=== PATIENT | male | born 1960 | race Caucasian/White ===

== ENCOUNTER 2022-10-18 09:55 | Outpatient (CLI) | payer OTHER, SELFPAY ==
--- NOTE | ~2022-10-18 | CT_ITS ---
EXAMINATION: CT lung screening DATE: 10/18/2022 10:22 INDICATION: NICOTINE DEPENDENCE TECHNIQUE: Computed tomography (CT) of the chest was performed without intravenous contrast. Addition al 3D reconstructions utilizing coronal maximum intensity projection (MIP) were performed. Automated exposure control and iterative reconstruction technique were employed. The dose-length product was 20 5.77 mGy-cm. COMPARISON: None FINDINGS: Mild discoid atelectasis at the lingula. 1 mm subpleural nodule in the medial right middle lobe. Coup le 1-2 mm calcified nodules in the bilateral upper lobes consistent with old granulomatous disease. N o other larger cyst is pulmonary nodules, pneumonia, pulmonary edema or other pulmonary infiltrates. No pleural effusion. Heart size is normal. Borderline ascending thoracic aortic aneurysm measuring up to 4.0 cm. No pathologically enlarged thoracic lymphadenopathy. Minimal bilateral gynecomastia. Mild diffuse hepatic steatosis. Mild thoracic spondylosis with multiple endplate osteophytes. IMPRESSION: 1. Lung-RADS category 2: Benign appearance or behavior. Continue annual screening with noncontrast lo w-dose chest CT in 12 months. 2. Borderline ascending thoracic aortic aneurysm measuring up to 4.0 cm. Reviewed, dictated and finalized at location B. EXAMINER IMPRESSION: 1. Lung-RADS category 2: Benign appearance or behavior. Continue annual screeni ng with noncontrast low-dose chest CT in 12 months. 2. Borderline ascending thoracic aortic aneurysm measuring up to 4.0 cm.
== END 2022-10-18 09:56 | disposition home or self-care (01) ==
PROVIDERS: PCP Registered Nurse; Visit Provider Registered Nurse
DX: F17.211 Nicotine dependence, cigarettes, in remission (principal)
CPT/HCPCS: 71271

== ENCOUNTER 2023-08-07 14:22 | Outpatient (CLI) | payer MEDICARE, OTHER, SELFPAY ==
--- NOTE | ~2023-08-07 | US_ITS ---
EXAMINATION: US scrotum doppler DATE: 08/07/2023 15:10 INDICATION: Scrotal mass TECHNIQUE: Testicular sonogram utilizing grayscale and Doppler COMPARISON: None. FINDINGS: The right testis measures 5.0 x 3.3 x 1.9 cm. The left testis measures 5.4 x 3.3 x 2 point cm. There is tubular ectasia of the right rete testis. Otherwise symmetric normal grayscale appearance to both testes. There is normal vascular flow to both testes. The right epididymis is normal definitively vis ualized and per patient report is surgically absent. The left epididymis is normal with normal vascul ar flow. There is no varicocele or hydrocele. There is approximately 2 mm hypoechoic lesion in the sarmiento bcutaneous tissues overlying the left testis is suggestion of a tiny tract extending to the skin surf pam suggest an epidermoid cyst/sebaceous cyst. IMPRESSION: 1. 2 mm hypoechoic nodule in the superficial subcutaneous tissues suggestive of a tiny tract extendi ng to the skin surface suggesting epidermoid/sebaceous cyst. No other abnormal masses or fluid collec tions identified. 2. Nonvisualized right epididymis, surgically absent per patient report. 3. Tubular ectasia of the right-sided rete testis. Otherwise normal bilateral testis. Reviewed, dictated and finalized at location A. HOLOGICAL STRESS EVALUATOR IMPRESSION: 1. 2 mm hypoechoic nodule in the superficial subcutaneous tissues suggestive o f a tiny tract extending to the skin surface suggesting epidermoid/sebaceous cy st. No other abnormal masses or fluid collections identified. 2. Nonvisualized right epididymis, surgically absent per patient report. 3. Tubular ectasia of the right-sided rete testis. Otherwise normal bilateral t estis.
== END 2023-08-07 14:23 | disposition home or self-care (01) ==
PROVIDERS: PCP Registered Nurse; Visit Provider Registered Nurse
DX: N50.89 Other specified disorders of the male genital organs (principal)
CPT/HCPCS: 76870; 93976

== ENCOUNTER 2023-08-11 15:24 | Outpatient (CLI) | payer MEDICARE, OTHER, SELFPAY ==
--- NOTE | ~2023-08-11 | XR_ITS ---
EXAMINATION: XR ankle LT min 3V DATE: 08/11/2023 15:40 INDICATION: Left ankle pain after fall TECHNIQUE: Anteroposterior, lateral, mortise, and additional oblique view of the ankle were obtained. COMPARISON: None. FINDINGS: There is diffuse soft tissue swelling of ankle. Bone alignment is normal. There is no fract ure. A plantar calcaneal enthesophyte is noted. IMPRESSION: 1. Ankle soft tissue swelling without acute osseous abnormality. Reviewed, dictated and finalized at location F. WORKER HEAD
== END 2023-08-11 15:25 | disposition home or self-care (01) ==
PROVIDERS: PCP Registered Nurse; Visit Provider Nurse Practitioner Family
DX: M25.572 Pain in left ankle and joints of left foot (principal)
CPT/HCPCS: 73610

== ENCOUNTER 2023-11-18 15:11 | Outpatient (CLI) | payer MEDICARE, OTHER, SELFPAY ==
--- NOTE | ~2023-11-18 | CT_ITS ---
EXAMINATION: CTA chest DATE: 11/18/2023 15:36 INDICATION: Aneurysm of ascending aorta without rupture. TECHNIQUE: Computed tomographic angiography (CTA) of the chest was performed with 100 mL Omnipaque-35 0 intravenous contrast. Automated exposure control and iterative reconstruction technique were employ ed. The dose-length product was 668.67 mGy-cm. Maximum intensity projection 3D-reconstructions of the aorta and other arteries were constructed by the technologist on a separate workstation. COMPARISON: Chest CT 10/18/2022 FINDINGS: There is mild emphysema. The lungs demonstrate mild atelectasis. No pleural effusion. The h eart size is normal. No pericardial effusion. The aorta measures 4.2 cm at the sinuses of Valsalva, 3 .4 cm at the sinotubular junction, 4.1 cm at the mid ascending aorta, 2.9 cm in the aortic isthmus, a nd 2.9 cm in the mid descending aorta. There is mild aortic atherosclerosis. There are cysts in left kidney measuring up to 6 mm. There is mild bilateral gynecomastia. There is moderate cervical spondyl osis and mild thoracic spondylosis. IMPRESSION: 1. Ectasia of ascending aorta measuring up to 4.2 cm. Reviewed, dictated and finalized at location A. ERNMAKER APPRENTICE METAL
[2023-11-18 15:28] LABS: Estimated Glomerular Filt Rate 51
== END 2023-11-18 15:12 | disposition home or self-care (01) ==
PROVIDERS: PCP Registered Nurse
DX: I71.21 Aneurysm of the ascending aorta, without rupture (principal)
CPT/HCPCS: 71275; Q9967

== ENCOUNTER 2023-12-17 12:02 | Day surgery (SDC) | payer MEDICARE, OTHER, SELFPAY ==
[2023-12-17] VITALS (8 sets, daily range): BP systolic 115–137; BP diastolic 67–94; PULSE 62–85; RESP 12–20; TEMP 36.4–36.8; O2SAT 98–100
--- NOTE | ~2023-12-17 | XR_ITS ---
EXAMINATION: XR hand LT min 3V DATE: 12/17/2023 12:30 INDICATION: Left hand laceration. TECHNIQUE: 3 views of left wrist were obtained. COMPARISON: None. FINDINGS: There is a comminuted fracture of fourth distal phalanx. The main distal fracture fragment demonstrates 2 mm dorsal displacement and 3 mm distraction. There is mild osteoarthritis of first car pometacarpal joint and some of the interphalangeal joints. IMPRESSION: 1. Comminuted fracture of fourth distal phalanx. Reviewed, dictated and finalized at location A.
--- NOTE | ~2023-12-17 | XR_ITS ---
EXAMINATION: XR surgery orthopedic DATE: 12/17/2023 16:20 INDICATION: Fracture of the left fourth distal phalanx TECHNIQUE: 3 fluoroscopic images of the left fourth digit were obtained during procedure performed by Dr. Borja. Radiologist was not present for the imaging or procedure. The amount of fluoroscopy time used during this procedure was 0.3 minutes. COMPARISON: 12/17/2023 FINDINGS: Initial image redemonstrates a comminuted fracture of the mid to distal aspect of the left fourth dis marlon phalanx. The previously seen displacement has been reduced with the fracture now in near-anatomic alignment. Subsequent images demonstrate percutaneous pin fixation extending across segmental fragme nt across the main proximal segment and into the head of the middle phalanx. IMPRESSION: 1. Fluoroscopy utilized during reduction and percutaneous pin fixation of a comminuted fractures of t he left fourth distal phalanx. Reviewed, dictated and finalized at location A. IMPRESSION: 1. Fluoroscopy utilized during reduction and percutaneous pin fixation of a com minuted fractures of the left fourth distal phalanx.
--- NOTE | 2023-12-17 12:16 | ED.GENADULT ---
HPI - General Adult General Chief complaint: Wound/Laceration Stated complaint: finger lac Time Seen by Provider: 12/17/23 12:07 History of Present Illness HPI narrative: 63-year-old male present to the ED for evaluation after having an injury to his left hand. Patient was working at a table saw prior to arrival and did cut the palmar aspects of his 2nd 3rd and 4th distal fingers. Patient has almost a complete amputation of the distal aspect of the 4th finger. Patient's tetanus is up-to-date. Plastic surgery was consulted. Related Data Home Medications Medication Instructions Recorded Confirmed bupropion HCl 150 mg 24 hr tablet, 150 mg PO DAILY 12/17/23 12/17/23 extended release dexmethylphenidate 15 mg 15 mg PO DAILY 12/17/23 12/17/23 capsule,extended release [id number] fenofibrate micronized 134 mg See Rx Instructions .Route .COMPLEX 12/17/23 12/17/23 capsule quetiapine 100 mg tablet 100 mg PO DAILY 12/17/23 12/17/23 vilazodone 40 mg tablet 40 mg PO DAILY 12/17/23 12/17/23 Allergies Allergy/AdvReac Type Severity Reaction Status Date / Time No Known Allergies Allergy Verified 12/17/23 12:07 Review of Systems Review of Systems: All systems reviewed & are unremarkable except as noted in HPI and below Exam Narrative: APPEARANCE: Well appearing, no pain, no distress, well-nourished. HEAD: normocephalic, atraumatic. EYES: PERRLA/EOMI, conjunctivae clear. NOSE: Normal no drainage EARS:TMS clear with good light reflex. THROAT: Pharynx clear, no exudate. NECK: Supple. No adenopathy, no masses. RESPIRATORY: Airway patent, respirations nonlabored. Clear to auscultation bilaterally, no rales, rhonchi, wheezing. CARDIOVASCULAR: Regular rate and rhythm without murmurs rubs or gallops. ABDOMINAL: Soft, nontender, nondistended, normal bowel sounds MUSCULOSKELETAL: Lacerations to distal 2nd 3rd and 4th fingers with almost complete amputation of the distal aspect of the 4th finger NEURO: Alert. Cranial nerves II through XII intact. Grossly intact SKIN: Warm, dry. Normal Color Course Course Emergency Course: Plastic surgeon was consulted and patient went to the operating room Vital Signs Vital signs: Vital Signs Temperature 98.2 F 12/17/23 12:11 Pulse Rate 85 12/17/23 12:11 Respiratory Rate 15 12/17/23 12:11 Blood Pressure 115/74 12/17/23 12:11 Pulse Oximetry 98 12/17/23 12:11 Temperature 98.2 F 12/17/23 12:11 Pulse Rate 71 12/17/23 13:26 Respiratory Rate 16 12/17/23 13:26 Blood Pressure 118/72 12/17/23 13:26 Pulse Oximetry 99 12/17/23 13:26 Medical Decision Making MDM Narrative Medical decision making narrative: 63-year-old male presenting to the ED for evaluation injury to his left hand. Patient does have lacerations to 2nd and 3rd fingers and a partial avulsion of the fingertip on his 4th finger of his left hand. Plastic surgery was consulted. Patient will be taken to the OR for cleanout repair and pinning of the affected finger. Patient family were updated on plan for treatment. Vital Signs Vital Signs: Vital Signs Temperature 98.2 F 12/17/23 12:11 Pulse Rate 85 12/17/23 12:11 Respiratory Rate 15 12/17/23 12:11 Blood Pressure 115/74 12/17/23 12:11 Pulse Oximetry 98 12/17/23 12:11 Temperature 98.2 F 12/17/23 12:11 Pulse Rate 71 12/17/23 13:26 Respiratory Rate 16 12/17/23 13:26 Blood Pressure 118/72 12/17/23 13:26 Pulse Oximetry 99 12/17/23 13:26 Lab Data 12/17/23 12:16 12/17/23 12:16 Labs: Lab Results 12/17/23 Range/Units 12:16 WBC 7.5 (4.5-10.0) K/mm3 RBC 5.39 (4.6-6.20) M/mm3 Hgb 15.9 (14.0-18.0) g/dL Hct 47.6 (42.0-52.0) % MCV 88.3 (80-100) fl MCH 29.5 (26-34) pg MCHC 33.4 (32-36) g/dl RDW 13.1 (11.5-14.5) % Plt Count 343 (150-375) k/mm3 MPV 10.3 (7.4-10.4) fl Immature Gran % (Auto) 0.4 (0-0.5) % Neut % (Auto) 54.
[2023-12-17 12:30] LABS: Basophils Absolute Auto 0.1 K/mm3 (0.0-0.1); Basophils Percent Auto 0.7 % (0.2-1.2); Eosinophils Absolute Auto 0.1 K/mm3 (0-0.3); Eosinophils Percent Auto 1.3 % (0-4.4); Hematocrit 47.6 % (42.0-52.0); Hemoglobin 15.9 g/dL (14.0-18.0); Immature Granulocyte Absolute 0.03 K/mm3 (0.00-0.031); Immature Granulocyte Percent A 0.4 % (0-0.5); Lymphocytes Absolute Auto 2.72 K/mm3 (0.9-3.2); Lymphocytes Percent Auto 36.3 % (18.3-44.2); Mean Corpuscular HGB Conc 33.4 g/dl (32-36); Mean Corpuscular Hemoglobin 29.5 pg (26-34); Mean Corpuscular Volume 88.3 fl (80-100); Mean Platelet Volume 10.3 fl (7.4-10.4); Monocytes Absolute Auto 0.6 K/mm3 (0.1-0.6); Monocytes Percent Auto 7.3 % (2.6-8.5); Neutrophils Absolute Auto 4.1 K/mm3 (1.3-6.7); Platelet Count Result 343 k/mm3 (150-375); Red Blood Count 5.39 M/mm3 (4.6-6.20); Red Cell Distribution Width 13.1 % (11.5-14.5); White Blood Count 7.5 K/mm3 (4.5-10.0)
[2023-12-17 12:35] LABS: INR 0.9; Prothrombin Time 12.3 Seconds (11.1-14.7)
[2023-12-17 12:36] LABS: Alanine Aminotransferase 32 U/L (6-50); Alkaline Phosphatase 58 U/L (38-126); Anion Gap 9 mmol/L (4-12); Aspartate Amino Transferase 39 U/L (17-59); Bilirubin,Total 0.8 mg/dL (0.2-1.3); Blood Urea Nitrogen 21 mg/dL (9-20); Calcium 10.3 mg/dL (8.4-10.2); Carbon Dioxide 26 mmol/L (22-30); Chloride 104 mmol/L (98-107); Estimated CRCL calculation 52 ml/min; Estimated Glomerular Filt Rate 55; Glucose 115 mg/dL (65-110); Partial Thromboplastin Time 26.4 Seconds (22.3-36.8); Potassium 3.9 mmol/L (3.4-5.0); Sodium 139 mmol/L (137-145)
--- NOTE | 2023-12-17 12:59 | WPDCN ---
Assessment and Plan Assessment and plan (1) Fracture of distal phalanx of left ring finger: Qualifiers: Encounter type: initial encounter Fracture type: open Fracture alignment: displaced Qualified Code(s): S62.635B - Displaced fracture of distal phalanx of left ring finger, initial encounter for open fracture Code(s): S62.635A - Displaced fracture of distal phalanx of left ring finger, initial encounter for closed fracture Status: Acute Plan 63yo male with left index, middle and ring finger laceration with near complete amputaiton left ring finger distal phalanx. xray images revwied and agree with report discussed impression and Dx and recommendation for operative intervention. discussed surgical washoult, closure, pinning distal phalanx fracture and possible nailbed repair, post-op expectations and risks. Reviewed procedure, post-op expectations and risks including but not limited to bleeding, infection, injury to tendon/nerve/vessel, decreased hand function, stiffness, RSD, no change or worsening of symptoms. Plan: 1) will go to OR today for washout closure and pinning. HPI Data of Consult Date/Time: 12/17/23 12:59 Requesting Physician: Tamera Pickard RN Primary Care Provider: Morelia Scott, COSTING ANALYST Consult Narrative Narrative: Yassine Vee is a 63 year old male who presented to the ER with table saw injury lacerations to left index, middle and ring finger. Given extent of injury, plastics consulted for further eval and mgmt no other concerns Review of Systems Review of Systems: All systems reviewed & are unremarkable except as noted in HPI and below Meds Home Medications and Allergies Allergies Allergy/AdvReac Type Severity Reaction Status Date / Time No Known Allergies Allergy Verified 12/17/23 12:07 Vital Signs Vital Signs - 24 hr 12/17/23 12:11 Temperature 36.8 C Pulse Rate 85 Respiratory Rate 15 Blood Pressure 115/74 Pulse Oximetry 98 Exam Narrative: Gen: laceration to distal phalanx area of left index, midle, ring fingers. ROM: fds/fdp/edc appear intact though limited from pain Vascular: Warm and well perfused with >2sec cap refull to ring finger Sensation: Intact to light touch to all tips except index and ring finger. Results Labs 12/17/23 12:16 12/17/23 12:16 Labs: Short CBC 12/17/23 Range/Units 12:16 WBC 7.5 (4.5-10.0) K/mm3 Hgb 15.9 (14.0-18.0) g/dL Hct 47.6 (42.0-52.0) % Plt Count 343 (150-375) k/mm3 BMP 12/17/23 12:16 Sodium 139 Potassium 3.9 Chloride 104 Carbon Dioxide 26 BUN 21 H Creatinine 1.30 Glucose 115 H Calcium 10.3 H Liver Function 12/17/23 Range/Units 12:16 Total Bilirubin 0.8 (0.2-1.3) mg/dL AST 39 (17-59) U/L ALT 32 (6-50) U/L Alkaline Phosphatase 58 (38-126) U/L Albumin 5.0 (3.5-5.1) g/dL AMG Consult Billing Inpatient Consult Inpatient Consults: [id number] Consult Moderate
[2023-12-17] MEDS: HYDROmorphone HCL INJ (*CRX) 1 MG/ML SYR 0.5 MG IV PUSH ×2 (13:02→14:30)
[2023-12-17] MEDS: CEFEPIME 2 GM/NS 50 ML 2 GM/50 ML BAG IVPB (13:03)
--- NOTE | 2023-12-17 15:13 | WPDHPUPDATE1 ---
History and Physical Update Update Date/Time: 12/17/23 15:13 Patient seen and examined in pre-operative holding area. No interval change in medical history or symptoms. Patient recalls previous discussion of benefits and alternatives to procedure. Continues to desire to proceed with left index, middle and ring finger exploration, debridement and closure with left ring finger distal phalanx pinning and possible nailbed repair. Reviewed procedure, post-op expectations and risks including but not limited to bleeding, infection, injury to tendon/nerve/vessel, decreased hand function, stiffness, RSD, no change or worsening of symptoms, malunion, nonunion. I discussed the possible use of assistants and their participation in the case. Patient stated understanding and signed the consent form wishing to proceed.
--- NOTE | 2023-12-17 15:27 | WPDANESEPPF ---
Anes - Initial Pre Proc Eval Procedure: Operation Date: 12/17/23 15:30 Proposed Procedures p Incision and Drainage with Washout Left Index, Middle and Ring Fingers, Open Reduction Internal Fixation Left Ring Finger - Addy Borja MD Date/Time: 12/17/23 15:27 Surgeon: Tamera Pickard RN Pre Op Diagnosis: finger lac Patient Data Age: 63 Gender: M Height: 1.78 m Weight: 93.2 kg Last Vital Signs Temp 36.8 C 12/17/23 12:11 Pulse 71 12/17/23 13:26 Resp 16 12/17/23 13:26 BP 118/72 12/17/23 13:26 Pulse Ox 99 12/17/23 13:26 Allergies Allergy/AdvReac Type Severity Reaction Status Date / Time No Known Allergies Allergy Verified 12/17/23 12:07 Home Medications Medication Instructions Recorded Confirmed Type bupropion HCl 150 mg 24 hr tablet, 150 mg PO DAILY 12/17/23 12/17/23 History extended release dexmethylphenidate 15 mg 15 mg PO DAILY 12/17/23 12/17/23 History capsule,extended release [id number] fenofibrate micronized 134 mg See Rx Instructions .Route .COMPLEX 12/17/23 12/17/23 History capsule quetiapine 100 mg tablet 100 mg PO DAILY 12/17/23 12/17/23 History vilazodone 40 mg tablet 40 mg PO DAILY 12/17/23 12/17/23 History Laboratory Tests 12/17/23 12:16 WBC 7.5 K/mm3 (4.5-10.0) RBC 5.39 M/mm3 (4.6-6.20) Hgb 15.9 g/dL (14.0-18.0) Hct 47.6 % (42.0-52.0) MCV 88.3 fl (80-100) MCH 29.5 pg (26-34) MCHC 33.4 g/dl (32-36) RDW 13.1 % (11.5-14.5) Plt Count 343 k/mm3 (150-375) MPV 10.3 fl (7.4-10.4) Immature Gran % (Auto) 0.4 % (0-0.5) Neut % (Auto) 54.0 % (45.5-73.1) Lymph % (Auto) 36.3 % (18.3-44.2) [place] % (Auto) 7.3 % (2.6-8.5) Eos % (Auto) 1.3 % (0-4.4) Baso % (Auto) 0.7 % (0.2-1.2) Lymph # (Auto) 2.72 K/mm3 (0.9-3.2) [place] # (Auto) 0.6 K/mm3 (0.1-0.6) Eos # (Auto) 0.1 K/mm3 (0-0.3) Baso # (Auto) 0.1 K/mm3 (0.0-0.1) Abs Immat Gran (auto) 0.03 K/mm3 (0.00-0.031) Absolute Neuts (auto) 4.1 K/mm3 (1.3-6.7) Absolute Nucleated RBC 0.000 K/mm3 (0.0-0.012) Nucleated RBC % 0.0 % (0.0-0.2) PT 12.3 Seconds (11.1-14.7) INR 0.9 APTT 26.4 Seconds (22.3-36.8) Sodium 139 mmol/L (137-145) Potassium 3.9 mmol/L (3.4-5.0) Chloride 104 mmol/L (98-107) Carbon Dioxide 26 mmol/L (22-30) Anion Gap 9 mmol/L (4-12) BUN 21 H mg/dL (9-20) Creatinine 1.30 mg/dL (0.7-1.3) Estim Creat Clear Calc 52 ml/min Estimated GFR 55 L (59 - ) Glucose 115 H mg/dL (65-110) Calcium 10.3 H mg/dL (8.4-10.2) Total Bilirubin 0.8 mg/dL (0.2-1.3) AST 39 U/L (17-59) ALT 32 U/L (6-50) Alkaline Phosphatase 58 U/L (38-126) Total Protein 8.0 g/dL (6.3-8.2) Albumin 5.0 g/dL (3.5-5.1) Patient hx anesthesia problems: none Family hx anesthesia problems: none Results Review: All pre-operative results and documents have been reviewed as part of the pre-operative evaluation. Anes - Eval Final PreProcedure Day of Procedure 12/17/23 15:27 Patient weight: overweight Heart: regular rate and rhythm Lungs: decreased breath sounds Airway: Mallampati scale class II Neurological: alert and oriented Last oral intake: >/= 8 hours ASA classification: III Emergent: no Anesthetic plan: proceed Anesthesia type and monitoring: general LMA and standard monitoring Results Review: All pre-operative results and documents have been reviewed as part of the pre-operative evaluation. Informed Consent: The patient's anesthetic plan and its attendant risks and benefits were discussed with the patient/family/POA. Questions were solicited and answers provided to the satisfaction of the patient/family/POA.
[2023-12-17] MEDS: BUPivacaine HCL 0.5% 10 ML AMP INFILTRATE (16:07)
[2023-12-17] MEDS: LIDOCAINE 1% BUFFERED WITH 8.4% SODIUM BICARB 1 ML SYRINGE 10 ML INFILTRATE (16:08)
--- NOTE | 2023-12-17 16:15 | P.OP_ITS ---
Procedure Note - Detailed Date of Procedure 12/17/23 Pre-op Diagnosis left index, middlge, ring finger laceration and open fracture left ring fing distal phalanx with nailbed involvement Post-op Diagnosis Same Procedure Performed washout and debridement left index, middle, and ring finger laceration, open reduction and pining left ring finger distal phalanx fracture and left ring finger nailbed repair Surgeon Addy Borja MD Franchise Development Manager Pam Fraser PA-C Anesthesia General Description of Procedure INFORMED CONSENT: The patient was seen and examined and marked in the pre-op area.? The patient signed the consent form. PROCEDURE IN DETAIL:The patient taken back to OR on the stretcher in supine position. Time out performed with anesthesia, surgeon and staff agreeing on patient's name site and surgery to be performed SCDs were placed on the lower extremities and inflated. A tourniquet was placed on {left} upper extremity and antibiotics given IV After anesthesia administered sedation I injected {8}cc 1%lido with epi and 0.5% marcaine plain for digital blocks in the palm The?{left upper extremity}?was prepped and draped in sterile fashion the??{left upper extremity} was? exsanguinated with Esmarch bandage and tourniquet inflated to 250mmHg I proceeded with irrigation and initial 5 minute soak of affected fingers in a saline peroxide solution. I further irrigated with normal saline debriding the wounds of blood clot. I proceeded first with attention to the near complete amputation of the ring finger where I sharpley debrided irregular nonviable skin edges with littler scissor and proceede with closure using 4-0 and 5-0 chromic. the nailplate and nailbed had multiple lacerations and was repaired with 4-0 chromic to restore appearance and approximation of nailplate and nailbed. The nailplate was reduced under the proximal nail fold which was also repaired with 5-0 chromic suture. I proceeded with placing a 0.035 k-wire retrograde across the fracture and immobilizing DIPjoint into the middle phalanx. This was evaluated with multiple views of mini c-arm. Next I took my attention the the middle and index finger complex lacerations which I sharply debrided nonviabel irregular skin edges with littler scissors and closed with 4-0 chromic. The total length of all repairs measured 3.3cm A dressing of xeroform, 4x4, edna, and a volar splint was applied for patient safety, security, and comfort and secured with an pam bandage after the tourniq uet was let down noting the hand was warm and well perfused with slightly reduced cap refill on the left ring finger. The patient was then awaken from anesthesia and transferred to the recovery room in stable condition.? Complications - none EBL- 5cc Disposition - home in stable conditions Pam Cano was essential for positioning, closure, and dressing placement [facility] [place] - Charge Forward: Surgery Billing ([id number] and [id number] same codes for pam adding modifier )
[2023-12-17] MEDS: BACITRACIN OINTMENT 15 GM TUBE 1 APPLIC TOPICAL (16:20)
[2023-12-17] MEDS: LACTATED RINGERS 1,000 ML 30 ML IV CONT (16:36)
== END 2023-12-17 17:35 | disposition home or self-care (01) ==
LOC: ANHED 12:43 → ANHSURGERY 12:45
PROVIDERS: Emergency Provider Emergency Medicine; PCP Registered Nurse; Visit Provider Plastic Surgery
PROC: (CPT 26765; principal; 2023-12-17 15:30)
DX: S62.635B Displaced fracture of distal phalanx of left ring finger, initial encounter for open fracture (principal); S61.315A Laceration without foreign body of left ring finger with damage to nail, initial encounter; S61.213A Laceration without foreign body of left middle finger without damage to nail, initial encounter; S61.211A Laceration without foreign body of left index finger without damage to nail, initial encounter; W31.2XXA Contact with powered woodworking and forming machines, initial encounter
CPT/HCPCS: 26765; 13132; 11760; 36415; 73130; 80053; 85025; 85610; 85730; 96365; 96375; 99199; 99285; A9270; C1713; J0692; J1170; J2405; J2704; J3010; J7120

== ENCOUNTER 2023-12-31 02:13 | Day surgery (SDC) | payer MEDICARE, OTHER, SELFPAY ==
--- NOTE | 2023-12-26 15:24 | PC.NURSE ---
Report to the Outpatient Waiting Room, entrance under the green pavilion located off [facility], at time 0930 on date __12/31/23 . Planned Procedure Time: __1030 . Time changes happen often and if your time is changed the preop area will call you the afternoon before. - You and your visitor will be asked to self-screen and do not enter if you have any COVID symptoms. - A mask is optional within the hospital at this time. LIGHT BREAKFAST MORNING OF SURGERY Take the following medications with a SIP of water the morning of surgery: ROUTINE MORNING MEDICATIONS DO NOT STOP ANY OF YOUR OTHER PRESCRIPTION MEDICATIONS PRIOR TO SURGERY ?EXCEPT THE FOLLOWING Medications to discontinue per physician NONE Please no make-up, nail german, hairspray, perfume, deodorant, or body powder the day of surgery. No jewelry (including any body piercings) or valuables the day of surgery, leave them at home. Please take a shower or bath the night before, or the morning of, surgery with an antibacterial soap. Wear comfortable, loose fitting clothing. Children are encouraged to wear pajamas. - Jewelry must be removed prior to entering the operating room. Rings and piercings that are not removed may be cut off. - The hospital will not accept responsibility for valuables. - Please leave all valuables, including medications, at home the day of surgery. LOCAL ANESTHESIA-MAY DRIVE YOURSELF HOME If you are going home after surgery, a licensed after school driver must drive you home. - NO public transportation without another adult if you receive anesthesia. - We recommend that an adult stay with you for 24 hours following discharge. - We also recommend that you do not drive, make important decision, drink alcoholic beverages, or take any drugs that were not prescribed by your health care provider for at least 24 hours after your discharge time. For Pediatric surgeries, we recommend two adults accompany the child home. Follow any additional instructions given to you from your surgeon. If you or anyone in your household have experienced Covid symptoms in the past week, please notify your surgeon or the nurse liaison at the phone number below for possible testing. Telephone instructions given to ____PT and asked if any additional questions and then verbalized understanding. Patient advised to call surgeon office or pre surgery nurse liaison [phone] if any additional questions.
[2023-12-26 15:27] VITALS: BMI 29.4
[2023-12-31] MEDS: ACETAMINOPHEN 500 MG TABLET 1000 MG PO (06:29)
[2023-12-31 06:42] VITALS: BP 129/80; PULSE 70; RESP 16; TEMP 36.1; O2SAT 100
--- NOTE | 2023-12-31 07:20 | P.HP_ITS ---
H&P: HPI History of Present Illness Date/Time: 12/31/23 07:20 Chief Complaint: scrotal lesion PMFSH Past Medical History Medical History (Updated 12/31/23 @ 07:21 by Jorge Casas MD) Scrotal skin lesion Social History Social History Smoking packs per day: 1 Smoking cigarettes per day: 20.0 Years smoked: 30 Smoking pack-years: 30.00 Smoking status: Former smoker Tobacco type: cigarettes Smoking end date: 09/22/14 Substance use: current Substance use type: marijuana Last use: 12/15/23 Living arrangements: with family Spiritual care concerns: No Meds Home Medications and Allergies Home Medications Medication Instructions Recorded Confirmed Type bupropion HCl 150 mg 24 hr tablet, 150 mg PO DAILY 12/17/23 12/26/23 History extended release fenofibrate micronized 134 mg See Rx Instructions .Route .COMPLEX 12/17/23 12/26/23 History capsule oxycodone-acetaminophen 5 mg-325 1 tablet PO Q6H PRN pain #12 tabs 12/17/23 12/26/23 Rx mg tablet quetiapine 100 mg tablet 100 mg PO HS 12/17/23 12/26/23 History vilazodone 40 mg tablet 40 mg PO DAILY 12/17/23 12/26/23 History cyclobenzaprine 10 mg tablet 10 mg PO HS 12/26/23 12/26/23 History lisinopril 10 mg tablet 10 mg PO DAILY 12/26/23 12/26/23 History pravastatin 40 mg tablet 40 mg PO HS 12/26/23 12/26/23 History quetiapine 50 mg tablet 50 mg PO QAM 12/26/23 12/26/23 History rizatriptan 10 mg tablet 10 mg PO PRN PRN MIGRAINES 12/26/23 12/26/23 History Allergies Allergy/AdvReac Type Severity Reaction Status Date / Time No Known Allergies Allergy Verified 12/31/23 06:28 Vital Signs Vital Signs - 24 hr 12/31/23 06:42 Temperature 36.1 C L Pulse Rate 70 Respiratory Rate 16 Blood Pressure 129/80 Pulse Oximetry 100 Oxygen Delivery Room Air Exam Narrative: awake, alert no acute distress 1 cm left lateral scrotal subcutaneous l esion Assessment and Plan Assessment and plan (1) Scrotal skin lesion: Code(s): N50.9 - Disorder of male genital organs, unspecified Status: Acute Plan Plan excision of scrotal lesion, scrotoplasty - risks, benefits and alternatives discussed. Pt agrees to proceed
--- NOTE | 2023-12-31 07:22 | WPDHPUPDATE1 ---
History and Physical Update Update Date/Time: 12/31/23 07:22 History and Physical has been reviewed, including an updated exam of the patient. There are NO changes in the patient's condition. Risks, benefits, and alternatives have been discussed and questions answered. Patient agrees to proceed with procedure.
[2023-12-31 07:30] VITALS: BP 116/75; PULSE 64; RESP 16; O2SAT 97
[2023-12-31 07:40] VITALS: BP 119/75; PULSE 70; RESP 16; O2SAT 97
[2023-12-31 07:50] VITALS: BP 116/71; PULSE 62; RESP 16; O2SAT 97
[2023-12-31] MEDS: BUPivacaine HCL 0.5% 10 ML AMP INFILTRATE (07:57)
[2023-12-31 08:00] VITALS: BP 117/72; PULSE 64; RESP 16; O2SAT 97
--- NOTE | 2023-12-31 08:06 | W.PM.PROC2 ---
Procedure Note - Detailed Date of Procedure 12/31/23 Pre-op Diagnosis scrotal cyst Post-op Diagnosis Same Procedure Performed Excision of left scrotal cyst, scrotoplasty Surgeon Jorge Casas MD Anesthesia Local Findings 1cm left lateral subcutaneous cyst Description of Procedure Informed consents obtained. Patient taken the operating. He was prepped and draped in the normal sterile fashion. Local anesthetic with 0.5% Marcaine was injected under the cystic area. An ellipsoid incision was made in the skin surrounding the abnormality. A 2cm portion of skin including the subcutaneous cyst was then sharply excised. This was sent as specimen. We irrigated copiously. Hemostasis was achieved electrocautery. We then reconstructed the scrotum. The deeper layers were reapproximated with 3-0 Vicryl suture. Skin was reapproximated with interrupted 4-0 chromic sutures. There was a nice cosmetic result. Patient had a dressing placed . He was taken to recovery room in stable condition Pathology Yes Complications No immediate complications Condition Stable Disposition PACU
[2023-12-31 08:08] VITALS: BP 112/68; PULSE 65; RESP 16; O2SAT 100
== END 2023-12-31 08:28 | disposition home or self-care (01) ==
PROVIDERS: PCP Registered Nurse; Visit Provider Urology
PROC: (CPT 54060; principal; 2023-12-31 07:30)
DX: L90.5 Scar conditions and fibrosis of skin (principal); Z87.891 Personal history of nicotine dependence; F12.90 Cannabis use, unspecified, uncomplicated
CPT/HCPCS: 11422; 12041; 73130; 88305; A9270; J7030

== ENCOUNTER 2023-12-31 14:57 | Outpatient (CLI) | payer MEDICARE, OTHER, SELFPAY ==
--- NOTE | ~2023-12-31 | XR_ITS ---
EXAMINATION: XR hand LT min 3V DATE: 12/31/2023 15:11 INDICATION: Fracture of left hand fourth distal phalanx. TECHNIQUE: 3 views of left hand were obtained. COMPARISON: Left hand radiographs 12/17/2023 FINDINGS: There is a comminuted fracture of fourth distal phalanx. The main distal fracture fragment demonstrates 1 mm dorsal displacement. There is a percutaneous pin in fourth distal phalanx and head of fourth middle phalanx. There is mild osteoarthritis of triscaphe joint, first carpometacarpal join t, and many of the metacarpophalangeal joints and interphalangeal joints. There is moderate osteoarth ritis of fifth proximal and distal interphalangeal joints. IMPRESSION: 1. Comminuted fracture of fourth distal phalanx with improvement in alignment status post wire fixati on. Reviewed, dictated and finalized at location A. IMPRESSION: 1. Comminuted fracture of fourth distal phalanx with improvement in alignment s tatus post wire fixation.
== END 2023-12-31 14:58 | disposition home or self-care (01) ==
LOC: ANHIMG 14:58
PROVIDERS: PCP Registered Nurse; Visit Provider Physician Assistant Surgical
DX: S62.635D Displaced fracture of distal phalanx of left ring finger, subsequent encounter for fracture with routine healing (principal); X58.XXXD Exposure to other specified factors, subsequent encounter
CPT/HCPCS: 73130

== ENCOUNTER 2024-01-14 15:21 | Outpatient (CLI) | payer MEDICARE, OTHER, SELFPAY ==
--- NOTE | ~2024-01-14 | XR_ITS ---
EXAMINATION: XR hand LT min 3V DATE: 01/14/2024 15:36 INDICATION: Fracture of unspecified phalanx of left hand TECHNIQUE: 3 views of left hand were obtained. COMPARISON: Left hand radiographs/07/15, 12/17/2023 FINDINGS: There is a comminuted fracture of tuft of fourth distal phalanx. The main distal fracture f ragment demonstrates 1 mm dorsal displacement. There is mild osteoarthritis of first carpometacarpal joint and some of the interphalangeal joints. The fixation wire has been removed. Splint material obs cures fine bone detail. IMPRESSION: 1. Comminuted fracture of tuft of fourth distal phalanx. Reviewed, dictated and finalized at location E.
== END 2024-01-14 15:22 | disposition home or self-care (01) ==
LOC: ANHIMG 15:24
PROVIDERS: PCP Registered Nurse; Visit Provider Physician Assistant Surgical
DX: S62.635D Displaced fracture of distal phalanx of left ring finger, subsequent encounter for fracture with routine healing (principal); X58.XXXD Exposure to other specified factors, subsequent encounter
CPT/HCPCS: 73130

== ENCOUNTER 2024-02-11 13:27 | Outpatient (CLI) | payer MEDICARE, OTHER, SELFPAY ==
--- NOTE | ~2024-02-11 | XR_ITS ---
XR hand LT min 3V DATE: 02/11/2024 13:55 INDICATION: Fracture TECHNIQUE: 3 views of the left hand COMPARISON: January 14, 2024 left hand FINDINGS: Comminuted fracture of the distal phalanx of the fourth digit is noted with little interval change since January 14, 2024. No apparent new bone formation is noted. No other fracture or dislocation, periosteal reaction or bone destruction. 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 IMPRESSION: Comminuted fracture of distal phalanx, with little if any interval change in position or alignment since January 14, 2024 Reviewed, dictated and finalized at location B.
== END 2024-02-11 13:28 | disposition home or self-care (01) ==
LOC: ANHIMG 13:29
PROVIDERS: PCP Registered Nurse; Visit Provider Physician Assistant Surgical
DX: S62.609D Fracture of unspecified phalanx of unspecified finger, subsequent encounter for fracture with routine healing (principal); S62.635D Displaced fracture of distal phalanx of left ring finger, subsequent encounter for fracture with routine healing; X58.XXXD Exposure to other specified factors, subsequent encounter
CPT/HCPCS: 73130

== ENCOUNTER 2024-03-15 13:34 | Outpatient (CLI) | payer MEDICARE, OTHER, SELFPAY ==
--- NOTE | ~2024-03-15 | XR_ITS ---
XR hand LT min 3V Ordering provider: Niurka Fraser PA-C History: . DISPLACED FRACTURE DISTAL PHALAYNX 4TH DIGIT LT HAND . Comparison: February 11, 2024 FINDINGS: BONES: Comminuted fracture of the distal phalanx of the fourth finger with minimal posterior displace ment of the distal fragment. JOINT SPACES: Osteoarthritic changes of the distal interphalangeal joints. SOFT TISSUES: Unremarkable. IMPRESSION: Fracture in the distal phalanx of the left fourth finger with minimal posterior displacement of the d istal fragment. Reviewed, dictated and finalized at location A. IMPRESSION: Fracture in the distal phalanx of the left fourth finger with minimal posterior displacement of the distal fragment.
== END 2024-03-15 13:35 | disposition home or self-care (01) ==
LOC: ANHIMG 13:36
PROVIDERS: PCP Registered Nurse; Visit Provider Physician Assistant Surgical
DX: S62.635A Displaced fracture of distal phalanx of left ring finger, initial encounter for closed fracture (principal); X58.XXXA Exposure to other specified factors, initial encounter
CPT/HCPCS: 73130

== ENCOUNTER 2024-03-30 13:00 | Outpatient (RCR) | payer MEDICARE, OTHER, SELFPAY ==
--- NOTE | 2024-02-12 10:18 | OTOPEVAL1 ---
Assessment and note entered by James Ordonez, ROBERT/Kenia, CHT Evaluation Information Assessment Status Evaluation Diagnosis S62.601G, S62.137I Subjective Information Patient is s/p left 2nd-4th volar P3 laceration repair and 4th P3 CRPP. Injury occurred 12/17/23 from a table saw. His surgery was the same day. Pin was removed 01/29/24. Patient is right handed. He is retired. He is reporting some residual sensitivity and pain on the finger tips. He has been working on ROM and has been trying to use his hand as much as he can tolerate. Reported Pain Level Pain Score 3: Self Report Assessment OT Clinical Summary Patient referred to OT with a decline in left hand use following multiple finger laceration and ring finger fracture, requiring percutaneous pinning. He presents with weakness, residual soft tissue shortening, restricting a functional fist as well as residual sensitivity and pain. Skilled OT indicated to maximize functional ROM and strength through therapeutic exercise, modalities, manual therapy, and HEP instruction/progression. Plan of Care Interventions Therapeutic Exercise,Manual Therapy,Therapeutic Activities,Ultrasound,Paraffin OT Services Indicated Yes Treatment Frequency and 1x/week for 6 visits Duration These treatments will address the objective and functional deficits as defined above. The patient will be advanced safely and appropriately in order for the patient to progress towards his/her prior level of function. Additional exercises will be introduced and as well as a comprehensive home exercise program upon discharge, if needed, ?to ensure carryover of functional gains achieved in the clinic. This treatment plan has been reviewed and agreement upon by the patient.
--- NOTE | 2024-02-12 10:18 | OPREHPOC ---
Outpatient Therapy Plan of Care This is a Multidisciplinary Plan of Care that may contain components documented by all disciplines (PT, OT, and ST.) OT Problem 1 OT Problem #1 Knowledge Deficit OT Goal 1 Goal 1. Patient to be independent with instructed materials. Target Visit 6 OT Problem 2 OT Problem #2 Impaired Range of Motion OT Goal 1 Goal 1. Patient to be able to make a fist as measured by being able to touch his finger tips to the palm . 2. Patient to improve functional intrinsic flexibility as measured by being able to make a hook fist with <2 cm gap between the finger tips and the DPC. Target Visit 6
--- NOTE | 2024-03-30 13:46 | OTOPDC ---
Assessment and note entered by James Ordonez, OTR/Kenia, CHT OT Discharge Summary 03/30/24 Diagnosis S62.159B, S62.020L Subjective Information Patient reports excellent progress since the start of care. He reports his ROM and strength is improving. His sensitivity is improving and he is using a massager on his scar tissue with good results. Functionally he reports only being limited with being able to play the guitar again. 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 He reports he is ready to wrap up with therapy and go on his own. - Composite fist has returned to normal limits. This improved from having a 2 cm gap with all fingers. - Hook fist is improving. Today all fingers measure 2 cm gap between the finger tips and the DPC. After heat and stretching this gap reduced to 1 cm. This improved from 3-4 cm gap at the start of care. - Left expanded function dental assistant strength measuring 72 lbs. Right expanded function dental assistant strength 137 lbs. Reported Pain Level Additional Pain Score Comments Patient typically has no pain. He reports occasionally his hand gets up to 3/10 when he's over done it . Assessment OT Clinical Summary Patient referred to OT with a decline in left hand use following multiple finger laceration and ring finger fracture, requiring percutaneous pinning. Re-evaluation completed this date. Patient is making excellent progress with therapy. He is now able to make a composite fist and expanded function dental assistant items without difficulty. He presents with residual deficit with a hook fist and intrinsic tightness. Reviewed his HEP and recommending he continue to focus on passive and active hook fist as well as his putty HEP. He verbalizes and demonstrates excellent understanding of all materials. He requests to be discharged today with his HEP, which is appropriate. D/C OT with HEP. Plan of Care OT Services Indicated No
== END 2024-03-30 15:17 | disposition home or self-care (01) ==
LOC: ANHGOSHOT 13:00
PROVIDERS: PCP Registered Nurse; Visit Provider Physician Assistant Surgical
DX: S62.609D Fracture of unspecified phalanx of unspecified finger, subsequent encounter for fracture with routine healing (principal); S62.635D Displaced fracture of distal phalanx of left ring finger, subsequent encounter for fracture with routine healing
CPT/HCPCS: 97018; 97110; 97140; 97165; 97530

== ENCOUNTER 2024-09-06 07:03 | Outpatient (CLI) | payer MEDICARE, OTHER, SELFPAY ==
--- NOTE | ~2024-09-06 | US_ITS ---
Ultrasound of the Abdominal Aorta INDICATION: Smoking history TECHNIQUE: Grayscale, color Doppler, and pulsed Doppler images of the aorta and common iliac arteries were obtained. COMPARISON: None. FINDINGS: Maximum vascular dimensions are as follows: Proximal aorta: 3.1 cm Mid aorta: 2.1 cm Distal aorta: 1.6 cm Right common iliac artery: 1.0 cm Left common iliac artery: 1.0 cm There is no evidence of abdominal aortic aneurysm. IMPRESSION: No evidence of abdominal aortic aneurysm. Reviewed, dictated and finalized at location M. [employer]
--- OUTSIDE RECORDS SUMMARY | 2024-09-11 16:58 | XMS_ITS | Encounter Summary ---
Author Organization [facility] [employer] Address [address] [facility] [place] [address] Care Team Providers Care Engineered Wood Designer Name Role Phone Morelia Scott J2EE ARCHITECT-JACKSCREW WORKER Unavailable [phone] Morelia Sctot J2EE ARCHITECT-JACKSCREW WORKER Primary Care Provider Reason for Visit * Auth/Cert (Routine) Specialty Diagnoses / Procedures Referred By Marimar t Referred To Contact Diagnoses History of colon polyps Procedures NE COLOREC CANC SCRN,COLONOSCPY HI RISK COLONOSCOPY SCREEN w/ palagiri COLONOSCOPY SCREEN Referral ID Status Reason Start Date Expiration Date Visits Re quested Visits Authorized [id number] 1 1 Encounter Details Date Type Department Care Team (Late st Contact Info) Description 05/26/2024 10:30 AM CDT - 05/26/2024 11:15 AM T Surgery [facility] ENDOSCOPY [address] [place] [phone] Yumiko Lee MD [address] [facility] [address] [place] [id number] COLONOSCOPY SCREEN w/ palagiri Surgery Details Date/Time Status Location OR Service Patient Class Case Class Case Type Trauma Case? 05/26/2024 10:30 AM Posted [facility] Endoscopy ENDO 4 Gastroenterology Surgery Day Care Elective > 5 days Panel 1 Procedure LRB Anes Op Region Wound Class Comments COLONOSCOPY SCREEN w/ palagiri N/A MAC Contaminated Diverticulosis otherwise normal Surgeon Surgeon Role Service Panel Yumiko Lee MD Primary Gastroenterology 1 documented in this encounter Social History Tobacco Use Types Packs/Day Years Used Date Smoking Tobacco: Never Smokeless Tobacco: Never Tobacco Cessation:Counseling Given: Not Answered Alcohol Use Standard Drinks/Week Comments Never 0 (1 standard drink = 0.6 oz pur e alcohol) Sex and Gender Information Value Date Recorded Sex Assigned at Not on file Gender Identity Not on file Sexual Orientation Not on file documented as of this encounter Last Filed Vital Signs Vital Sign Reading Time Taken Comments Blood Pressure 120/80 05/26/2024 11:00 AM CDT Pulse 75 05/26/2024 11:00 AM CDT Temperature 36.7 ??C (98 ??F) 05/26/2024 9:23 AM CDT Respiratory Rate 17 05/26/2024 11:00 AM CDT Oxygen Saturation 98% 05/26/2024 11:00 AM CDT Inhaled Oxygen Concentration - - Weight 91.3 kg (201 lb 3.2 oz) 05/26/2024 9:14 A M CDT Height 177.8 cm (5' 10 ) 05/26/2024 9:14 AM CDT Body Mass Index 28.87 05/26/2024 9:14 AM CDT documented in this encounter Functional Status Functional Status Response Date of Assess ment Is person deaf or have serious hearing difficult y? No 05/26/2024 Is person blind or have serious difficulty seein g? No 05/26/2024 Does person have serious dif ficulty walking/climbing stairs? No 05/26/2024 Does person have difficulty dressing/bathing? No 05/26/2024 Does person have difficulty doing errands alone? No 05/26/2024 Cognitive Status Response Date of Assessm ent Does person have difficulty concentrating/remembering/making decisions? No 05/26/2024 documented as of this encounter Discharge Instructions * Discharge Instructions* Tamra Roman RN - 05/26/2024 11:52 AM CDT Colonoscopy WHAT YOU NEED TO KNOW: A colonoscopy is a procedure to examine the inside of your colon (intestine) with a scope. Polyps or tissue growths may have been removed during your colonoscopy. It is normal to feel bloated and to have some abdominal discomfort. You should be passing gas. If you have hemorrhoids or you had polypsremoved, you may have a small amount of bleeding. DISCHARGE INSTRUCTIONS: Seek care immediately if: You have a large amount of bright red blood in your bowel movements. Your abdomen is hard and firm and you have severe pain. You have sudden trouble breathing. Call your doctor if: You develop a rash or hives. You have a fever within 24 hours of your procedure. You have nausea and vomiting. You feel anesthesia effects greater than 24 hours. You have not had a bowel movement for 3 days after your procedure. You have questions or concerns about your condition or care. After your colonoscopy: Do not lift, strain, or run until your healthcare provider says it is okay. Rest as much as possible. You have been given medicine to relax you. Do not drive or make importantdecisions for at least 24 hours. Return to your normal activity as directed. Relieve gas and discomfort from bloating by lying on your left side with a heating pad on your abdomen. You may need to take short walks to help the gas move out. Eat small meals until bloating is relieved. If you had polyps removed: For 7 days after your procedure: Do not take aspirin. Do not go on long car rides. Help prevent constipation: Eat a variety of healthy foods. Healthy foods include fruit, vegetables, whole- grain breads, low-fat dairy products, beans, lean meat, and fish. Ask if you need to be on a special diet. Your healthcare provider may recommend that you eat high-fiber foods such as cooked beans. Fiber helps you have regular bowel movements. Drink liquids as directed. Adults should drink between 9 and 13 eight-ounce cups of liquid every day. Ask what amount is best for you. For most people, good liquids to drink are water, juice, and milk. Exercise as directed. Talk to your healthcare provider about the best exercise plan for you. Exercise can help prevent constipation, decrease your blood pressure and improve your health. Follow up with your doctor as directed: Write down your questions so you remember to ask them during your visits. ?? Copyright [employer] 2020 Information is for End User's use only and may not be sold, redistributed or otherwise used for commercial purposes. All illustrations and images included in CareNotes?? are the copyrighted property of [employer] or [employer] The above information is an unpaid intern only. It is not intended as medical advice for individual conditions or treatments. Talk to your doctor, nurse or pharmacist before following any medical regimen to see if it is safe and effective for you. documented in this encounter Medications at Time of Discharge Medication Sig Dispensed Refills Start Date End Date adapalene-benzoyl peroxide (Epiduo) 0.1-2.5 % gel buPROPion XL 24hr (Wellbutrin-XL) 150 MG tablet Take 1 (one) tablet by mouth every morning 01/05/2023 Coenzyme Q10 (Co Q-10) 120 MG Take by mouth once daily cyclobenzaprine (Flexeril) 10 MG tablet Take 1 (one) tablet by mouth at bedtime 08/26/2022 dexmethylphenidate ER 24hr (Focalin XR) 10 MG capsule Take 1 (one) capsule by mouth every morning 15mg 10/15/2022 Fenofibrate 134 MG CAPS TAKE 1 CAPSULE BY MOUTH 4 TIMES A WEEK IN THE MORNING 06/12/2022 fluticasone propionate (Flonase) 50 MCG/ACT nasal spray [place] 1 (one) spray into the nose once daily lisinopril (Prinivil; Zestril) 10 MG tablet Take 1 (one) tablet by mouth once daily Magnesium 100 MG Multiple Vitamins-Minerals (Multivitamin & Mineral) LIQD Take 15 mL by mouth once daily Goff-3 Fatty Acids (fish oil) 1000 MG capsule Take 1 (one) capsule by mouth 2 times daily polyethylene glycol (Golytely) 236 g solutionIndications:Col onoscopy Drink 1/2 of the bowel prep at 6 pm the night before test. Finish the prep at 4 am the morning of colonoscopy. Reasons: Colonoscopy 4000 mL 05/10/2024 pravastatin (Pravachol) 40 MG tablet Take 1 (one) tablet by mouth once daily QUEtiapine (SEROquel) 100 MG tablet 06/12/2022 QUEtiapine (SEROquel) 50 MG tablet Take 1 (one) tablet by mouth 2 times daily Taking 25 at noon 06/24/2023 rizatriptan (Maxalt) 10 MG tablet Take 1 tab by mouth once at first sign of migraine. May repeat one time after 2 hours if needed. 9 tablet 11 06/27/2023 vilazodone (Viibryd) 40 MG tablet Take 1 (one) tablet by mouth once daily documented as of this encounter H&P Notes * Yumiko Lee MD - 05/26/2024 10:10 AM CDT PRE-PROCEDURE HISTORY & PHYSICAL NOTE (Presedation assessment per Anesthesia Team) 05/26/2024 10:10 AM Patient: Yassine Vee, date of 1960 Procedure(s) planned: Colonoscopy Indication(s): colon cancer screening History: There is no problem list on file for this patient. Past Medical History: No date: Pure hypercholesterolemia No date: Sleep apnea No date: Snoring No family history on file. Social History Socioeconomic History Marital status: Spouse name: Not on file Number of children: Not on file Years of education: Not on file Highest education level: Not on file Occupational History Not on file Tobacco Use Smoking status: Never Smokeless tobacco: Never Vaping Use Vaping Use: Never used Substance and Sexual Activity Alcohol use: Never Drug use: Yes Types: Marijuana Sexual activity: Not on file Other Topics Concerns: Not on file Social History Narrative Not on file Social Determinants of Health Financial Resource Strain: Not on file Food Insecurity: Not on file Transportation Needs: Not on file Stress: Not on file Housing Stability: Not on file Past Surgical History: No date: Appendectomy No date: COLONOSCOPY No date: Hemorrhoidectomy No date: Knee Arthroscopy; Left No date: LASIK SURGERY No date: Tonsillectomy and Adenoidectomy No date: UVULOPHYRINGOPALATOPLASTY No date: Vasectomy -- Topiramate [Other] -- 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 Shortness of breath: No. Review of systems otherwise negative. Physical Exam: BP 122/90 Pulse 75 Temp 98 ??F (36.7 ??C) (Oral) Resp 18 Ht 1.778 m (5' 10 ) Wt 91.3 kg (201 lb 3.2 oz) SpO2 96% GENERAL: The patient is alert, oriented and in no apparent distress. HEENT: Neck supple, posterior pharynx is clear. LUNGS: Lungs are clear to auscultation. CVS: Heart sounds are normal, no murmurs. ABDOMEN: Soft, no tenderness, masses or organomegaly. EXTREMITIES: Normal. NEURO: Non-focal. Pain assessment: Absent Sedation Plan: Monitored Anesthesia Care (MAC) by the anesthesia team. Procedure Plan: Based on the above assessment, we will perform the procedures indicated above. I have discussed the plan, risks, benefits and alternatives with the patient or guardian. When assessment above was not obtained immediately before the procedure, I have reassessed this patient and there are no changes. Yumiko Lee MD documented in this encounter Plan of Treatment Upcoming Encounters Date Type Department Care Team (Late st Contact Info) Description 11/23/2024 10:20 AM CHANNEL LIP STIFFENER INSOLES Procedure visit [facility] [address] [facility] [place] [address] Collin Mayes MD [address] [place] [address] Scheduled Orders Name Type Priority Associated Diagnoses Orde r Schedule ENDOSCOPY, COLON, SCREENING GI Routine ONCE for 1 Occur rences starting 05/26/2024 until 05/26/2024 documented as of this encounter Procedures Procedure Name Priority Date/Time Associated Diagnosis Comments NE COLOREC CANC SCRN,COLONOSCPY HI RISK 05/26/2024 11:05 AM CDT History of colon polyps ENDOSCOPY, COLON, SCREENING Routine 05/26/2024 11:00 AM CDT documented in this encounter Results * Endoscopy, Colon, Screening (05/26/2024 11:00 AM CDT) Report Endoscopy POC Endoscopy Department Report _ Patient Name: Yassine Vee ? Procedure Date: 05/26/2024 11:00 AM ?Date of : 1960 Classification: Outpatient ?Gender: Male Ethnicity: Not or ? Race: White _ Providers: ?Yumiko Sanabria)MD Zain Raza ?(Fellow) Referring : ? Procedure: ?Colonoscopy Indications: ?High risk colon cancer surveillance: Personal ?history of colonic polyps. Last colonoscopy 2018. Medications: ?Monitored Anesthesia Care Patient Profile: ?63 yo M with prior history of diminutive polyps ?presenting for surveillance Description of Procedure: Pre-Anesthesia Assessment: ?- Prior to the procedure, a History and Physical ?was performed, and patient medications and ?allergies were reviewed. The patient's tolerance of ?previous anesthesia was also reviewed. The risks ?and benefits of the procedure and the sedation ?options and risks were discussed with the patient. ?All questions were answered, and informed consent ?was obtained. Prior Anticoagulants: The patient has ?taken no anticoagulant or antiplatelet agents. ASA ?Grade Assessment: II - A patient with mild systemic ?disease. After reviewing the risks and benefits, ?the patient was deemed in satisfactory condition to ?undergo the procedure. ?After I obtained informed consent, the scope was ?passed under direct vision. Throughout the ?procedure, the patient's blood pressure, pulse, and ?oxygen saturations were monitored continuously. The ?Colonoscope was introduced through the anus and ?advanced to the terminal ileum. The colonoscopy was ?performed without difficulty. The patient tolerated ?the procedure well. The quality of the bowel ?preparation was evaluated using the BBPS ([place] ?Bowel Preparation Scale) with scores of: Right ?Colon = 3, Transverse Colon = 3 and Left Colon = 3 ?(entire mucosa seen well with no residual staining, ?small fragments of stool or opaque liquid). The ?total BBPS score equals 9. The terminal ileum, ?ileocecal valve, appendiceal orifice, and rectum ?were photographed. Scope insertion time was 5 ?minutes. Scope withdrawal time was 12 minutes. ? Findings: ? The perianal and digital rectal examinations were normal. ? Multiple small-mouthed diverticula were found in the sigmoid colon. ? Normal-appearing terminal ileum. ? The exam was otherwise without abnormality on direct and retroflexion ? views. ? Estimated Blood Loss: ? Estimated blood loss was minimal. Complications: ?No immediate complications. Impression: ? - Diverticulosis in the sigmoid colon. ?- Normal-appearing terminal ileum. ?- The examination was otherwise normal on direct ?and retroflexion views. Recommendation: ? - Resume previous diet. ?- Continue present medications. ?- Repeat colonoscopy in 10 years for surveillance. ?- Return to GI clinic as previously scheduled. ? Attending Participation: ??I was present and participated during the entire ?procedure, including non-cortez portions. ? Procedure Code(s): ? --- Professional --- ? G0105, Colorectal cancer screening; colonoscopy on individual at high ? risk Diagnosis Code(s): ?--- Professional --- ?Z86.010, Personal history of colonic polyps ?K57.30, Diverticulosis of large intestine without ?perforation or abscess without bleeding CPT copyright 2021 [employer]. All rights reserved. The codes documented in this report are preliminary and upon computer language coder review may be revised to meet current compliance requirements. Yumiko Lee MD ([place]) 05/26/2024 11:43:06 AM Note Initiated On: 05/26/2024 11:00 AM Number of Addenda: 0 ? [facility] ? [address] [place] [address] [facility] 05/26/2024 11:0 0 AM CDT Yumiko Lee MD GI PROCEDURE ORDE PAT [facility] documented in this encounter Visit Diagnoses Diagnosis History of colon polyps Personal history of colonic polyps documented in this encounter Administered Medications Inactive Administered Medications - up to 3 most recent administrations Medication Order MAR Action Action Date Dose Rate Site 0.9% NaCl infusion at 20 mL/hr, Intravenous, CONTINUOUS, Starting on Fri05/26/24 at 0915, Until Fri05/26/24 at 1335, Pre-procedure (GI) Restarted 05/26/2024 11:10 AM CDT $ New Bag/Syringe 05/26/2024 9:29 AM CDT 20 mL/ hr 0.9% NaCl injection 3 mL 3 mL, Intracatheter, PRE-PROCEDURE MULTIPLE, Starting on Fri05/26/24 at 0914, Until Fri05/26/24 at 1335, For Saline Lock flushes if one is inserted for Bronchoscopy/Endoscopy procedure., Pre-procedure (GI) documented in this encounter Active and Recently Administered Medications Times are shown in CDT. Scheduled Medication Order 05/24/2024 05/25/2024 05/26/2024 0.9% NaCl injection 3 mL 3 mL, Intracatheter, PRE-PROCEDURE MULTIPLE, Starting on Fri05/26/24 at 0914, Until Fri05/26/24 at 1335, For Saline Lock flushes if one is inserted for Bronchoscopy/Endoscopy procedure., Pre-procedure (GI) Continuous Medication Order 05/24/2024 05/25/2024 05/26/2024 0.9% NaCl infusion at 20 mL/hr, Intravenous, CONTINUOUS, Starting on Fri05/26/24 at 0915, Until Fri05/26/24 at 1335, Pre-procedure (GI) 0929 ($ New Bag/Syri nge - Provider: Jenae Bubert, RN)1109 (Paused - Provider: GWENDOLYN Mejia - Comment: Switch to gravity)1110 (Restarted - Provider: GWENDOLYN Mejia)1137 (Anesthesia Volume Adjustment - Provider: GWENDOLYN Mejia) documented in this encounter Care Teams Engineered Wood Designer Relationship Specialty Start Date End Date Morelia Scott APRN-CNP [address] [place] [id number] PCP - General Nurse Practitioner 09/04/22 Morelia Scott APRN-CNP [address] [place] [id number] Nurse Practitioner 06/21/22 documented as of this encounter
--- OUTSIDE RECORDS SUMMARY | 2024-09-11 16:58 | XMS_ITS | Encounter Summary ---
Author Organization [facility] Address [address] 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 Procedures IA CHEMODENERV MUSC MIGRAINE Collin Mayes MD [address] [address] Referral ID Status Reason Start Date Expiration Date Visits Re quested Visits Authorized [id number] Open 02/27/2024 02/26/2025 1 1 Reason for Visit * Reason Comments Procedure Here for botox Encounter Details Date Type Department Care Team (Late st Contact Info) Description 02/27/2024 10:40 AM CDT Office Visit [facility] Neurosciences [address] [place], [place] [address] [address] [place] [address] Collin Mayes MD [address] [place] [address] [address] [place] [address] Intractable chronic migraine without aura and with status migrainosus (Primary Dx) Social History Tobacco Use Types Packs/Day Years Used Date Smoking Tobacco: Never Smokeless Tobacco: Never Alcohol Use Standard Drinks/Week Comments Never 0 (1 standard drink = 0.6 oz pur e alcohol) Sex and Gender Information Value Date Recorded Sex Assigned at Not on file Gender Identity Not on file Sexual Orientation Not on file documented as of this encounter Last Filed Vital Signs Vital Sign Reading Time Taken Comments Blood Pressure 129/95 02/27/2024 10:29 AM CDT Pulse 84 02/27/2024 10:29 AM CDT Temperature - - Respiratory Rate - - Oxygen Saturation - - Inhaled Oxygen Concentration - - Weight 91.2 kg (201 lb) 02/27/2024 10:29 AM CDT Height 177.8 cm (5' 10 ) 02/27/2024 10:29 AM CDT Body Mass Index 28.84 02/27/2024 10:29 AM CDT documented in this encounter Patient Instructions * Patient Instructions* Carmen Don - 02/27/2024 10:57 AM CDT Images from the original note were not included. documented in this encounter Progress Notes * Collin Mayes MD - 02/27/2024 10:30 AM CDT Images from the original note were not included. [facility] [address] [facility] [address] [place] [id number] BOTOX procedure note Indications: Chronic Migraine. This is a 63 year oldmale with chronic migraine unresponsive to mulitple abortive and prophylactic agents. This is FIFTH time Botox injection. Last Botox injection on 12/03/2023 # MARIE days /month prior to Botox treatment: 17 # MARIE days /month currently: 2 # Migraine days/month prior to Botox treatment: 10-15 # Migraine days /month currently: 0 Approximate length of headache (hrs) prior to Botox: 8 hrs Approximate length of headache (hrs) currently: 2 hr HIT-6 score: 42 Procedure: Timeout performed to verify name, , procedure being performed. DIAGNOSIS: Chronic migraine headaches He has failed several prophylactic medications in past including rizatriptan, Ubrelvy Current migraine Rx: Propranolol, Nurtec, rizatriptan (1) Patient was explained about the procedure and associated adverse effects (local pain, bleeding,risk of infection, diplopia, dysphagia etc.) After preparing the skin with isopropyl alcohol, multiple percutaneous injections of botulinum toxin were administered. (2) 10 units were divided at 2 sites in the screwdown operator, 5 units in Procerus, 20 units divided in 4 sites in frontalis muscle regions. (3) An additional 40 units were administered in temporalis muscles divided in 8 sites, 30 units in occipitalis muscles divided in 6 sites, 20 units in cervical paraspinal muscles divided in 4 sites, 30 units in trapezius muscles divided in 6 sites. (4) The total amount of botulinum toxin used during the entire procedure was 155 units and 45 unitswere discarded. The patient tolerated the procedure without complications. A repeat procedure to be done in 12 weeks. He would called our office regarding worsening of headache. Aimovig was prescribed. However he [id number] injection and did not tolerate the medication. Reports low energy, listlessness, fatigue for several days. He would like to try Quilipta. New prescription for 30 mg once daily ordered. I personally performed this procedure. CPT Code: 99501 DINORAH Cid MD, PhD Diplomate, [place] [employer] and Neu[employer] (ABPN) Board Certified in Neurology and Clinical Neurophysiology [address], [address] [place] [address] (office) [phone] (FAX) documented in this encounter Plan of Treatment Upcoming Encounters Date Type Department Care Team (Late st Contact Info) Description 11/23/2024 10:20 AM BANK WORKER Procedure visit [address] [place] [address] Collin Mayes MD [address] [place] [phone] documented as of this encounter Visit Diagnoses Diagnosis Intractable chronic migraine without aura and with status migrainosus- Primary Chronic migraine without aura, with intractable migraine, so stated, with status migrainosus documented in this encounter Administered Medications Inactive Administered Medications - up to 3 most recent administrations Medication Order MAR Action Action Date Dose Rate Site onabotulinumtoxin A (Botox) injection 200 Units 200 Units, Intramuscular, ONCE, 1 dose, On Fri02/27/24 at 1115 $ Given 02/27/2024 10:56 AM CDT 200 Units Head documented in this encounter Care Teams Audio Production Manager Relationship Specialty Start Date End Date Morelia Scott APRN-CNP [address] [place] [phone] PCP - General Nurse Practitioner 09/04/22 Morelia Scott APRN-CNP [address] [place] [id number] Nurse Practitioner 06/21/22 documented as of this encounter
--- OUTSIDE RECORDS SUMMARY | 2024-09-11 16:58 | XMS_ITS | Clinical Summary ---
Author Organization [facility] Address [address] [place] [address] Care Team Providers Care Cvt Tech Name Role Phone Morelia Scott APRN-TIFFANI Unavailable [phone] Morelia Scott POWER PLANT SUPERVISOR-PLANT TECH Primary Care Provider Source Comments [facility],non-owned Affiliates and Associated Physician Practices is amultiple site organization consisting of ambulatory clinics and hospital sitesin [place], [place] and [place]. This disclosure is being madepursuant to the Care Everywhere program and may not contain all information available regarding this patient. Last updated 18.[facility] Allergies Active Allergy Reactions Criticality Noted Date Comments Tamsulosin Other 07/15/2016 Topiramate Other High 07/23/2023 topiramate [Other] Drug Reaction with E osinophilia and Systemic Symptoms (DRESS) High Medications * Be aware that medications may not be up to date on this document. Alwaysverify current medications with the patient. Medication Sig Dispensed Refills Start Date End Date Status Fenofibrate 134 MG CAPS TAKE 1 CAPSULE BY MOUTH 4 TIMES A WEEK IN THE MORNING 06/12/2022 Active Coenzyme Q10 (Co Q-10) 120 MG Take by mouth once daily Active fluticasone propionate (Flonase) 50 MCG/ACT nasal spray [place] 1 (one) spray into the nose once daily Active lisinopril (Prinivil; Zestril) 10 MG tablet Take 1 (one) tablet by mouth once daily Active Magnesium 100 MG Active pravastatin (Pravachol) 40 MG tablet Take 1 (one) tablet by mouth once daily Active QUEtiapine (SEROquel) 100 MG tablet 06/12/2022 Active vilazodone (Viibryd) 40 MG tablet Take 1 (one) tablet by mouth once daily Active [place]-3 Fatty Acids (fish oil) 1000 MG capsule Take 1 (one) capsule by mouth 2 times daily Active Multiple Vitamins-Minerals (Multivitamin & Mineral) LIQD Take 15 mL by mouth once daily Active cyclobenzaprine (Flexeril) 10 MG tablet Take 1 (one) tablet by mouth at bedtime 08/26/2022 Active dexmethylphenidate ER 24hr (Focalin XR) 10 MG capsule Take 1 (one) capsule by mouth every morning 15mg 10/15/2022 Active buPROPion XL 24hr (Wellbutrin-XL) 150 MG tablet Take 1 (one) tablet by mouth every morning 01/05/2023 Active QUEtiapine (SEROquel) 50 MG tablet Take 1 (one) tablet by mouth 2 times daily Taking 25 at noon 06/24/2023 Active rizatriptan (Maxalt) 10 MG tablet Take 1 tab by mouth once at first sign of migraine. May repeat one time after 2 hours if needed. 9 tablet 11 06/27/2023 Active adapalene-benzoyl peroxide (Epiduo) 0.1-2.5 % gel Active polyethylene glycol (Golytely) 236 g solutionIndications :Colonoscopy Drink 1/2 of the bowel prep at 6 pm the night before test. Finish the prep at 4 am the morning of colonoscopy. Reasons: Colonoscopy 4000 mL 05/10/2024 Active propranolol ER 24hr (Inderal LA) 60 MG capsule Take 1 (one) capsule by mouth once daily 06/04/2024 Active Hospital, Clinic, or Other Facility Administered Medication Ordered Dose Route Frequency Start Date End Date Status onabotulinumtoxin A (Botox) injection 200 UnitsIndications:Intractabl e chronic migraine without aura and with status migrainosus 200 Units IM ONCE 08/27/2024 08/27/2024 Ended Active Problems No known active problems Encounters Date Type Department Care Team Description 08/27/2024 8:40 AM DIESEL TRACTOR OPERATOR Procedure visit [facility] [address] [address] Collin Mayes MD Intractable chronic migraine without aura and with status migrainosus from Last 3 Months Social History Tobacco Use Types Packs/Day Years Used Date Smoking Tobacco: Never Smokeless Tobacco: Never Tobacco Cessation:Counseling Given: Not Answered Alcohol Use Standard Drinks/Week Comments Never 0 (1 standard drink = 0.6 oz pur e alcohol) Sex and Gender Information Value Date Recorded Sex Assigned at Not on file Gender Identity Not on file Sexual Orientation Not on file Last Filed Vital Signs Vital Sign Reading Time Taken Comments Blood Pressure 151/92 08/27/2024 8:27 AM DIESEL TRACTOR OPERATOR Pulse 74 08/27/2024 8:27 AM DIESEL TRACTOR OPERATOR Temperature 36.4 ??C (97.6 ??F) 05/26/2024 11:45 AM C DT Respiratory Rate 17 05/26/2024 12:11 PM CDT Oxygen Saturation 99% 05/26/2024 12:11 PM CDT Inhaled Oxygen Concentration - - Weight 91.2 kg (201 lb) 08/27/2024 8:27 AM DIESEL TRACTOR OPERATOR Height 177.8 cm (5' 10 ) 08/27/2024 8:27 AM DIESEL TRACTOR OPERATOR Body Mass Index 28.84 08/27/2024 8:27 AM DIESEL TRACTOR OPERATOR Plan of Treatment Upcoming Encounters Date Type Department Care Team (Late st Contact Info) Description 11/23/2024 10:20 AM DIESEL TRACTOR OPERATOR Procedure visit [facility] Health Neurosciences [address] [facility] [address] [place] [address] Collin Mayes MD [address] [facility] [address] [place] [address] Health Maintenance Due Date Last Done Comments COLOGUARD (AGES 45-75) - COLON CA SCREENING 1960 CT COLONOGRAPHY - COLON CA SCREENING 1960 FIT - COLON CA SCREENING 1960 FLEX SIG - COLON CA SCREENING 1960 MEDICARE AWV ? 12 MONTHS 1960 HEPATITIS C SCREENING 07/24/1976 DTAP/TDAP/TD VACCINES (1 - Tdap) 1977 ZOSTER VACCINE (1 of 2) 2008 Respiratory Syncytial Virus (RSV) Vaccine Pt: or over 60 yrs (1 - Risk 60-74 years 1-dose series) 2018 SCREENING FOR DIABETES 07/09/2022 PNEUMOCOCCAL VACCINE 65+ (1 of 1 - PCV) 2023 DEPRESSION SCREENING 09/22/2023 COVID-19 VACCINE (2 - season) 2024 07/19/2022 COLON MONITORING 05/26/2034 05/26/2024, 05/26/2024 COLONOSCOPY - COLON CA SCREENING 05/26/2034 05/26/2024, 05/26/2024 Colorectal Cancer Screening 05/26/2034 INFLUENZA VACCINE Completed 07/12/2024, , 07/19/2022, Additional history exists HEPATITIS B VACCINE Aged Out No longe r eligible based on patient's age to complete this topic HIB VACCINE Aged Out No longer eligi ble based on patient's age to complete this topic HPV VACCINE Aged Out No longer eligi ble based on patient's age to complete this topic MENINGOCOCCAL VACCINE Aged Out No anthony verona eligible based on patient's age to complete this topic Procedures Procedure Name Priority Date/Time Associated Diagnosis Comments ENDOSCOPY, COLON, SCREENING Routine 05/26/2024 11:00 AM CDT from Last 3 Months or Most Recently Relevant to Health Maintenance Results * Endoscopy, Colon, Screening (05/26/2024 11:00 AM CDT) Report Endoscopy POC Endoscopy Department Report _ Patient Name: Karen Vee ? Procedure Date: 05/26/2024 11:00 AM ?Date of : 1960 Classification: Outpatient ?Gender: Male Ethnicity: Not or ? Race: White _ Providers: ?Yumiko Lee MD, Zain Raza (Labundy) ?(Fellow) Referring : ? Procedure: ?Colonoscopy Indications: [...] bowel ?preparation was evaluated using the BBPS ([place] ?Bowel Preparation Scale) with scores of: Right [...] or abscess without bleeding CPT copyright 2021 [employer]. All rights reserved. The codes documented in this report are preliminary and upon mold changer review may be revised to meet current compliance requirements. Yumiko Lee MD (Labundy) 05/26/2024 11:43:06 AM Note Initiated On: 05/26/2024 11:00 AM Number of Addenda: 0 ? [facility] ? [address] [place] [address] [facility] 05/26/2024 11:0 0 AM CDT Yumiko Lee MD GI PROCEDURE BRANDAN STEWART Performing Organization Address City/State/ZIP Co fl Phone Number [facility] from Last 3 Months or Most Recently Relevant to Health Maintenance Care Teams Cvt Tech Relationship Specialty Start Date End Date Morelia Scott APRN-TIFFANI [address] [place] [id number] PCP - General Nurse Practitioner 09/04/22 Morelia Scott, ASHLEY-PLANT TECH [address] [place] [id number] Nurse Practitioner 06/21/22
--- OUTSIDE RECORDS SUMMARY | 2024-09-11 16:58 | XMS_ITS | Encounter Summary ---
Author Organization [facility] Address [address] [place] [address] Care Team Providers Care Courtesy Bus Driver Name Role Phone Morelia Scott WATER PROOFER-TAILOR MEN'S READY TO WEAR Unavailable [phone] Morelia Scott WATER PROOFER-TAILOR MEN'S READY TO WEAR Primary Care Provider Reason for Referral * OP/Amb RFL Auth (Routine) - Open Specialty Diagnoses / Procedures Referred By Contac t Referred To Contact Diagnoses Intractable chronic migraine without aura and with status migrainosus Procedures VT CHEMODENERV MUSC MIGRAINE Collin Mayes MD [address] [place] [phone] Referral ID Status Reason Start Date Expiration Date Visits Re quested Visits Authorized [id number] Open 08/27/2024 08/27/2025 1 1 IPT AND REPORT CLERK Reason for Visit * Reason Comments Procedure Here for botox * Procedure (Routine) - Authorized Specialty Diagnoses / Procedures Referred By Contac t Referred To Contact Neurology / Neuroscience Diagnoses Chronic migraine without aura, not intractable, without status migrainosus Procedures VT CHEMODENERV MUSC MIGRAINE VT BOTULINUM TOXIN TYPE A PER UNIT Collin Mayes MD [facility] [address] [place] [address] Collin Mayes MD [address] [place] [phone] Referral ID Status Reason Start Date Expiration Date V isits Requested Visits Authorized [id number] Authorized 08/09/2024 12/06/2024 2 2 Encounter Details Date Type Department Care Team (Latest Contact Info) Description 08/27/2024 8:40 AM RECEIPT AND REPORT CLERK Procedure visit [facility] Neurosciences [address] [place] [address] Collin Mayes MD [address] [place] [address] Intractable chronic migraine without aura and with status migrainosus Social History Tobacco Use Types Packs/Day Years [...] Comments Blood Pressure 151/92 08/27/2024 8:27 AM RECEIPT AND REPORT CLERK Pulse 74 08/27/2024 8:27 AM RECEIPT AND REPORT CLERK Temperature - - Respiratory Rate - - Oxygen Saturation - - Inhaled Oxygen Concentration - - Weight 91.2 kg (201 lb) 08/27/2024 8:27 AM RECEIPT AND REPORT CLERK Height 177.8 cm (5' 10 ) 08/27/2024 8:27 AM RECEIPT AND REPORT CLERK Body Mass Index 28.84 08/27/2024 8:27 AM RECEIPT AND REPORT CLERK documented in this encounter Functional Status Functional [...] No 05/26/2024 documented as of this encounter Patient Instructions * Patient Instructions* Gerald Martel - 08/27/2024 3:52 PM RECEIPT AND REPORT CLERK Botox used 155 and 45 wasted Buy and bill IPT AND REPORT CLERK documented in this encounter Progress Notes * Collin Mayes MD - 08/27/2024 8:26 AM CST Images from the original note were not included. COUNT INCLUDES [facility] [address] [place] [address] BOTOX procedure note Indications: Chronic Migraine. This is a 64 year oldmale with chronic migraine unresponsive to mulitple abortive and prophylactic agents. This is SEVENTH time Botox injection. Last Botox injection on 05/25/2024. # MAIRE days /month prior to Botox treatment: 17 # MARIE days /month currently: 3 # Migraine days/month prior to Botox treatment: 10-15 # Migraine days /month currently: 2 Approximate length of headache (hrs) prior to Botox: 8-20 hrs Approximate length of headache (hrs) currently: 1-2 hr HIT-6 score: 52 Procedure: Timeout performed to verify name, , [...] were divided at 2 sites in the turntable engineer, 5 units in Procerus, 20 units divided [...] of headache. Aimovig was prescribed. However he eahq9ib injection and did not tolerate the medication. Reports low energy, listlessness, fatigue for several days. He would like to try Quilipta. New prescription for 30 mg once daily ordered. I personally performed this procedure. CPT Code: 78796 DINORAH Cid MD, PhD Diplomate, [place] [employer] and [employer] (ABPN) Board Certified in Neurology and Clinical Neurophysiology [facility] [address] [facility], [address] [place] [address] (office) [phone] (FAX) IPT AND REPORT CLERK documented in this encounter Miscellaneous Notes * Addendum Note - Gerald Martel - 08/27/2024 3:52 PM CSTAddended by: GERALD MARTEL on: 08/27/2024 03:52 PM Modules accepted: Orders IPT AND REPORT CLERK documented in this encounter Plan of Treatment Upcoming Encounters Date Type Department Care Team (Late st Contact Info) Description 11/23/2024 10:20 AM RECEIPT AND REPORT CLERK Procedure visit [facility] [address] [facility] [address] [place] [address] Collin Mayes MD [address] [place] [address] documented as of this encounter Visit Diagnoses [...] 200 Units, Intramuscular, ONCE, 1 dose, On Fri08/27/24 at 1615 $ Given 08/27/2024 3:51 PM RECEIPT AND REPORT CLERK 200 Units Head documented in this encounter Care Teams Courtesy Bus Driver Relationship Specialty Start Date End Date Morelia Scott, WATER PROOFER-TAILOR MEN'S READY TO WEAR [address] [place] [phone] PCP - General Nurse Practitioner 09/04/22 Morelia Scott, ASHLEY-TAILOR MEN'S READY TO WEAR [address] [place] [phone] Nurse Practitioner 06/21/22 documented as of this encounter
--- OUTSIDE RECORDS SUMMARY | 2024-09-11 16:58 | XMS_ITS | Encounter Summary ---
Author Organization [facility] Address [address] [place] [address] Care Team Providers Care Director Technical Name Role Phone Sonia Morelia Vicente LABORER SAWMILL-OUTREACH TEAM MEMBER Unavailable [phone] Morelia Scott LABORER SAWMILL-OUTREACH TEAM MEMBER Primary Care Provider Encounter Details Date Type Department Care Team (Latest Contact Info) Description 05/26/2024 Travel Social History Tobacco Use Types Packs/Day Years Used Date Smoking Tobacco: Never Smokeless Tobacco: Never Alcohol Use Standard Drinks/Week Comments Never 0 (1 standard drink = 0.6 oz pur e alcohol) Sex and Gender Information Value Date Recorded Sex Assigned at Not on file Gender Identity Not on file Sexual Orientation Not on file documented as of this encounter Functional Status Functional Status Response [...] No 05/26/2024 documented as of this encounter Plan of Treatment Upcoming Encounters Date Type Department Care Team (Late st Contact Info) Description 11/23/2024 10:20 AM TOY MAKER Procedure visit [facility] Neurosciences [address] [place] [address] [place] [address] Collin Mayes MD [address] [phone] documented as of this encounter Visit Diagnoses Not on filedocumented in this encounter Care Teams Director Technical Relationship Specialty Start Date End Date Morelia Scott APRN-TIFFANI [address] [place] [phone] PCP - General Nurse Practitioner 09/04/22 Morelia Scott APRN-OUTREACH TEAM MEMBER [address] [place] [phone] Nurse Practitioner 06/21/22 documented as of this encounter
--- OUTSIDE RECORDS SUMMARY | 2024-09-11 16:58 | XMS_ITS | Referral Summary ---
Author Organization [facility] [place] [facility] Address [address] [facility] [place] [address] Care Team Providers Care Svp Digital Ad Sales Name Role Phone Morelia Scott APRN-TIFFANI Unavailable [phone] Morelia Scott NATIONAL COVERAGE SPECIALIST-PAINT POURER Primary Care Provider Source Comments [facility] [place] [facility] Affiliates and Associated Physician Practices is amultiple site organization consisting of ambulatory clinics and hospital sitesin [place], [place], [place] and [place]. This disclosure is being madepursuant to the Care Everywhere program and may not contain all information available regarding this patient. Last updated 18.[facility] [place] [facility] Encounters Date Type Department Care Team Description 08/27/2024 8:40 AM PLATFORM CONSULTANT Procedure visit [facility] [place] [facility] Neurosciences [address] [facility] [address] [place] [address] Collin Mayes MD Intractable chronic migraine without aura and with status migrainosus from Last 3 Months Allergies Active Allergy Reactions Criticality Noted Date [...] fluticasone propionate (Flonase) 50 MCG/ACT nasal spray [place] 1 (one) spray into the nose once daily Active lisinopril (Prinivil; Zestril) 10 MG tablet Take 1 (one) tablet by mouth once daily Active Magnesium 100 MG Active pravastatin (Pravachol) 40 MG tablet Take 1 (one) tablet by mouth once daily Active QUEtiapine (SEROquel) 100 MG tablet 06/12/2022 Active vilazodone (Viibryd) 40 MG tablet Take 1 (one) tablet by mouth once daily Active [place]-3 Fatty Acids (fish oil) 1000 MG capsule [...] Ended Active Problems No known active problems Social History Tobacco Use Types Packs/Day Years [...] Comments Blood Pressure 151/92 08/27/2024 8:27 AM PLATFORM CONSULTANT Pulse 74 08/27/2024 8:27 AM PLATFORM CONSULTANT Temperature 36.4 ??C (97.6 ??F) 05/26/2024 11:45 AM C DT Respiratory Rate 17 05/26/2024 12:11 PM CDT Oxygen Saturation 99% 05/26/2024 12:11 PM CDT Inhaled Oxygen Concentration - - Weight 91.2 kg (201 lb) 08/27/2024 8:27 AM PLATFORM CONSULTANT Height 177.8 cm (5' 10 ) 08/27/2024 8:27 AM PLATFORM CONSULTANT Body Mass Index 28.84 08/27/2024 8:27 AM PLATFORM CONSULTANT Functional Status Functional Status Response Date of [...] person have difficulty concentrating/remembering/making decisions? No 05/26/2024 Plan of Treatment Upcoming Encounters Date Type Department Care Team (Late st Contact Info) Description 11/23/2024 10:20 AM PLATFORM CONSULTANT Procedure visit [facility] Health Neurosciences [address] [facility] [place] [address] Collin Mayes MD [address] [facility] [address] [place] [phone] Procedures Procedure Name Priority Date/Time Associated Diagnosis [...] Personal ?history of colonic polyps. Last colonoscopy 2019. Medications: ?Monitored Anesthesia Care Patient Profile: ?63 [...] bowel ?preparation was evaluated using the BBPS ([place] ?Bowel Preparation Scale) with scores of: Right [...] ?perforation or abscess without bleeding CPT copyright 2022 [employer]. All rights reserved. The codes documented in this report are preliminary and upon remote medical coder review may be revised to meet current compliance requirements. Yumiko Lee MD (Labundy) 05/26/2024 11:43:06 AM Note Initiated On: 05/26/2024 11:00 AM Number of Addenda: 0 ? [facility] ? [address] [place] [address] [facility] 05/26/2024 11:0 0 AM CDT Yumiko Lee MD GI PROCEDURE ORDE PAT [facility] [address] [address] [facility] from Last 3 Months or Most Recently Relevant to Health Maintenance Care Teams Svp Digital Ad Sales Relationship Specialty Start Date End Date Morelia Scott APRN-PAINT POURER [address] [place] [phone] PCP - General Nurse Practitioner 09/04/22 Morelia Scott APRN-PAINT POURER [address] [place] [address] Nurse Practitioner 06/21/22
--- OUTSIDE RECORDS SUMMARY | 2024-09-11 16:58 | XMS_ITS | Patient Health Summary ---
Author Organization [facility] Address [address] [place] [address] Care Team Providers Care Design Eng Name Role Phone Morelia Scott APRN-TIFFANI Unavailable [phone] Morelia Scott LICENSING ANALYST-PADDED PRODUCTS FINISHER Primary Care Provider Note from [facility],non-owned Affiliates and Associated Physician Practices is amultiple site organization consisting of ambulatory clinics and hospital sitesin [place], [place], [place] and [place]. This disclosure is being madepursuant to the Care Everywhere program and may not contain all information available regarding this patient. Last updated 18.[facility] Allergies * Tamsulosin(Other) * Topiramate(Other) -High Criticality * topiramate [Other](Drug Reaction with Eosinophilia and Systemic Symptoms (DRESS)) -High Criticality Medications * Be aware that medications may not be up to date on this document. Alwaysverify current medications with the patient. * Fenofibrate 134 MG CAPS(Started 06/12/2022) TAKE 1 CAPSULE BY MOUTH 4 TIMES A WEEK IN THE MORNING * Coenzyme Q10 (Co Q-10) 120 MG Take by mouth once daily * fluticasone propionate (Flonase) 50 MCG/ACT nasal spray [place] 1 (one) spray into the nose once daily * lisinopril (Prinivil; Zestril) 10 MG tablet Take 1 (one) tablet by mouth once daily * Magnesium 100 MG * pravastatin (Pravachol) 40 MG tablet Take 1 (one) tablet by mouth once daily * QUEtiapine (SEROquel) 100 MG tablet(Started 06/12/2022) * vilazodone (Viibryd) 40 MG tablet Take 1 (one) tablet by mouth once daily * Saint James-3 Fatty Acids (fish oil) 1000 MG capsule Take 1 (one) capsule by mouth 2 times daily * Multiple Vitamins-Minerals (Multivitamin & Mineral) LIQD Take 15 mL by mouth once daily * cyclobenzaprine (Flexeril) 10 MG tablet(Started 08/26/2022) Take 1 (one) tablet by mouth at bedtime * dexmethylphenidate ER 24hr (Focalin XR) 10 MG capsule(Started 10/15/2022) Take 1 (one) capsule by mouth every morning 15mg * buPROPion XL 24hr (Wellbutrin-XL) 150 MG tablet(Started 01/05/2023) Take 1 (one) tablet by mouth every morning * QUEtiapine (SEROquel) 50 MG tablet(Started 06/24/2023) Take 1 (one) tablet by mouth 2 times daily Taking 25 at noon * rizatriptan (Maxalt) 10 MG tablet(Started 06/27/2023) Take 1 tab by mouth once at first sign of migraine. May repeat one time after 2 hours if needed. 11 refills by 06/26/2024 * adapalene-benzoyl peroxide (Epiduo) 0.1-2.5 % gel * polyethylene glycol (Golytely) 236 g solution(Started 05/10/2024) Drink 1/2 of the bowel prep at 6 pm the night before test. Finish the prep at 4 am the morning of colonoscopy. Reasons: Colonoscopy * propranolol ER 24hr (Inderal LA) 60 MG capsule(Started 06/04/2024) Take 1 (one) capsule by mouth once daily Active Problems No known active problems Social [...] Comments Blood Pressure 151/92 08/27/2024 8:27 AM TEACHER MUSIC Pulse 74 08/27/2024 8:27 AM TEACHER MUSIC Temperature 36.4 ??C (97.6 ??F) 05/26/2024 11:45 AM C DT Respiratory Rate 17 05/26/2024 12:11 PM CDT Oxygen Saturation 99% 05/26/2024 12:11 PM CDT Inhaled Oxygen Concentration - - Weight 91.2 kg (201 lb) 08/27/2024 8:27 AM TEACHER MUSIC Height 177.8 cm (5' 10 ) 08/27/2024 8:27 AM TEACHER MUSIC Body Mass Index 28.84 08/27/2024 8:27 AM TEACHER MUSIC Procedures * NE COLOREC CANC SCRN,COLONOSCPY HI RISK(Performed 05/26/2024) Performed for History of colon polyps * ENDOSCOPY, COLON, SCREENING(Performed 05/26/2024) * EEG AWAKE OR DROWSY ROUTINE(Performed 09/04/2022) Performed for Daily headache, Forgetfulness * MRI BRAIN WWO CONTRAST(Performed 08/26/2022) Performed for Daily headache, Forgetfulness * CREATININE - POCT INTERFACED(Performed 08/26/2022) * AMB REFERRAL TO RHEUMATOLOGY(Performed 07/24/2022) Performed for Positive CHAR (antinuclear antibody) 1:160 speckled * CBC W AUTO DIFFERENTIAL(Performed 07/24/2022) Performed for Positive CHAR (antinuclear antibody) 1:160 speckled * CHAR PANEL COMPREHENSIVE(Performed 07/24/2022) Performed for Positive CHAR (antinuclear antibody) 1:160 speckled * LUPUS ANTICOAGULANT PANEL W RFLX(Performed 07/24/2022) Performed for Positive CHAR (antinuclear antibody) 1:160 speckled * CARDIOLIPIN ANTIBODY IGA/IGG/IGM PANEL(Performed 07/24/2022) Performed for Positive CHAR (antinuclear antibody) 1:160 speckled * COMPLEMENT C3 C4 PANEL(Performed 07/24/2022) Performed for Positive CHAR (antinuclear antibody) 1:160 speckled * JAH STAINING PATTERNS REFLEXED(Performed 07/09/2022) Performed for Daily headache, Forgetfulness * TSH/T4 THYROID SCREEN(Performed 07/09/2022) Performed for Daily headache, Forgetfulness * CHAR BLOOD SCREEN W/REFLEX TITER(Performed 07/09/2022) Performed for Daily headache, Forgetfulness * C-REACTIVE PROTEIN(Performed 07/09/2022) Performed for Daily headache, Forgetfulness * ERYTHROCYTE SEDIMENTATION RATE(Performed 07/09/2022) Performed for Daily headache, Forgetfulness * VITAMIN B12 FOLATE PANEL(Performed 07/09/2022) Performed for Daily headache, Forgetfulness Results * Endoscopy, Colon, Screening (05/26/2024 11:00 AM CDT) Report Endoscopy POC Endoscopy Department Report _ Patient Name: Yassine Vee ? Procedure Date: 05/26/2024 11:00 AM ?Date of : 1960 Classification: Outpatient ?Gender: Male Ethnicity: Not or ? Race: White _ Providers: ?Yumiko Lee ([facility])MD Zain Raza ?(Fellow) Referring : ? Procedure: [...] bowel ?preparation was evaluated using the BBPS ([place] ?Bowel Preparation Scale) with scores of: Right [...] or abscess without bleeding CPT copyright 2021 [employer]. All rights reserved. The codes documented in this report are preliminary and upon bag valver review may be revised to meet current compliance requirements. Yumiko Lee MD ([facility]) 05/26/2024 11:43:06 AM Note Initiated On: 05/26/2024 11:00 AM Number of Addenda: 0 ? [facility] ? [address] [place] [address] [facility] 05/26/2024 11:0 0 AM CDT Yumiko Lee MD GI PROCEDURE GARYE PAT [facility] [employer] * EEG AWAKE OR DROWSY ROUTINE (09/04/2022 10:04 AM TEACHER MUSIC) Narrative [facility] - 09/04/2022 10:04 AM TEACHER MUSIC Collin Mayes MD ? 09/04/2022 10:04 AM ? [facility] EMG/EEG [address] [address] Electroencephalogram Yassine Vee 09/04/2022 Indication: ?? Yassine Vee is a 62 year old male who presents with memory changes. Current Outpatient Medications Medication ? ? amphetamine-dextroamphetamine (Adderall) 20 MG tablet ? ? buPROPion XL 24hr (Wellbutrin-XL) 300 MG tablet ? ? Coenzyme Q10 (Co Q-10) 120 MG ? ? Fenofibrate 134 MG CAPS ? ? fluticasone propionate (Flonase) 50 MCG/ACT nasal spray ? ? lisinopril (Prinivil; Zestril) 10 MG tablet ? ? Magnesium 100 MG ? ? Multiple Vitamins-Minerals (Multivitamin & Mineral) LIQD ? ? Saint James-3 Fatty Acids (fish oil) 1000 MG capsule ? ? pravastatin (Pravachol) 40 MG tablet ? ? QUEtiapine (SEROquel) 100 MG tablet ? ? QUEtiapine (SEROquel) 25 MG tablet ? ? Riboflavin (Vitamin B-2) 100 MG ? ? rimegepant (Nurtec) 75 MG tablet ? ? rizatriptan (Maxalt) 10 MG tablet ? ? vilazodone (Viibryd) 40 MG tablet No current facility-administered medications for this encounter. Procedure: Pt is awake and drowsy during the recording. A 16 channel EEG was performed in the International 10-20 system. One lead of EKG records a regular rate of 70 bpm. The technical quality is good.The background rhythm is alpha in the range of 8-9 hertz, with faster beta activity present anteriorly. Voltages range from 20-75 microvolts. Hyperventilation was not performed and photic stimulation produced no abnormal responses. There are no epileptiform discharges identified. Sleep was attempted. Impression: This is a normal electroencephalogram. Please note that a normal EEG cannot exclude a seizure disorder. If strongly suspected, further study may be performed with a sleep-deprived EEG. DINORAH Cid MD, PhD Diplomate, [place] Board of [employer] and Neurology (ABPN) Board Certified in Neurology and Clinical Neurophysiology [address], [address] [place] [address] (office) [phone] (FAX) Collin Mayes MD NEUROLOGY ORDERABLES [facility] * MRI BRAIN WWO CONTRAST (08/26/2022 12:30 PM TEACHER MUSIC) Anatomical Region Laterality Modality Head Magnetic Resonan ce 08/26/2022 12:3 2 PM TEACHER MUSIC Impressions 08/26/2022 12:34 PM TEACHER MUSIC IMPRESSION: No evidence for acute infarct, mass or hemorrhage. > Interpreting Provider: Gerald An MD on 08/26/2022 12:34 PM Narrative 08/26/2022 12:34 PM TEACHER MUSIC PROCEDURE: ??MRI BRAIN WWO CONTRAST, DATE/TIME OF EXAM: ??08/26/2022 12:30 PM, LOCATION ??[facility] MRI brain with and without IV contrast INDICATION: R51.9: Headache, unspecified R68.89: Other general symptoms and signs TECHNIQUE: MRI examination of the brain was performed utilizing multiple pulse sequences in multiple planes both before and after the administration of gadolinium. Contrast: 20 cc of Dotarem was utilized. FINDINGS: No old studies are available for comparison purposes. Diffusion-weighted images show no evidence for acute infarct. Susceptibility weighted images show no evidence for hemorrhage. T1, T2 and FLAIR images demonstrate ??the ventricles, sulci and basilar cisterns are normal for the patient's stated age. There are a few scattered foci of increased T2 signal within the supratentorial white matter which is nonspecific but likely relates to small vessel ischemic change. ?? There is no evidence for mass. There are no extra-axial fluid collections. ?? There is no midline shift. ?? Normal flow voids are seen within the internal carotid and vertebrobasilar arteries and the dural venous sinuses. No abnormal contrast enhancement is identified. The paranasal sinuses and mastoid air cells are well aerated. Procedure Note Gerald An MD - 08/26/2022 PROCEDURE: MRI BRAIN WWO CONTRAST, DATE/TIME OF EXAM: 08/26/2022 12:30PM, LOCATION [facility] MRI brain with and without IV contrast INDICATION: R51.9: Headache, unspecified R68.89: Other general symptoms and signs TECHNIQUE: MRI examination of the brain was performed utilizing multiple pulse sequences in multiple planes both before and after theadministration of gadolinium. Contrast: 20 cc of Dotarem was utilized. FINDINGS: No old studies are available for comparison purposes. Diffusion-weighted images show no evidence for acute infarct. Susceptibility weighted images show no evidence for hemorrhage. T1, T2 and FLAIR images demonstrate the ventricles, sulci and basilar cisterns are normal for the patient's stated age. There are a fewscattered foci of increased T2 signal within the supratentorial white matter whichis nonspecific but likely relates to small vessel ischemic change. Thereis no evidence for mass. There are no extra-axial fluid collections.There is no midline shift. Normal flow voids are seen within the internal carotid and vertebrobasilar arteries and the dural venous sinuses. No abnormal contrast enhancement is identified. The paranasal sinuses and mastoid air cells are well aerated. IMPRESSION: No evidence for acute infarct, mass or hemorrhage. > Interpreting Provider: Gerald An MD on 08/26/2022 12:34 PM Collin Mayes MD MR ORDERABLES * (ABNORMAL) CREATININE - POCT INTERFACED (08/26/2022 11:45 AM TEACHER MUSIC) Creatinine POCT 1.51(H) 0.70 - 1.20 mg/dL 08/26/2022 11:59 AM TEACHER MUSIC [facility] Blood BLOOD SPECIMEN / Unknown 08/26/2022 11:45 AM TEACHER MUSIC 08/26/2022 11:59 AM TEACHER MUSIC Collin Mayes MD LAB - POINT OF CARE ORDERABLES Performing Organization Address City/State/[facility] Co de Phone Number [facility] [address] [place] [id number] * AMB REFERRAL TO RHEUMATOLOGY (07/24/2022 4:37 PM CDT) Collin Mayes MD OUTPATIENT REFERRALS * CARDIOLIPIN ANTIBODY IGA/IGG/IGM PANEL (07/24/2022 3:24 PM CDT) Cardiolipin Antibody IgG <9 0 - 14 GPL U/mL [facility] INSURANCE BILL Comment: ? Negative: ?<15 ? Indeterminate: ? 15 - 20 ? Low-Med Positive: >20 - 80 ? High Positive: ? >80 Cardiolipin Antibody IgM <9 0 - 12 MPL U/mL [facility] INSURANCE BILL Comment: ? Negative: ?<13 ? Indeterminate: ? 13 - 20 ? Low-Med Positive: >20 - 80 ? High Positive: ? >80 Cardiolipin Antibody IgA <9 0 - 11 APL U/mL [facility] INSURANCE BILL Comment: ? Negative: ?<12 ? Indeterminate: ? 12 - 20 ? Low-Med Positive: >20 - 80 ? High Positive: ? >80 Blood BLOOD SPECIMEN / Unknown 07/24/2022 3:24 PM CDT 07/24/2022 Narrative Resulting Agency Comment Lab [facility] performed at: [facility] [address] ??[place] [id number] Darrion Gill DO LAB - SEROLOGY ORDER MAURI [facility] INSURANCE BILL [address] [place] [address] * CHAR PANEL COMPREHENSIVE (07/24/2022 3:24 PM CDT) Anti-dsDNA Quantitative <1 0 - 9 IU/mL [facility] INSURANCE BILL Comment: ?Negative ?<5 ?Equivocal ??5 - 9 ?Positive ?>9 PERFORMANCE TEST ENGINEER Antibody <0.2 0.0 - 0.9 AI [facility] INSURANCE BILL Bustillos (JANIE) Antibody <0.2 0.0 - 0.9 AI [facility] INSURANCE BILL Antiscleroderma-70 Antibody <0.2 0.0 - 0.9 AI [facility] INSURANCE BILL Sjogren's Antibodies (SSA) <0.2 0.0 - 0.9 AI [facility] INSURANCE BILL Sjogren's Antibodies (SSB) <0.2 0.0 - 0.9 AI [facility] INSURANCE BILL Antichromatin Antibodies <0.2 0.0 - 0.9 AI [facility] INSURANCE BILL Arabella-1 Antibody <0.2 0.0 - 0.9 AI [facility] INSURANCE BILL Centromere B Antibody <0.2 0.0 - 0.9 AI [facility] INSURANCE BILL See Below [facility] INSURANCE BILL Comment: Autoantibody ? Disease Association ?Condition ?Frequency ? --------- Antinuclear Antibody, ?SLE, mixed connective Direct (CHAR-D) ? tissue diseases ? --------- dsDNA ?SLE ?40 - 60% ? --------- Chromatin ?Drug induced SLE ?90% ? SLE ?48 - 97% ? --------- SSA (Ro) ? SLE ?25 - 35% ? Sjogren's Syndrome ? 40 - 70% ? Lupus ? 100% ? --------- SSB (La) ? SLE ? 10% ? Sjogren's Syndrome ?30% ?--------- Sm (anti-Bustillos) ?SLE ?15 - 30% ?--------- PERFORMANCE TEST ENGINEER ?Mixed Connective Tissue ? Disease ? 95% (U1 nRNP, ?SLE ?30 - 50% anti-ribonucleoprotein) ??Polymyositis and/or ? Dermatomyositis ? 20% ? --------- Scl-70 (antiDNA ?Scleroderma (diffuse) ?20 - 35% topoisomerase) ? Crest ? 13% ? --------- Arabella-1 ? Polymyositis and/or ? Dermatomyositis ?20 - 40% ? --------- Centromere B ? Scleroderma - Crest ? variant ? 80% Blood BLOOD SPECIMEN / Unknown 07/24/2022 3:24 PM CDT 07/24/2022 Narrative Resulting Agency Comment Lab Testing performed at: [facility] ??[facility] [phone] Darrion Gill DO LAB - SEROLOGY ORDER MAURI Performing Organization Address City/[facility] Co de Phone Number [facility] INSURANCE BILL [address] [place] [address] * LUPUS ANTICOAGULANT PANEL W RFLX (07/24/2022 3:24 PM CDT) Pathologist [facility] PTT-LA 33.2 0.0 - 51.9 sec [facility] INSURANCE BILL dRVVT 36.6 0.0 - 47.0 sec [facility] INSURANCE BILL Interpretation Comment: [facility] INSURANCE BILL Comment:No lupus anticoagula nt was detected. Blood BLOOD SPECIMEN / Unknown 07/24/2022 3:24 PM CDT 07/24/2022 Narrative Resulting Agency Comment Lab Testing performed at: [facility] [address] ??[facility] [phone] Darrion Gill DO LAB - HEMATOLOGY ORD ERABLES Performing Organization Address City/[facility]/ZIP Co de Phone Number [facility] INSURANCE BILL [address] [place] [address] * CBC WITH DIFFERENTIAL (07/24/2022 3:24 PM CDT) WBC 6.9 3.4 - 10.8 x10E3/uL [facility] INSURANCE BILL RBC 5.01 4.14 - 5.80 x10E6/uL [facility] INSURANCE BILL Hemoglobin 15.0 13.0 - 17.7 g/dL [facility] INSURANCE BILL Hematocrit 44.7 37.5 - 51.0 % [facility] INSURANCE BILL MCV 89 79 - 97 fL [facility] INSURANCE BILL MCH 29.9 26.6 - 33.0 pg [facility] INSURANCE BILL MCHC 33.6 31.5 - 35.7 g/dL [facility] INSURANCE BILL RDW 13.0 11.6 - 15.4 % [facility] INSURANCE BILL Platelet Count 307 150 - 450 x10E3/uL [facility] INSURANCE BILL Granulocytes % 53 Not Estab. % [facility] INSURANCE BILL Lymphocytes % 36 Not Estab. % [facility] INSURANCE BILL Monocytes % 7 Not Estab. % [facility] INSURANCE BILL Eosinophils % 2 Not Estab. % [facility] INSURANCE BILL Basophils % 1 Not Estab. % [facility] INSURANCE BILL Immature Cells NOT AVAILABLE [facility] INSURANCE BILL Comment:Result cannot be obt ained for this observation. Granulocytes Absolute 3.7 1.4 - 7.0 x10E3/uL [facility] INSURANCE BILL Lymphocytes Absolute 2.5 0.7 - 3.1 x10E3/uL [facility] INSURANCE BILL Monocytes Absolute 0.5 0.1 - 0.9 x10E3/uL [facility] INSURANCE BILL Eosinophils Absolute 0.1 0.0 - 0.4 x10E3/uL [facility] INSURANCE BILL Basophils Absolute 0.1 0.0 - 0.2 x10E3/uL [facility] INSURANCE BILL Immature Granulocytes 1 Not Estab. % [facility] INSURANCE BILL Immature Granulocytes Absolute 0.0 0.0 - 0.1 x10E3/uL [facility] INSURANCE BILL nRBC NOT AVAILABLE [facility] INSURANCE BILL Comment:Result cannot be obt ained for this observation. Comment Hematology NOT AVAILABLE [facility] INSURANCE BILL Comment:Result cannot be obt ained for this observation. Blood BLOOD SPECIMEN / Unknown 07/24/2022 3:24 PM CDT 07/24/2022 Narrative Resulting Agency Comment Lab [facility] performed at: [facility] [address] ??[facility] [phone] Darrion Gill DO LAB - HEMATOLOGY ORD ERABLES [facility] INSURANCE BILL [address] [place] [address] * COMPLEMENT C3 C4 PANEL (07/24/2022 3:24 PM CDT) Complement C3 150 82 - 167 mg/dL [facility] INSURANCE BILL Complement C4 37 12 - 38 mg/dL [facility] INSURANCE BILL Blood BLOOD SPECIMEN / Unknown 07/24/2022 3:24 PM CDT 07/24/2022 Narrative Resulting Agency Comment Lab Testing performed at: [facility] [place] [address] ??[facility] [id number] Darrion Gill DO LAB - CHEMISTRY BRANDAN STEWART [facility] INSURANCE BILL [address] [place] [address] * (ABNORMAL) JAH STAINING PATTERNS REFLEXED (07/09/2022 3:26 PM CDT) Homogeneous Pattern NOT AVAILABLE [facility] INSURANCE BILL Comment:Result cannot be obt ained for this observation. Nucleolar Pattern NOT AVAILABLE [facility] INSURANCE BILL Comment:Result cannot be obt ained for this observation. Speckled Pattern 1:160(H) [facility] INSURANCE BILL Comment:ICAP nomenclature: A C-2,4,5,29 Centromere Pattern NOT AVAILABLE [facility] INSURANCE BILL Comment:Result cannot be obt ained for this observation. Spindle Apparatus Pattern NOT AVAILABLE [facility] INSURANCE BILL Comment:Result cannot be obt ained for this observation. Nuclear Membrane Pattern NOT AVAILABLE [facility] INSURANCE BILL Comment:Result cannot be obt ained for this observation. Midbody Pattern NOT AVAILABLE [facility] INSURANCE BILL Comment:Result cannot be obt ained for this observation. Nuclear Dot Pattern NOT AVAILABLE [facility] INSURANCE BILL Comment:Result cannot be obt ained for this observation. PCNA Pattern NOT AVAILABLE [facility] INSURANCE BILL Comment:Result cannot be obt ained for this observation. Centriole Pattern NOT AVAILABLE [facility] INSURANCE BILL Comment:Result cannot be obt ained for this observation. Note [facility] INSURANCE BILL Comment: For more information about Hep-2 cell patterns use ANApatterns.org, the official website for the International Consensus on Antinuclear Antibody (CHAR) Patterns (ICAP). A positive CHAR result may occur in healthy individuals (low titer) or be associated with a variety of diseases. ??See interpretation chart which is not all inclusive: ? . Pattern ?Antigen Detected ??Suggested Disease Association ? Homogeneous ??DNA(ds,ss), ? SLE - High titers ? Nucleosomes, ? Histones ?Drug-induced SLE ? Speckled ? Sm, PERFORMANCE TEST ENGINEER, SCL-70, ??SLE,MCTD,PSS (diffuse form), ? SS-A/SS-B ? Sjogrens ? Nucleolar ?SCL-70, PM-1/SCL ??High titers Scleroderma, ? PM/DM ? Centromere ?? Centromere ?PSS (limited form) w/Crest ? syndrome variable ? Nuclear Dot ??[id number] ??Primary Biliary Cirrhosis ? Nuclear ?GP210, ?Primary Biliary Cirrhosis Membrane ? breann A,B,C ? 07/09/2022 3:26 PM CDT 07/09/2022 Narrative Resulting Agency Comment Lab Testing performed at: [facility] ??[facility] [phone] Collin Mayes MD LAB - PATHOLOGY/CYTO LOGY ORDERABLES [facility] INSURANCE BILL [address] [place] [address] * TSH/T4 THYROID SCREEN (07/09/2022 3:26 PM CDT) TSH 1.760 0.450 - 4.500 uIU/mL [facility] INSURANCE BILL T4 Total 7.2 4.5 - 12.0 ug/dL [facility] INSURANCE BILL Blood BLOOD SPECIMEN / Unknown 07/09/2022 3:26 PM CDT 07/09/2022 Narrative Resulting Agency Comment Lab Testing performed at: [facility] [address] ??[facility] [phone] Collin Mayes MD LAB - CHEMISTRY BRANDAN STEWART Performing Organization Address [facility] Co de Phone Number [facility] INSURANCE BILL [address] [place] [address] * C-REACTIVE PROTEIN (CRP) (07/09/2022 3:26 PM CDT) C-Reactive Protein 3 0 - 10 mg/L [facility] Blood BLOOD SPECIMEN / Unknown 07/09/2022 3:26 PM CDT 07/09/2022 Narrative Resulting Agency Comment Lab Testing performed at: [facility] [address] ??[facility] [phone] Collin Mayes MD LAB - CHEMISTRY BRANDAN STEWART Performing Organization Address [facility] de Phone Number [facility] INSURANCE BILL [address] [place] [address] * (ABNORMAL) CHAR BLOOD SCREEN W/REFLEX TITER (07/09/2022 3:26 PM CDT) CHAR Positive(A ) [facility] Comment: ?Negative ?? <1:80 ?Borderline ??1:80 ?Positive ?? >1:80 Blood BLOOD SPECIMEN / Unknown 07/09/2022 3:26 PM CDT 07/09/2022 Narrative Resulting Agency Comment Lab Testing performed at: [facility] [place] [address] ??[facility] [phone] Collin Mayes MD LAB - CHEMISTRY BRANDAN STEWART Performing Organization Address [facility] Co de Phone Number [facility] INSURANCE BILL [address] [place] [address] * ERYTHROCYTE SEDIMENTATION RATE (07/09/2022 3:26 PM CDT) Erythrocyte Sedimentation Rate Westergren 3 0 - 30 mm/hr [facility] INSURANCE BILL Blood BLOOD SPECIMEN / Unknown 07/09/2022 3:26 PM CDT 07/09/2022 Narrative Resulting Agency Comment Lab Testing performed at: [facility] [place] [address] ??[facility] [phone] Collin Mayes MD LAB - HEMATOLOGY ORD ERAMILAGRO Performing Organization Address [facility] Co de Phone Number [facility] INSURANCE BILL [address] [place] [address] * VITAMIN B12 FOLATE PANEL (07/09/2022 3:26 PM CDT) Vitamin B12 774 232 - 1,245 pg/mL [facility] INSURANCE BILL Folate 18.8 >3.0 ng/mL [facility] INSURANCE BILL Comment: A serum folate concentration of less than 3.1 ng/mL is considered to represent clinical deficiency. Blood BLOOD SPECIMEN / Unknown 07/09/2022 3:26 PM CDT 07/09/2022 Narrative Resulting Agency Comment Lab Testing performed at: [facility] [place] [address] ??[facility] [phone] Collin Mayes MD LAB - CHEMISTRY BRANDAN STEWART Performing Organization Address City/[facility]/ZIP Co de Phone Number [facility] INSURANCE BILL [address] [place] [address] Care Teams Design Eng Relationship Specialty Start Date End Date Morelia Scott, LICENSING ANALYST-PADDED PRODUCTS FINISHER [address] [place] [phone] PCP - General Nurse Practitioner 09/04/22 Morelia Scott, LICENSING ANALYST-PADDED PRODUCTS FINISHER [address] [place] [phone] Nurse Practitioner 06/21/22
--- OUTSIDE RECORDS SUMMARY | 2024-09-11 16:58 | XMS_ITS | Encounter Summary ---
Author Organization [facility] Address [address] [facility] [place] [address] Care Team Providers Care Health Editor Name Role Phone Morelia Scott BOLOGNA LACER-TRIMMER SORTER Unavailable [phone] Morelia Scott BOLOGNA LACER-TRIMMER SORTER Primary Care Provider Encounter Details Date Type Department Care Team (Late Contact Info) Description 11/06/2023 Orders Only [facility] [address] [place] [address] Cecilia Gutierrez Social History Tobacco Use Types Packs/Day Years Used Date Smoking Tobacco: Never Smokeless Tobacco: Never Alcohol Use Standard Drinks/Week Comments Never 0 (1 standard drink = 0.6 oz pur e alcohol) Sex and Gender Information Value Date Recorded Sex Assigned at Not on file Gender Identity Not on file Sexual Orientation Not on file documented as of this encounter Plan of Treatment Upcoming Encounters Date Type Department Care Team (Late Contact Info) Description 11/23/2024 10:20 AM 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 Procedure visit [facility] [address] [place] [address] Collin Mayes MD [address] [place] [phone] documented as of this encounter Visit Diagnoses Not on filedocumented in this encounter Care Teams Health Editor Relationship Specialty Start Date End Date Morelia Scott BOLOGNA LACER-TRIMMER SORTER [address] [place] [address] PCP - General Nurse Practitioner 09/04/22 Morelia Scott APRN-TRIMMER SORTER [address] [place] [address] Nurse Practitioner 06/21/22 documented as of this encounter
--- OUTSIDE RECORDS SUMMARY | 2024-09-11 16:58 | XMS_ITS | Encounter Summary ---
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 Procedures [place] CHEMODENERV MUSC MIGRAINE Collin Mayes MD [address] [facility] [address] [place] [address] Referral ID Status Reason Start Date Expiration Date V isits Requested Visits Authorized [id number] Pending Review 12/03/2023 12/02/2024 1 1 Reason for Visit * Reason Comments Procedure Patient present for botox Encounter Details Date Type Department Care Team (Latest Contact Info) Description 12/03/2023 3:40 PM CDT Procedure visit [facility]sc[facility] [address] [place] [address] Collin Mayes MD [address] [facility] [address] [place] [address] Intractable chronic migraine without aura [...] Sign Reading Time Taken Comments Blood Pressure 113/87 12/03/2023 3:03 PM CDT Pulse 92 12/03/2023 3:03 PM CDT Temperature - - Respiratory Rate - - Oxygen Saturation - - Inhaled Oxygen Concentration - - Weight 93.4 kg (206 lb) 12/03/2023 3:03 PM CDT Height 177.8 cm (5' 10 ) 12/03/2023 3:03 PM CDT Body Mass Index 29.56 12/03/2023 3:03 PM CDT documented in this encounter Patient Instructions * Patient Instructions* Carmen Don - 12/03/2023 3:41 PM CDT Images from the original note were not included. documented in this encounter Progress Notes * Collin Mayes MD - 12/03/2023 3:06 PM CDT [facility] [address] [facility] [address] [place] [address] BOTOX procedure note Indications: Chronic Migraine. This is a 63 year oldmale with chronic migraine unresponsive to mulitple abortive and prophylactic agents. This is FOURTH time Botox injection for him. Last Botox injection on 09/05/2023 # MARIE days /month prior to Botox treatment: 17 # MARIE days /month currently: 8 # Migraine days/month prior to Botox treatment: 10-15 # Migraine days /month currently: 3 Approximate length of headache (hrs) prior to Botox: 8 hrs Approximate length of headache (hrs) currently: 3 hr Procedure: Timeout performed to verify name, , [...] were divided at 2 sites in the horticulture superintendent, 5 units in Procerus, 20 units divided [...] of headache. Aimovig was prescribed. However he enim1ap injection and did not tolerate the medication. Reports low energy, listlessness, fatigue for several days. He would like to try Quilipta. New prescription for 30 mg once daily ordered. I personally performed this procedure. CPT Code: 39766 DINORAH Cid MD, PhD Diplomate, [place] Board of Psychiatry and Neurology (ABPN) Board Certified in Neurology and Clinical Neurophysiology [address], [address] [place] [address] (office) [phone] (FAX) documented in this encounter Plan of Treatment Upcoming Encounters Date Type Department Care Team (Late st Contact Info) Description 11/23/2024 10:20 AM PROJECTION ENGINEER Procedure visit [facility] [address] [place] [address] [address] [place] [address] Collin Mayes MD [address] [place] [address] [address] [place] [address] documented as of this encounter Visit Diagnoses [...] 200 Units, Intramuscular, ONCE, 1 dose, On Fri12/03/23 at 1600 $ Given 12/03/2023 3:40 PM CDT 200 Units Head documented in this encounter Care Teams Overhead Crane Inspector Relationship Specialty Start Date End Date Morelia Scott APRN-CNP [address] [place] [address] PCP - General Nurse Practitioner 09/04/22 Morelia Scott APRN-CNP [address] [place] [address] Nurse Practitioner 06/21/22 documented as of this encounter
--- OUTSIDE RECORDS SUMMARY | 2024-09-11 16:58 | XMS_ITS | Encounter Summary ---
Author Organization [facility] Address [address] [facility] [place] [address] Care Team Providers Care Slubber Tender Name Role Phone SoniaMorelia isabel MINES INSPECTOR-MIX HOUSE TENDER Unavailable [phone] Morelia Scott MINES INSPECTOR-MIX HOUSE TENDER Primary Care Provider Encounter Details Date Type Department Care Team (Late st Contact Info) Description 05/10/2024 Orders Only [facility] [address] [place] [phone] Yumiko Lee MD [address] [facility] 3[facility] [place] [phone] Social History Tobacco Use Types Packs/Day Years [...] st Contact Info) Description 11/23/2024 10:20 AM 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
--- OUTSIDE RECORDS SUMMARY | 2024-09-11 16:58 | XMS_ITS | Encounter Summary ---
Author Organization [facility] Address [address] [facility] [place] [address] Care Team Providers Care Green Meat Packer Name Role Phone Morelia Scott GLOBAL PROFESSIONAL-CYBER ENGINEER Unavailable [phone] Morelia Scott GLOBAL PROFESSIONAL-CYBER ENGINEER Primary Care Provider Reason for Referral * OP/Amb RFL Auth (Routine) - Open Specialty Diagnoses / Procedures Referred By Contac t Referred To Contact Diagnoses Intractable chronic migraine without aura and with status migrainosus Procedures [place] CHEMODENERV MUSC MIGRAINE Collin Mayes MD [address] [address] Referral ID Status Reason Start Date Expiration Date Visits Re quested Visits Authorized [id number] Open 05/25/2024 05/25/2025 1 1 Reason for Visit * Reason Comments Procedure Patient presents for 12 week Botox injections. * Procedure (Routine) - Closed Specialty Diagnoses / Procedures Referred By Contac t Referred To Contact Neurology / Neuroscience Diagnoses Chronic migraine without aura, not intractable, without status migrainosus Procedures [place] CHEMODENERV MUSC MIGRAINE [place] BOTULINUM TOXIN TYPE A PER UNIT Collin Mayes MD [address] [place] [address] Collin Mayes MD [address] [facility] [address] [place] [address] Referral ID Status Reason Start Date Expiration Date Visits Re quested Visits Authorized [id number] Closed 05/07/2024 09/03/2024 2 2 Encounter Details Date Type Department Care Team (Latest Contact Info) Description 05/25/2024 8:40 AM CDT Procedure visit [facility] [address] [place] [address] Collin Mayes MD [address] [place] [address] Intractable chronic migraine without aura [...] Sign Reading Time Taken Comments Blood Pressure 127/81 05/25/2024 8:25 AM CDT Pulse 77 05/25/2024 8:25 AM CDT Temperature - - Respiratory Rate - - Oxygen Saturation - - Inhaled Oxygen Concentration - - Weight 93 kg (205 lb) 05/25/2024 8:25 AM CDT Height 180.3 cm (5' 11 ) 05/25/2024 8:25 AM CDT Body Mass Index 28.59 05/25/2024 8:25 AM CDT documented in this encounter Patient Instructions * Patient Instructions* Dorina White - 05/25/2024 8:38 AM CDT BOTOX 200 UNIT VIAL Buy and bill [facility]: [id number] LOT: [id number] EXP: 08/2026 documented in this encounter Progress Notes * Collin Mayes MD - 05/25/2024 8:14 AM CDT Images from the original note were not included. [facility] [address] [facility] [address] [facility] [address] BOTOX procedure note Indications: Chronic Migraine. This is a 63 year oldmale with chronic migraine unresponsive to mulitple abortive and prophylactic agents. This is SIXTH time Botox injection. Last Botox injection on 02/27/2024. # MARIE days /month prior to Botox treatment: 17 # MARIE days /month currently: 1-2 # Migraine days/month prior to Botox treatment: 10-15 # Migraine days /month currently: 1-2 Approximate length of headache (hrs) prior to [...] were divided at 2 sites in the horseshoer, 5 units in Procerus, 20 units divided [...] of headache. Aimovig was prescribed. However he wwex1xn injection and did not tolerate the medication. Reports low energy, listlessness, fatigue for several days. He would like to try Quilipta. New prescription for 30 mg once daily ordered. I personally performed this procedure. CPT Code: 36939 DINORAH Cid MD, PhD Diplomate, [place] Board of Psychiatry and Neurology (ABPN) Board Certified in Neurology and Clinical Neurophysiology [facility] [address] [facility], [address] [place] [address] (office) [phone] (FAX) documented in this encounter Plan of Treatment Upcoming Encounters Date Type Department Care Team (Late st Contact Info) Description 11/23/2024 10:20 AM THEATRE PROGRAM DIRECTOR Procedure visit [facility] Health Neurosciences [address] [place] [address] Collin Mayes MD [address] [place] [address] documented as of this encounter Visit Diagnoses [...] 200 Units, Intramuscular, ONCE, 1 dose, On Fri05/25/24 at 0900 $ Given 05/25/2024 8:35 AM CDT 200 Units Other see comments documented in this encounter Care Teams Green Meat Packer Relationship Specialty Start Date End Date Morelia Scott APRN-CNP [address] [place] [address] PCP - General Nurse Practitioner 09/04/22 Morelia Scott APRN-CNP [address] [place] [address] Nurse Practitioner 06/21/22 documented as of this encounter
--- OUTSIDE RECORDS SUMMARY | 2024-09-11 16:58 | XMS_ITS | Encounter Summary ---
Author Organization [facility] Address [address] [place] [address] Care Team Providers Care Business English Instructor Name Role Phone Morelia Scott LINE DRIVER-LICENSED CLINICAL SOCIAL WORKER Unavailable [phone] Morelia Scott LINE DRIVER-LICENSED CLINICAL SOCIAL WORKER Primary Care Provider Encounter Details Date Type Department Care Team (Late st Contact Info) Description 05/20/2024 Patient Outreach [facility] [address] [place] [phone] Majo Rutledge, RN Social History Tobacco Use Types Packs/Day Years Used Date Smoking Tobacco: Never Smokeless Tobacco: Never Alcohol Use Standard Drinks/Week Comments Never 0 (1 standard drink = 0.6 oz pur e alcohol) Sex and Gender Information Value Date Recorded Sex Assigned at Not on file Gender Identity Not on file Sexual Orientation Not on file documented as of this encounter Miscellaneous Notes * Telephone Encounter - Majo Rutledge RN - 05/21/2024 10:21 AM CDT Pt confirmed procedure appointment for [facility] on 05/26/2024 at 1030am. Verbalized understanding ofprep instructions including NPO after midnight. Will arrive 1 hour prior to procedure time. 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 This pt is not taking blood thinning medications. Reminded to take all regular medications as scheduled leading up to procedure and to take all heart and any BP meds he/she might be on in the morning of test with a sip of water. Has prep * Telephone Encounter - Majo Rutledge RN - 05/20/2024 3:34 PM CDT Colonoscopy at [facility] on 05/26/2024 at 1030am---left message documented in this encounter Plan of Treatment Upcoming Encounters Date Type Department Care Team (Late st Contact Info) Description 11/23/2024 10:20 AM WILDLIFE BIOLOGY TECHNICIAN Procedure visit [facility] [address] [place] [address] Collin Mayes MD [address] [place] [address] documented as of this encounter Visit Diagnoses Not on filedocumented in this encounter Care Teams Business English Instructor Relationship Specialty Start Date End Date Morelia Scott APRN-CNP [address] [place] [address] PCP - General Nurse Practitioner 09/04/22 Morelia Scott APRN-CNP [address] [place] [address] Nurse Practitioner 06/21/22 documented as of this encounter
--- OUTSIDE RECORDS SUMMARY | 2024-09-11 16:58 | XMS_ITS | Encounter Summary ---
Author Organization [facility] Address [address] [place] [address] Care Team Providers Care Orthodontic Band Maker Name Role Phone Sonia Morelia Vicente PROFESSOR OF PHYSICAL EDUCATION-DIESEL ENGINE INSPECTOR Unavailable [phone] Morelia Scott PROFESSOR OF PHYSICAL EDUCATION-DIESEL ENGINE INSPECTOR Primary Care Provider Reason for Visit * Auth/Cert (Routine) Specialty Diagnoses / Procedures Referred By Contshakira t Referred To Contact Diagnoses History of colon polyps Procedures [place] COLOREC CANC SCRN,COLONOSCPY HI RISK COLONOSCOPY SCREEN w/ [place] COLONOSCOPY SCREEN Referral ID Status Reason Start Date Expiration Date Visits Re quested Visits Authorized [id number] 1 1 Encounter Details Date Type Department Care Team (Latest Contact Info) Description 05/26/2024 8:20 AM CDT - 05/26/2024 12:20 PM CDT Hospital Encounter [facility] [address] [place] [phone] Yumiko Lee MD [address] [facility] 3[facility] [place] [address] Surgery General Discharge Disposition: Home or Self Care Social History Tobacco Use Types Packs/Day Years [...] Sign Reading Time Taken Comments Blood Pressure 145/85 05/26/2024 12:11 PM CDT Pulse 63 05/26/2024 12:11 PM CDT Temperature 36.4 ??C (97.6 ??F) 05/26/2024 11:45 [...] relax you. Do not drive or make important decisions for at least 24 hours. Return to [...] ask them during your visits. ?? Copyright [employer] 2020 Information is for End User's use only and may not be sold, redistributed or otherwise used for commercial purposes. All illustrations and images included in CareNotes?? are the copyrighted property of [employer]. or [employer] The above information is an educational assistant only. 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 Race: White _ Providers: ?[facility]MD, Bassam Ceballos ?(Fellow) Referring : ? Procedure: ?Colonoscopy Indications: [...] bowel ?preparation was evaluated using the BBPS ([place] ?Bowel Preparation Scale) with scores of: Right [...] ?perforation or abscess without bleeding CPT copyright 202 [employer]. All rights reserved. The codes documented in this report are preliminary and upon quality assistant review may be revised to meet current compliance requirements. Yumiko Lee MD ([place]) 05/26/2024 11:43:06 AM Note Initiated On: 05/26/2024 11:00 AM Number of Addenda: 0 ? [facility] ? [address] [place] [address] [facility] 05/26/2024 11:0 0 AM CDT Yumiko Lee MD GI PROCEDURE ORDE ALDOLES [facility] documented in this encounter Visit Diagnoses Not on filedocumented in this encounter Administered Medications Inactive Administered [...] ($ New Bag/Syri nge - Provider: Jenae Boyce RN)1109 (Paused - Provider: GWENDOLYN Mejia - Comment: Switch to gravity)1110 (Restarted - Provider: GWENDOLYN Mejia)1137 (Anesthesia Volume Adjustment - Provider: GWENDOLYN Mejia) documented in this encounter Care Teams Orthodontic Band Maker Relationship Specialty Start Date End Date Morelia Scott APRN-CNP [address] [place], [place] [phone] PCP - General Nurse Practitioner 09/04/22 Morelia Scott APRN-DIESEL ENGINE INSPECTOR [address] [place] [address] Nurse Practitioner 06/21/22 documented as of this encounter
--- OUTSIDE RECORDS SUMMARY | 2024-09-11 16:58 | XMS_ITS | Encounter Summary ---
Author Organization [facility] Address [address] [facility] [place] [address] Care Team Providers Care Payroll Examiner Name Role Phone Morelia Scott FAMILY MEDICINE PHYSICIAN ASSISTANT-RN INVASIVE Unavailable [phone] Morelia Scott FAMILY MEDICINE PHYSICIAN ASSISTANT-RN INVASIVE Primary Care Provider Reason for Visit * Reason Onset Date Comments Refill Request 11/05/2023 Encounter Details Date Type Department Care Team (Late st Contact Info) Description 11/05/2023 Refill [facility]sciences [address] [facility] [address] [place] [address] Collin Mayes MD [address] [facility] [address] [place] [address] Refill Request Social History Tobacco Use Types Packs/Day Years [...] encounter Miscellaneous Notes * Telephone Encounter - Gogo Reese MA - 11/05/2023 9:36 AM CST Patient called stating that the Emgality was denied by insurance. They suggest he try Amovig or Qulipta. He would like to try Amovig. ER TRUCK DRIVER documented in this encounter Plan of Treatment Upcoming Encounters Date Type Department Care Team (Late st Contact Info) Description 11/23/2024 10:20 AM REEFER TRUCK DRIVER Procedure visit [facility] Neurosciences [address] [place] [address] Collin Mayes MD [address] [place] [address] documented as of this encounter Visit Diagnoses Not on filedocumented in this encounter Care Teams Payroll Examiner Relationship Specialty Start Date End Date Morelia Scott APRN-RN INVASIVE [address] [place] [address] PCP - General Nurse Practitioner 09/04/22 Morelia Scott APRN-RN INVASIVE [address] [place] [address] Nurse Practitioner 06/21/22 documented as of this encounter
--- OUTSIDE RECORDS SUMMARY | 2024-09-11 16:58 | XMS_ITS | Encounter Summary ---
Author Organization [facility] Address [address] [facility] [place] [address] Care Team Providers Care Community Education Specialist Name Role Phone SoniaRobbinbetsey Vicente PAPERHANGER PIPE-PMO LEAD Unavailable [phone] Morelia Scott Cinthia PAPERHANGER PIPE-PMO LEAD Primary Care Provider Reason for Visit * Auth/Cert (Routine) Specialty Diagnoses / Procedures Referred By Marimar t Referred To Contact Diagnoses History of colon polyps Procedures [facility] CANC SCRN,COLONOSCPY HI RISK COLONOSCOPY SCREEN w/ vladislav COLONOSCOPY SCREEN Referral ID Status Reason Start Date Expiration Date Visits Re quested Visits Authorized [id number] 1 1 Encounter Details Date Type Department Care Team (Late st Contact Info) Description 05/26/2024 11:10 AM CDT Anesthesia Event [facility] [address] [place] [id number] Shira Juarez MD [facility] [facility] DEPT [place] [phone] Lea Martinez, PAPERHANGER PIPE-AIR POLLUTION ENGINEER [address] [place] [address] Anesthesia Record Procedure Summary Procedure Name Responsible Anesthesiologist Anesthesia Start Time Anesthesia Stop Time COLONOSCOPY SCREEN w/ Shira Norwood MD 05/26/24 1110 05/26/24 1143 Events Date Time Event Comment 05/26/2024 0958 1110 An Start 1110 Pt In Room 1110 An Start Data 1111 PT Reassessment 1112 Timeout Anesthesia part icipated in timeout at the time documented in the record by nursing. 1114 Induction 1114 Anes Ready 1115 Proc Start 1135 Proc Stop 1135 An Emergence 1139 an stop data 1139 Pt out of Room 1143 An Stop Meds Name Total lidocaine PF 2% 50 mg propofol 200mg/20mL injection 120 mg propofol 500 mg/50 mL injection 232.82 m g 0.9% NaCl infusion 300 mL * Agents Name Insp. N2O Exp. N2O O2 Flow - Auxiliary O2 * Blood No blood administrations on file. Lines, Drains, and Airways Type Details Placement Removal Peripheral IV Date: 05/26/24; Time : 927; Orientation: Right; Location: Antecubital; Gauge: 20 G 05/26/24 0928 by Yumiko Naidu RN 05/26/24 1211 by Tamra Roman RN documented in this encounter Social History Tobacco [...] No 05/26/2024 documented as of this encounter Progress Notes * Shira Juarez MD - 05/26/2024 4:51 PM CDT ANESTHESIA POSTOP EVALUATION NOTE Procedure: COLONOSCOPY SCREEN w/ vladislav Yassine Vee is a 63 year old male Patient Vitals for the past 6 hrs: BP Temp Pulse Resp SpO2 Pain Rating Score #1 Pain Scale/Observation Pulse - (SPO2/Cuff) 05/26/24 1100 120/80 -- 75 17 98 % -- -- 75 bpm 05/26/24 1143 105/72 -- 70 10 98 % -- -- 71 bpm 05/26/24 1145 125/75 97.6 ??F (36.4 ??C) 83 20 98 % 0 N 81 bpm 05/26/24 1200 145/80 -- 64 14 98 % -- -- 65 bpm 05/26/24 1211 145/85 -- 63 17 99 % 0 N 66 bpm Anesthesia Type: general Pre-op Diagnosis Codes: * History of colon polyps [Z86.010] Mental Status: awake, alert, neurologic status has returned to preoperative level and sufficiently recovered from acute administration of anesthesia to participate in the evaluation Respiratory Function: natural Cardiac Function: stable Postop Pain: acceptable to the patient Postop Hydration: adequate Postop Nausea: none Assessment: no apparent anesthetic complications, patient tolerated procedure well and no evidence of recall Patient Disposition: Release from Anesthesia Care NOTABLE EVENTS: No notable events documented. * Shira Juarez MD - 05/26/2024 9:47 AM CDT ANESTHESIA PREOPERATIVE EVALUATION NOTE Procedure: COLONOSCOPY SCREEN w/ palagiri NPO status: *Except Oral meds with H2O (05/26/2024 9:27 AM) Last Clear Liquids: 0500 (05/26/2024 9:27 AM) Vitals: Patient Vitals for the past 6 hrs: BP Temp Pulse Resp SpO2 Pain Rating Score #1 05/26/24 0926 -- -- -- -- -- 0 05/26/24 0923 126/83 98 ??F (36.7 ??C) 64 19 98 % -- LMP: No LMP for male patient. OB Status: unknown ANESTHESIA PRE-EVALUATION NOTE History of Present Illness: 63 yo for colonoscopy H/o HTN,HLD,migraine ,MAYELIN S/P UPP still snoring The patient is a current smoker (marijuana). Physical Exam: Orientation X3 Airway/Mallampati Score: II Mouth Opening Distance: 2.5 fingerwidths Neck ROM: full TM Distance: < 3 FB Teeth: normal and Other - comments (u/l braces for TMJ) Heart: normal - S1 S2 Lungs: clear to ausculation bilaterally Abdomen Exam: obese Review of Systems: History of anesthetic complications: No Sleep Apnea Risk: Yes, Loud snoring GERD: No Poor Exercise Tolerance: No Recent Chest Pain: No Shortness of Breath: No AICD/Pacemaker: No Renal Disease: No Diagnostic Tests: Lab(s) reviewed: Yes. ANESTHESIA PLAN ASA Score: 2 NPO Status: No liquids within 2 hours and Patient instructed to be NPO after midnight Anesthesia Plan: general, TIVA and MAC Planned Induction: intravenous Planned Postop Destination: endo Anesthetic plan was discussed with: patient, spouse Anesthetic Plan discussion was: Consented The patient's procedural Anesthetic Plan was discussed with the AIR POLLUTION ENGINEER. BMI, Height, Weight Tobacco History Estimated body mass index is 28.87 kg/m?? as calculated from the following: Height as of this encounter: 1.778 m (5' 10 ). Weight as of this encounter: 91.3 kg (201 lb 3.2 oz). Social History Tobacco Use Smoking Status Never Smokeless Tobacco Never Alcohol History Drug History Social History Substance and Sexual Activity Alcohol Use Never Social History Substance and Sexual Activity Drug Use Yes Types: Marijuana Outpatient Medications: Inpatient Medications: Outpatient Medications Marked as Taking for the 05/26/24 encounter (Hospital Encounter) Medication Sig Last Dose adapalene-benzoyl peroxide Past Month buPROPion XL 24hr Take 1 (one) tablet by mouth every morning 05/26/2024 at 0500 Co Q-10 Take by mouth once daily 05/26/2024 at 0500 cyclobenzaprine Take 1 (one) tablet by mouth at bedtime 05/25/2024 dexmethylphenidate ER 24hr Take 1 (one) capsule by mouth every morning 15mg 05/26/2024 at 0500 Fenofibrate TAKE 1 CAPSULE BY MOUTH 4 TIMES A WEEK IN THE MORNING 05/25/2024 fluticasone propionate [place] 1 (one) spray into the nose once daily 05/25/2024 lisinopril Take 1 (one) tablet by mouth once daily 05/26/2024 at 0500 Magnesium 05/26/2024 at 0500 Multivitamin & Mineral Take 15 mL by mouth once daily 05/26/2024 at 0500 fish oil Take 1 (one) capsule by mouth 2 times daily Past Week polyethylene glycol Drink 1/2 of the bowel prep at 6 pm the night before test. Finish the prep at 4am the morning of colonoscopy. Reasons: Colonoscopy 05/26/2024 at 0500 pravastatin Take 1 (one) tablet by mouth once daily 05/25/2024 QUEtiapine 05/26/2024 at 0500 QUEtiapine Take 1 (one) tablet by mouth 2 times daily 05/26/2024 at 0500 vilazodone Take 1 (one) tablet by mouth once daily 05/26/2024 at 0500 Current Facility-Administered Medications Medication Dose Last Admin 0.9% NaCl IV New Bag at 05/26/24 0929 0.9% NaCl 3 mL Allergies: Allergies Allergen Reactions Topiramate [Other] Drug Reaction with Eosinophilia and Systemic Symptoms (DRESS) Relevant Problems Problem List: There are no problems to display for this patient. Medical History: Past Medical History: Diagnosis Date Pure hypercholesterolemia Sleep apnea Snoring Surgical History: Past Surgical History: Procedure Laterality Date Appendectomy COLONOSCOPY Hemorrhoidectomy Knee Arthroscopy Left LASIK SURGERY Tonsillectomy and Adenoidectomy UVULOPHYRINGOPALATOPLASTY Vasectomy SAMPLE BOX MAKER Status: No LMP for male patient. unknown OB History No obstetric history on file. Covid Vaccine: Lab Results: No results found for requested labs within last 120 days. No results found for requested labs within last 120 days. documented in this encounter Miscellaneous Notes * Anesthesia Transfer of Care - Lea Martinez APRN-AIR POLLUTION ENGINEER - 05/26/2024 11:45 AM CDT ANESTHESIA TRANSFER OF CARE NOTE Today's Date: 05/26/2024 Date of : 1960 Patient: Yassine Mathur Daríoludy Procedure(s) with comments: COLONOSCOPY SCREEN w/ viniciusagikrunal - Diverticulosis otherwise normal Surgeon(s): Primary: Yumiko Lee MD Preop Diagnosis: Pre-op Diagnois: * History of colon polyps [Z86.010] Pre-op Meds (From admission, onward) Start Stop Status Route Frequency Ordered 05/26/24 0915 0.9% NaCl infusion -- Dispensed IV CONTINUOUS 05/26/24 0914 05/26/24 0914 0.9% NaCl injection 3 mL -- Dispensed IK PRE-PROCEDURE MULTIPLE 05/26/24 09 Post-op Diagnosis: * History of colon polyps [Z86.010] . Allergies Allergen Reactions Topiramate [Other] Drug Reaction with Eosinophilia and Systemic Symptoms (DRESS) Vitals: Patient Vitals for the past 3 hrs: BP Temp Pulse Resp SpO2 Pain Rating Score #1 05/26/24 1100 120/80 -- 75 17 98 % -- 05/26/24 1045 126/83 -- 71 12 96 % -- 05/26/24 1030 132/91 -- 75 20 96 % -- 05/26/24 1015 131/81 -- 66 17 96 % -- 05/26/24 1000 122/90 -- 75 18 96 % -- 05/26/24 0945 117/86 -- 68 14 97 % -- 05/26/24 0930 125/84 -- 64 17 97 % -- 05/26/24 0926 -- -- -- -- -- 0 05/26/24 0923 126/83 98 ??F (36.7 ??C) 64 19 98 % -- Lines, Drains, and Airways Type Details Placement Removal Peripheral IV Date: 05/26/24; Time: 927; Orientation: Right; Location: Antecubital; Gauge: 20 G 05/26/24927 by Yumiko Naidu RN Intraprocedure I/O Totals Intake 0.9% NaCl infusion 300.00 mL Total Intake 300 mL Patient Transfer Location: Endo Recovery Transport Airway: spontaneous respirations Complications: None Comments: STIVEN by Ward Trammell Handoff Given? Yes Checklist or Protocol - The cortez handoff elements that must be included in the transfer of care checklist include: 1. Identification of patient. 2. Identification of responsible practitioner (PACU nurse or advanced practitioner). 3. Discussion of pertinent medical history. 4. Discussion of the surgical/procedure course (procedure, reason for surgery, procedure performed). 5. Intraoperative anesthetic management and issue/concerns. 6. Expectations/Plans for the early post-procedure period. 7. Opportunity for questions and acknowledgement of understanding of report from the receiving PACUteam. Lea Martinez APRN-AIR POLLUTION ENGINEER documented in this encounter Plan of Treatment Upcoming Encounters Date Type Department Care Team (Late st Contact Info) Description 11/23/2024 10:20 AM ASSEMBLY DEPARTMENT SUPERVISOR Procedure visit [facility] [address] [place] [address] Collin Mayes MD [address] [place] [address] documented as of this encounter Visit Diagnoses [...] 05/26/2024 9:29 AM CDT 20 mL/ hr lidocaine HCl (PF) (Xylocaine MPF) 2 % injection Intravenous, PRN, Starting on Fri05/26/24 at 1114, Until Fri05/26/24 at 1145, Anesthesia Intra-op $ Given 05/26/2024 11:14 AM CDT 50 mg propofol (Diprivan) infusion Intravenous, CONTINUOUS PRN, Starting on Fri05/26/24 at 1114, Until Fri05/26/24 at 1145, Anesthesia Intra-op Rate Change 05/26/2024 11:31 AM CDT 50 mcg/kg/min 27.39 mL/hr Rate Change 05/26/2024 11:27 AM CDT 100 mcg/kg/min 54.78 m L/hr $ New Bag/Syringe 05/26/2024 11:14 AM CDT 150 mcg/kg/min 8 2.17 mL/hr propofol (Diprivan) injection Intravenous, PRN, Starting on Fri05/26/24 at 1114, Until Fri05/26/24 at 1145, Anesthesia Intra-op $ Given 05/26/2024 11:15 AM CDT 20 mg $ Given 05/26/2024 11:14 AM CDT 100 mg documented in this encounter Care Teams Community Education Specialist Relationship Specialty Start Date End Date Morelia Scott APRN-CNP [address] [place] [address] PCP - General Nurse Practitioner 09/04/22 Morelia Scott APRN-CNP [address] [place] [address] Nurse Practitioner 06/21/22 documented as of this encounter
--- OUTSIDE RECORDS SUMMARY | 2024-09-11 16:59 | XMS_ITS | Encounter Summary ---
Author Organization [facility] Address [address] [place] [address] Care Team Providers Care Farm Crew Member Name Role Phone SoniaRobbinbetsey Vicente RECRUITMENT MANAGER-HARD TILE SETTER Unavailable [phone] Morelia Scott RECRUITMENT MANAGER-HARD TILE SETTER Primary Care Provider Reason for Visit * Reason Onset Date Comments Follow-up 10/03/2023 Encounter Details Date Type Department Care Team (Late st Contact Info) Description 10/03/2023 Telephone [facility] Neurosciences [address] [place] [address] Collin Mayes MD [address] [facility] [address] [place] [address] Follow-up Social History Tobacco Use Types Packs/Day Years [...] encounter Miscellaneous Notes * Telephone Encounter - Anay Damon - 10/03/2023 1:37 PM CST Images from the original note were not included. Collin Mayes MD Sinovich, Angela M; Carlos Bunch Caller: Unspecified (Today, ??1:22 PM) We can try once a month injection such as Emgality, Ajovy or Aimovig. I would prefer Emgality 120 mg/ml injection. ?? Yassine and his decided they want to wait and see if his headaches come back again TY MANAGER * Telephone Encounter - Anay Damon - 10/03/2023 1:22 PM CST Pt called and since he is now on Medicare a and b his Nurtec will cost $1,500 a month. He wants to know if there is something else he can take. TY MANAGER documented in this encounter Plan of Treatment Upcoming Encounters Date Type Department Care Team (Late st Contact Info) Description 11/23/2024 10:20 AM DEPUTY MANAGER Procedure visit [facility] [address] [place] [address] Collin Mayes MD [address] [place] [address] documented as of this encounter Visit Diagnoses Not on filedocumented in this encounter Care Teams Farm Crew Member Relationship Specialty Start Date End Date Morelia Scott APRN-CNP [address] [place] [id number] PCP - General Nurse Practitioner 09/04/22 Morelia Scott APRN-CNP [address] [place] [address] Nurse Practitioner 06/21/22 documented as of this encounter
--- OUTSIDE RECORDS SUMMARY | 2024-09-11 16:59 | XMS_ITS | Encounter Summary ---
Author Organization [facility] Address [address] [facility] [place] [address] Care Team Providers Care Interpretative Dancer Name Role Phone Sonia Morelia Vicente AIR AND WATER FILLER-RECRUITMENT OFFICER Unavailable [phone] Morelia Scott AIR AND WATER FILLER-RECRUITMENT OFFICER Primary Care Provider Reason for Visit * Reason Onset Date Comments Follow-up 10/27/2023 Encounter Details Date Type Department Care Team (Late st Contact Info) Description 10/27/2023 Telephone [facility] Neurosciences [address] [facility] [address] [place] [address] Collin Mayes MD [address] [facility] [address] [place] [address] Follow-up Social History Tobacco Use [...] * Telephone Encounter - Anay Damon - 10/27/2023 12:33 PM CST Images from the original note were not included. Collin Mayes MD Sinovich, Angela M; Carmen Don Caller: Unspecified (Today, 10:51 AM) Please prescribe Emgality 120 mg/ml sc qmonthly injections. Discontinue Nurtec. ?? Prescription added Nurtec discontinued ITURE RENTAL CONSULTANT * Telephone Encounter - Anay Damon - 10/27/2023 10:51 AM CST Yassine called back and would like to try Emgality ITURE RENTAL CONSULTANT documented in this encounter Plan of Treatment Upcoming Encounters Date Type Department Care Team (Late st Contact Info) Description 11/23/2024 10:20 AM FURNITURE RENTAL CONSULTANT Procedure visit [facility] [address] [facility] [address] [address] [place] [address] Collin Mayes MD [address] [place] [phone] documented as of this encounter Visit Diagnoses Not on filedocumented in this encounter Care Teams Interpretative Dancer Relationship Specialty Start Date End Date Morelia Scott APRN-CNP [address] [place] [address] PCP - General Nurse Practitioner 09/04/22 Morelia Scott APRN-CNP [address] [place] [address] Nurse Practitioner 06/21/22 documented as of this encounter
--- OUTSIDE RECORDS SUMMARY | 2024-09-11 17:00 | XMS_ITS | Encounter Summary ---
Author Organization [facility] Address [address] [facility] [place] [address] Care Team Providers Care Buggy Loader Name Role Phone Morelia Scott PRIVATE BRANCH EXCHANGE OPERATOR-CLOUD DEVELOPER Unavailable [phone] Morelia Scott PRIVATE BRANCH EXCHANGE OPERATOR-CLOUD DEVELOPER Primary Care Provider Morelia Scott PRIVATE BRANCH EXCHANGE OPERATOR-CLOUD DEVELOPER Unavailable [phone] Reason for Visit * Reason Onset Date Comments Med Question 03/14/2023 Encounter Details Date Type Department Care Team (Late st Contact Info) Description 03/14/2023 Telephone [facility] Neurosciences [address] [place], [place] [id number] Collin Mayes MD [address] [facility] [address] [place] [address] Med Question Social History Tobacco Use Types Packs/Day Years Used Date Smoking Tobacco: Never Assessed Sex and Gender Information Value Date Recorded Sex Assigned at Not on file Gender Identity Not on file Sexual Orientation Not on file documented as of this encounter Miscellaneous Notes * Telephone Encounter - Anay Damon - 03/14/2023 10:20 AM CDT I spoke to Dr. Malloy and he said that these were not something from the Botox and that he should follow up with his PCP. I spoke to Yassine and Dayanara and they think that it has something to do with his braces. She was no longer concerned. * Telephone Encounter - Anay Damon - 03/14/2023 9:56 AM CDT Yassine and his call and said that he woke up on 03/13/23 feeling fine the day after Botox. He said that he sprayed two different chemicals in his yard yesterday and he had his braces tightened. Hesaid he thinks that is why he has a strange headache after his braces where tightened. He said he feels drunk like his head is fuzzy. They were wondering if that maybe from the Botox? He said he willnot drive until that feeling goes away. Please advise documented in this encounter Plan of Treatment Upcoming Encounters Date Type Department Care Team (Late st Contact Info) Description 11/23/2024 10:20 AM DESIGN COORDINATOR Procedure visit [facility] [address] [place] [address] Collin Mayes MD [address] [facility] [address] [place] [phone] documented as of this encounter Visit Diagnoses Not on filedocumented in this encounter Care Teams Buggy Loader Relationship Specialty Start Date End Date Morelia Scott APRN-CNP [address] [place] [address] PCP - General Nurse Practitioner 09/04/22 Morelia Scott APRN-CNP [address] [place] [address] PCP - Attributed-[employer] [place] 09/22/22 08/09/23 Morelia Scott APRN-CNP [address] [place] [address] Nurse Practitioner 06/21/22 documented as of this encounter
--- OUTSIDE RECORDS SUMMARY | 2024-09-11 17:00 | XMS_ITS | Encounter Summary ---
Author Organization [facility] Address [address] [facility] [address] Care Team Providers Care Machine Engraver Name Role Phone Morelia Scott APRN-PLASTICS FABRICATOR Unavailable [phone] Morelia Scott USED CAR RENOVATOR-PLASTICS FABRICATOR Primary Care Provider Encounter Details Date Type Department Care Team (Latest Contact Info) Description 08/26/2022 Travel Social History Tobacco Use Types Packs/Day Years Used Date Smoking Tobacco: Never Assessed Sex and Gender Information Value Date Recorded Sex Assigned at Not on file Gender Identity Not on file Sexual Orientation Not on file COVID-19 Exposure Response Date Recorded In the last 10 days, have yo u been in contact with someone who was confirmed or suspected to have Coronavirus/COVID-19? No / Unsure 08/26/2022 11:06 AM CREATIVE ARTS MUSIC THERAPIST documented as of this encounter Plan of Treatment Upcoming Encounters Date Type Department Care Team (Late st Contact Info) Description 11/23/2024 10:20 AM CREATIVE ARTS MUSIC THERAPIST Procedure visit [facility] Neurosciences [address] [place] [address] Collin Mayes MD [address] [place] [address] documented as of this encounter Visit Diagnoses Not on filedocumented in this encounter Care Teams Machine Engraver Relationship Specialty Start Date End Date Morelia Scott USED CAR RENOVATOR-PLASTICS FABRICATOR [address] [place] [address] PCP - General Nurse Practitioner 08/26/22 09/03/22 Morelia Scott APRN-PLASTICS FABRICATOR [address] [place] [address] Nurse Practitioner 06/21/22 documented as of this encounter
--- OUTSIDE RECORDS SUMMARY | 2024-09-11 17:00 | XMS_ITS | Encounter Summary ---
Author Organization [facility] Address [address] [facility] [place] [address] Care Team Providers Care Beater Worker Helper Name Role Phone Morelia Scott TAX SENIOR ASSOCIATE-FUR CLIPPER Unavailable [phone] Morelia Scott TAX SENIOR ASSOCIATE-FUR CLIPPER Primary Care Provider Morelia Scott TAX SENIOR ASSOCIATE-FUR CLIPPER Unavailable [phone] Encounter Details Date Type Department Care Team (Late st Contact Info) Description 02/10/2023 Orders Only [facility] Turbocoating [address] [place] [address] [place] [address] [place] [address] [address] [place] [address] Social History Tobacco Use Types Packs/Day Years Used Date Smoking Tobacco: Never Assessed Sex and Gender Information Value Date Recorded Sex Assigned at Not on file Gender Identity Not on file Sexual Orientation Not on file documented as of this encounter Plan of Treatment Upcoming Encounters Date Type Department Care Team (Late st Contact Info) Description 11/23/2024 10:20 AM FARO DEALER Procedure visit [facility] [employer] [address] [place], [place] [id number] Collin Mayes MD [address] [facility] [address] [place] [address] documented as of this encounter Visit Diagnoses Not on filedocumented in this encounter Care Teams Beater Worker Helper Relationship Specialty Start Date End Date Morelia Scott APRN-CNP [address] [place] [address] PCP - General Nurse Practitioner 09/04/22 Morelia Scott APRN-CNP [address] [place] [address] PCP - Attributed-[employer] [place] 09/22/22 08/09/23 Morelia Scott APRN-CNP [address] [place] [address] Nurse Practitioner 06/21/22 documented as of this encounter
--- OUTSIDE RECORDS SUMMARY | 2024-09-11 17:00 | XMS_ITS | Encounter Summary ---
Author Organization [facility] Address [address] [facility] [address] Care Team Providers Care Pressure Sealer And Tester Name Role Phone Morelia Scott MANAGER IN TRAINING-GUN FITTER Unavailable [phone] Morelia Scott MANAGER IN TRAINING-GUN FITTER Primary Care Provider Reason for Referral * OP/Amb RFL Auth (Routine) - Closed Specialty Diagnoses / Procedures Referred By Contac t Referred To Contact Diagnoses Intractable chronic migraine without aura and with status migrainosus Procedures [facility] MIGRAINE Collin Mayes MD [address] [address] Referral ID Status Reason Start Date Expiration Date Visits Re quested Visits Authorized [id number] Closed 09/05/2023 09/04/2024 1 1 AL SURGEON Reason for Visit * Reason Comments Procedure Patient is present f or botox, patient has no other concerns. Encounter Details Date Type Department Care Team (Latest Contact Info) Description 09/05/2023 11:40 AM DENTAL SURGEON Procedure visit [facility] Neurosciences [address] [place], [place] [address] [address] [place] [address] Collin Mayes MD [address] [facility] [address] [place] [address] Intractable chronic migraine without aura [...] Sign Reading Time Taken Comments Blood Pressure - - Pulse - - Temperature - - Respiratory Rate - - Oxygen Saturation - - Inhaled Oxygen Concentration - - Weight 93.4 kg (206 lb) 09/05/2023 11:38 AM DENTAL SURGEON Height 177.8 cm (5' 10 ) 09/05/2023 11:38 AM DENTAL SURGEON Body Mass Index 29.56 09/05/2023 11:38 AM DENTAL SURGEON documented in this encounter Patient Instructions * Patient Instructions* Gerald Martel - 09/05/2023 1:37 PM DENTAL SURGEON 155 units and 45 units were discarded [id number] Lot#:[id number] Exp:01/2026 Buy and bill AL SURGEON documented in this encounter Progress Notes * Collin Mayes MD - 09/05/2023 11:51 AM CST [facility] [address] [facility] [address] [place] [address] BOTOX procedure note Indications: Chronic Migraine. This is a 63 year oldmale with chronic migraine unresponsive to mulitple abortive and prophylactic agents. This is THIRD time Botox injection for him. Last Botox injection on 06/06/2023 # MARIE days /month prior to Botox treatment: 17 # MARIE days /month currently: 8 # Migraine days/month prior to Botox treatment: 10 # Migraine days /month currently: 3 Approximate length of headache (hrs) prior to Botox: 8 hrs Approximate length of headache (hrs) currently: 2 hr Procedure: Timeout performed to verify name, [...] were divided at 2 sites in the cover cutter, 5 units in Procerus, 20 units divided [...] procedure to be done in 12 weeks. I personally performed this procedure. CPT Code: 97464 DINORAH Cid MD, PhD Diplomate, [place] Board of Psychiatry and Neurology (ABPN) Board Certified in Neurology and Clinical Neurophysiology [facility] [address] [place] [address], [address] [place] [address] (office) [phone] (FAX) AL SURGEON documented in this encounter Miscellaneous Notes * Addendum Note - Gerald Martel - 09/05/2023 1:37 PM CSTAddended by: GERALD MARTEL on: 09/05/2023 01:37 PM Modules accepted: Orders AL SURGEON documented in this encounter Plan of Treatment Upcoming Encounters Date Type Department Care Team (Late st Contact Info) Description 11/23/2024 10:20 AM DENTAL SURGEON Procedure visit [facility] [address] [place] [address] [address] [place] [address] Collin Mayes MD [address] [place] [address] [address] [place] [id number] documented as of this encounter Visit Diagnoses [...] 200 Units, Intramuscular, ONCE, 1 dose, On Fri09/05/23 at 1400 $ Given 09/05/2023 1:36 PM DENTAL SURGEON 200 Units Head documented in this encounter Care Teams Pressure Sealer And Tester Relationship Specialty Start Date End Date Morelia Scott APRN-CNP [address] [place] [address] PCP - General Nurse Practitioner 09/04/22 Morelia Scott APRN-CNP [address] [place] [address] Nurse Practitioner 06/21/22 documented as of this encounter
--- OUTSIDE RECORDS SUMMARY | 2024-09-11 17:00 | XMS_ITS | Encounter Summary ---
Author Organization [facility] Address [address] [facility] [place] [address] Care Team Providers Care Mink Rancher Name Role Phone Morelia Scott INJECTION MOLD TOOLING TECHNICIAN-TANK CAR RECONDITIONER Unavailable Morelia Scott INJECTION MOLD TOOLING TECHNICIAN-TANK CAR RECONDITIONER Primary Care Provider Morelia Scott INJECTION MOLD TOOLING TECHNICIAN-TANK CAR RECONDITIONER Unavailable [phone] Encounter Details Date Type Department Care Team (Late st Contact Info) Description 02/04/2023 Orders Only [facility] [employer] [address] [place], [place] [id number] [place] [address] [place] [address] [address] [place] [address] Intractable chronic migraine without aura [...] (Late Contact Info) Description 11/23/2024 10:20 AM COOKER CHIP Procedure visit [facility] [address] [place] [address] [place] [address] [place] [address] [address] [place] [address] documented as of this encounter Visit Diagnoses Diagnosis Intractable chronic migraine without aura and with status migrainosus- Primary Chronic migraine without aura, with intractable migraine, so stated, with status migrainosus documented in this encounter Care Teams Mink Rancher Relationship Specialty Start Date End Date Morelia Scott APRN-CNP [address] [place] [address] PCP - General Nurse Practitioner 09/04/22 Morelia Scott APRN-CNP [address] [place] [address] PCP - Attributed-[employer] [place] 09/22/22 08/09/23 Morelia Scott APRN-CNP [address] [place] [address] Nurse Practitioner 06/21/22 documented as of this encounter
--- OUTSIDE RECORDS SUMMARY | 2024-09-11 17:00 | XMS_ITS | Encounter Summary ---
Author Organization [facility] Address [address] [facility] [place] [address] Care Team Providers Care Forklift Supervisor Name Role Phone Sonia Morelia Vicente SECURITY SYSTEM TECHNICIAN-MACHINIST BRAKE Unavailable [phone] Morelia Scott SECURITY SYSTEM TECHNICIAN-MACHINIST BRAKE Primary Care Provider Reason for Visit * Reason Onset Date Comments Update 09/04/2022 Encounter Details Date Type Department Care Team (Late st Contact Info) Description 09/04/2022 Telephone [facility]sciences [address] [facility] [address] [place] [address] Collin Mayes MD [address] [facility] [address] [place] [address] Update (/) Social History Tobacco Use Types Packs/Day Years [...] suspected to have Coronavirus/COVID-19? No / Unsure 09/04/2022 8:29 AM CONSTITUTIONAL LAW PROFESSOR documented as of this encounter Miscellaneous Notes * Telephone Encounter - Rosario Alfaro - 09/04/2022 12:44 PM CST Left detailed message about below note inform pt that if he have any question he can call the office Cw ----- Message from Collin Mayes MD sent at 09/04/2022 10:09 AM CONSTITUTIONAL LAW PROFESSOR ----- Normal EEG TITUTIONAL LAW PROFESSOR documented in this encounter Plan of Treatment Upcoming Encounters Date Type Department Care Team (Late st Contact Info) Description 11/23/2024 10:20 AM CONSTITUTIONAL LAW PROFESSOR Procedure visit [facility] Neurosciences [address] [place] [address] Collin Mayes MD [address] [place] [address] documented as of this encounter Visit Diagnoses Not on filedocumented in this encounter Care Teams Forklift Supervisor Relationship Specialty Start Date End Date Morelia Scott APRN-CNP [address] [place] [address] PCP - General Nurse Practitioner 09/04/22 Morelia Scott APRN-CNP [address] [place] [address] Nurse Practitioner 06/21/22 documented as of this encounter
--- OUTSIDE RECORDS SUMMARY | 2024-09-11 17:00 | XMS_ITS | Encounter Summary ---
Author Organization [facility] Address [address] [place] [address] Care Team Providers Care Line Dancer Name Role Phone Morelia Scott TEACHING MUSIC LESSONS-CRIMP SETTER Unavailable [phone] Morelia Scott TEACHING MUSIC LESSONS-CRIMP SETTER Primary Care Provider Morelia Scott TEACHING MUSIC LESSONS-CRIMP SETTER Unavailable [phone] Reason for Referral * OP/Amb RFL Auth (Routine) - Closed Specialty Diagnoses / Procedures Referred By Contac t Referred To Contact Diagnoses Intractable chronic migraine without aura and with status migrainosus Procedures [place] CHEMODENERV MUSC MIGRAINE Collin Mayes MD [address] [facility] [address] [place] [address] Referral ID Status Reason Start Date Expiration Date Visits Re quested Visits Authorized [id number] Closed 03/12/2023 03/11/2024 1 1 Reason for Visit * Reason Comments Procedure Patient here for bot ox procedure Encounter Details Date Type Department Care Team (Latest Contact Info) Description 03/12/2023 11:00 AM CDT Procedure visit [facility]sciences [address] [facility] [address] [place] [address] Collin Mayes MD [address] [facility] [address] [place] [address] Intractable chronic migraine without aura [...] Sign Reading Time Taken Comments Blood Pressure 128/79 03/12/2023 10:39 AM CDT Pulse 87 03/12/2023 10:39 AM CDT Temperature - - Respiratory Rate - - Oxygen Saturation 97% 03/12/2023 10:39 AM CDT Inhaled Oxygen Concentration - - Weight 93.4 kg (206 lb) 03/12/2023 10:39 AM CDT Height 177.8 cm (5' 10 ) 03/12/2023 10:39 AM CDT Body Mass Index 29.56 03/12/2023 10:39 AM CDT documented in this encounter Patient Instructions * Patient Instructions* Carmen Don - 03/12/2023 10:59 AM CDT Botox used 155 units and botox wasted 45 units [id number] Lot#:[id number] Exp:10/2025 Buy and bill documented in this encounter Progress Notes * Collin Mayes MD - 03/12/2023 10:41 AM CDT [address] [place] [id number] BOTOX procedure note Indications: Chronic Migraine. This is a 62 year oldmale with chronic migraine unresponsive to mulitple abortive and prophylactic agents. This is FIRST time Botox injection for him. # MARIE days /month prior to Botox treatment: 15-20 # MARIE days /month currently: NA # Migraine days/month prior to Botox treatment: 10 # Migraine days /month currently: NA Approximate length of headache (hrs) prior to Botox: 8 hrs Approximate length of headache (hrs) currently: NA HIT-6 score: 62 Procedure: Timeout performed to verify name, , [...] were divided at 2 sites in the studio associate, 5 units in Procerus, 20 units divided [...] I personally performed this procedure. CPT Code: 25723 DINORAH Cid MD, PhD Diplomate, [place] Board of Psychiatry and Neurology (ABPN) Board Certified in Neurology and Clinical Neurophysiology [facility] [employer] [address] [facility], [address] [place] [address] (office) [phone] (FAX) documented in this encounter Plan of Treatment Upcoming Encounters Date Type Department Care Team (Late st Contact Info) Description 11/23/2024 10:20 AM PARIMUTUEL TICKET CHECKER [facility] [address] [place] [address] Collin Mayes MD [address] [place] [address] documented as of this encounter Visit Diagnoses [...] 200 Units, Intramuscular, ONCE, 1 dose, On Fri03/12/23 at 1115 $ Given 03/12/2023 10:57 AM CDT 200 Units Head documented in this encounter Care Teams Line Dancer Relationship Specialty Start Date End Date Morelia Scott APRN-CNP [address] [place] [address] PCP - General Nurse Practitioner 09/04/22 Morelia Scott APRN-CNP [address] [place] [address] PCP - Attributed-[employer] [place] 09/22/22 08/09/23 Morelia Scott APRN-CNP [address] [place] [address] Nurse Practitioner 06/21/22 documented as of this encounter
--- OUTSIDE RECORDS SUMMARY | 2024-09-11 17:00 | XMS_ITS | Encounter Summary ---
Author Organization [facility] Address [address] [facility] [place] [address] Care Team Providers Care Audio Visual Manager Name Role Phone Morelia Scott ENGINEERING GROUP LEADER-BENZENE STILL UTILITY OPERATOR Unavailable [phone] Morelia Scott ENGINEERING GROUP LEADER-BENZENE STILL UTILITY OPERATOR Primary Care Provider Morelia Scott ENGINEERING GROUP LEADER-BENZENE STILL UTILITY OPERATOR Unavailable [phone] Reason for Visit * Reason Onset Date Comments MEDICATION REFILL 09/24/2022 Encounter Details Date Type Department Care Team (Late st Contact Info) Description 09/24/2022 Refill [facility] [employer] [address] [place] [address] Collin Mayes MD [address] [facility] [address] [place] [address] MEDICATION REFILL Social History Tobacco Use Types Packs/Day Years [...] Coronavirus/COVID-19? No / Unsure 09/04/2022 8:29 AM FABRICATOR FOAM RUBBER documented as of this encounter Plan of Treatment Upcoming Encounters Date Type Department Care Team (Late Contact Info) Description 11/23/2024 10:20 AM FABRICATOR FOAM RUBBER Procedure visit [facility] [employer] [address] [place] [address] Collin Mayes MD [address] [place] [address] documented as of this encounter Visit Diagnoses Not on filedocumented in this encounter Care Teams Audio Visual Manager Relationship Specialty Start Date End Date Morelia Scott APRN-CNP [address] [place] [address] PCP - General Nurse Practitioner 09/04/22 Morelia Scott APRN-BENZENE STILL UTILITY OPERATOR [address] [place] [address] PCP - Attributed-[employer] [place] 09/22/22 08/09/23 Morelia Scott APRN-BENZENE STILL UTILITY OPERATOR [address] [place] [address] Nurse Practitioner 06/21/22 documented as of this encounter
--- OUTSIDE RECORDS SUMMARY | 2024-09-11 17:00 | XMS_ITS | Encounter Summary ---
Author Organization [facility] Address [address] [place] [address] Care Team Providers Care Construction Specialist Name Role Phone Morelia Scott SAWMILL MANAGER-LABORER AIRPORT MAINTENANCE Unavailable [phone] Morelia Scott SAWMILL MANAGER-LABORER AIRPORT MAINTENANCE Primary Care Provider Morelia Scott SAWMILL MANAGER-LABORER AIRPORT MAINTENANCE Unavailable [phone] Reason for Visit * Reason Onset Date Comments Med Question 02/04/2023 Encounter Details Date Type Department Care Team (Late st Contact Info) Description 02/04/2023 Telephone [facility] Neurosciences [address] [facility] [address] [place], [place] [id number] Collin Mayes MD [address] [facility] [address] [place] [address] Med Question Social History Tobacco Use Types Packs/Day Years Used Date Smoking Tobacco: Never Assessed Sex and Gender Information Value Date Recorded Sex Assigned at Not on file Gender Identity Not on file Sexual Orientation Not on file documented as of this encounter Miscellaneous Notes * Telephone Encounter - Anay Damon - 02/04/2023 11:12 AM CDT Images from the original note were not included. Collin Mayes MD Sinovich, Angela M Caller: Unspecified (Today, 10:27 AM) In the last visit he had reported improvement of his headache with use of Nurtec. ??Has this flaredup? If yes then Botox authorization can be pursued. Emgality is of the same class medication as Nurtec so I would rather recommend trial of Botox and not Emgality. Spoke to [facility] and placed the order for Botox * Telephone Encounter - Octavia Crocker MA - 02/04/2023 10:59 AM CDT I spoke to pt's [facility], they would like to start the trial of BTX treatments. * Telephone Encounter - Anay Damon - 02/04/2023 10:27 AM CDT [facility] called and wants to know if Yassine can start on Emgality and start Botox for his migraines. Please advise documented in this encounter Plan of Treatment Upcoming Encounters Date Type Department Care Team (Late st Contact Info) Description 11/23/2024 10:20 AM GLASS MOLD REPAIRER Procedure visit [facility] Neurosciences [address] [place] [address] Collin Mayes MD [address] [place] [phone] documented as of this encounter Visit Diagnoses Not on filedocumented in this encounter Care Teams Construction Specialist Relationship Specialty Start Date End Date Morelia Scott APRN-CNP [address] [place] [address] PCP - General Nurse Practitioner 09/04/22 Morelia Scott APRN-CNP [address] [place] [address] PCP - Attributed-[employer] [place] 09/22/22 08/09/23 Morelia Scott, SAWMILL MANAGER-LABORER AIRPORT MAINTENANCE [address] [place] [address] Nurse Practitioner 06/21/22 documented as of this encounter
--- OUTSIDE RECORDS SUMMARY | 2024-09-11 17:00 | XMS_ITS | Encounter Summary ---
Author Organization [facility] Address [address] [facility] [place] [address] Care Team Providers Care Staff Certified Nurse Midwife Name Role Phone Morelia Scott APRN-RECEIVER STOCKER Unavailable [phone] Morelia Scott CAGE MAKER MACHINE-RECEIVER STOCKER Primary Care Provider Encounter Details Date Type Department Care Team (Latest Contact Info) Description 09/04/2022 Travel Social History Tobacco Use Types Packs/Day [...] Coronavirus/COVID-19? No / Unsure 09/04/2022 8:29 AM CHIEF LOAD DISPATCHER documented as of this encounter Plan of Treatment Upcoming Encounters Date Type Department Care Team (Late st Contact Info) Description 11/23/2024 10:20 AM CHIEF LOAD DISPATCHER Procedure visit [facility] Neurosciences [address] [place] [address] Collin Mayes MD [address] [place] [address] documented as of this encounter Visit Diagnoses Not on filedocumented in this encounter Care Teams Staff Certified Nurse Midwife Relationship Specialty Start Date End Date Morelia Scott CAGE MAKER MACHINE-RECEIVER STOCKER [address] [place] [address] PCP - General Nurse Practitioner 09/04/22 Morelia Scott APRN-RECEIVER STOCKER [address] [place] [address] Nurse Practitioner 06/21/22 documented as of this encounter
--- OUTSIDE RECORDS SUMMARY | 2024-09-11 17:00 | XMS_ITS | Encounter Summary ---
Author Organization [facility] Address [address] [facility] [place] [address] Care Team Providers Care Gore Stitcher Name Role Phone Morelia Scott PRESIDENT OF [place]-COMPUTATIONAL BIOLOGIST Unavailable [phone] Morelia Scott PRESIDENT OF THE [place]-COMPUTATIONAL BIOLOGIST Primary Care Provider Morelia Scott PRESIDENT OF THE [place]-COMPUTATIONAL BIOLOGIST Unavailable [phone] Encounter Details Date Type Department Care Team (Late st Contact Info) Description 02/13/2023 Orders Only [facility] [address] [place] [address] Octavia Crocker MA Social History Tobacco Use Types Packs/Day Years Used Date Smoking Tobacco: Never Assessed Sex and Gender Information Value Date Recorded Sex Assigned at Not on file Gender Identity Not on file Sexual Orientation Not on file documented as of this encounter Plan of Treatment Upcoming Encounters Date Type Department Care Team (Late st Contact Info) Description 11/23/2024 10:20 AM NURSE CASE MANAGEMENT Procedure visit [facility] [address] [place] [address] Collin Mayes MD [address] [place] [address] documented as of this encounter Visit Diagnoses Not on filedocumented in this encounter Care Teams Gore Stitcher Relationship Specialty Start Date End Date Morelia Scott PRESIDENT OF [place]-COMPUTATIONAL BIOLOGIST [address] [place] [address] PCP - General Nurse Practitioner 09/04/22 Morelia Scott APRN-CNP [address] [place] [address] PCP - Attributed-[employer] [place] 09/22/22 08/09/23 Morelia Scott APRN-CNP [facility] [place] [address] Nurse Practitioner 06/21/22 documented as of this encounter
--- OUTSIDE RECORDS SUMMARY | 2024-09-11 17:00 | XMS_ITS | Encounter Summary ---
Author Organization [facility] Address [address] [place] [address] Care Team Providers Care Waste Salvager Name Role Phone Morelia Scott TAPE MACHINE TAILER-STONE CLEANER Unavailable [phone] Morelia Scott TAPE MACHINE TAILER-STONE CLEANER Primary Care Provider Morelia Scott TAPE MACHINE TAILER-STONE CLEANER Unavailable [phone] Reason for Referral * OP/Amb RFL Auth (Routine) - Closed Specialty Diagnoses / Procedures Referred By Contac t Referred To Contact Diagnoses Intractable chronic migraine without aura and with status migrainosus Procedures DE CHEMODENERV MUSC MIGRAINE Collin Mayes MD [address] [facility] [address] [place] [address] Referral ID Status Reason Start Date Expiration Date Visits Re quested Visits Authorized [id number] Closed 06/06/2023 06/05/2024 1 1 Reason for Visit * Reason Comments Procedure Patient here regardi ng botox procedure Encounter Details Date Type Department Care Team (Latest Contact Info) Description 06/06/2023 9:40 AM CDT Procedure visit [facility] Neurosciences [address] [place] [address] Collin Mayes MD [address] [facility] [address] [place] [address] Intractable chronic migraine without aura [...] Sign Reading Time Taken Comments Blood Pressure 123/76 06/06/2023 9:23 AM CDT Pulse 92 06/06/2023 9:23 AM CDT Temperature - - Respiratory Rate - - Oxygen Saturation 98% 06/06/2023 9:23 AM CDT Inhaled Oxygen Concentration - - Weight 93 kg (205 lb) 06/06/2023 9:23 AM CDT Height 177.8 cm (5' 10 ) 06/06/2023 9:23 AM CDT Body Mass Index 29.41 06/06/2023 9:23 AM CDT documented in this encounter Patient Instructions * Patient Instructions* Gerald Martel - 06/06/2023 10:24 AM CDT Botox used 155 units and botox wasted 45 units [facility]:[id number] LOT#:[id number] EXP:10/2025 BUY AND BILL documented in this encounter Progress Notes * Collin Mayes MD - 06/06/2023 9:26 AM CDT Images from the original note were not included. [facility] [address] [address] BOTOX procedure note Indications: Chronic Migraine. This is a 62 year oldmale with chronic migraine unresponsive to mulitple abortive and prophylactic agents. This is SECOND time Botox injection for him. Last Botox injection on 03/12/2023 # MARIE days /month prior to Botox treatment: 27 # MARIE days /month currently: 19 # Migraine days/month prior to Botox treatment: 10 # Migraine days /month currently: 4 Approximate length of headache (hrs) prior to [...] were divided at 2 sites in the steam plant control room operator, 5 units in Procerus, 20 units [...] I personally performed this procedure. CPT Code: 01909 DINORAH Cid MD, PhD Diplomate, [place] Board of Psychiatry and Neurology (ABPN) Board Certified in Neurology and Clinical Neurophysiology [facility] [address] [facility], [address] [place] [address] (office) [phone] (FAX) documented in this encounter Miscellaneous Notes * Addendum Note - Gerald Martel - 06/06/2023 10:24 AM CDTAddended by: GERALD MARTEL on: 06/06/2023 10:24 AM Modules accepted: Orders documented in this encounter Plan of Treatment Upcoming Encounters Date Type Department Care Team (Late st Contact Info) Description 11/23/2024 10:20 AM HEAD HOLDER [facility] visit [facility] [address] [place] [address] [place] [address] [place] [address] [address] [place] [address] documented as of this encounter Visit Diagnoses [...] 200 Units, Intramuscular, ONCE, 1 dose, On Fri06/06/23 at 1045 $ Given 06/06/2023 10:18 AM CDT 200 Units Head documented in this encounter Care Teams Waste Salvager Relationship Specialty Start Date End Date Morelia Scott APRN-CNP [address] [place] [address] PCP - General Nurse Practitioner 09/04/22 Morelia Scott APRN-CNP [facility] [place] [address] PCP - Attributed-[employer] [place] 09/22/22 08/09/23 Morelia Scott APRN-CNP [address] [place] [address] Nurse Practitioner 06/21/22 documented as of this encounter
--- OUTSIDE RECORDS SUMMARY | 2024-09-11 17:00 | XMS_ITS | Encounter Summary ---
Author Organization [facility] Address [address] [facility] [place] [address] Care Team Providers Care Masking Machine Operator Name Role Phone Morelia Scott R D INTERNSHIP-MATERIAL REQUIREMENTS PLANNING MANAGER Unavailable [phone] Morelia Scott R D INTERNSHIP-MATERIAL REQUIREMENTS PLANNING MANAGER Primary Care Provider Morelia Scott R D INTERNSHIP-MATERIAL REQUIREMENTS PLANNING MANAGER Unavailable [phone] Reason for Visit * Reason Onset Date Comments Results 03/12/2023 Encounter Details Date Type Department Care Team (Late st Contact Info) Description 03/12/2023 Telephone [facility] Neurosciences [address] [facility] [address] [place] [address] Collin Mayes MD [address] [facility] [address] [place] [address] Results Social History Tobacco Use Types Packs/Day Years Used Date Smoking Tobacco: Never Assessed Sex and Gender Information Value Date Recorded Sex Assigned at Not on file Gender Identity Not on file Sexual Orientation Not on file documented as of this encounter Miscellaneous Notes * Telephone Encounter - Carmen Don - 04/17/2023 1:49 PM CDT Called Yassine he stated that botox is working just fine and that he is very happy with the results. * Telephone Encounter - Anay Damon - 03/12/2023 11:08 AM CDT Please call Yassine 04/23/23 to see how he is after 6 weeks of first botox documented in this encounter Plan of Treatment Upcoming Encounters Date Type Department Care Team (Late st Contact Info) Description 11/23/2024 10:20 AM REPAIRER KILN CAR Procedure visit [facility] Neurosciences [address] [place] [address] Collin Mayes MD [address] [place] [address] documented as of this encounter Visit Diagnoses Not on filedocumented in this encounter Care Teams Masking Machine Operator Relationship Specialty Start Date End Date Morelia Scott APRN-MATERIAL REQUIREMENTS PLANNING MANAGER [facility] [place] [address] PCP - General Nurse Practitioner 09/04/22 Morelia Scott APRN-MATERIAL REQUIREMENTS PLANNING MANAGER [address] [place] [address] PCP - Attributed-[employer] [place] 09/22/22 08/09/23 Morelia Scott APRN-MATERIAL REQUIREMENTS PLANNING MANAGER [address] [place] [address] Nurse Practitioner 06/21/22 documented as of this encounter
--- OUTSIDE RECORDS SUMMARY | 2024-09-11 17:00 | XMS_ITS | Encounter Summary ---
Author Organization [facility] Address [address] [facility] [place] [address] Care Team Providers Care Superintendent House Name Role Phone Morelia Scott CATH LAB MANAGER-SPICE MILLER Unavailable [phone] Morelia Scott CATH LAB MANAGER-SPICE MILLER Primary Care Provider Morelia Scott CATH LAB MANAGER-SPICE MILLER Unavailable [phone] Reason for Visit * Reason Onset Date Comments MEDICATION REFILL 10/08/2022 Encounter Details Date Type Department Care Team (Late st Contact Info) Description 10/08/2022 Refill [facility] Neurosciences [address] [facility] [address] [place], [place] [id number] Collin Mayes MD [address] [facility] [address] [place] [address] MEDICATION REFILL Social History Tobacco Use Types Packs/Day Years Used Date Smoking Tobacco: Never Assessed Sex and Gender Information Value Date Recorded Sex Assigned at Not on file Gender Identity Not on file Sexual Orientation Not on file documented as of this encounter Miscellaneous Notes * Telephone Encounter - Carlos Bunch - 10/09/2022 7:[address] Lubin to check to see if patient has been contacted to schedule for neuropsych evaluation. R TAILER * Telephone Encounter - Carlos Bunch - 10/08/2022 7:09 AM CST Received refill request via fax from [facility] requesting refill on rimegepant (Nurtec) 75 MG tablet Last OV 07/10/22 Next OV nothing scheduled Last refill 07/10/22 R TAILER documented in this encounter Plan of Treatment Upcoming Encounters Date Type Department Care Team (Late st Contact Info) Description 11/23/2024 10:20 AM EDGER TAILER Procedure visit [facility] Neurosciences [address] [place] [address] Collin Mayes MD [address] [place] [address] documented as of this encounter Visit Diagnoses Not on filedocumented in this encounter Care Teams Superintendent House Relationship Specialty Start Date End Date Morelia Scott APRN-CNP [address] [place] [address] PCP - General Nurse Practitioner 09/04/22 Morelia Scott APRN-CNP [address] [place] [address] PCP - Attributed-[employer] [place] 09/22/22 08/09/23 Morelia Scott APRN-CNP [address] [place] [address] Nurse Practitioner 06/21/22 documented as of this encounter
--- OUTSIDE RECORDS SUMMARY | 2024-09-11 17:00 | XMS_ITS | Encounter Summary ---
Author Organization [facility] Address [address] [facility] [place] [address] Care Team Providers Care Senior Application Programmer Name Role Phone Morelia Scott SUSTAINABILITY COORDINATOR-CHINCHILLA FARMER Unavailable [phone] Morelia Scott SUSTAINABILITY COORDINATOR-CHINCHILLA FARMER Primary Care Provider Reason for Referral * OP/Amb RFL Auth (Routine) - Closed Specialty Diagnoses / Procedures Referred By Contac t Referred To Contact Rheumatology Diagnoses Positive CHAR (antinuclear antibody) Collin Mayes MD [address] [employer] [facility] [address] [place] [address] Darrion Gill DO [address] [place] [address] Referral ID Status Reason Start Date Expiration Date V isits Requested Visits Authorized [id number] Closed Specialty Services Required 07/11/2022 07/11/2023 1 1 Scheduling Instructions If you have not been contacted by an [facility] Hardwood Finisher within 1 business day, please contact the office directly to schedule your appointment. Please note this is not an insurance referral. If your insurance requires a referral please obtain one prior to your visit. Encounter Details Date Type Department Care Team (Late st Contact Info) Description 07/11/2022 Orders Only [facility] Neurosciences [address] [place] [address] Rosario Alfaro Positive CHAR (antinuclear antibody) Social History Tobacco Use Types Packs/Day Years Used Date Smoking Tobacco: Never Assessed Sex and Gender Information Value Date Recorded Sex Assigned at Not on file Gender Identity Not on file Sexual Orientation Not on file documented as of this encounter Plan of Treatment Upcoming Encounters Date Type Department Care Team (Late st Contact Info) Description 11/23/2024 10:20 AM BALL SORTER Procedure visit [facility] Neurosciences [address] [place] [address] Collin Mayes MD [address] [place] [address] documented as of this encounter Results * AMB REFERRAL TO RHEUMATOLOGY (07/24/2022 4:37 PM CDT) Collin Mayes MD OUTPATIENT REFERRALS documented in this encounter Visit Diagnoses Diagnosis Positive CHAR (antinuclear antibody)- Primary Other and unspecified nonspecific immunological findings documented in this encounter Care Teams Senior Application Programmer Relationship Specialty Start Date End Date Morelia Scott APRN-CNP [address] [place] [address] PCP - General Nurse Practitioner 07/09/22 08/25/22 Morelia Scott APRN-CNP [address] [place] [address] Nurse Practitioner 06/21/22 documented as of this encounter
--- OUTSIDE RECORDS SUMMARY | 2024-09-11 17:00 | XMS_ITS | Encounter Summary ---
Author Organization [facility] Address [address] [facility] [place] [address] Care Team Providers Care Machine Engraver Name Role Phone Morelia Scott VP PUBLISHER DEVELOPMENT-SUPPORT STAFF Unavailable [phone] Morelia Scott VP PUBLISHER DEVELOPMENT-SUPPORT STAFF Primary Care Provider Morelia Scott VP PUBLISHER DEVELOPMENT-SUPPORT STAFF Unavailable [phone] Encounter Details Date Type Department Care Team (Late st Contact Info) Description 02/14/2023 Orders Only [facility] [address] [place] [address] [place] [address] [place] [address] [address] [place] [address] Social History Tobacco Use Types Packs/Day Years Used Date Smoking Tobacco: Never Assessed Sex and Gender Information Value Date Recorded Sex Assigned at Not on file Gender Identity Not on file Sexual Orientation Not on file documented as of this encounter Plan of Treatment Upcoming Encounters Date Type Department Care Team (Late st Contact Info) Description 11/23/2024 10:20 AM SAND TECHNICIAN Procedure visit [facility] [address] [place], [place] [id number] Collin Mayes MD [address] [facility] [address] [place] [address] documented as of this encounter Visit Diagnoses Not on filedocumented in this encounter Care Teams Machine Engraver Relationship Specialty Start Date End Date Morelia Scott APRN-CNP [address] [place] [address] PCP - General Nurse Practitioner 09/04/22 Morelia Scott APRN-CNP [address] [place] [address] PCP - Attributed-[employer] [place] 09/22/22 08/09/23 Morelia Scott APRN-CNP [address] [place] [address] Nurse Practitioner 06/21/22 documented as of this encounter
--- OUTSIDE RECORDS SUMMARY | 2024-09-11 17:00 | XMS_ITS | Encounter Summary ---
Author Organization [facility] Address [address] [facility] [place] [address] Care Team Providers Care Genetic Counselor Name Role Phone Morelia Scott WIRE PRODUCTS INSPECTOR-SSIS SSRS DEVELOPER Unavailable [phone] Morelia Scott WIRE PRODUCTS INSPECTOR-SSIS SSRS DEVELOPER Primary Care Provider Morelia Scott WIRE PRODUCTS INSPECTOR-SSIS SSRS DEVELOPER Unavailable [phone] Reason for Visit * Reason Onset Date Comments Update 02/13/2023 Encounter Details Date Type Department Care Team (Late st Contact Info) Description 02/13/2023 Telephone [facility] Neurosciences [address] [facility] [address] [place] [address] Collin Mayes MD [address] [facility] [address] [place] [address] Update Social History Tobacco Use Types Packs/Day Years Used Date Smoking Tobacco: Never Assessed Sex and Gender Information Value Date Recorded Sex Assigned at Not on file Gender Identity Not on file Sexual Orientation Not on file documented as of this encounter Miscellaneous Notes * Telephone Encounter - Carlos Bunch - 02/14/2023 10:12 AM CDT Daughter called back and explained information and to call us back if there any issues. She understood everything. * Telephone Encounter - Dorina White - 02/14/2023 10:05 AM CDT Called patient to give the following message from Dr. Mayes I have placed order of propranolol CR 60 mg once daily Patient is not able to have botox yet. This should be the last trial medication that he will need to get approved with [facility] insurance * Telephone Encounter - Dorina White - 02/14/2023 7:55 AM CDT Patient has now tried depakote and topamax but those 2 medications fall in the same drug classification. Patient needs to try something from another drug class Beta ron Anti depressant Anti epileptic Calcium channel ron Please advise * Telephone Encounter - Octavia Crocker MA - 02/13/2023 3:16 PM CDT Dayanara has called in to advise that Yassine has been experiencing some agitation, aggression, depressive moods, and she feels his personality is changing altogether and feels this may be due to the latest medication added to his regimen, Topiramate 25 mg- Please advise if it is ok to stop TPM. documented in this encounter Plan of Treatment Upcoming Encounters Date Type Department Care Team (Late st Contact Info) Description 11/23/2024 10:20 AM CARBON PAPER INTERLEAFER Procedure visit [facility] Neurosciences [address] [facility] [address] [place] [address] Collin Mayes MD [address] [facility] [address] [place] [address] documented as of this encounter Visit Diagnoses Not on filedocumented in this encounter Care Teams Genetic Counselor Relationship Specialty Start Date End Date Morelia Scott, WIRE PRODUCTS INSPECTOR-SSIS SSRS DEVELOPER [address] [place] [address] PCP - General Nurse Practitioner 09/04/22 Morelia Scott APRN-TIFFANI [address] [place] [address] PCP - Attributed-[employer] [place] 09/22/22 08/09/23 Morelia Scott APRN-SSIS SSRS DEVELOPER [facility] [place] [address] Nurse Practitioner 06/21/22 documented as of this encounter
--- OUTSIDE RECORDS SUMMARY | 2024-09-11 17:00 | XMS_ITS | Encounter Summary ---
Author Organization [facility] Address [address] [facility] [place] [address] Care Team Providers Care Cook Manager Name Role Phone Morelia Scott UPPER EXTREMITY SURGEON-MACHINE PRINTER Unavailable [phone] Morelia Scott UPPER EXTREMITY SURGEON-MACHINE PRINTER Primary Care Provider Reason for Visit * Reason Onset Date Comments Update 08/27/2022 Encounter Details Date Type Department Care Team (Late st Contact Info) Description 08/27/2022 Telephone [facility] Neurosciences [address] [facility] [address] [place] [address] Collin Mayes MD [address] [facility] [address] [place] [address] Update (/) Social History Tobacco [...] Coronavirus/COVID-19? No / Unsure 08/26/2022 11:06 AM PROCESS DESIGN ENGINEER documented as of this encounter Miscellaneous Notes * Telephone Encounter - Dominic Rosario - 08/27/2022 8:50 AM CST Spoke with pt about below note he express his understanding verbally pt fu is 09/11/at 4 pm CW ----- Message from Collin Mayes MD sent at 08/26/2022 4:43 PM PROCESS DESIGN ENGINEER ----- No acute findings in the MRI brain. Will review the images and follow-up visit ESS DESIGN ENGINEER documented in this encounter Plan of Treatment Upcoming Encounters Date Type Department Care Team (Late st Contact Info) Description 11/23/2024 10:20 AM PROCESS DESIGN ENGINEER Procedure visit [facility] Neurosciences [address] [place] [address] Collin Mayes MD [address] [place] [address] documented as of this encounter Visit Diagnoses Not on filedocumented in this encounter Care Teams Cook Manager Relationship Specialty Start Date End Date Morelia Scott APRN-CNP [address] [place] [address] PCP - General Nurse Practitioner 08/26/22 09/03/22 Morelia Scott APRN-CNP [address] [place] [address] Nurse Practitioner 06/21/22 documented as of this encounter
--- OUTSIDE RECORDS SUMMARY | 2024-09-11 17:00 | XMS_ITS | Encounter Summary ---
Author Organization [facility] Address [address] [place] [address] Care Team Providers Care Outdoor Pursuits Instructor Name Role Phone Morelia Scott SAMPLE CHECKER-HAND LOOM WEAVER Unavailable [phone] Morelia Scott SAMPLE CHECKER-HAND LOOM WEAVER Primary Care Provider Reason for Visit * Reason Onset Date Comments MEDICATION REFILL 07/10/2022 Encounter Details Date Type Department Care Team (Late st Contact Info) Description 07/10/2022 Refill [facility] Neurosciences [address] [facility] [address] [place] [address] Collin Mayes MD [address] [facility] [address] [place] [address] MEDICATION REFILL Social History Tobacco Use Types Packs/Day Years Used Date Smoking Tobacco: Never Assessed Sex and Gender Information Value Date Recorded Sex Assigned at Not on file Gender Identity Not on file Sexual Orientation Not on file documented as of this encounter Miscellaneous Notes * Telephone Encounter - Carlos Bunch - 07/10/2022 3:01 PM CDT Received notification from [facility] pharmacy regarding instructions regarding dosing for patient's Nurtec. Correct instructions and sent back electronically. documented in this encounter Plan of Treatment Upcoming Encounters Date Type Department Care Team (Late st Contact Info) Description 11/23/2024 10:20 AM OPERATOR VACUUM Procedure visit [facility] Neurosciences [address] [place] [address] Collin Mayes MD [address] [place] [address] documented as of this encounter Visit Diagnoses Not on filedocumented in this encounter Care Teams Outdoor Pursuits Instructor Relationship Specialty Start Date End Date Morelia Scott APRN-CNP [address] [place] [address] PCP - General Nurse Practitioner 07/09/22 08/25/22 Morelia Scott APRN-CNP [address] [place] [address] Nurse Practitioner 06/21/22 documented as of this encounter
--- OUTSIDE RECORDS SUMMARY | 2024-09-11 17:00 | XMS_ITS | Encounter Summary ---
Author Organization [facility] Address [address] [facility] [place] [address] Care Team Providers Care Silo Painter Name Role Phone Morelia Scott TRAINING COORDINATOR-ENGINEERING AND SCIENTIFIC PROGRAMMER Unavailable [phone] Morelia Scott TRAINING COORDINATOR-ENGINEERING AND SCIENTIFIC PROGRAMMER Primary Care Provider Reason for Referral * Radiology Services (Routine) - Denied Specialty Diagnoses / Procedures Referred By Contac t Referred To Contact MRI Diagnoses Daily headache Forgetfulness Procedures MRI BRAIN WWO CONTRAST Collin Mayes MD [facility] [phone] Referral ID Status Reason Start Date Expiration Date Visits Re quested Visits Authorized [id number] Denied 07/09/2022 07/09/2023 1 0 YARD WORKER Reason for Visit * Radiology Services (Routine) - Denied Specialty Diagnoses / Procedures Referred By Marimar t Referred To Contact MRI Diagnoses Daily headache Forgetfulness Procedures MRI BRAIN WWO CONTRAST Collin Mayes MD [address] [place] [phone] Referral ID Status Reason Start Date Expiration Date Visits Re quested Visits Authorized [id number] Denied 07/09/2022 07/09/2023 1 0 Encounter Details Date Type Department Care Team (Latest Contact Info) Description 08/26/2022 11:15 AM VINEYARD WORKER - 08/26/2022 11:59 PM VINEYARD WORKER Hospital Encounter [facility] Health Imaging Services - MRI [address] [place] [address] Collin Mayes MD [address] [place] [phone] Neurology Discharge Disposition: Home or Self Care Social [...] Coronavirus/COVID-19? No / Unsure 08/26/2022 11:06 AM VINEYARD WORKER documented as of this encounter Medications at Time of Discharge Medication Sig Dispensed Refills Start Date End Date Coenzyme Q10 (Co Q-10) 120 MG Take by mouth once daily cyclobenzaprine (Flexeril) 10 MG tablet Take 1 (one) tablet by mouth at bedtime 08/26/2022 Fenofibrate 134 MG CAPS TAKE 1 CAPSULE BY MOUTH 4 TIMES A WEEK IN THE MORNING 06/12/2022 fluticasone propionate (Flonase) 50 MCG/ACT nasal spray [place] 1 (one) spray into the nose once daily lisinopril (Prinivil; Zestril) 10 MG tablet Take 1 (one) tablet by mouth once daily Magnesium 100 MG Multiple Vitamins-Minerals (Multivitamin & Mineral) LIQD Take 15 mL by mouth once daily [place]-3 Fatty Acids (fish oil) 1000 MG capsule Take 1 (one) capsule by mouth 2 times daily pravastatin (Pravachol) 40 MG tablet Take 1 (one) tablet by mouth once daily QUEtiapine (SEROquel) 100 MG tablet 06/12/2022 vilazodone (Viibryd) 40 MG tablet Take 1 (one) tablet by mouth once daily amphetamine-dextroamphet amine (Adderall) 20 MG tablet Take 20 mg by mouth once daily 11/20/2022 buPROPion XL 24hr (Wellbutrin-XL) 300 MG tablet Take 150 mg by mouth once daily 06/27/2023 QUEtiapine (SEROquel) 25 MG tablet Take 1 (one) tablet by mouth 2 times daily 06/27/2023 Riboflavin (Vitamin B-2) 100 MG 1 (one) tablet once daily 05/25/2024 rimegepant (Nurtec) 75 MG tablet Take 75 mg by mouth every 2 days 8 tablet 5 07/10/2022 10/08/2022 rizatriptan (Maxalt) 10 MG tablet Take 1 tab by mouth once at first sign of migraine. May repeat one time after 2 hours if needed. 9 tablet 5 07/09/2022 09/24/2022 documented as of this encounter Plan of Treatment Upcoming Encounters Date Type Department Care Team (Late st Contact Info) Description 11/23/2024 10:20 AM VINEYARD WORKER Procedure visit [facility] [address] [facility] [address] [place] [address] Collin Mayes MD [address] [place] [phone] documented as of this encounter Procedures Procedure Name Priority Date/Time Associated Diagnosis Comments MRI BRAIN WWO CONTRAST Routine 08/26/2022 12:30 PM VINEYARD WORKER Daily headache Forgetfulness CREATININE - POCT INTERFACED Routine 08/26/2022 11:45 AM VINEYARD WORKER documented in this encounter Results * MRI BRAIN WWO CONTRAST (08/26/2022 12:30 PM VINEYARD WORKER) Anatomical Region Laterality Modality Head Magnetic Resonan ce 08/26/2022 12:3 2 PM VINEYARD WORKER Impressions 08/26/2022 12:34 PM VINEYARD WORKER IMPRESSION: No evidence for acute infarct, mass or hemorrhage. > Interpreting Provider: Gerald An MD on 08/26/2022 12:34 PM Narrative 08/26/2022 12:34 PM VINEYARD WORKER PROCEDURE: ??MRI BRAIN WWO CONTRAST, DATE/TIME OF EXAM: ??08/26/2022 12:30 PM, LOCATION ??[facility] MRI brain with and without IV contrast [...] CONTRAST, DATE/TIME OF EXAM: 08/26/2022 12:30PM, LOCATION [facility] MRI brain with and without IV contrast [...] CREATININE - POCT INTERFACED (08/26/2022 11:45 AM VINEYARD WORKER) Creatinine POCT 1.51(H) 0.70 - 1.20 mg/dL 08/26/2022 11:59 AM VINEYARD WORKER [facility] Blood BLOOD SPECIMEN / Unknown 08/26/2022 11:45 AM VINEYARD WORKER 08/26/2022 11:59 AM VINEYARD WORKER Collin Mayes MD LAB - POINT OF CARE ORDERABLES Performing Organization Address City/State/[facility] Co de Phone Number [facility] [address] [place] [address] documented in this encounter Visit Diagnoses Diagnosis Daily headache Headache Forgetfulness Other general symptoms documented in this encounter Administered Medications Inactive Administered Medications - up to 3 most recent administrations Medication Order MAR Action Action Date Dose Rate Site gadoterate meglumine (Dotarem/Clariscan) injection Intravenous, CONTRAST ONCE, Starting on Fri08/26/22 at 1129, Until Fri08/27/22 at 0156 $ Given - Contrast 08/26/2022 12:28 PM VINEYARD WORKER 20 mL documented in this encounter Care Teams Silo Painter Relationship Specialty Start Date End Date Morelia Scott APRN-CNP [address] [place] [phone] PCP - General Nurse Practitioner 08/26/22 09/03/22 Morelia Scott APRN-CNP [address] [place] [phone] Nurse Practitioner 06/21/22 documented as of this encounter
--- OUTSIDE RECORDS SUMMARY | 2024-09-11 17:00 | XMS_ITS | Encounter Summary ---
Author Organization [facility] Address [address] [place] [address] Care Team Providers Care Sonography Technologist Name Role Phone Morelia Scott DATA KEYER-BACK TENDER FOURDRINIER Unavailable [phone] Morelia Scott DATA KEYER-BACK TENDER FOURDRINIER Primary Care Provider Reason for Visit * Reason Comments Establish Care +CHAR * OP/Amb RFL Auth (Routine) - Closed Specialty Diagnoses / Procedures Referred By Contshakira t Referred To Contact Rheumatology Diagnoses Positive CHAR (antinuclear antibody) Collin Mayes MD [address] [address] [place] [address] [place] [address] [address] [place] [address] Referral ID Status Reason Start Date Expiration Date V isits Requested Visits Authorized [id number] Closed Specialty Services Required 07/11/2022 07/11/2023 1 1 Encounter Details Date Type Department Care Team (Late st Contact Info) Description 07/24/2022 2:40 PM CDT Office Visit [facility] LMN-1 [facility] - Rheumatology [address] [place] [address], [address] [place] [address] Darrion Gill DO [address] [facility] [address] [place] [address] Positive CHAR (antinuclear antibody) 1:160 speckled (Primary Dx) Social History Tobacco Use Types [...] suspected to have Coronavirus/COVID-19? No / Unsure 07/12/2022 10:29 AM CDT documented as of this encounter Last Filed Vital Signs Vital Sign Reading Time Taken Comments Blood Pressure 118/80 07/24/2022 2:31 PM CDT Pulse 70 07/24/2022 2:31 PM CDT Temperature 36.7 ??C (98 ??F) 07/24/2022 2:31 PM CDT Respiratory Rate 16 07/24/2022 2:31 PM CDT Oxygen Saturation 97% 07/24/2022 2:31 PM CDT Inhaled Oxygen Concentration - - Weight 93 kg (205 lb) 07/24/2022 2:31 PM CDT Height 177.8 cm (5' 10 ) 07/24/2022 2:31 PM CDT Body Mass Index 29.41 07/24/2022 2:31 PM CDT documented in this encounter Patient Instructions * Patient Instructions* Darrion Gill DO - 07/24/2022 3:05 PM CDT ICD-10-CM 1. Positive CHAR (antinuclear antibody) 1:160 speckled R76.8 Positive CHAR (antinuclear antibody) 1:160 speckled (Primary) Comments: Doubt CHAR associated with any systemic autoimmune rheumatological connective tissue disease to explain either chronic headaches or forgetfulness. Orders: - AMB REFERRAL TO RHEUMATOLOGY - COMPLEMENT C3 C4 PANEL - CARDIOLIPIN ANTIBODY IGA/IGG/IGM PANEL - LUPUS ANTICOAGULANT PANEL W RFLX - CHAR PANEL COMPREHENSIVE - CBC WITH DIFFERENTIAL By itself, a positive CHAR test does not indicate the presence of an autoimmune disease or the need for therapy. Approximately 15% of the normal population will have a positive CHAR test;and can also be seen in other conditions, such as thyroid diseases, viral infections or caused by some medications. The finding of a positive antinuclear antibody space (CHAR), especially with a low pretest probability for an associated connective tissue disease, is currently considered to be of undetermined clinical significance (often referred to as a false positive result) with her historical elements/symptoms reviewed, current clinical examination findings, and additional available laboratory results reviewed, regarding this result not consistent with a specific diagnosis of a defined systemic connective tissue disease including systemic lupus erythematosus or systemic inflammatory rheumatic disorder by [place] [employer] (ACR) diagnostic classification criteria at this time. Yassine Vee lacks features of any systemic autoimmune CHAR-related connective tissue disease. CHAR positivity is present in up to 30% of the normal population . Since the prevalence of SLE is only ~0.1%, most positive CHAR results can be attributed to other etiologies or considered represent ???false- positive?? results. CHAR positivity increases in prevalence with female gender, older age, andnumerous other conditions. Antinuclear antibody overview: A test for antinuclear antibodies (CHAR) is common in people who are suspected of having an autoimmune or systemic connective tissue disease disorder. Antibodies are proteins that are made as part of the immune response. The result of an CHAR test may be used in 1 or more ways: To aid in diagnosis ofan autoimmune or connective tissue disease disorder, to rule out autoimmune or connective tissue disease disorders in people presenting only with a few symptoms, to measure disease activity, and order to determine the specific type of disease that affects the patient. Of people with the following disorders or characteristics may have positive CHAR test results including systemic lupus erythematosus, scleroderma, mixed connective tissue disease, polymyositis/dermatomyositis, rheumatoid arthritis,rheumatoid vasculitis, Sjogren syndrome, drug-induced lupus, discoid lupus, possibly articular juvenile chronic idiopathic arthritis or ANCA related vasculitic syndromes. The in addition, some peoplewith autoimmune diseases that affect the thyroid gland, liver, or lung (including Walter's thyroiditis, Graves disease, autoimmune hepatitis, primary biliary cirrhosis, primary autoimmune cholangitis, and idiopathic pulmonary arterial hypertension) can have a positive CHAR test. Additionally, certain chronic infectious diseases, such as mononucleosis/EBV, hepatitis C virus infection, subacute bacterial endocarditis, tuberculosis, lymphoproliferative diseases, and human immunodeficiency virus (HIV) may also produce a positive CHAR test. As such, a positive CHAR does not necessarily mean that the person has lupus or another systemic connective tissue disease disorder. As noted earlier, many he althy people may have a positive CHAR test. The CHAR test is said to be a ???false positive?? test result when a person test positive but does not have any other features of autoimmune disease. This situation occurs more often in women an elderly people especially when tested in individuals with a low pretest probability for systemic lupus erythematosus or other systemic rheumatic connective tissue disease. Certain medications also may increase the chance of having a positive CHAR test which may or may not represent a drug-induced lupus type syndrome. Depending on the symptoms that led to the initial CAHR screening testing may be necessary in ordered for further evaluation may or may not be rec ommended for 1 or more of the disorders that can be associated with a positive CHAR. documented in this encounter Progress Notes * Darrion Gill DO - 07/26/2022 8:33 AM CDT All additional follow-up testing performed as part of further workup due to prior detection of a nonspecific positive antinuclear antibody returned unremarkable without any changes that would indicate a diagnosis systemic lupus erythematosus or an antiphospholipid antibody syndrome. No indication for further rheumatology follow-up or testing recommended at this time. Previous antinuclear antibodyis considered to represent a false-positive result without any clinical correlation identified. * Darrion Gill DO - 07/24/2022 2:40 PM CDT RHEUMATOLOGY INITIAL OFFICE ENCOUNTER NOTE 07/24/2022 REFERRING PHYSICIAN/PROVIDER: Collin Mayes MD [address] [address] REASON FOR CONSULT: Chief Complaint Patient presents with ??? 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 Mayes, (neurology notes reviewed) for evaluationof a detected positive antinuclear antibody at a titer 1-160 with a speckled pattern, with laboratory testing prompted based upon his presenting symptoms of chronic headaches since childhood, but more recently reporting symptoms of forgetfulness and short-term memory problems developing over the past several months. He does not seem to describe any particular symptoms that would be strongly suggestive of a systemic rheumatologic connective tissue disease including systemic lupus erythematosus and specifically denies any problems with chronic fever, fatigue, Raynaud's phenomena painful joint swelling and or stiffness, ocular dryness, oral dryness, pleuritic quality chest pain, or history of pleurisy, pericarditis, glomerulonephritis or seizure. He is scheduled for an upcoming brain MRI an EEG as ordered by Dr. Mayes. Outside records review: None available. REVIEW OF SYSTEMS: ROS See pertinent positive and/or negative in HPI PAST MEDICAL HISTORY: No past medical history on file. PAST SURGICAL HISTORY: No past surgical history on file. FAMILY HISTORY: No family history on file. No Known Allergies Social History Socioeconomic History ??? Marital status: Spouse name: Not on file ??? Number of children: Not on file ??? Years of education: Not on file ??? Highest education level: Not on file Occupational History ??? Not on file Tobacco Use ??? Smoking status: Not on file ??? Smokeless tobacco: Not on file Substance and Sexual Activity ??? Alcohol use: Not on file ??? Drug use: Not on file ??? Sexual activity: Not on file Other Topics Concern ??? Not on file Social History Narrative ??? Not on file Social Determinants of Health Financial Resource Strain: Not on file Food Insecurity: Not on file Transportation Needs: Not on file Physical Activity: Not on file Stress: Not on file Social Connections: Not on file Intimate Partner Violence: Not on file Housing Stability: Not on file There is no immunization history on file for this patient. Current Outpatient Medications Medication Sig Dispense Refill ??? amphetamine-dextroamphetamine (Adderall) 20 MG tablet Take 20 mg by mouth once daily ??? buPROPion XL 24hr (Wellbutrin-XL) 300 MG tablet Take 300 mg by mouth once daily ??? Coenzyme Q10 (Co Q-10) 120 MG ??? Fenofibrate 134 MG CAPS TAKE 1 CAPSULE BY MOUTH 4 TIMES A WEEK IN THE MORNING ??? fluticasone propionate (Flonase) 50 MCG/ACT nasal spray Emerson 1 spray into the nose once daily ??? lisinopril (Prinivil; Zestril) 10 MG tablet Take 10 mg by mouth once daily ??? Magnesium 100 MG ? ? Multiple Vitamins-Minerals (Multivitamin & Mineral) LIQD Take 15 mL by mouth once daily ??? Aurora-3 Fatty Acids (fish oil) 1000 MG capsule Take 1 (one) capsule by mouth 2 times daily ??? pravastatin (Pravachol) 40 MG tablet Take 40 mg by mouth once daily ??? QUEtiapine (SEROquel) 100 MG tablet ??? QUEtiapine (SEROquel) 25 MG tablet Take 25 mg by mouth 2 times daily ??? Riboflavin (Vitamin B-2) 100 MG 100 mg once daily ??? rimegepant (Nurtec) 75 MG tablet Take 75 mg by mouth every 2 days 8 tablet 5 ??? rizatriptan (Maxalt) 10 MG tablet Take 1 tab by mouth once at first sign of migraine. May repeat one time after 2 hours if needed. 9 tablet 5 ??? vilazodone (Viibryd) 40 MG tablet Take 40 mg by mouth once daily No current facility-administered medications for this visit. VITALS: Wt Readings from Last 3 Encounters: 07/24/22 93 kg (205 lb) 07/09/22 92.5 kg (204 lb) Temp Readings from Last 3 Encounters: 07/24/22 98 ??F (36.7 ??C) BP Readings from Last 3 Encounters: 07/24/22 118/80 07/09/22 158/79 Pulse Readings from Last 3 Encounters: 07/24/22 70 07/09/22 77 Physical Exam GEN: Pleasant male accompanied by his spouse. HEENT: No appearance of malar rash, hard palate oral mucosal erosions/ulcers or palpable parotid and or submandibular gland enlargement. CV: Regular rhythm. PULM: CTA bilaterally. MSK: No synovitis. Physical Exam [facility] Go to the Rheumatology activity andcomplete the [facility] joint exam. SKIN: No rash appearance of rash including acute, subacute or discoid lupus lesions, or palpable purpura identified. EXT: No distal lower extremity pretibial pitting edema. PSYCH: Alert. Appropriate. LABS: No results for input(s): WBC, RBC, HGB, HCT, MCV, MCHC, PLTCOUNT, NEUTPCT, LYMPHPCT, MONOCYTPCT, EOSINPCT, BASOPHILPCT, GRANSIMMPCT, NEUTABS, LYMPHABS, MONOCYTABS, EOSINABS, BASOABS, IMMGRANSABS in the last 90630 hours. No results for input(s): SODIUM, POTASSIUM, CHLORIDE, CO2, BUN, CREATININE, GLUCOSE, CALCIUM, ALBUMIN, ALKPHOS, ALT, AST, TBIL, TPROT, EGFR in the last 61232 hours. Recent Labs Component Name 07/09/22 1526 CRP 3 Recent Labs Component Name 07/09/22 1526 SEDRATE 3 No results for input(s): RAQNT in the last 97531 hours. No results for input(s): CCPIGG in the last 96607 hours. Recent Labs Component Name 07/09/22 1526 CHAR Positive* Component Latest Ref Rng & Units 07/09/2022 Speckled Pattern 1:160 (H) No results for input(s): DNAABDS in the last 01667 hours. No results for input(s): C3 in the last 71534 hours., No results for input(s): C4 in the last 36999oticb. No results for input(s): SMAB, SMRNPAB, SSAAB, SSBAB, EEJ85IE in the last 98838 hours. No results for input(s): CK in the last 13181 hours. No results for input(s): COLORUA, CLARITYUA, SPECGRAVUA, PHUA, PROTEINUA, BLOODUA, LEUKOCYTEUA, NITRITEUA, GLUCOSEUA, KETONEUA, BILIRUBINUA, UROBILINUA, REDSUBUA, WBCUAAUTO, RBCUAAUTO, EPITHUAAUTO, BACTUAAUTO, YEASTUAAUTO, SPERMUAAUTO, CASTUAAUTO, CRYSUAAUTO, MUCUSUAAUTO in the last 60307 hours. No results for input(s): [id number] in the last 36808 hours. IMAGING: No image results found. ASSESSMENT/PLAN: Orders Placed This Encounter ??? COMPLEMENT C3 C4 PANEL ??? CARDIOLIPIN ANTIBODY IGA/IGG/IGM PANEL ??? LUPUS ANTICOAGULANT PANEL W RFLX ??? CHAR PANEL COMPREHENSIVE ??? CBC WITH DIFFERENTIAL ICD-10-CM 1. Positive CHAR (antinuclear antibody) 1:160 speckled R76.8 Positive CHAR (antinuclear antibody) 1:160 speckled (Primary) Comments: Doubt CHAR associated with any systemic autoimmune rheumatological connective tissue disease to explain either chronic headaches or forgetfulness. Yassine Stollsteimer lacks features of any systemic autoimmune CHAR-related connective tissue disease. CHAR positivity is present in up to 30% of the normal population . The finding of a positive antinuclear antibody space (CHAR), especially with a low pretest probability for an associated connective tissue disease, is currently considered to be of undetermined clinical significance (often referred to as a false positive result) with her historical elements/symptoms reviewed, current clinical examination findings, and additional available laboratory re sults reviewed, regarding this result not consistent with a specific diagnosis of a defined systemic connective tissue disease including systemic lupus erythematosus or systemic inflammatory rheumatic disorder by [place] [employer] (ACR) diagnostic classification criteria at this timehowever will proceed with some additional laboratory screening to follow-up on his CHAR result especially in the context of his neurologic presenting symptoms. Since the prevalence of SLE is only ~0.1%, most positive CHAR results can be attributed to other etiologies or considered represent ???false-positive?? results. CHAR positivity increases in prevalencewith female gender, older age, and numerous other conditions. Orders: - AMB REFERRAL TO RHEUMATOLOGY - COMPLEMENT C3 C4 PANEL - CARDIOLIPIN ANTIBODY IGA/IGG/IGM PANEL - LUPUS ANTICOAGULANT PANEL W RFLX - CHAR PANEL COMPREHENSIVE - CBC WITH DIFFERENTIAL No follow-ups on file. Thank you for allowing me to participate in the rheumatologic care of your pleasant patient. Pleasedo not hesitate to contact me if I can provide any additional follow-up information that you may require. Darrion Gill D.O., FACR [facility] Medical group Division of Rheumatology at [facility] The total time spent today in the visit with the patient for this initial encounter, including performing chart preparation, review of available data, and documentation, patient education, not related to any procedure or preventative visit services was 45 minutes. Portions of the record was created with voice recognition software.Variances in door closer mechanic may occur Darrion Gill DO 07/24/2022 4:34 PM documented in this encounter Plan of Treatment Upcoming Encounters Date Type Department Care Team (Late st Contact Info) Description 11/23/2024 10:20 AM CAREER AND TECHNOLOGY EDUCATION TEACHER Procedure visit [facility] [address] [place] [address] Collin Mayes MD [address] [facility] [address] [place] [id number] documented as of this encounter Procedures Procedure Name Priority Date/Time Associated Diagnosis Comments AMB REFERRAL TO RHEUMATOLOGY Routine 07/24/2022 4:37 PM CDT Positive CHAR (antinuclear antibody) 1:160 speckled CARDIOLIPIN ANTIBODY IGA/IGG/IGM PANEL Routine 07/24/2022 3:24 PM CDT Positive CHAR (antinuclear antibody) 1:160 speckled CHAR PANEL COMPREHENSIVE Routine 07/24/2022 3:24 PM CDT Positive CHAR (antinuclear antibody) 1:160 speckled LUPUS ANTICOAGULANT PANEL W RFLX Routine 07/24/2022 3:24 PM CDT Positive CHAR (antinuclear antibody) 1:160 speckled CBC W AUTO DIFFERENTIAL Routine 07/24/2022 3:24 PM CDT Positive CHAR (antinuclear antibody) 1:160 speckled COMPLEMENT C3 C4 PANEL Routine 3:24 PM CDT Positive CHAR (antinuclear antibody) 1:160 speckled documented in this encounter Results * AMB REFERRAL TO RHEUMATOLOGY (07/24/2022 4:37 PM CDT) Collin Mayes MD OUTPATIENT REFERRALS * CBC WITH DIFFERENTIAL (07/24/2022 3:24 PM [...] Resulting Agency Comment Lab Testing performed at: [facility] [address] ??[facility] [id number] Darrion Gill DO LAB - HEMATOLOGY ORD ERABLES [facility] INSURANCE BILL [address] [place] [address] * CHAR PANEL COMPREHENSIVE (07/24/2022 3:24 PM CDT) Anti-dsDNA Quantitative <1 0 - 9 IU/mL [facility] INSURANCE BILL Comment: ?Negative ?<5 ?Equivocal ??5 - 9 ?Positive ?>9 SHELL PRESS OPERATOR Antibody <0.2 0.0 - 0.9 AI [facility] [...] Sm (anti-Bustillos) ?SLE ?15 - 30% ?--------- SHELL PRESS OPERATOR ?Mixed Connective Tissue ? Disease ? 95% [...] Resulting Agency Comment [facility] [address] ??[facility] [id number] Darrion Gill DO LAB - SEROLOGY ORDER [facility] INSURANCE BILL [address] [place] [address] * LUPUS ANTICOAGULANT PANEL W RFLX (07/24/2022 3:24 PM CDT) Pathologist [facility] PTT-LA 33.2 0.0 - 51.9 sec [facility] INSURANCE BILL dRVVT 36.6 0.0 - 47.0 sec [facility] INSURANCE BILL Interpretation Comment: [facility] INSURANCE BILL Comment:No lupus anticoagula nt was detected. Blood BLOOD SPECIMEN / Unknown 07/24/2022 3:24 PM CDT 07/24/2022 Narrative Resulting Agency Comment Lab Testing performed at: [address] ??[facility] [id number] Darrion Gill DO LAB - [facility]ATOLOGY ORD ERABLES [facility] INS[facility] BILL [address] [place] [address] * CARDIOLIPIN ANTIBODY IGA/IGG/IGM PANEL (07/24/2022 3:24 PM CDT) [facility] Cardiolipin Antibody IgG <9 0 - 14 [...] Resulting Agency Comment Lab Testing performed at: [facility] [address] ??[facility] [id number] Darrion Gill DO LAB - SEROLOGY ORDER MAURI [facility] INSURANCE BILL [address] [place] [address] * COMPLEMENT C3 C4 PANEL (07/24/2022 3:24 PM CDT) Complement C3 150 82 - 167 mg/dL [facility] INSURANCE BILL Complement C4 37 12 - 38 mg/dL [facility] INSURANCE BILL Blood BLOOD SPECIMEN / Unknown 07/24/2022 3:24 PM CDT 07/24/2022 Narrative Resulting Agency Comment Lab Testing performed at: [facility] [address] ??[facility] [id number] Darrion Gill DO LAB - CHEMISTRY BRANDAN STEWART [facility] INSURANCE BILL [address] [place] [address] documented in this encounter Visit Diagnoses Diagnosis Positive CHAR (antinuclear antibody) 1:160 speckled- Primary Other and unspecified nonspecific immunological findings documented in this encounter Care Teams Sonography Technologist Relationship Specialty Start Date End Date Morelia Scott APRN-CNP [address] [place] [address] PCP - General Nurse Practitioner 07/09/22 08/25/22 Morelia Scott APRN-CNP [address] [place] [address] Nurse Practitioner 06/21/22 documented as of this encounter
--- OUTSIDE RECORDS SUMMARY | 2024-09-11 17:00 | XMS_ITS | Encounter Summary ---
Author Organization [facility] Address [address] [facility] [place] [address] Care Team Providers Care Content Creation Manager Name Role Phone Morelia Scott CHIEF DESIGN DRAFTER-CALTRANS EQUIPMENT OPERATOR Unavailable [phone] Morelia Scott CHIEF DESIGN DRAFTER-CALTRANS EQUIPMENT OPERATOR Primary Care Provider Reason for Visit * Reason Onset Date Comments Update 07/11/2022 Encounter Details Date Type Department Care Team (Late st Contact Info) Description 07/11/2022 Telephone [facility] Neurosciences [address] [facility] [address] [place] [address] Collin Mayes MD [address] [facility] [address] [place] [address] Update Social History Tobacco Use Types Packs/Day Years Used Date Smoking Tobacco: Never Assessed Sex and Gender Information Value Date Recorded Sex Assigned at Not on file Gender Identity Not on file Sexual Orientation Not on file documented as of this encounter Miscellaneous Notes * Telephone Encounter - Rosario Alfaro - 07/11/2022 10:54 AM CDT SPOKE WITH PT ABOUT BELOW NOTE HE EXPRESS HIS UNDERSTANDING VERBALLY CW ----- Message from Collin Mayes MD sent at 07/11/2022 8:33 AM CDT ----- Please make a referral to Rheumatology for Positive AA documented in this encounter Plan of Treatment Upcoming Encounters Date Type Department Care Team (Late st Contact Info) Description 11/23/2024 10:20 AM TOMATO PULPER OPERATOR Procedure visit [facility] Neurosciences [address] [place] [address] Collin Mayes MD [address] [place] [address] documented as of this encounter Visit Diagnoses Not on filedocumented in this encounter Care Teams Content Creation Manager Relationship Specialty Start Date End Date Morelia Scott APRN-CNP [address] [place] [address] PCP - General Nurse Practitioner 07/09/22 08/25/22 Morelia Scott APRN-CNP [address] [place] [address] Nurse Practitioner 06/21/22 documented as of this encounter
--- OUTSIDE RECORDS SUMMARY | 2024-09-11 17:00 | XMS_ITS | Encounter Summary ---
Author Organization [facility] Address [address] [facility] [place] [address] Care Team Providers Care Compounding Scaler Name Role Phone Morelia Scott CERAMIC ARTIST-TRAINING AND DEVELOPMENT OFFICER Unavailable [phone] Morelia Scott CERAMIC ARTIST-TRAINING AND DEVELOPMENT OFFICER Primary Care Provider Reason for Visit * Reason Onset Date Comments Update 08/26/2022 Encounter Details Date Type Department Care Team (Late st Contact Info) Description 08/26/2022 Telephone [facility] Neurosciences [address] [place] [address] Heber Grant MD [address] [facility] [address] [place] [address] Update Social History Tobacco Use [...] Coronavirus/COVID-19? No / Unsure 08/26/2022 11:06 AM FINANCIAL SALES ADVISOR documented as of this encounter Miscellaneous Notes * Telephone Encounter - Carlos Bunch - 08/26/2022 2:14 PM CST Patient completed MRI on 08/26/22. NCIAL SALES ADVISOR * Telephone Encounter - Carlos Bunch - 08/26/2022 10:01 AM CST Left voicemail to let him know MRI still has not been approved and to call us back. Have not removed him from MRI schedule as of yet in case he still wants to complete. NCIAL SALES ADVISOR * Telephone Encounter - Carlos Bunch - 08/26/2022 10:00 AM CST ----- Message from Da Rouse sent at 08/23/2022 1:23 PM FINANCIAL SALES ADVISOR ----- Regarding: AUTH PENDING Authorization is Pending Patient Name: Yassine Vee : 1960 Exam ordered: MRI BRAIN WWO CONTRAST Ordering Physician: HEBER GRANT Phone number for Insurance: [phone] Case, Tracking number to use: [id number] Appt date: 08/26/2022 Patient Contacted (Y/N): N This message is to notify you that the test listed above is currently pending with the insurance payer. The Outpatient Integration team will continue to follow-up with insurance on a daily basis until a decision has been made. If the payor denies the authorization, even after the date of service, we will contact you to request a [id number] review be completed to appeal the denial. NCIAL SALES ADVISOR documented in this encounter Plan of Treatment Upcoming Encounters Date Type Department Care Team (Late st Contact Info) Description 11/23/2024 10:20 AM FINANCIAL SALES ADVISOR Procedure visit [facility] Neurosciences [address] [place] [address] Heber Grant MD [address] [place] [address] documented as of this encounter Visit Diagnoses Not on filedocumented in this encounter Care Teams Compounding Scaler Relationship Specialty Start Date End Date Morelia Scott APRN-CNP [facility] [place] [address] PCP - General Nurse Practitioner 08/26/22 09/03/22 Morelia Scott APRN-CNP [facility] [place] [address] Nurse Practitioner 06/21/22 documented as of this encounter
--- OUTSIDE RECORDS SUMMARY | 2024-09-11 17:00 | XMS_ITS | Encounter Summary ---
Author Organization [facility] Address [address] [facility] [place] [address] Care Team Providers Care Portable Feed Mill Operator Name Role Phone SoniaRobbin isabelbetsey Vicente SDE-RETAIL INTERIOR DESIGNER Unavailable [phone] Morelia Scott SDE-RETAIL INTERIOR DESIGNER Primary Care Provider Morelia Scott SDE-RETAIL INTERIOR DESIGNER Unavailable [phone] Reason for Visit * Reason Comments Follow-up Patient here regardi ng EEG and MRI results . Patients states his headache are good and bad. patient states that memory is pretty normal. Encounter Details Date Type Department Care Team (Late st Contact Info) Description 11/20/2022 11:20 AM SUPERINTENDENT CUSTODIAN JANITOR Office Visit [facility] Neurosciences [address] [place] [address] Collin Mayes MD [address] [facility] [address] [place] [address] Intractable chronic migraine without aura [...] Sign Reading Time Taken Comments Blood Pressure 116/78 11/20/2022 11:30 AM SUPERINTENDENT CUSTODIAN JANITOR Pulse 75 11/20/2022 11:30 AM SUPERINTENDENT CUSTODIAN JANITOR Temperature - - Respiratory Rate - - Oxygen Saturation 98% 11/20/2022 11:30 AM SUPERINTENDENT CUSTODIAN JANITOR Inhaled Oxygen Concentration - - Weight 93.4 kg (206 lb) 11/20/2022 11:30 AM SUPERINTENDENT CUSTODIAN JANITOR Height 177.8 cm (5' 10 ) 11/20/2022 11:30 AM SUPERINTENDENT CUSTODIAN JANITOR Body Mass Index 29.56 11/20/2022 11:30 AM SUPERINTENDENT CUSTODIAN JANITOR documented in this encounter Patient Instructions * Patient Instructions* Collin Mayes MD - 11/20/2022 11:51 AM SUPERINTENDENT CUSTODIAN JANITOR Migraine and tension headache Plan: Continue on Nurtec 75 mg ODT 1 tab every other day under the tongue Can take as needed Rizatriptan for acute headache Headache diary RINTENDENT CUSTODIAN JANITOR documented in this encounter Progress Notes * Collin Mayes MD - 11/20/2022 11:28 AM CST RE: Yassine Vee Primary condition addressed: headache Co-morbidities or complications addressed: memory changes HPI: 62-year-old male being seen for follow-up for symptoms of forgetfulness, memory issues, headache. He is accompanied with his . He says he is doing significantly well. Brought his headache diary with last couple of months. He has not had any severe headache. Mild to moderate headaches are present for which she takes as needed rizatriptan. Uses 6-7 times in a month. Taking Nurtec every other day. Following up with psychiatric through [facility] and recent changes of medication are being done. Off Adderall and Focalin. On Pristiq. Has complete MRI of the brain. Images reviewed with patient. Has no cerebral atrophy or small-vessel disease findings present. This is normal MRI brain. No contrast abnormality present. He had a positive CHAR for which she saw mass spec Dr. Gill. Further testing did not show any findings of lupus or antiphospholipid syndrome. Completed neuropsychological evaluation and he had normal neuro cognitive domains testing which were above average for his age. High level of anxiety and depression were thought to be causing mental in efficiency. Data Review: SUMMARY AND IMPRESSIONS: ?? The patient is a 62-year-old man with a history of memory decline for the past two years. He has been evaluated to establish his current level of neurocognitive functioning. He showed high average toexceptionally high abilities in mental processing speed, memory for new information, language skills, visual spatial skills, abstract reasoning, problem solving, and executive skills. In contrast, heshowed average abilities in attention and concentration. The patient???s memory can be characterized by good encoding and retrieval, with a good learning curve. Prompts and cues were helpful. He showed a low rate of forgetting after 20 minutes. The test scores did not consistently suggest any specific focal or lateralized signs. Psychological factors (depression, anxiety, fatigue, pain) did not appear to have an effect on his performance. ?? The patient???s profile suggests high normal neurocognitive functioning. All of his neurocognitive domains were within normal limits, most of them considerably above average for his age. The pattern of performance was consistent with the patient???s diagnosis of attention deficit disorder; his attention and concentration were below his other very high scores. This finding is discordant with his experience of cognitive decline. It seems likely that the patient???s high level of anxiety, and depression are causing mental efficiency in everyday life. This coupled with the normal effects of agingare experienced as an abnormal decline in functioning. The results are not typical for a progressive cortically based neurodegenerative condition such as Alzheimer's disease. The current assessment can be used as a baseline should he experience a decline in the future. ?? EEG Impression: This is a normal electroencephalogram. Component Latest Ref Rng & Units 07/09/2022 Homogeneous Pattern NOT AVAILABLE Nucleolar Pattern NOT AVAILABLE Speckled Pattern 1:160 (H) Centromere Pattern NOT AVAILABLE Spindle Apparatus Pattern NOT AVAILABLE Nuclear Membrane Pattern NOT AVAILABLE Midbody Pattern NOT AVAILABLE Nuclear Dot Pattern NOT AVAILABLE PCNA Pattern NOT AVAILABLE Centriole Pattern NOT AVAILABLE Note Vitamin B12 232 - 1,245 pg/mL 774 Folate >3.0 ng/mL 18.8 TSH 0.450 - 4.500 uIU/mL 1.760 T4 Total 4.5 - 12.0 ug/dL 7.2 Erythrocyte Sedimentation Rate Westergren 0 - 30 mm/hr 3 C-Reactive Protein 0 - 10 mg/L 3 CHAR Positive (A) ?? Please note that a normal EEG cannot exclude a seizure disorder. If strongly suspected, further study may be performed with a sleep-deprived EEG. ?? Past medical history, social history, and family history are otherwise unchanged. A ten system Review of systems was obtained, and is unchanged from the last visit Medicines include: Current Outpatient Medications Medication ??? buPROPion XL 24hr (Wellbutrin-XL) 300 MG tablet ??? Coenzyme Q10 (Co Q-10) 120 MG ??? cyclobenzaprine (Flexeril) 10 MG tablet ??? desvenlafaxine succinate ER 24hr (Pristiq) 25 MG tablet ??? dexmethylphenidate ER 24hr (Focalin XR) 10 MG capsule ??? Fenofibrate 134 MG CAPS ??? fluticasone propionate (Flonase) 50 MCG/ACT nasal spray ??? lisinopril (Prinivil; Zestril) 10 MG tablet ??? Magnesium 100 MG ? ? Multiple Vitamins-Minerals (Multivitamin & Mineral) LIQD ??? Charmco-3 Fatty Acids (fish oil) 1000 MG capsule ??? pravastatin (Pravachol) 40 MG tablet ??? QUEtiapine (SEROquel) 100 MG tablet ??? QUEtiapine (SEROquel) 25 MG tablet ??? Riboflavin (Vitamin B-2) 100 MG ??? rimegepant (Nurtec) 75 MG tablet ??? rizatriptan (Maxalt) 10 MG tablet ??? vilazodone (Viibryd) 40 MG tablet No current facility-administered medications for this visit. On examination, vital signs are as follows: BP 116/78 Pulse 75 Ht 1.778 m (5' 10 ) Wt 93.4 kg (206 lb) SpO2 98% General: Well-developed, well-nourished Cardiac: symmetric dorsalis pedis pulses Neurological Exam: Mental status: Alert and oriented x 3. Affect is anxious. Can provide meaningful history Remembers all his medications Normal speech CN II: Visual acuity is full without visual field cut. Pupils equal and reactive to light. CN III, IV, : Extraocular movements are full. CN V: Facial sensation is intact. CN VII: Normal facial strength and tone. CN VIII: Hearing is intact to conversation. CN XI, X: Palate elevates symmetrically, uvula midline CN XI: Normal SCM and trapezius strength CN XII: Tongue midline without atrophy Motor: Strength is grade 5/5 throughout. Bulk and tone are normal. No tremor or abnormal movement seen. Sensory: Intact to light touch, pin prick and proprioception throughout. Reflexes: Biceps 2+, triceps 2+, brachioradialis 2+, knees 2+, and ankles 2+. Babinski responses are flexor bilaterally. Coordination: Normal. Gait and Station: Normal for age. I reviewed the following studies: No results for input(s): SODIUM, POTASSIUM, CHLORIDE, CO2, BUN, CREATININE, GLUCOSE, CALCIUM in thelast 11214 hours. Recent Labs Component Name 07/24/22 1524 WBC 6.9 HGB 15.0 HCT 44.7 [facility]OUNT 307 [facility] IMPRESSION: ICD-10-CM 1. Intractable chronic migraine without aura and with status migrainosus G43.711 Comment: 61-year-old male with history of anxiety, depression, ADHD who has relocated from [place] being seen to establish care for his chronic headache. Has seen neurologist at [place] and was diagnosed with migraine and has tried p.r.n. rizatriptan, Ubrelvy with limited benefit. Reports daily headache which are frontal and temporal localized, relieved with rest, worsened with loud sounds, brightlights. Does not have any aura symptoms. Also reports history of allergies. Having features of chronic daily headache which may be secondary to migraine, sinus headache, tension headache. Discussed about trial of CGRP inhibitor class of medications such as Nurtec, p.r.n. use of rizatriptan. Also has reports of forgetfulness, short-term memory problem. Scored 27/30 in the Arik cognitive assessment test. Since last visit there is improvement in his symptoms. Use of Nurtec as well as as neededMaxalt is providing significant relief for his headache. His neurocognitive profile exam is normal.Has normal neuroimaging study of MRI brain with and without contrast studies as well as EEG. I recommend the followin. Continue on Nurtec 75 mg ODT 1 tab every other day under the tongue 2. Can take as needed Rizatriptan for acute headache 3. Headache diary No orders of the defined types were placed in this encounter. Return in about 6 months (around 05/23/2023). DINORAH Cid MD, PhD Punch Hand, Neurology at [facility] Diplomate, [place] Board of Psychiatry and Neurology (ABPN) Board Certified in Neurology and Clinical Neurophysiology [address] [place] [address] (office) [phone] (FAX) RINTENDENT CUSTODIAN JANITOR documented in this encounter Plan of Treatment Upcoming Encounters Date Type Department Care Team (Late st Contact Info) Description 11/23/2024 10:20 AM SUPERINTENDENT CUSTODIAN JANITOR Procedure visit [facility] Health Neurosciences [address] [place] [address] Collin Mayes MD [address] [place] [address] documented as of this encounter Visit Diagnoses Diagnosis Intractable chronic migraine without aura and with status migrainosus- Primary Chronic migraine without aura, with intractable migraine, so stated, with status migrainosus documented in this encounter Care Teams Portable Feed Mill Operator Relationship Specialty Start Date End Date Morelia Scott APRN-CNP [address] [place] [address] PCP - General Nurse Practitioner 09/04/22 Morelia Scott APRN-CNP [address] [place] [address] PCP - Attributed-[employer] [place] 09/22/22 08/09/23 Morelia Scott APRN-CNP [facility] [place] [address] Nurse Practitioner 06/21/22 documented as of this encounter
--- OUTSIDE RECORDS SUMMARY | 2024-09-11 17:00 | XMS_ITS | Encounter Summary ---
Author Organization [facility] Address [address] [facility] [place] [address] Care Team Providers Care Rn Building Name Role Phone Morelia Scott UPPER STITCHER-HOSPITAL MONITOR Unavailable [phone] Morelia Scott UPPER STITCHER-HOSPITAL MONITOR Primary Care Provider Reason for Referral * Neurology (Routine) - Closed Specialty Diagnoses / Procedures Referred By Marimar t Referred To Contact Diagnoses Daily headache Forgetfulness Procedures EEG AWAKE OR DROWSY ROUTINE Collin Mayes MD [facility] [address] [address] Referral ID Status Reason Start Date Expiration Date Visits Re quested Visits Authorized [id number] Closed 07/09/2022 07/09/2023 1 1 TH CONCIERGE Reason for Visit * Neurology (Routine) - Closed Specialty Diagnoses / Procedures Referred By Marimar cerna Referred To Contact Diagnoses Daily headache Forgetfulness Procedures EEG AWAKE OR DROWSY ROUTINE Collin Mayes MD [address] [place] [phone] [address] Referral ID Status Reason Start Date Expiration Date Visits Re quested Visits Authorized [id number] Closed 07/09/2022 07/09/2023 1 1 Encounter Details Date Type Department Care Team (Latest Contact Info) Description 09/04/2022 8:37 AM HEALTH CONCIERGE - 09/04/2022 11:59 PM HEALTH CONCIERGE Hospital Encounter [facility] EMG/EEG [address] [place] [address] Collin Mayes MD [address] [facility] [address] [place] [id number] Discharge Disposition: Home or Self Care Social [...] Coronavirus/COVID-19? No / Unsure 09/04/2022 8:29 AM HEALTH CONCIERGE documented as of this encounter Medications at [...] fluticasone propionate (Flonase) 50 MCG/ACT nasal spray Ryan 1 (one) spray into the nose once daily lisinopril (Prinivil; Zestril) 10 MG tablet Take 1 (one) tablet by mouth once daily Magnesium 100 MG Multiple Vitamins-Minerals (Multivitamin & Mineral) LIQD Take 15 mL by mouth once daily Tomahawk-3 Fatty Acids (fish oil) 1000 MG capsule [...] 07/09/2022 09/24/2022 documented as of this encounter Progress Notes * Mariposa Girard - 09/04/2022 10:06 AM CST Routine EEG completed OP. TH CONCIERGE documented in this encounter Procedure Notes * Collin Mayes MD - 09/04/2022 10:04 AM CSTAssociated Order(s): EEG AWAKE OR DROWSY ROUTINE Images from the original note were not included. [facility] EMG/EEG [address] [facility] [address] Electroencephalogram Yassine Vee 09/04/2022 Indication: Yassine Vee is a 62 year old male who presents with memory changes. Current Outpatient Medications Medication ??? amphetamine-dextroamphetamine (Adderall) 20 MG tablet ??? buPROPion XL 24hr (Wellbutrin-XL) 300 MG tablet ??? Coenzyme Q10 (Co Q-10) 120 MG ??? Fenofibrate 134 MG CAPS ??? fluticasone propionate (Flonase) 50 MCG/ACT nasal spray ??? lisinopril (Prinivil; Zestril) 10 MG tablet ??? Magnesium 100 MG ? ? Multiple Vitamins-Minerals (Multivitamin & Mineral) LIQD ??? Tomahawk-3 Fatty Acids (fish oil) 1000 MG capsule [...] in the range of 8-9 hertz, with fasterbeta activity present anteriorly. Voltages range from 20-75 microvolts. Hyperventilation was not performed and photic stimulation produced no abnormal responses. There are no epileptiform discharges identified. Sleep was attempted. Impression: This is a normal electroencephalogram. Please note that a normal EEG cannot exclude a seizure disorder. If strongly suspected, further study may be performed with a sleep-deprived EEG. DINORAH Cid MD, PhD Diplomate, [place] Board of Psychiatry and Neurology (ABPN) Board Certified in Neurology and Clinical Neurophysiology [address], [address] [place] [address] (office) [phone] (FAX) TH CONCIERGE documented in this encounter Plan of Treatment Upcoming Encounters Date Type Department Care Team (Late st Contact Info) Description 11/23/2024 10:20 AM HEALTH CONCIERGE Procedure visit [address] [place] [address] Collin Mayes MD [address] [place] [phone] documented as of this encounter Procedures Procedure Name Priority Date/Time Associated Diagnosis Comments EEG AWAKE OR DROWSY ROUTINE Routine 09/04/2022 10:04 AM HEALTH CONCIERGE Daily headache Forgetfulness documented in this encounter Results * EEG AWAKE OR DROWSY ROUTINE (09/04/2022 10:04 AM [facility]) Narrative [facility] MEDQUIST - 09/04/2022 10:04 AM HEALTH CONCIERGE Collin Mayes MD ? 09/04/2022 10:04 AM ? [facility] EMG/EEG [address] [facility] [address] Electroencephalogram Yassine Vee 09/04/2022 Indication: ?? Yassine [...] Vitamins-Minerals (Multivitamin & Mineral) LIQD ? ? Tomahawk-3 Fatty Acids (fish oil) 1000 MG capsule [...] be performed with a sleep-deprived EEG. DINORAH Cid, , PhD Diplomate, [place] Board of Psychiatry and Neurology (ABPN) Board Certified in Neurology and Clinical Neurophysiology [address], [address] [place] [address] (office) [phone] (FAX) Collin Mayes MD NEUROLOGY ORDERABLES Performing Organization Address City/State/[facility] Co de Phone Number [facility] documented in this encounter Visit Diagnoses Diagnosis Daily headache Headache Forgetfulness Other general symptoms documented in this encounter Care Teams Rn Building Relationship Specialty Start Date End Date Morelia Scott APRN-CNP [address] [place] [address] PCP - General Nurse Practitioner 09/04/22 Morelia Scott APRN-CNP [address] [place] [address] Nurse Practitioner 06/21/22 documented as of this encounter
--- OUTSIDE RECORDS SUMMARY | 2024-09-11 17:00 | XMS_ITS | Encounter Summary ---
Author Organization [facility] Address [address] [facility] [place] [address] Care Team Providers Care Academic Specialist Name Role Phone Morelia Scott CORN SHELLER OPERATOR-MARKETING ROTATION ASSOCIATE Unavailable [phone] Morelia Scott CORN SHELLER OPERATOR-MARKETING ROTATION ASSOCIATE Primary Care Provider Morelia Scott CORN SHELLER OPERATOR-MARKETING ROTATION ASSOCIATE Unavailable [phone] Reason for Visit * Reason Comments MIGRAINE Encounter Details Date Type Department Care Team (Late st Contact Info) Description 06/27/2023 11:40 AM CDT Office Visit [facility] Neurosciences [address] [facility] [address] [place], [place] [id number] Collin Mayes MD [address] [facility] [address] [place] [address] Intractable chronic migraine without aura [...] Sign Reading Time Taken Comments Blood Pressure 110/74 06/27/2023 11:45 AM CDT Pulse 87 06/27/2023 11:45 AM CDT Temperature 36.8 ??C (98.2 ??F) 06/27/2023 11:45 AM C DT Respiratory Rate 14 06/27/2023 11:45 AM CDT Oxygen Saturation 96% 06/27/2023 11:45 AM CDT Inhaled Oxygen Concentration - - Weight 92.1 kg (203 lb) 06/27/2023 11:45 AM CDT Height 177.8 cm (5' 10 ) 06/27/2023 11:45 AM CDT Body Mass Index 29.13 06/27/2023 11:45 AM CDT documented in this encounter Patient Instructions * Patient Instructions* Collin Mayes MD - 06/27/2023 11:56 AM CDT Migraine and tension headache Plan: Continue on Nurtec 75 mg ODT 1 tab every other day under the tongue Can take as needed Rizatriptan (Maxalt) for acute headache Botox treatment as scheduled If the medications are not covered by your insurance, we will discuss after July. documented in this encounter Progress Notes * Collin Mayes MD - 06/27/2023 11:41 AM CDT RE: Yassine Vee Primary condition addressed: headache [...] other day. Following up with psychiatric through [facility] and recent changes of medication are being done. Off Adderall and Focalin. On Pristiq. Has complete MRI of the brain. Images reviewed with patient. Has no cerebral atrophy or small-vessel disease findings present. This is normal MRI brain. No contrast abnormality present. He had a positive CHAR for which she saw jewel bearing grinder Dr. Gill. Further testing did not show any findings of lupus or antiphospholipid syndrome. Completed neuropsychological evaluation and he had normal neuro cognitive domains testing which were above average for his age. High level of anxiety and depression were thought to be causing mental in efficiency. 06/27/2023: completed two Botox injection (03/12 and 06/06/2023). His insurance is being changed from July 23. He wanted to come and discuss any potential changes in medication with his change of insurance. He brought his MARIE diary for April and May and has used Rizatriptan only once. Data Review: SUMMARY AND IMPRESSIONS: ?? The [...] Medications Medication ??? buPROPion XL 24hr (Wellbutrin-XL) 150 MG tablet ??? Coenzyme Q10 (Co Q-10) 120 MG ??? cyclobenzaprine (Flexeril) 10 MG tablet ??? dexmethylphenidate ER 24hr (Focalin XR) 10 MG capsule ??? Fenofibrate 134 MG CAPS ??? fluticasone propionate (Flonase) 50 MCG/ACT nasal spray ??? lisinopril (Prinivil; Zestril) 10 MG tablet ??? Magnesium 100 MG ? ? Multiple Vitamins-Minerals (Multivitamin & Mineral) LIQD ??? Chataignier-3 Fatty Acids (fish oil) 1000 MG capsule ??? pravastatin (Pravachol) 40 MG tablet ??? QUEtiapine (SEROquel) 100 MG tablet ??? QUEtiapine (SEROquel) 50 MG tablet ??? Riboflavin (Vitamin B-2) 100 MG ??? rimegepant (Nurtec) 75 MG tablet ??? rizatriptan (Maxalt) 10 MG tablet ??? vilazodone (Viibryd) 40 MG tablet No current facility-administered medications for this visit. On examination, vital signs are as follows: BP 110/74 Pulse 87 Temp 98.2 ??F (36.8 ??C) Resp 14 Ht 1.778 m (5' 10 ) Wt 92.1 kg (203 lb) SpO2 96% General: Well-developed, well-nourished Cardiac: symmetric dorsalis pedis [...] CO2, BUN, CREATININE, GLUCOSE, CALCIUM in thelast 79594 hours. Recent Labs Component Name 07/24/22 1524 WBC 6.9 HGB 15.0 HCT 44.7 PLTCOUNT 307 @RISRCNT@ IMPRESSION: ICD-10-CM 1. Intractable chronic migraine without aura and with status migrainosus G43.711 Comment: 61-year-old male with history of anxiety, depression, ADHD who has relocated from [place] being seen to establish care for his chronic headache. Has seen neurologist at [place] and was diagnosed with migraine and has [...] short-term memory problem. Scored 27/30 in the Miles cognitive assessment test. Since last visit there is improvement in his symptoms. Use of Nurtec as well as as neededMaxalt is providing significant relief for his headache. His neurocognitive profile exam is normal.Has normal neuroimaging study of MRI brain with and without contrast studies as well as EEG. Doing very well on Botox, Nurtec and has needed triptan rarely I recommend the followin. Continue on Nurtec 75 mg ODT 1 tab every other day under the tongue 2. Can take as needed Rizatriptan (Maxalt) for acute headache 3. Botox treatment as scheduled 4. If the medications are not covered by your insurance, we will discuss after July of other options. Orders Placed This Encounter ??? rizatriptan (Maxalt) 10 MG tablet Return in about 3 months (around 09/27/2023). DINORAH Cid MD, PhD Podiatric Medicine Doctor, Neurology at [facility] Diplomate, [place] Board of Psychiatry and Neurology (ABPN) Board Certified in Neurology and Clinical Neurophysiology [facility] [address] [place] [address], [address] [place] [address] (office) [phone] (FAX) documented in this encounter Plan of Treatment Upcoming Encounters Date Type Department Care Team (Late st Contact Info) Description 11/23/2024 10:20 AM SENIOR SOFTWARE ENGINEER ANALYTICS Procedure visit [facility] [address] [place] [address] [address] [place] [address] Collin Mayes MD [address] [place] [address] documented as of this encounter Visit Diagnoses Diagnosis Intractable chronic migraine without aura and with status migrainosus- Primary Chronic migraine without aura, with intractable migraine, so stated, with status migrainosus documented in this encounter Care Teams Academic Specialist Relationship Specialty Start Date End Date Morelia Scott APRN-CNP [address] [place] [address] PCP - General Nurse Practitioner 09/04/22 Morelia Scott APRN-CNP [address] [place] [address] PCP - Attributed-[employer] [place] 09/22/22 08/09/23 Morelia Scott APRN-MARKETING ROTATION ASSOCIATE [address] [place] [address] Nurse Practitioner 06/21/22 documented as of this encounter
--- OUTSIDE RECORDS SUMMARY | 2024-09-11 17:00 | XMS_ITS | Encounter Summary ---
Author Organization [facility] Address [address] [facility] [place] [address] Care Team Providers Care Comic Book Writer Name Role Phone Morelia Scott APRN-TIFFANI Unavailable Morelia Scott MINE CAR DISPATCHER-MANAGER CLEANING Primary Care Provider Encounter Details Date Type Department Care Team (Latest Contact Info) Description 07/12/2022 Travel Social History Tobacco Use Types Packs/Day [...] AM CDT documented as of this encounter Plan of Treatment Upcoming Encounters Date Type Department Care Team (Late st Contact Info) Description 11/23/2024 10:20 AM MEDICAL DOCTOR MD Procedure visit [facility] Health Neurosciences [address] [place] [address] Collin Mayes MD [address] [place] [address] documented as of this encounter Visit Diagnoses Not on filedocumented in this encounter Care Teams Comic Book Writer Relationship Specialty Start Date End Date Morelia Scott MINE CAR DISPATCHERTAVARES [address] [place] [address] PCP - General Nurse Practitioner 07/09/22 08/25/22 Morelia Scott APRN-MANAGER CLEANING [address] [place] [address] Nurse Practitioner 06/21/22 documented as of this encounter
--- OUTSIDE RECORDS SUMMARY | 2024-09-11 17:00 | XMS_ITS | Encounter Summary ---
Author Organization [facility] Address [address] [facility] [place] [address] Care Team Providers Care Coding File Clerk Name Role Phone Morelia Scott BAIT DIGGER-SEWING 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 PLASTIC ZIPPER Unavailable [phone] Morelia Scott BAIT DIGGER-SEWING 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 PLASTIC ZIPPER Primary Care Provider Morelia Scott BAIT DIGGER-SEWING 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 PLASTIC ZIPPER Unavailable [phone] Reason for Visit * Reason Onset Date Comments MEDICATION REFILL 03/26/2023 Encounter Details Date Type Department Care Team (Late st Contact Info) Description 03/26/2023 Refill [facility] Neurosciences [address] [facility] [address] [place], [place] [id number] Collin Mayes MD [address] [facility] [address] [place] [address] MEDICATION REFILL Social History Tobacco Use Types Packs/Day Years Used Date Smoking Tobacco: Never Assessed Sex and Gender Information Value Date Recorded Sex Assigned at Not on file Gender Identity Not on file Sexual Orientation Not on file documented as of this encounter Miscellaneous Notes * Telephone Encounter - Anay Damon - 03/26/2023 11:35 AM CDT JACY 03/12/23 FOV 06/06/23 documented in this encounter Plan of Treatment Upcoming Encounters Date Type Department Care Team (Late st Contact Info) Description 11/23/2024 10:20 AM TAKE OUT WAITRESS Procedure visit [facility] Neurosciences [address] [place] [address] Collin Mayes MD [address] [place] [address] documented as of this encounter Visit Diagnoses Not on filedocumented in this encounter Care Teams Coding File Clerk Relationship Specialty Start Date End Date Morelia Scott APRN-CNP [address] [place] [address] PCP - General Nurse Practitioner 09/04/22 Morelia Scott APRN-CNP [address] [place] [address] PCP - Attributed-[employer] [place] 09/22/22 08/09/23 Morelia Scott APRN-CNP [address] [place] [address] Nurse Practitioner 06/21/22 documented as of this encounter
--- OUTSIDE RECORDS SUMMARY | 2024-09-11 17:00 | XMS_ITS | Encounter Summary ---
Author Organization [facility] Address [address] [facility] [place] [address] Care Team Providers Care Pressure Sealer And Tester Name Role Phone Morelia Scott .NET ARCHITECT-RESPIRATORY SERVICES MANAGER Unavailable [phone] Morelia Scott .NET ARCHITECT-RESPIRATORY SERVICES MANAGER Primary Care Provider Morelia Scott .NET ARCHITECT-RESPIRATORY SERVICES MANAGER Unavailable [phone] Encounter Details Date Type Department Care Team (Late st Contact Info) Description 10/09/2022 Orders Only [facility] Neurosciences [address] [facility] [place], [place] [id number] Collin Mayes MD [address] [facility] [address] [place] [address] Social History Tobacco Use Types Packs/Day Years Used Date Smoking Tobacco: Never Assessed Sex and Gender Information Value Date Recorded Sex Assigned at Not on file Gender Identity Not on file Sexual Orientation Not on file documented as of this encounter Progress Notes * Carlos Bunch - 10/09/2022 8:27 AM CST Patient is scheduled to complete neuropsych evaluation with Dr. Ashutosh Lubin on 11/09/22. ONNEL SPECIALIST documented in this encounter Plan of Treatment Upcoming Encounters Date Type Department Care Team (Late st Contact Info) Description 11/23/2024 10:20 AM PERSONNEL SPECIALIST Procedure visit [facility] Neurosciences [address] [place] [address] Collin Mayes MD [address] [place] [address] documented as of this encounter Visit Diagnoses Not on filedocumented in this encounter Care Teams Pressure Sealer And Tester Relationship Specialty Start Date End Date Moreila Scott APRN-CNP [address] [place] [address] PCP - General Nurse Practitioner 09/04/22 Morelia Scott APRN-CNP [address] [place] [address] PCP - Attributed-[employer] [place] 09/22/22 08/09/23 Morelia Scott APRN-CNP [address] [place] [address] Nurse Practitioner 06/21/22 documented as of this encounter
--- OUTSIDE RECORDS SUMMARY | 2024-09-11 17:01 | XMS_ITS | Encounter Summary ---
Author Organization [facility] Address [address] [place] [address]. [place], [place] [address] [place] [address] Care Team Providers Care Animal Daycare Provider Name Role Phone Morelia Scott SHANNAN Primary Care Provider [phone] Reason for Visit * Reason Onset Date Comments Schedule Test 12/09/2022 ECHOCARDIOGRAM Encounter Details Date Type Department Care Team (Late st Contact Info) Description 12/09/2022 Telephone [facility] [address] Melody Brush RMA Schedule Test (ECHOCARDIOGRAM) Social History Tobacco Use Types Packs/Day Years Used Date Smoking Tobacco: Former Cigarettes 1 30 Smokeless Tobacco: Never Alcohol Use Standard Drinks/Week Comments Never 0 (1 standard drink = 0.6 oz pur e alcohol) PHQ-2 Answer Date Recorded Patient Health Questionnaire-2 Score 2 10/01/2022 Sex and Gender Information Value Date Recorded Sex Assigned at Not on file Legal Sex Male 2:14 PM CDT Gender Identity Not on file Sexual Orientation Not on file COVID-19 Exposure Response Date Recorded In the last 10 days, have yo u been in contact with someone who was confirmed or suspected to have Coronavirus/COVID-19? No / Unsure 11/28/2022 9:29 AM RIBBON HANKING 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 documented as of this encounter Progress Notes * JUAN DIEGO Garcia - 12/09/2022 2:06 PM CDT Left message to schedule echo per Dr Tapia documented in this encounter Plan of Treatment Upcoming Encounters Date Type Department Care Team (Late st Contact Info) Description 10/05/2024 9:20 AM RIBBON HANKING 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 Office Visit [facility] Medical Group Family & Internal Medicine - [place] [address] [place] [address] Morelia Scott APNP [address] [place] [address] 12/02/2024 11:00 AM CDT Office Visit [facility], [address] [place], [place] [id number] Rob Tapia MD [address] [facility] [address] [facility][note 3] [place] [address] documented as of this encounter Visit Diagnoses Not on filedocumented in this encounter Additional Health Concerns Assessment Noted Time PHQ-9 Depression Total Score: 10 023 8:58 AM RIBBON HANKING 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 documented as of this encounter Care Teams Animal Daycare Provider Relationship Specialty Start Date End Date Morelia Scott APNP [address] [place] [address] PCP - General NURSE PRACTITIONER 06/12/22 documented as of this encounter
--- OUTSIDE RECORDS SUMMARY | 2024-09-11 17:01 | XMS_ITS | Encounter Summary ---
Author Organization [facility] Address [address] [place] [address]. [place], [place] [address] [place] [address] Care Team Providers Care Hvac R Tech Name Role Phone Morelia Scott Primary Care Provider [phone] Reason for Visit * Reason Comments Image (SCAN) Encounter Details Date Type Department Care Team (Latest Contact Info) Description 02/11/2024 Scan HEALTH INFO SRVCS Scanned, Doc Med Group Image (SCAN) Social History Tobacco Use Types Packs/Day Years Used Date Smoking Tobacco: Former Cigarettes 2016 Smokeless Tobacco: Never Alcohol Use Standard Drinks/Week Comments Never 0 (1 standard drink = 0.6 oz pur e alcohol) PHQ-2 Answer Date Recorded Patient Health Questionnaire-2 Score 0 10/03/2023 Sex and Gender Information Value Date Recorded Sex Assigned at Not on file Legal Sex Male 2:14 PM CDT Gender Identity Not on file Sexual Orientation Not on file documented as of this encounter Plan of Treatment Upcoming Encounters Date Type Department Care Team (Late st Contact Info) Description 10/05/2024 9:20 AM FOOD SERVICE STEWARD Office Visit [facility] Medical Group Family & Internal Medicine - [place] [address] [place] [address] Morelia Scott APNP [address] [place] [address] 12/02/2024 11:00 AM CDT Office Visit [facility] [address] [facility], [address] [address] Rob Tapia MD [address] [facility] [address] [place] [address] documented as of this encounter Procedures Procedure Name Priority Date/Time Associated Diagnosis Comments IMAGE GENERIC 02/11/2024 documented in this encounter Results * IMAGE GENERIC (02/11/2024) Anatomical Region Laterality Modality Other 02/11/2024 us Doc Med Group Scanned SCANNING Final Resu lt documented in this encounter Visit Diagnoses Not on filedocumented in this encounter Additional Health Concerns Assessment Noted Time PHQ-9 Depression Total Score: 10 023 8:58 AM FOOD SERVICE STEWARD documented as of this encounter Care Teams Hvac R Tech Relationship Specialty Start Date End Date Morelia Scott APNP [address] [place] [address] PCP - General NURSE PRACTITIONER 06/12/22 documented as of this encounter
--- OUTSIDE RECORDS SUMMARY | 2024-09-11 17:01 | XMS_ITS | Encounter Summary ---
Author Organization [facility] Address [address] [place] [address]. [place], [place] [address] [place] [address] Care Team Providers Care Community Cultural Development Officer Name Role Phone Morelia Scott Primary Care Provider [phone] Reason for Visit * Reason Comments Ultrasound (SCAN) Encounter Details Date Type Department Care Team (Late Contact Info) Description 08/07/2023 Scan HEALTH INFO SRVCS Scanned, Doc Med Group Ultrasound (SCAN) Social History Tobacco Use Types Packs/Day [...] Department Care Team (Late Contact Info) Description 10/05/2024 9:20 AM COMMERCIAL INTERIOR DESIGNER Office Visit [facility] Medical Group Family & Internal Medicine [facility] [address] [place] [address] Morelia Scott APNP [address] [place] [address] 12/02/2024 11:00 AM CDT Office Visit [facility] [address] [facility], [place] [address] [place] [address] Rob Tapia MD 3 [facility] [address] [place] [address] documented as of this encounter Procedures Procedure Name Priority Date/Time Associated Diagnosis Comments ULTRASOUND GENERIC (SCAN ORDER) 08/07/2023 ULTRASOUND GENERIC (SCAN ORDER) 08/07/2023 documented in this encounter Results * ULTRASOUND GENERIC (08/07/2023) Anatomical Region Laterality Modality Other 08/07/2023 us Doc Med Group Scanned SCANNING Final Resu lt * ULTRASOUND GENERIC (08/07/2023) Anatomical Region Laterality Modality Other 08/07/2023 us Doc Med Group Scanned SCANNING Final Resu lt documented in this encounter Visit Diagnoses Not on filedocumented in this encounter Additional Health Concerns Assessment Noted Time PHQ-9 Depression Total Score: 10 023 8:58 AM COMMERCIAL INTERIOR DESIGNER documented as of this encounter Care Teams Community Cultural Development Officer Relationship Specialty Start Date End Date Morelia Scott APNP [address] [place] [address] PCP - General NURSE PRACTITIONER 06/12/22 documented as of this encounter
--- OUTSIDE RECORDS SUMMARY | 2024-09-11 17:01 | XMS_ITS | Encounter Summary ---
Author Organization [facility] Address [address] [place] [address]. [place], [place] [address] [place] [address] Care Team Providers Care Gun Number Name Role Phone Morelia Scott Primary Care Provider [phone] Reason for Visit * Reason Onset Date Comments Radiology Results 11/25/2023 Encounter Details Date Type Department Care Team (Late st Contact Info) Description 11/25/2023 Telephone [facility] Medical Group Family & Internal Medicine [facility] [address] [place] [address] Morelia Scott APNP [address] [place] [address] Radiology Results Social History Tobacco Use Types Packs/Day [...] as of this encounter Progress Notes * Yumiko Ashley MA - 11/27/2023 4:55 PM CST Pt said when he had his CT lung screening, the radiologist saw something of concern and they ordered the additional CTA. Pt states he is aware of the result (Dr. Tapia-cardio surgeon at [facility]-says it is unchanged from 6 months ago) and is set to repeat in one year. ION BUYER * SHANNAN Rodriguez - 11/26/2023 1:00 PM CST This was a chest CTA---call pt to see who ordered ION BUYER * Yumiko Ashley MA - 11/26/2023 12:49 PM CST You ordered a CT Lung Screening for [facility] at last OV 10/03/23. ION BUYER * SHANNAN Rodriguez - 11/25/2023 7:43 PM CST I received a chest CTA that was done on November 18 that indicated patient had some enlargement of his aorta. It does not necessarily appear that I ordered this but I just want to make sure that he has the results or that he is at least following up with the provider that did order. ION BUYER documented in this encounter Plan of Treatment Upcoming Encounters Date Type Department Care Team (Late st Contact Info) Description 10/05/2024 9:20 AM FASHION BUYER Office Visit [facility] Medical Group Family & Internal Medicine - [place] [address] [place] [address] Morelia Scott APNP [address] [place] [address] 12/02/2024 11:00 AM CDT Office Visit [facility] [place] [address] Rob Tapia MD [address] [facility] [address] [place] [address] documented as of this encounter Visit Diagnoses Not on filedocumented in this encounter Additional Health Concerns Assessment Noted Time PHQ-9 Depression Total Score: 10 023 8:58 AM FASHION BUYER documented as of this encounter Care Teams Gun Number Relationship Specialty Start Date End Date Morelia Scott APNP [address] [place] [address] PCP - General NURSE PRACTITIONER 06/12/22 documented as of this encounter
--- OUTSIDE RECORDS SUMMARY | 2024-09-11 17:01 | XMS_ITS | Encounter Summary ---
Author Organization [facility] Address [address] [place] [address]. [place] [address] [place] [address] Care Team Providers Care Editor Newspaper Name Role Phone Morelia Scott Primary Care Provider [phone] Reason for Visit * Reason Comments Image (SCAN) Lab (SCAN) Procedure (SCAN) Encounter Details Date Type Department Care Team (Late Contact Info) Description 12/17/2023 Scan HEALTH INFO [facility] Scanned, [facility] Image (SCAN); Lab (SCAN); Procedure (SCAN) Social History Tobacco Use Types Packs/Day Years Used Date Smoking Tobacco: Former Cigarettes 7 2016 Smokeless Tobacco: Never Alcohol Use Standard [...] Upcoming Encounters Date Type Department Care Team ([facility] Contact Info) Description 10/05/2024 9:20 AM RESEARCH NURSE PRACTITIONER Office Visit [facility] Family [facility] Internal Medicine - [place] [address] [place] [address] Morelia Scott APNP [address] [place] [address] 12/02/2024 11:00 AM CDT Office Visit [facility] [place] [address] [place] [address] Rob Tapia MD 3 [facility] [address] [place] [address] documented as of this encounter Procedures Procedure Name Priority Date/Time Associated Diagnosis Comments OUTSIDE PT/INR (SCAN ORDER) 12/17/2023 IMAGE GENERIC 12/17/2023 IMAGE GENERIC 12/17/2023 PROCEDURE GENERIC (SCAN ORDER) 12/17/2023 documented in this encounter Results * PROCEDURE GENERIC (SCAN ORDER) (12/17/2023) 12/17/2023 [facility] Scanned SCANNING Final Resu lt * OUTSIDE PT/INR (SCAN ORDER) (12/17/2023) 12/17/2023 [facility] Scanned SCANNING Final Resu lt * IMAGE GENERIC (12/17/2023) Anatomical Region Laterality Modality Other 12/17/2023 [facility] Scanned SCANNING Final Resu lt * IMAGE GENERIC (12/17/2023) Anatomical Region Laterality Modality Other 12/17/2023 [facility] Scanned SCANNING Final Resu lt documented in this encounter Visit Diagnoses Not on filedocumented in this encounter Additional Health Concerns Assessment Noted Time PHQ-9 Depression Total Score: 10 023 8:58 AM RESEARCH NURSE PRACTITIONER documented as of this encounter Care Teams Editor Newspaper Relationship Specialty Start Date End Date Morelia Scott APNP [address] [place] [address] PCP - General NURSE PRACTITIONER 06/12/22 documented as of this encounter
--- OUTSIDE RECORDS SUMMARY | 2024-09-11 17:01 | XMS_ITS | Encounter Summary ---
Author Organization [facility] Address [address] [place] [address]. [place], [place] [address] [place] [address] Care Team Providers Care Health Education Director Name Role Phone Morelia Scott Primary Care Provider [phone] Reason for Visit * Reason Onset Date Comments Advice 08/27/2024 Encounter Details Date Type Department Care Team (Late st Contact Info) Description 08/27/2024 Telephone [facility] Family & Internal Medicine [facility] [address] [place] [address] Morelia Scott APNP [address] [place] [address] Advice Social History Tobacco Use Types Packs/Day Years [...] as of this encounter Progress Notes * Meka Vallejo MA - 08/30/2024 3:57 PM CSTAddended by: MEKA VALLEJO on: 08/30/2024 03:57 PM Modules accepted: Orders ICAL AIDE * Meka Vallejo MA - 08/30/2024 3:50 PM CST Pt's is aware. She spoke with pt, who said this bug has almost run its course, so he does not wish to get this rx at this time. He agrees to call office if situation changes, or sx return/worsen. ICAL AIDE * Elsi Ulrich MA - 08/30/2024 1:57 PM CST PA request received for: Ondansetron (Zofran) 4mg Quantity amount #. 20 NO PA REQUIRED. Can get at: [facility] Good rx for around: $33.35 Can get through [facility] cheaper for $18.27 Patient notified via valdemar Mandel rma ICAL AIDE * Meka Vallejo MA - 08/27/2024 4:17 PM CSTAddended by: MEKA VALLEJO on: 08/27/2024 04:17 PM Modules accepted: Orders ICAL AIDE * SHANNAN Rodriguez - 08/27/2024 1:02 PM CST Can send over some odansetron 4 mg, one PO TID PRN, #20, no refills ICAL AIDE * Lakesha Mcintosh - 08/27/2024 11:20 AM CST Pts called in stating pt has been having stomach issues with nausea, pt had visit with dr for Migraines and was informed he had high BP at the visit. Pts asking what can be used for antinausea that will not raise blood pressure. Please advise. ICAL AIDE documented in this encounter Plan of Treatment Upcoming Encounters Date Type Department Care Team (Late st Contact Info) Description 10/05/2024 9:20 AM SURGICAL AIDE Office Visit [facility] Family & Internal Medicine - [place] [address] [place] [address] Morelia Scott APNP [address] [place] [address] 12/02/2024 11:00 AM CDT Office Visit [facility] [place] [address] [place] [address] Rob Tapia MD 3 [facility] [address] [place] [address] documented as of this encounter Visit Diagnoses Diagnosis Nausea- Primary Nausea alone documented in this encounter Additional Health Concerns Assessment Noted Time PHQ-9 Depression Total Score: 10 023 8:58 AM SURGICAL AIDE documented as of this encounter Care Teams Health Education Director Relationship Specialty Start Date End Date Morelia Scott APNP [address] [place] [address] PCP - General NURSE PRACTITIONER 06/12/22 documented as of this encounter
--- OUTSIDE RECORDS SUMMARY | 2024-09-11 17:01 | XMS_ITS | Encounter Summary ---
Author Organization [facility] Address [address] [place] [address]. [place], [place] [address] [place] [address] Care Team Providers Care Audit Senior Associate Name Role Phone Morelia Scott Primary Care Provider [phone] Encounter Details Date Type Department Care Team (Latest Contact Info) Description 03/04/2023 Travel Social History Tobacco Use Types Packs/Day [...] was confirmed or suspected to have Coronavirus/COVID-19? Yes 03/04/2023 10:31 AM CDT documented as of this encounter Plan of Treatment Upcoming Encounters Date Type Department Care Team (Late st Contact Info) Description 10/05/2024 9:20 AM JOURNEYMAN MECHANIC Office Visit [facility] Family & Internal Medicine - [place] [address] [place] [address] Morelia Scott APNP [address] [place] [address] 12/02/2024 11:00 AM CDT Office Visit [facility] [place] [address] [place] [address] Rob Tapia MD 3 [facility] [address] [place] [address] documented as of this encounter Visit Diagnoses Not on filedocumented in this encounter Additional Health Concerns Assessment Noted Time PHQ-9 Depression Total Score: 10 023 8:58 AM JOURNEYMAN MECHANIC documented as of this encounter Care Teams Audit Senior Associate Relationship Specialty Start Date End Date Morelia Scott APNP [facility] [place] [address] PCP - General NURSE PRACTITIONER 06/12/22 documented as of this encounter
--- OUTSIDE RECORDS SUMMARY | 2024-09-11 17:01 | XMS_ITS | Encounter Summary ---
Author Organization [facility] Address [address] [place] [address]. [place] [address] [place] [address] Care Team Providers Care Security System Sales Consultant Name Role Phone Morelia Scott Primary Care Provider [phone] Encounter Details Date Type Department Care Team (Latest Contact Info) Description 08/03/2024 Travel Social History Tobacco Use Types Packs/Day [...] st Contact Info) Description 10/05/2024 9:20 AM BLANCHARD GRINDER OPERATOR Office Visit [facility] Family & Internal Medicine - [place] [address] [place] [address] Morelia Scott APNP [address] [place] [address] 12/02/2024 11:00 AM CDT Office Visit [facility] [address] [place] [address] Rob Tapia MD 3 [facility] [address] [place], [place] [address] documented as of this encounter Visit Diagnoses Not on filedocumented in this encounter Additional Health Concerns Assessment Noted Time PHQ-9 Depression Total Score: 10 023 8:58 AM BLANCHARD GRINDER OPERATOR documented as of this encounter Care Teams Security System Sales Consultant Relationship Specialty Start Date End Date Morelia Scott APNP [address] [place] [place] [address] PCP - General NURSE PRACTITIONER 06/12/22 documented as of this encounter
--- OUTSIDE RECORDS SUMMARY | 2024-09-11 17:01 | XMS_ITS | Encounter Summary ---
Author Organization [facility] Address [address] [place] [address] Care Team Providers Care Director Of Community Services Name Role Phone Morelia Scott LICENSE AND PERMIT SPECIALIST-INFRASTRUCTURE ENGINEER Unavailable [phone] Morelia Scott LICENSE AND PERMIT SPECIALIST-INFRASTRUCTURE ENGINEER Primary Care Provider Reason for Referral * Neurology (Routine) - Closed Specialty Diagnoses / Procedures Referred By Contac t Referred To Contact Diagnoses Daily headache Forgetfulness Procedures EEG AWAKE OR DROWSY ROUTINE Collin Mayes MD [address] [address] [facility] [address] [place] [phone] Referral ID Status Reason Start Date Expiration Date Visits Re quested Visits Authorized [id number] Closed 07/09/2022 07/09/2023 1 1 * Radiology Services (Routine) - Denied Specialty Diagnoses / Procedures Referred By Contac t Referred To Contact MRI Diagnoses Daily headache Forgetfulness Procedures MRI BRAIN WWO CONTRAST Collin Mayes MD [facility] [address] Referral ID Status Reason Start Date Expiration Date Visits Re quested Visits Authorized [id number] Denied 07/09/2022 07/09/2023 1 0 Reason for Visit * Reason Comments Establish Care In office 61 yo male Yassine Vee present for Migraines. PT state he had migraines since a child growing up ,Pt state he had a migraine everyday and still have one now , no blurred vision , having some memory issue , neck pain , tightness in the front of the head , younger years heads injury , balance stable Encounter Details Date Type Department Care Team (Latest Contact Info) Description 07/09/2022 2:00 PM CDT Office Visit [facility] [address] [facility] [address] [place] [address] Collin Mayes MD [address] [place] [phone] Forgetfulness (Primary Dx); Daily headache; Intractable chronic migraine without aura and with status migrainosus Social History Tobacco Use Types Packs/Day Years Used Date Smoking Tobacco: Never Assessed Sex and Gender Information Value Date Recorded Sex Assigned at Not on file Gender Identity Not on file Sexual Orientation Not on file documented as of this encounter Last Filed Vital Signs Vital Sign Reading Time Taken Comments Blood Pressure 158/79 07/09/2022 1:49 PM CDT Pulse 77 07/09/2022 1:49 PM CDT Temperature - - Respiratory Rate - - Oxygen Saturation 98% 07/09/2022 1:49 PM CDT Inhaled Oxygen Concentration - - Weight 92.5 kg (204 lb) 07/09/2022 1:49 PM CDT Height 177.8 cm (5' 10 ) 07/09/2022 1:49 PM CDT Body Mass Index 29.27 07/09/2022 1:49 PM CDT documented in this encounter Patient Instructions * Patient Instructions* Collin Mayes MD - 07/09/2022 2:44 PM CDT Daily headache Forgetfulness Plan: MRI brain w/w/o contrast EEG Labs: b12, folate, TSH, ESR, CRP, CHAR Neuropsychological evaluation NEW medication: Nurtec 75 mg ODT 1 tab every other day under the tongue Stop Ubrelvy Can take as needed Rizatriptan for acute headache Headache diary documented in this encounter Progress Notes * Collin Mayes MD - 07/09/2022 2:00 PM CDT 07/09/2022 Yassine Vee 61 year old Chief Complaint: Chief Complaint Patient presents with ??? Establish Care In office 61 yo male Yassine Vee present for Migraines. PT state he had migraines since a child growing up ,Pt state he had a migraine everyday and still have one now , no blurred vision , having some memory issue , neck pain , tightness in the front of the head , younger years heads injury ,balance stable Primary condition addressed: headache Co-morbidities or complications addressed: memory changes HPI: Morelia Scott APRN has requested a neurologic consultation on Yassine Vee, 61-year-old male for evaluation of headache. He has moved from [place] and wants to establish neurological care. Has seen neurologist there also. Unfortunately no records available to review for this visit. He reports h istory of headaches since his childhood years and daily headache at present. He and his also have concerns of memory issues. MARIE history all his life. Even in school days he had headaches. Has several kinds headache. Most common is frontal headache which is dull and pressure like, other headaches are along the anglican, on both sides. No radiation to shoulder but to neck sometimes. No nausea, or emesis. Lights and sounds worsens the headache. No known triggers. No changes in vision. No visual or sensory or motor auras. No ptosis , rhinorrhea, lacrimation. Mood becomes irritable when he has severe headache. Laying down helps. He does not paces around with his severe headache. In the past 30 days. He reports at least 22days of headache with 6 migraine days, total of 25 migraine hours, 1 disabled days. Has been using pen Urelvy or Rizatriptan. Sometimes he cuts the Ubrelvy in half. In past 30 days hehas tried 4x as needed medication for his most severe headache. Sleep is okay. Hx of uvelectomy for sleep apnea (2002). While in [place] he had significant allergies to pollen, mold, cats. Has seen one neurologist in [place]. Has tried fever few, butterbur, Coenzyme q10, Riboflavin. His also has very concerned about his short-term memory problem. Recently she had a conversation with him and he did not had any recollection of it after a few hours. He also trouble recollecting some conversation with his son. No SOPHIA, LOC. He thinks his anxiety and depression are under control. Medications Not tried: TPM, Propranolol, Venlafaxine, Nortriptyline Tried: Depakote Current headache medications: Ubrelvy 100 mg p.r.n., riboflavin 100 mg daily, Rizatriptan Past medical history includes ADHD, anxiety, depression, hypertension, mixed dyslipidemia, chronic headache SH: Lives with . Retired from [employer] in 2014. Former smoker, quit 7 years ago. History of 1 pack per day for 20 years. No alcohol. No substance abuse. Headache Impact Test 1. When you have headaches, how often is the pain severe? Never Rarely Sometimes Very Often Always 2. How often do headaches limit your ability to do usual daily activities including household work,work, school, or social activities? Never Rarely Sometimes Very Often Always 3. When you have a headache, how often do you wish you could lie down? Never Rarely Sometimes Very Often Always 4. In the past 4 weeks, how often have you felt too tired to do work or daily activities because ofyour headaches? Never Rarely Sometimes Very Often Always 5. In the past 4 weeks, how often have you felt fed up or irritated because of your headaches? Never Rarely Sometimes Very Often Always 6. In the past 4 weeks, how often did headaches limit your ability to concentrate on work or daily activities? Never Rarely Sometimes Very Often Always When grading your test score, assign the following point system to your answers: ??? Never - 6 points each ??? Rarely - 8 points each ??? Sometimes - 10 points each ??? Very Often - 11 points each ??? Always - 13 points each TOTAL SCORE: 60 49 or less: little or no impact on life 50-55: Mild impact 56-59: Substantial impact 60 or higher: Severe impact Data Review: PCP notes reviewed. Current Outpatient Medications Medication ??? amphetamine-dextroamphetamine (Adderall) 20 MG tablet ??? buPROPion XL 24hr (Wellbutrin-XL) 300 MG tablet ??? Coenzyme Q10 (Co Q-10) 120 MG ??? Fenofibrate 134 MG CAPS ??? fluticasone propionate (Flonase) 50 MCG/ACT nasal spray ??? lisinopril (Prinivil; Zestril) 10 MG tablet ??? Magnesium 100 MG ??? pravastatin (Pravachol) 40 MG tablet ??? QUEtiapine (SEROquel) 100 MG tablet ??? QUEtiapine (SEROquel) 25 MG tablet ??? Riboflavin (Vitamin B-2) 100 MG ??? rimegepant (Nurtec) 75 MG tablet ??? rizatriptan (Maxalt) 10 MG tablet ??? vilazodone (Viibryd) 40 MG tablet No current facility-administered medications for this visit. Not on File Social History Socioeconomic History ??? Marital status: [...] on file Housing Stability: Not on file No family status information on file. REVIEW OF SYSTEMS: A ten system review of constitutional, cardiovascular, respiratory, musculoskeletal, endocrine, skin, SHEENT, genitourinary, psychiatric and neurologic systems was obtained (positves marked in bold): Constitutional: Cardiovascular: Musculoskeletal: Weight loss Chest pain joint pain fever irregular heartbeat muscle pain excessive sweating Fainting back pain Neck pain Eyes: Gastrointestinal: Limb pain Double vision abdominal pain Blurred vision Nausea Neurological: Cataracts Vomiting tremor Weakness Ears: Genitourinary: Numbness Hearing loss Pain with urination unsteady gait Ringing in ears difficulty urinating memory loss Vertigo incontinence Respiratory: Endocrine: Psychiatric: Cough Heat/cold intolerance anxiety Shortness of breath increased urination mood swings Asthma skin changes depression Detailed Neuro/Psych Review: (negative unless bold type) _ change in thinking, mood or memory _ anxiety, depression, difficulty sleeping _ involuntary movements, cramps or tremors _ head trauma, seizures or strokes _ headache, stiff neck, LBP or LOC _ double/blurred vision, slurred speech, trouble swallowing _ dizziness, lightheadedness, vertigo or fainting _ numbess, tingling or weakness of any body part. _ bowel or bladder incontinence EXAMINATION: BP 158/79 Pulse 77 Ht 1.778 m (5' 10 ) Wt 92.5 kg (204 lb) SpO2 98% General appearance: well developed, in no distress Neck: Normal carotid pulses, no bruits Cardiac: RRR Lungs: Clear Extremities: No edema, pulses intact. Neurological Examination: Mental Status: Awake, Alert. Oriented x3. Follows commands, has normal fund of knowledge, attention, short term recall, fluency, comprehension and insight. Completed MoCA version 7.1. Patient???s score on individual subtests were as follows: Visuospatial/Executive: 5/5 Namin/3 Attention: 1/2 + 1/1 + 3/3 Language 2/2 + 1/1 Abstraction: 2/2 Delayed recall: 4/5 Orientation: 66 Total score: 27/30 (Education level: Masters) Cranial Nerves: Visual rodriguez are full without hemineglect. Pupils react equally to light. Extraocular movements are full. Facial sensation intact V1-V3. Facial movement intact, symmetric. Hearing intact to conversation. Nystagmus is not present. Palate elevates symmetrically and uvula is midline. Shoulder shrug symmetric with normal SCM and trapezius strength. Tongue midline without atrophy or fasciculations. Motor: No orbiting or pronator drift. Good rapid alternating and fine finger movements. No asterixis, tremor or myoclonus. Normal tone. No atrophy. No myotonia of thenar eminence or tongue noted. MRC Power grade of 5/5 for all extremities Sensation: Reduced to vibration. Reflexes: DTRs 2+ Br, Bi, Tr, knee, ankle. Plantar responses are flexor bilaterally. Coordination/Cerebellar: Intact to [id number]-[id number]-upqfcl, qknz-bv-qzfr exam. Gait: walks heel and toe without difficulty, impaired tandem gait and negative Romberg test. Imaging/Laboratory review: No results for input(s): SODIUM, POTASSIUM, CHLORIDE, CO2, BUN, CREATININE, GLUCOSE, CALCIUM in thelast 42566 hours. No results for input(s): WBC, HGB, HCT, PLTCOUNT in the last 24666 hours. No results found. Impression: ICD-10-CM 1. Daily headache R51.9 2. Forgetfulness R68.89 3. Intractable chronic migraine without aura and with status migrainosus G43.711 Discussion: 61-year-old male with history of anxiety, depression, ADHD who has relocated from [place] being seen to establish care for his chronic headache. Has seen neurologist at [place] and was diagnosed with migraine and has [...] short-term memory problem. Scored 27/30 in the [place] cognitive assessment test. Will get neuroimaging studies as he reports no previous neuroimaging study that he remembers of. There also willing to see a neuropsychological for further evaluation. Discussed about sleephygiene maintenance, control of anxiety, depression, lifestyle changes I made the following recommendations: 1. MRI brain w/w/o contrast 2. EEG 3. Labs: b12, folate, TSH, ESR, CRP, CHAR 4. Neuropsychological evaluation 5. NEW medication: Nurtec 75 mg ODT 1 tab every other day under the tongue 6. Stop Ubrelvy 7. Can take as needed Rizatriptan for acute headache 8. Headache diary Orders Placed This Encounter ??? MRI BRAIN WWO CONTRAST ??? VITAMIN B12 FOLATE PANEL ??? ERYTHROCYTE SEDIMENTATION RATE ??? C-REACTIVE PROTEIN (CRP) ??? CHAR BLOOD SCREEN W/REFLEX TITER ??? TSH/T4 THYROID SCREEN ??? EEG AWAKE OR DROWSY ROUTINE ??? rimegepant (Nurtec) 75 MG tablet ??? rizatriptan (Maxalt) 10 MG tablet Return in about 4 weeks (around 08/06/2022). Thanks for the referral. I will keep you updated about the progress. DINORAH Cid MD, PhD [place], Neurology at [facility] Diplomate, [place] Board of Psychiatry and Neurology (ABPN) Board Certified in Neurology and Clinical Neurophysiology [facility] [address] [place] [address] (Office) [phone] (FAX) documented in this encounter Miscellaneous Notes * Addendum Note - Carlos Bunch - 07/11/2022 8:44 AM CDTAddended by: CARLOS BUNCH on: 07/11/2022 08:44 AM Modules accepted: Orders * Addendum Note - Yvonne Perdue - 07/10/2022 9:07 AM CDTAddended by: YVONNE PERDUE on: 07/10/2022 09:07 AM Modules accepted: Orders documented in this encounter Plan of Treatment Upcoming Encounters Date Type Department Care Team (Late st Contact Info) Description 11/23/2024 10:20 AM STRUCTURAL METAL FABRICATOR APPRENTICE Procedure visit [facility] [address] [facility] [address] [place] [address] Collin Mayes MD [address] [facility] [address] [place] [phone] documented as of this encounter Procedures Procedure Name Priority Date/Time Associated Diagnosis Comments JAH STAINING PATTERNS REFLEXED Routine 07/09/2022 3:26 PM CDT Daily headache Forgetfulness TSH/T4 THYROID SCREEN Routine 07/09/2022 3:26 PM CDT Daily headache Forgetfulness C-REACTIVE PROTEIN Routine 07/09/2022 3: 26 PM CDT Daily headache Forgetfulness CHAR BLOOD SCREEN W/REFLEX TITER Routine 07/09/2022 3:26 PM CDT Daily headache Forgetfulness ERYTHROCYTE SEDIMENTATION RATE Routine 07/09/2022 3:26 PM CDT Daily headache Forgetfulness VITAMIN B12 FOLATE PANEL Routine 07/09/2022 3:26 PM CDT Daily headache Forgetfulness documented in this encounter Results * EEG AWAKE OR DROWSY ROUTINE (09/04/2022 10:04 AM STRUCTURAL METAL FABRICATOR APPRENTICE) Narrative [facility] MEDQUIST - 09/04/2022 10:04 AM STRUCTURAL METAL FABRICATOR APPRENTICE Collin Mayes MD ? 09/04/2022 10:04 AM ? [facility] EMG/EEG [address] [facility] [address] Electroencephalogram Yassine Vee 09/04/2022 Indication: ?? Yassine [...] Vitamins-Minerals (Multivitamin & Mineral) LIQD ? ? [place]-3 Fatty Acids (fish oil) 1000 MG capsule [...] sleep-deprived EEG. DINORAH Cid MD, PhD Diplomate, [place] Board of Psychiatry and Neurology (ABPN) Board Certified in Neurology and Clinical Neurophysiology [address], [address] [place] [address] (office) [phone] (FAX) Collin Mayes MD NEUROLOGY ORDERABLES [facility] * MRI BRAIN WWO CONTRAST (08/26/2022 12:30 PM STRUCTURAL METAL FABRICATOR APPRENTICE) Anatomical Region Laterality Modality Head Magnetic Resonan ce 08/26/2022 12:3 2 PM STRUCTURAL METAL FABRICATOR APPRENTICE Impressions 08/26/2022 12:34 PM STRUCTURAL METAL FABRICATOR APPRENTICE IMPRESSION: No evidence for acute infarct, mass or hemorrhage. > Interpreting Provider: Gerald An MD on 08/26/2022 12:34 PM Narrative 08/26/2022 12:34 PM STRUCTURAL METAL FABRICATOR APPRENTICE PROCEDURE: ??MRI BRAIN WWO CONTRAST, DATE/TIME OF EXAM: ??08/26/2022 12:30 PM, LOCATION ??[facility] MRI brain with and without IV [...] CONTRAST, DATE/TIME OF EXAM: 08/26/2022 12:30PM, LOCATION [facility] MRI brain with and without IV [...] Collin Mayes MD MR ORDERABLES * (ABNORMAL) JAH STAINING PATTERNS REFLEXED (07/09/2022 3:26 PM CDT) Homogeneous Pattern NOT AVAILABLE [facility] INSURANCE BILL Comment:Result cannot be obt ained for this observation. Nucleolar Pattern NOT AVAILABLE [facility] INSURANCE BILL Comment:Result cannot be obt ained for this observation. Speckled Pattern 1:160(H) [facility] INSURANCE BILL Comment:ICAP nomenclature: A C-2,4,5,29 Centromere Pattern NOT AVAILABLE [facility] INSURANCE BILL Comment:Result cannot be obt ained for this observation. Spindle Apparatus Pattern NOT AVAILABLE [facility] INSURANCE BILL Comment:Result cannot be obt ained for this observation. Nuclear Membrane Pattern NOT AVAILABLE [facility] INSURANCE BILL Comment:Result cannot be obt ained for this observation. Midbody Pattern NOT AVAILABLE [facility] INSURANCE BILL Comment:Result cannot be obt ained for this observation. Nuclear Dot Pattern NOT AVAILABLE [facility] INSURANCE BILL Comment:Result cannot be obt ained for this observation. PCNA Pattern NOT AVAILABLE [facility] INSURANCE BILL Comment:Result cannot be obt ained for this observation. Centriole Pattern NOT AVAILABLE [facility] INSURANCE BILL Comment:Result cannot [...] Histones ?Drug-induced SLE ? Speckled ? Sm, LIAISON PLANNER, SCL-70, ??SLE,MCTD,PSS (diffuse form), ? SS-A/SS-B ? Sjogrens ? Nucleolar ?SCL-70, PM-1/SCL ??High titers Scleroderma, ? PM/DM ? Centromere ?? Centromere ?PSS (limited form) w/Crest ? syndrome variable ? Nuclear Dot ??[id number],[id number] ??Primary Biliary Cirrhosis ? Nuclear ?GP210, ?Primary Biliary Cirrhosis Membrane ? breann A,B,C ? 07/09/2022 3:26 PM CDT 07/09/2022 Narrative Resulting Agency Comment Lab Testing performed at: [facility] ??[facility] [id number] Collin Mayes MD LAB - PATHOLOGY/CYTO LOGY ORDERABLES Performing Organization Address [facility] Co de Phone Number [facility] INSURANCE BILL [address] [place] [address] * TSH/T4 THYROID SCREEN (07/09/2022 3:26 PM CDT) Pathologist [facility] TSH 1.760 0.450 - 4.500 uIU/mL [facility] T4 Total 7.2 4.5 - 12.0 ug/dL [facility] INSUR[facility] B[facility] Blood BLOOD SPECIMEN / Unknown 07/09/2022 3:26 PM CDT 07/09/2022 Narrative Resulting Agency Comment Lab Testing performed at: [employer] [address] ??[facility] [id number] Collin Mayes MD LAB - CHEMISTRY BRANDAN STEWART Performing Organization Address [facility] Co de Phone Number [facility] INSURANCE BILL [address] [place] [address] * (ABNORMAL) CHAR BLOOD SCREEN W/REFLEX TITER (07/09/2022 3:26 PM CDT) Pathologist [facility] CHAR Positive(A ) [facility] INSURANCE BILL Comment: ?Negative ?? <1:80 ?Borderline ??1:80 ?Positive ?? >1:80 Blood BLOOD SPECIMEN / Unknown 07/09/2022 3:26 PM CDT 07/09/2022 Narrative Resulting Agency Comment Lab Testing performed at: [employer] [facility] [address] ??[facility] [id number] Collin Mayes MD LAB - CHEMISTRY BRANDAN STEWART Performing Organization Address [facility] de Phone Number [employer] INSURANCE BILL [address] [place] [address] * C-REACTIVE PROTEIN (CRP) (07/09/2022 3:26 PM CDT) C-Reactive Protein 3 0 - 10 mg/L [facility] INSURANCE BILL Blood BLOOD SPECIMEN / Unknown 07/09/2022 3:26 PM CDT 07/09/2022 Narrative Resulting Agency Comment Lab Testing performed at: [employer] [address] ??[facility] [id number] Collin Mayes MD LAB - CHEMISTRY BRANDAN STEWART Performing Organization Address City/[facility] Co de Phone Number [employer] INSURANCE BILL [address] [place] [address] * ERYTHROCYTE SEDIMENTATION RATE (07/09/2022 3:26 PM CDT) Erythrocyte Sedimentation Rate Westergren 3 0 - 30 mm/hr [facility] INSUR[facility] B[facility] Blood BLOOD SPECIMEN / Unknown 07/09/2022 3:26 PM CDT 07/09/2022 Narrative Resulting Agency Comment Lab Testing performed at: [facility] [place] [address] [facility] ??[facility] [id number] Collin Mayes MD LAB - HEMATOLOGY ORD ERABLES [facility] INSURANCE BILL [address] [place] [address] * VITAMIN B12 FOLATE PANEL (07/09/2022 3:26 PM CDT) Vitamin B12 774 232 - 1,245 pg/mL [facility] INSURANCE BILL Folate 18.8 >3.0 ng/mL [facility] INSURANCE BILL Comment: A serum folate concentration of less than 3.1 ng/mL is considered to represent clinical deficiency. Blood BLOOD SPECIMEN / Unknown 07/09/2022 3:26 PM CDT 07/09/2022 Narrative Resulting Agency Comment Lab Testing performed at: [facility] [place] [address] [facility] ??[facility] [id number] Collin Mayes MD LAB - CHEMISTRY ORDE RABKEN Performing Organization Address City/[facility]/ZIP Co de Phone Number [facility] INSURANCE BILL [address] [place] [address] documented in this encounter Visit Diagnoses Diagnosis Forgetfulness- Primary Other general symptoms Daily headache Headache Intractable chronic migraine without aura and with status migrainosus Chronic migraine without aura, with intractable migraine, so stated, with status migrainosus Daily headache Headache Forgetfulness Other general symptoms Daily headache Headache Forgetfulness Other general symptoms documented in this encounter Care Teams Director Of Community Services Relationship Specialty Start Date End Date Morelia Scott APRN-CNP [address] [place] [id number] PCP - General Nurse Practitioner 07/09/22 08/25/22 Morelia Scott APRN-INFRASTRUCTURE ENGINEER [address] [place] [id number] Nurse Practitioner 06/21/22 documented as of this encounter
--- OUTSIDE RECORDS SUMMARY | 2024-09-11 17:01 | XMS_ITS | Encounter Summary ---
Author Organization [facility] Address [address] [place] [address]. [place], [place] [address] [place] [address] Care Team Providers Care Clicking Machine Operator Name Role Phone Lakeisha Scott Primary Care Provider [phone] Reason for Visit * Reason Onset Date Comments Referral 05/03/2024 Encounter Details Date Type Department Care Team (Late st Contact Info) Description 05/03/2024 Telephone [facility] Medical Group Family & Internal Medicine [facility] [address] [place] [address] Lakeisha Scott APNP [address] [place] [address] Referral Social History Tobacco Use Types Packs/Day Years [...] Progress Notes * Yumiko Ashley MA - 05/03/2024 3:47 PM CDT Images from the original note were not included. I have notified pt's . She will call [facility] and, if they require proof of no referral required, she will reach out to referrals team. Ailyn Gipson; Mg Prior Authorization Sid57 minutes ago (2:49 PM) JH Referral is showing processed and no new referral is needed. Patient can call to self schedule. Thank you, Ailyn Gipson Prior Authorization Sid3 hours ago (12:25 PM) Referral from 09/16/23 shows pending review. Can we update this referral, or does it need reordered? * Melody [place] - 05/03/2024 9:17 AM CDT The patient called for a referral to the following physician: Is this a new consult:Yes. Dr's name: [facility] Specialty: Psych Reason for referral (diagnosis): Medication Management Appointment: none Last office visit at this office: Last visit with LAKEISHA SCOTT in FAMILY PRACTICE was on: 10/03/2023 in [facility] Future appointment scheduled: Future Appointments Date Time Provider Department Center 12/02/2024 11:00 AM Rob Tapia MD [facility] O Medicare Insurance documented in this encounter Plan of Treatment Upcoming Encounters Date Type Department Care Team (Late st Contact Info) Description 10/05/2024 9:20 AM CAREER PLACEMENT SERVICES COUNSELOR Office Visit [facility] Medical Group Family & Internal Medicine - [place] [address] [place] [address] Lakeisha Scott [facility] [place] [address] 12/02/2024 11:00 AM CDT Office Visit [facility], [address] [id number] Rob Tapia MD 3 [facility] [address] [place] [address] documented as of this encounter Visit Diagnoses Not on filedocumented in this encounter Additional Health Concerns Assessment Noted Time PHQ-9 Depression Total Score: 10 023 8:58 AM CAREER PLACEMENT SERVICES COUNSELOR documented as of this encounter Care Teams Clicking Machine Operator Relationship Specialty Start Date End Date Lakeisha Scott APNP [address] [place] [address] PCP - General NURSE PRACTITIONER 06/12/22 documented as of this encounter
--- OUTSIDE RECORDS SUMMARY | 2024-09-11 17:01 | XMS_ITS | Encounter Summary ---
Author Organization [facility] Address [address] [place] [address]. [place] [address] [place] [address] Care Team Providers Care Variety Lathe Operator Name Role Phone Lakeisha Scott Primary Care Provider [phone] Reason for Referral * Consultation (Routine) - Authorized Specialty Diagnoses / Procedures Referred By Marimar t Referred To Contact GASTROENTEROLOGY Diagnoses History of colon polyps Lakeisha Scott APNP [address] [place] [address] Phone: tel: fax: [facility] [address] [place] [address] Phone: tel: fax: Referral ID Status Reason Start Date Expiration Date V isits Requested Visits Authorized [id number] Authorized 03/16/2024 03/16/2025 99 99 Scheduling Instructions Patient provided name of Dr. Meka Lee and fax of [phone] that this referral needs to be sent to. Do not know hospital/med group affiliation, or location or this provider's office. Patient emphasizes that this referral MUST be faxed to the number he provided or he will not be scheduled with that exact provider. Reason for Visit * Reason Onset Date Comments Referral 03/16/2024 Encounter Details Date Type Department Care Team (Late st Contact Info) Description 03/16/2024 Telephone [facility] Medical Group Family & Internal Medicine [address] [address] Lakeisha Scott, APNP [address] [place] [address] Referral Social History Tobacco Use Types Packs/Day [...] Progress Notes * Meka Vallejo MA - 03/16/2024 4:29 PM CDTAddended by: MEKA VALLEJO on: 03/16/2024 04:29 PM Modules accepted: Orders * Meka Vallejo MA - 03/16/2024 4:23 PM CDT Pt's wants pt to go to same place she is going for her colonoscopy. She was only able to provide the doctor's name and a fax number, she does not know location or [facility] group affiliation. She is aware that, if pt gets scheduled elsewhere, they will need to call and cancel the existing appt with [facility] GI in April. * Lakesha Mcintosh - 03/16/2024 3:28 PM CDT The patient called for a referral to the following physician: Is this a new consult:Yes. 's name: Dr. Lee Specialty: Gastroenterology Reason for referral (diagnosis): Z86.010 Appointment: n/a Last office visit at this office: Last visit with LAKEISHA SCOTT in FAMILY PRACTICE was on: 10/03/2023 in [facility] Future appointment scheduled: Future Appointments Date Time Provider Department Center 05/07/2024 1:40 PM Meka Carbajal NP [facility] 12/02/2024 11:00 AM Rob Tapia MD [facility] O documented in this encounter Plan of Treatment Upcoming Encounters Date Type Department Care Team (Late st Contact Info) Description 10/05/2024 9:20 AM PARTY HOST Office Visit [facility] Medical Group Family & Internal Medicine - [place] [address] [place] [address] Lakeisha Scott APNP [facility] [place] [address] 12/02/2024 11:00 AM CDT Office Visit [facility], [address] [address] Rob Tapia MD 3 [facility] [address] [place] [address] Scheduled Referrals Name Type Priority Associated Diagnoses Orde r Schedule Ambulatory referral to Gastroenterology (OTHER) Referral Routine History of colon polyps Ordered: 03/16/2024 documented as of this encounter Visit Diagnoses Diagnosis History of colon polyps- Primary Personal history of colonic polyps documented in this encounter Additional Health Concerns Assessment Noted Time PHQ-9 Depression Total Score: 10 023 8:58 AM PARTY HOST documented as of this encounter Care Teams Variety Lathe Operator Relationship Specialty Start Date End Date Lakeisha Scott APNP [address] [place] [address] PCP - General NURSE PRACTITIONER 06/12/22 documented as of this encounter
--- OUTSIDE RECORDS SUMMARY | 2024-09-11 17:01 | XMS_ITS | Encounter Summary ---
Author Organization [facility] Address [address] [place] [address]. [place] [address] [place] [address] Care Team Providers Care Brazing Furnace Operator Name Role Phone Morelia Scott Primary Care Provider [phone] Encounter Details Date Type Department Care Team (Latest Contact Info) Description 08/11/2023 Travel Social History Tobacco Use Types Packs/Day [...] st Contact Info) Description 10/05/2024 9:20 AM RETAIL BEAUTY SPECIALIST Office Visit [facility] Medical Group Family & Internal Medicine - [place] [address] [place] [address] Morelia Scott APNP [address] [place] [address] 12/02/2024 11:00 AM CDT Office Visit [facility], [facility] [address] [place] [address] Rob Tapia MD 3 [facility] [address] [place], [place] [address] documented as of this encounter Visit Diagnoses Not on filedocumented in this encounter Additional Health Concerns Assessment Noted Time PHQ-9 Depression Total Score: 10 023 8:58 AM RETAIL BEAUTY SPECIALIST documented as of this encounter Care Teams Brazing Furnace Operator Relationship Specialty Start Date End Date Morelia Scott APNP [address] [place] [address] PCP - General NURSE PRACTITIONER 06/12/22 documented as of this encounter
--- OUTSIDE RECORDS SUMMARY | 2024-09-11 17:01 | XMS_ITS | Encounter Summary ---
Author Organization [facility] Address [address] [place] [address]. [place], [place] [address] [place] [address] Care Team Providers Care Bench Loom Weaver Name Role Phone Morelia Scott Primary Care Provider [phone] Reason for Visit * Reason Onset Date Comments Question 08/12/2024 Encounter Details Date Type Department Care Team (Late st Contact Info) Description 08/12/2024 Telephone [facility] Medical Group Family & Internal Medicine [facility] [address] [place] [address] Morelia Scott APNP [address] [place] [address] Question Social History Tobacco Use Types Packs/Day [...] Progress Notes * Yumiko Ashley MA - 08/13/2024 3:38 PM CST Pt's is aware, advised pt be fasting when he has these drawn for most accurate results. NG SETTER * SHANNAN Rodriguez - 08/13/2024 12:40 PM CST Can order CBC, CMP, TSH, lipid panel for now DX: HLD, HTN, fatigue NG SETTER * Melody [place] - 08/12/2024 1:05 PM CST Patients is asking that we put in lab orders for Yassine as he is very fatigued lately (last couple of months) and he was to have labs done in September but she would like them to be ordered to be done as soon as possible so that we can get the results back and find out what is going on. Please call patient at [phone] once these have been placed so that they can go to [facility]. NG SETTER documented in this encounter Plan of Treatment Upcoming Encounters Date Type Department Care Team (Late st Contact Info) Description 10/05/2024 9:20 AM LINING SETTER Office Visit [facility] Medical Group Family & Internal Medicine [address] [address] Morelia Scott APNP [address] [place] [address] 12/02/2024 11:00 AM CDT Office Visit [facility], [address] [address] Rob Tapia MD 3 [facility] [address] [place] [address] documented as of this encounter Results * LIPID PANEL (08/16/2024 9:15 AM LINING SETTER) [facility] CHOLESTEROL 171 <200 MG/DL 08/16/2024 10:19 AM LINING SETTER [facility] TRIGLYCERIDES 146 <150 MG/DL 08/16/2024 10:19 AM [facility] HDL 49 >40.0 MG/DL 08/16/2024 10:19 AM [facility] LDL (CALCULATED) 93 <100 MG/DL 08/16/20 10:19 AM [facility] NON HDL CHOLESTEROL 122 <130 MG/DL 08/16 10:19 AM [facility] CHOL/HDL RATIO 3.5 0.0 - 4.5 08/16/2024 10:19 AM [facility] VLDL CALCULATION 29 5 - 55 MG/DL 08/16/2024 10:19 AM [facility] LIPID INTERPRETATION 08/16/2024 10:19 AM [facility] Comment: NIH CONCENSUS REPORT RECOMMENDATIONS: ?ADULT ?CHILD ??LOW RISK: ?CHOLESTEROL ? <200 ? <170 ?TRIGLYCERIDE ?<150 ?--- ?HDL ? >=60 ?--- ?LDL ? <100 ? <110 ??BORDERLINE: ?CHOLESTEROL ? 200-239 ?? 170-199 ?TRIGLYCERIDE ?150-199 ? --- ?HDL ?40-59 ?--- ?LDL ? 100-159 ?? 110-129 ??HIGH RISK: ?CHOLESTEROL ? >=240 ?>=200 ?TRIGLYCERIDE ?>=200 ? --- ?HDL ?<40 ?--- ?LDL ? >=160 ?>=130 08/16/2024 9:15 AM LINING SETTER [facility] Final Resul t Performing Organization Address [facility] de Phone Number [facility] [address] [place] [address], * TSH W/REFLEX (08/16/2024 9:15 AM LINING SETTER) TSH 2.810 0.358 - 3.74 uIU/ML 08/16/2024 10:19 AM LINING SETTER [facility] Comment: HIGH DOSES OF BIOTIN MAY INTERFERE WITH THIS TEST RESULT. CORRELATION TO CLINICAL HISTORY AND PRESENTATION RECOMMENDED. FREE T4 NOT INDICATED 08/16/2024 9:15 AM LINING SETTER Morelia [facility] Final Resul t Performing Organization Address [facility] de Phone Number [facility] [address] [place] [address], [place] [phone] * (ABNORMAL) COMPREHENSIVE METABOLIC PANEL (08/16/2024 9:15 AM LINING SETTER) GLUCOSE 97 70 - 99 MG/DL 08/16/2024 10:19 AM LINING SETTER [facility] BUN 19(H) 7 - 18 MG/DL 08/16/2024 10:19 AM [facility] CREATININE S/P/B 1.23 0.7 - 1.3 MG/DL 08/16/2024 10:19 AM [facility] SODIUM S/P/B 137 136 - 145 MMOL/L 08/16/2024 10:19 AM [facility] POTASSIUM S/P/B 3.8 3.5 - 5.1 MMOL/L 08/16/2024 10:19 AM [facility] CHLORIDE S/P/B 107 97 - 115 MMOL/L 08/16/2024 10:19 AM [facility] CO2 26.4 21 - 32 MMOL/L 08/16/2024 10:19 AM [facility] CALCIUM S/P/B 9.2 8.5 - 10.1 MG/DL 08/16/2024 10:19 AM [facility] BILIRUBIN TOTAL S/P/B 0.6 0.2 - 1.2 MG/DL 08/16/2024 10:19 AM [facility] Comment: THIS ASSAY IS NOT RECOMMENDED FOR PATIENTS UNDERGOING TREATMENT WITH ELTROMBOPAG DUE TO THE POTENTIAL FOR FALSELY ELEVATED RESULTS. TOTAL PROTEIN S/P/B 7.3 6.4 - 8.2 G/DL 08/16/2024 10:19 AM [facility] ALBUMIN S/P/B 4.0 3.4 - 5.0 G/DL 08/16/2024 10:19 AM [facility] AST 24 15 - 37 U/L 08/16/2024 10:19 AM [facility] ALT 35 16 - 60 U/L 08/16/2024 10:19 AM [facility] ALKALINE PHOSPHATASE S/P/B 52 50 - 136 U/L 08/16/2024 10:19 AM [facility] ANION GAP 3.6 2 - 10 MMOL/L 08/16/2024 10:19 AM [facility] BUN CREATININE RATIO 15.4 6 - 26 08/16/2024 10:19 AM [facility] A/G RATIO 1.2 1.0 - 2.0 RATIO 08/16/2024 10:19 AM [facility] GFR ESTIMATE 65(L) >90 ML/MIN/1.7 3 M2 08/16/2024 10:19 AM [facility] Comment: NOTE: eGFR is not calculated for patients <18 years of age or gender unknown. This is an estimated GFR calculation using the new CKD EPI creatinine equation without race and so does not require a correction factor for race. This estimated GFR should not be used for calculating drug doses. 08/16/2024 9:15 AM LINING SETTER Morelia [facility] Final Resul t [facility] [address] [place] [address], * CBC W/DIFF AUTOMATED (08/16/2024 9:15 AM LINING SETTER) WBC 6.59 4.5 - 11.0 x10'3/uL 08/16/2024 9:37 AM [facility] RBC 5.35 4.70 - 6.10 x10'6/uL 08/16/2024 9:37 AM [facility] HGB 15.7 14.0 - 18.0 G/DL 08/16/2024 9:37 AM [facility] HCT 47.2 43.0 - 54.0 % 08/16/2024 9:37 AM [facility] MCV 88.2 80.0 - 94.0 FL 08/16/2024 9:37 AM [facility] MCH 29.3 27.0 - 31.0 PG 08/16/2024 9:37 AM [facility] MCHC 33.3 32.0 - 36.0 G/DL 08/16/2024 9:37 AM [facility] RDW 12.8 11.5 - 14.5 % 08/16/2024 9:37 AM [facility] PLT 265 130 - 400 x10'3/uL 08/16/2024 9:37 AM [facility] MPV 10.0 9.3 - 12.2 FL 08/16/2024 9:37 AM [facility] DIFFERENTIAL TYPE AUTOMATED DIFFERENTIAL 08/16/2024 9:37 AM [facility] NEUTROPHILS % 52.3 % 08/16/2024 9:37 AM [facility] LYMPHOCYTES % 36.4 % 08/16/2024 9:37 AM [facility] MONOCYTES % 7.0 % 08/16/2024 9:37 AM [facility] EOSINOPHILS 3.2 % 08/16/2024 9:37 AM [facility] BASOPHILS 0.8 % 08/16/2024 9:37 AM [facility] IMMATURE GRANS % 0.3 % 08/16/20 9:37 AM [facility] ABS. NEUTROPHILS 3.45 1.80 - 7.70 x10'3/uL 08/16/2024 9:37 AM [facility] ABS. LYMPHOCYTES 2.40 1.00 - 4.80 x10'3/uL 08/16/2024 9:37 AM [facility] ABS. MONOCYTES 0.46 0.30 - 0.82 x10'3/uL 08/16/2024 9:37 AM LINING SETTER [facility] ABS. EOSINOPHILS 0.21 0.04 - 0.54 x10'3/uL 08/16/2024 9:37 AM LINING SETTER [facility] ABS. BASOPHILS 0.05 0.01 - 0.08 x10'3/uL 08/16/2024 9:37 AM LINING SETTER [facility] ABS. IMMATURE GRANULOCYTES 0.02 0.00 - 0.49 x10'3/uL 08/16/2024 9:37 AM LINING SETTER [facility] 08/16/2024 9:15 AM LINING SETTER Morelia [facility] Final Resul t [facility] [address] [place] [address], documented in this encounter Visit Diagnoses Diagnosis Primary hypertension- Primary Unspecified essential hypertension Mixed hyperlipidemia Fatigue Other malaise and fatigue documented in this encounter Additional Health Concerns Assessment Noted Time PHQ-9 Depression Total Score: 10 023 8:58 AM LINING SETTER documented as of this encounter Care Teams Bench Loom Weaver Relationship Specialty Start Date End Date Morelia Scott APNP [address] [place] [address] PCP - General NURSE PRACTITIONER 06/12/22 documented as of this encounter
--- OUTSIDE RECORDS SUMMARY | 2024-09-11 17:01 | XMS_ITS | Encounter Summary ---
Author Organization [facility] Address [address] [place] [address]. [place], [place] [address] [place] [address] Care Team Providers Care Stump Blower Name Role Phone Morelia Scott Primary Care Provider [phone] Reason for Visit * Reason Onset Date Comments Results 08/20/2024 Encounter Details Date Type Department Care Team (Late st Contact Info) Description 08/20/2024 Telephone [facility] Medical Group Family & Internal Medicine [facility] [address] [place] [address] Morelia Scott APNP [address] [place] [address] Results Social History Tobacco Use Types Packs/Day [...] as of this encounter Progress Notes * Zeina Ma RN - 08/20/2024 11:43 AM CST Patient notified and verbalized understanding. Opportunity given for all questions to be answered, no further needs voiced at this time. LL-08/20/24 MATION CONTROL TECHNICIAN * Zeina Ma RN - 08/20/2024 11:41 AM CST ----- Message from Morelia Scott sent at 08/18/2024 12:50 PM AUTOMATION CONTROL TECHNICIAN ----- Other than some mildly decreased renal function, his labs are stable. I want him to increase his water intake and decrease NSAID use MATION CONTROL TECHNICIAN documented in this encounter Plan of Treatment Upcoming Encounters Date Type Department Care Team (Late st Contact Info) Description 10/05/2024 9:20 AM AUTOMATION CONTROL TECHNICIAN Office Visit [facility] Medical Group Family & Internal Medicine - [address] [address] Morelia Scott APNP [address] [place] [address] 12/02/2024 11:00 AM CDT Office Visit [facility] [place] [address] [place] [address] Rob Tpaia MD 3 [facility] [address] [place] [address] documented as of this encounter Visit Diagnoses Not on filedocumented in this encounter Additional Health Concerns Assessment Noted Time PHQ-9 Depression Total Score: 10 023 8:58 AM AUTOMATION CONTROL TECHNICIAN documented as of this encounter Care Teams Stump Blower Relationship Specialty Start Date End Date Morelia Scott APNP [address] [place] [address] PCP - General NURSE PRACTITIONER 06/12/22 documented as of this encounter
--- OUTSIDE RECORDS SUMMARY | 2024-09-11 17:01 | XMS_ITS | Encounter Summary ---
Author Organization [facility] Address [address] [place] [address]. [place], [place] [address] [place] [address] Care Team Providers Care Manufacturing Supervisor 2Nd Shift Name Role Phone Morelia Scott Primary Care Provider [phone] Encounter Details Date Type Department Care Team (Latest Contact Info) Description 07/23/2023 Scan HEALTH INFO SRVCS Scanned, Doc Med Group Social History Tobacco Use Types Packs/Day Years [...] st Contact Info) Description 10/05/2024 9:20 AM CONSUMER LOAN PROCESSOR Office Visit [facility] Medical Group Family & Internal Medicine - [place] [address] [place] [address] Morelia Scott APNP [address] [place] [address] 12/02/2024 11:00 AM CDT Office Visit [facility] [place] [address] [place], [place] [address] Rob Tapia MD 3 [facility] [address] [place] [address] documented as of this encounter Visit Diagnoses Not on filedocumented in this encounter Additional Health Concerns Assessment Noted Time PHQ-9 Depression Total Score: 10 023 8:58 AM CONSUMER LOAN PROCESSOR documented as of this encounter Care Teams Manufacturing Supervisor 2Nd Shift Relationship Specialty Start Date End Date Morelia Scott APNP [address] [place] [address] PCP - General NURSE PRACTITIONER 06/12/22 documented as of this encounter
--- OUTSIDE RECORDS SUMMARY | 2024-09-11 17:01 | XMS_ITS | Encounter Summary ---
Author Organization [facility] Address [address] [place] [address]. [place], [place] [address] [place] [id number] Care Team Providers Care Junior Project Coordinator Name Role Phone Morelia Scott Primary Care Provider [phone] Reason for Referral * Imaging (Routine) - Pending Review Specialty Diagnoses / Procedures Referred By Marimar t Referred To Contact RADIOLOGY Diagnoses Cigarette nicotine dependence in remission Procedures CT LUNG SCREENING Morelia Scott APNP [facility] [place] [address] Phone: tel: fax: Referral ID Status Reason Start Date Expiration Date V isits Requested Visits Authorized [id number] Pending Review 10/03/2023 10/03/2024 1 1 MBLY LINE UPHOLSTERER Reason for Visit * Reason Comments Hypertension Hyperlipidemia Encounter Details Date Type Department Care Team (Latest Contact Info) Description 10/03/2023 10:20 AM ASSEMBLY LINE UPHOLSTERER Office Visit [facility] Family & Internal Medicine [address] [place] [address] Morelia Scott APNP [address] [place], [place] [id number] Hypertension; Hyperlipidemia Social History Tobacco Use Types Packs/Day Years Used Date Smoking Tobacco: Former Cigarettes 987 - 2016 Smokeless Tobacco: Never Tobacco Cessation:Counseling Given: Not [...] Sign Reading Time Taken Comments Blood Pressure 124/68 10/03/2023 10:38 AM ASSEMBLY LINE UPHOLSTERER Pulse 77 10/03/2023 10:38 AM ASSEMBLY LINE UPHOLSTERER Temperature 36.8 ??C (98.2 ??F) 10/03/2023 1 0:38 AM ASSEMBLY LINE UPHOLSTERER Respiratory Rate 16 10/03/2023 10:3 8 AM ASSEMBLY LINE UPHOLSTERER Oxygen Saturation 96% 10/03/2023 10: 38 AM ASSEMBLY LINE UPHOLSTERER Inhaled Oxygen Concentration - - Weight 93.4 kg (205 lb 12.8 oz) 024 10:38 AM ASSEMBLY LINE UPHOLSTERER Height 177.8 cm (5' 10 ) 10/03/2023 10: 38 AM ASSEMBLY LINE UPHOLSTERER Body Mass Index 29.53 10/03/2023 10:38 AM ASSEMBLY LINE UPHOLSTERER documented in this encounter Progress Notes * SHANNAN Rodriguez - 10/03/2023 10:20 AM CST Images from the original note were not included. [facility] FAMILY AND INTERNAL MEDICINE OFFICE VISIT Reason for Visit: Hypertension and Hyperlipidemia History of Present Illness: 63 yo male here today to follow up on his chronic health conditions. Chronic health conditions - Depression/Anxiety -currently followed by psychiatry on a regular basis with an appointment scheduled for next month. Feels for the most part symptoms are controlled. Denies any HI/SI. Tolerates medswell ADHD -patient is currently followed by psychiatry for this. According to patient, he is in the process of weaning off of his Adderall and is down to 10 mg once daily. HTN -tolerates lisinopril well. Blood pressure controlled. Denies any chest pain, shortness of breath, headache, dizziness, heart palpitations or lower extremity edema. HLD -patient currently takes pravastatin 40 mg once daily. Tolerates meds well, no bothersome side effects. Due to have labs checked and these can be ordered today. In regards to preventative medicine: Colon cancer screening - pt thinks is due next year--last scope was 5 years ago, according to pt Eye exam -UTD Dental visits - sees dentist regularly Due for CT lung cancer screening and after discussion--he wishes to have this done ROS: Review of Systems Constitutional: Negative for chills and fever. Eyes: Negative for blurred vision and double vision. Respiratory: Negative for cough and shortness of breath. Cardiovascular: Negative for chest pain and palpitations. Gastrointestinal: Negative for abdominal pain, diarrhea, nausea and vomiting. Genitourinary: Negative for dysuria and urgency. Neurological: Negative for dizziness and headaches. Psychiatric/Behavioral: Negative for depression. The patient is not nervous/anxious. Medications: Current Outpatient Medications: buPROPion XL (WELLBUTRIN XL) 150 MG 24 hr tablet, Take 1 tablet (150 mg total) by mouth., Disp: , Rfl: Coenzyme Q10 (CO Q-10) 120 MG Cap, Take by mouth daily., Disp: , Rfl: cyclobenzaprine (FLEXERIL) 10 MG tablet, TAKE 1 TABLET BY MOUTH EVERY NIGHT AT BEDTIME. MAY TAKE 1 TABLET DAILY NEEDED FOR HEADACHE OR MUSCLE SPASMS, Disp: 135 tablet, Rfl: 0 dexmethylphenidate XR (FOCALIN XR) 15 MG 24 hr capsule, Take 1 capsule (15 mg total) by mouth daily., Disp: , Rfl: [START ON 10/04/2023] Fenofibrate 134 MG Cap, Take 134 mg by mouth 4 (four) times a week. 4 x a weekAM, Disp: 108 capsule, Rfl: 3 fish oil (OMEGA-3 FATTY ACID) 1000 MG Cap capsule, Take 1 capsule (1,000 mg total) by mouth 2 (two)times daily., Disp: , Rfl: fluticasone propionate (FLONASE) 50 MCG/ACT nasal spray, 1 spray by Nasal route daily., Disp: , Rfl: lisinopril (PRINIVIL) 10 MG tablet, Take 1 tablet (10 mg total) by mouth daily., Disp: 90 tablet, Rfl: 3 MAGNESIUM CITRATE OR, Take 350 mg by mouth daily., Disp: , Rfl: multivitamin with minerals liquid, Take 15 mLs by mouth daily., Disp: , Rfl: pravastatin (PRAVACHOL) 40 MG tablet, Take 1 tablet (40 mg total) by mouth daily., Disp: 90 tablet,Rfl: 3 propranolol LA (INDERAL LA) 60 MG 24 hr capsule, , Disp: , Rfl: QUEtiapine (SEROQUEL) 100 MG tablet, TAKE 1 TABLET(100 MG) BY MOUTH EVERY NIGHT AT BEDTIME, Disp: 90 tablet, Rfl: 0 QUEtiapine (SEROQUEL) 50 MG tablet, Take 1 tablet (50 mg total) by mouth every morning. Pt takes 50mg in the morning., Disp: , Rfl: RIZATRIPTAN BENZOATE OR, Take 20 mg by mouth. 1 every 4 hours. (Max 2 in 24 hours), Disp: , Rfl: vilazodone (VIIBRYD) 40 MG tablet, Take 1 tablet (40 mg total) by mouth daily. Take with food, Disp: , Rfl: vitamin B-2 (RIBOFLAVIN) 100 MG tablet, 1 tablet (100 mg total) daily., Disp: , Rfl: NURTEC 75 MG disintegrating tablet, TAKE 1 TABLET ON OR UNDER THE TONGUE EVERY OTHER DAY TO PREVENTMIGRAINE HEADACHES. (Patient not taking: Reported on 10/03/2023), Disp: , Rfl: Allergies: Review of patient's allergies indicates: Allergen Reactions Topiramate Other (see comment) Medical History: Past Medical History: Diagnosis Date ADHD (attention deficit hyperactivity disorder) Anxiety Depression Headache Hypertension Mixed hyperlipidemia Seasonal allergies Surgical History: Past Surgical History: Procedure Laterality Date EXCISION OF UVULA HEMORRHOIDECTOMY LASIK REMOVAL OF SPERM DUCT(S) REMOVAL OF TONSILS,<12 Y/O REPAIR OF NASAL SEPTUM Social History: Social History Socioeconomic History Marital status: Tobacco Use Smoking status: Former Packs/day: 1.00 Years: 30.00 Additional pack years: 0.00 Total pack years: 30.00 Types: Cigarettes Quit date: 2016 Years since quittin.0 Smokeless tobacco: Never Vaping Use Vaping Use: Never used Substance and Sexual Activity Alcohol use: Never Drug use: Never Family History: Family History Problem Relation Name Age of Onset Lipids Mother Heart Mother Diabetes Mother Hypertension Mother Cancer Father Diabetes Father PE: Physical Exam Vitals and nursing note reviewed. HENT: Head: Normocephalic and atraumatic. Right Ear: Tympanic membrane normal. Left Ear: Tympanic membrane normal. Mouth/Throat: Mouth: Mucous membranes are moist. Pharynx: No posterior oropharyngeal erythema. Eyes: General: No scleral icterus. Conjunctiva/sclera: Conjunctivae normal. Neck: Trachea: No tracheal deviation. Cardiovascular: Rate and Rhythm: Normal rate and regular rhythm. Heart sounds: Normal heart sounds. No murmur heard. Pulmonary: Effort: Pulmonary effort is normal. No respiratory distress. Breath sounds: Normal breath sounds. No stridor. No wheezing. Abdominal: General: Bowel sounds are normal. There is no distension. Palpations: Abdomen is soft. There is no mass. Tenderness: There is no abdominal tenderness. There is no guarding or rebound. Musculoskeletal: General: No deformity. Normal range of motion. Cervical back: Normal range of motion and neck supple. Skin: General: Skin is warm and dry. Findings: No erythema. Neurological: Mental Status: He is alert and oriented to person, place, and time. Gait: Gait is intact. Psychiatric: Mood and Affect: Mood and affect normal. Filed Vitals: 10/03/23 1038 BP: 124/68 Pulse: 77 Resp: 16 Temp: 98.2 ??F (36.8 ??C) TempSrc: Skin SpO2: 96% Weight: 93.4 kg (205 lb 12.8 oz) Height: 1.778 m (5' 10 ) Labs: Labs Reviewed Diagnoses/Impression: 1. Primary hypertension Chronic lisinopril (PRINIVIL) 10 MG tablet URINALYSIS WI REFLEX TO CULTURE COMPREHENSIVE METABOLIC PANEL VENIPUNC ARM DRAW 2. Mixed hyperlipidemia Chronic pravastatin (PRAVACHOL) 40 MG tablet Fenofibrate 134 MG Cap LIPID PANEL TSH W/REFLEX VENIPUNC ARM DRAW 3. Attention deficit hyperactivity disorder (ADHD), predominantly inattentive type Chronic 4. Moderate episode of recurrent major depressive disorder (CMS/HCC) Chronic 5. Anxiety Chronic 6. BMI 29.0-29.9,adult CBC W/DIFF AUTOMATED VENIPUNC ARM DRAW 7. Prostate cancer screening PROSTATE SPECIFIC ANTIGEN,SCREENING 8. Cigarette nicotine dependence in remission CT LUNG SCREENING 9. Need for prophylactic vaccination against Streptococcus pneumoniae (pneumococcus) [07265] Prevnar 20 (Pneumococcal) Recommendations and Plan: 1. Primary hypertension - lisinopril (PRINIVIL) 10 MG tablet; Take 1 tablet (10 mg total) by mouth daily. Dispense: 90 tablet; Refill: 3 - URINALYSIS WI REFLEX TO CULTURE; Future - COMPREHENSIVE METABOLIC PANEL; Future - VENIPUNC ARM DRAW - COMPREHENSIVE METABOLIC PANEL - URINALYSIS WI REFLEX TO CULTURE Stable. Continue medications 2. Mixed hyperlipidemia - pravastatin (PRAVACHOL) 40 MG tablet; Take 1 tablet (40 mg total) by mouth daily. Dispense: 90 tablet; Refill: 3 - Fenofibrate 134 MG Cap; Take 134 mg by mouth 4 (four) times a week. 4 x a week AM Dispense: 108 capsule; Refill: 3 - LIPID PANEL; Future - TSH W/REFLEX; Future - VENIPUNC ARM DRAW - TSH W/REFLEX - LIPID PANEL Stable. He will continue medications as ordered for now. We can make medication adjustments after labs if needed 3. Attention deficit hyperactivity disorder (ADHD), predominantly inattentive type Stable. Continue medications. Continue psychiatry follow-up 4. Moderate episode of recurrent major depressive disorder (CMS/HCC) Stable. Continue meds. Continue psychiatry follow-up 5. Anxiety Stable. Continue meds. Continue psychiatry follow-up 6. BMI 29.0-29.9,adult - CBC W/DIFF AUTOMATED; Future - VENIPUNC ARM DRAW - CBC W/DIFF AUTOMATED 7. Prostate cancer screening - PROSTATE SPECIFIC ANTIGEN,SCREENING; Future - PROSTATE SPECIFIC ANTIGEN,SCREENING Shared decision making 8. Cigarette nicotine dependence in remission - CT LUNG SCREENING; Future Shared decision making. Patient agreeable to updated CT lung cancer screening 9. Need for prophylactic vaccination against Streptococcus pneumoniae (pneumococcus) - [54375] Prevnar 20 (Pneumococcal) I personally spent a total of 48 minutes on the day of the encounter. This includes [id number] and mdo-niuw-su-face time I provided on the day of the encounter & excludes time spent performing separately reportable services. Orders Placed This Encounter VENIPUNC ARM DRAW CBC W/DIFF AUTOMATED LIPID PANEL TSH W/REFLEX PROSTATE SPECIFIC ANTIGEN,SCREENING URINALYSIS WI REFLEX TO CULTURE COMPREHENSIVE METABOLIC PANEL CT LUNG SCREENING [71795] Prevnar 20 (Pneumococcal) propranolol LA (INDERAL LA) 60 MG 24 hr capsule MAGNESIUM CITRATE OR pravastatin (PRAVACHOL) 40 MG tablet lisinopril (PRINIVIL) 10 MG tablet Fenofibrate 134 MG Cap Cannot display discharge medications since this is not an admission. PCP: SHANNAN Rodriguez 10/03/2023 MBLY LINE UPHOLSTERER documented in this encounter Plan of Treatment Upcoming Encounters Date Type Department Care Team (Late st Contact Info) Description 10/05/2024 9:20 AM ASSEMBLY LINE UPHOLSTERER Office Visit [facility] Family & Internal Medicine - [place] [address] [place] [phone] Morelia Scott APNP [address] [place] [address] 12/02/2024 11:00 AM CDT Office Visit [facility], [address] [place], [place] [phone] Rob Tapia MD [address] [facility] [address] [place], [place] [phone] Scheduled Orders Name Type Priority Associated Diagnoses Orde r Schedule CT LUNG SCREENING CT Routine Cigarette nicotine dependence in remission Expected: 10/03/2023, Expires: 10/03/2024 documented as of this encounter Procedures Procedure Name Priority Date/Time Associated Diagnosis Comments URINALYSIS WI REFLEX TO CULTURE Routine 10/03/2023 11:24 AM ASSEMBLY LINE UPHOLSTERER Primary hypertension TSH W/REFLEX Routine 10/03/2023 11:24 AM ASSEMBLY LINE UPHOLSTERER Mixed hyperlipidemia PROSTATE SPECIFIC ANTIGEN,SCREENING Routine 10/03/2023 11:24 AM ASSEMBLY LINE UPHOLSTERER Prostate cancer screening COMPREHENSIVE METABOLIC PANEL Routine 10/03/2023 11:24 AM ASSEMBLY LINE UPHOLSTERER Primary hypertension LIPID PANEL Routine 10/03/2023 11:24 AM ASSEMBLY LINE UPHOLSTERER Mixed hyperlipidemia CBC W/DIFF AUTOMATED Routine 10/03/2023 11:24 AM ASSEMBLY LINE UPHOLSTERER BMI 29.0-29.9,adult VENIPUNC ARM DRAW Routine 10/03/2023 10: 52 AM ASSEMBLY LINE UPHOLSTERER Primary hypertension Mixed hyperlipidemia BMI 29.0-29.9,adult documented in this encounter Results * (ABNORMAL) COMPREHENSIVE METABOLIC PANEL (10/03/2023 11:24 AM ASSEMBLY LINE UPHOLSTERER) SODIUM S/P/B 141 136 - 145 MMOL/L 10/03/2023 8:03 PM [facility] POTASSIUM S/P/B 4.1 3.5 - 5.1 MMOL/L 10/03/2023 8:03 PM [facility] CHLORIDE S/P/B 105 98 - 107 MMOL/L 10/03/2023 8:03 PM [facility] CO2 27.1 21 - 32 MMOL/L 10/03/2023 8:03 PM [facility] GLUCOSE 93 70 - 99 MG/DL 10/03/2023 8:03 PM [facility] BUN 16 7 - 18 MG/DL 10/03/2023 8:03 PM [facility] CREATININE S/P/B 1.17 0.70 - 1.30 MG/DL 10/03/2023 8:03 PM [facility] CALCIUM S/P/B 9.7 8.4 - 10.5 MG/DL 10/03/2023 8:03 PM [facility] BILIRUBIN TOTAL S/P/B 0.6 0.2 - 1.0 MG/DL 10/03/2023 8:03 PM [facility] ALKALINE PHOSPHATASE S/P/B 60 45 - 115 U/L 10/03/2023 8:03 PM [facility] AST 27 15 - 37 U/L 10/03/2023 8:03 PM [facility] ALT 45 16 - 63 U/L 10/03/2023 8:03 PM [facility] TOTAL PROTEIN S/P/B 7.4 6.4 - 8.2 G/DL 10/03/2023 8:03 PM [facility] ALBUMIN S/P/B 4.6 3.4 - 5.0 G/DL 10/03/2023 8:03 PM [facility] ANION GAP 8.9 5 - 15 MMOL/L 10/03/2023 8:03 PM [facility] Comment:REFERENCE RANGE NOT ESTABLISHED OSMOLALITY (CALC) 293 MOSM/KG 024 8:03 PM ASSEMBLY LINE UPHOLSTERER [facility] Comment:REFERENCE RANGE NOT ESTABLISHED GFR ESTIMATE 69(L) >90 ML/MIN/1. 73 M2 10/03/2023 8:03 PM [facility] GFR NOTES GFR REFERENCE S: 10/03/2023 8:03 PM [facility] Comment: THE ESTIMATED GFR IS CALCULATED USING THE 2020 CKD-EPI EQUATION. THE FOLLOWING CATEGORIES FOR GRADING RENAL FUNCTION ARE RECOMMENDED BY THE INTERNATIONAL SOCIETY OF NEPHROLOGY (KDIGO 2012 CLINICAL PRACTICE GUIDELINE). G1,NORMAL OR HIGH: >89 ml/min/1.73 m2 G2,MILDLY DECREASED: 60-89 ml/min/1.73 m2 G3A,MILDLY TO MODERATELY DECREASED: 45-59 ml/min/1.73 m2 G3B,MODERATELY TO SEVERELY DECREASED: 30-44 ml/min/1.73 m2 G4,SEVERELY DECREASED: 15-29 ml/min/1.73 m2 G5,KIDNEY FAILURE: <15 ml/min/1.73 m2 10/03/2023 11:2 4 AM ASSEMBLY LINE UPHOLSTERER [facility] Final Resul t [facility] [address] [place] [address], * URINALYSIS WI REFLEX TO CULTURE (10/03/2023 11:24 AM ASSEMBLY LINE UPHOLSTERER) COLOR (U) YELLOW 10/03/2023 8:03 PM [facility] TRANSPARENCY CLEAR CLEAR 10/03/2023 8:03 PM [facility] SPECIFIC GRAVITY (U) 1.020 1.003 - 1.040 10/03/2023 8:03 PM [facility] U PH 6.0 5.0 - 9.0 10/03/2023 8:03 PM ASSEMBLY LINE UPHOLSTERER [facility] PROTEIN RANDOM (U) NEGATIVE NEGATIVE 10/03/2023 8:03 PM ASSEMBLY LINE UPHOLSTERER [facility] GLUCOSE (U) NEGATIVE NEGATIVE 10/03/2023 8:03 PM ASSEMBLY LINE UPHOLSTERER [facility] KETONES MG/DL (U) NEGATIVE NEGATIVE 10/03/2023 8:03 PM ASSEMBLY LINE UPHOLSTERER [facility] BILIRUBIN (U) NEGATIVE NEGATIVE 10/03/2023 8:03 PM ASSEMBLY LINE UPHOLSTERER [facility] BLOOD (U) NEGATIVE NEGATIVE 10/03/2023 8:03 PM ASSEMBLY LINE UPHOLSTERER [facility] UROBILINOGEN 0.2 0.0 - 2.0 EU/DL 10/03/2023 8:03 PM ASSEMBLY LINE UPHOLSTERER [facility] NITRITES NEGATIVE NEGATIVE 10/03/2023 8:03 PM ASSEMBLY LINE UPHOLSTERER [facility] LEUKOCYTES (U) NEGATIVE NEGATIVE 10/03/2023 8:03 PM ASSEMBLY LINE UPHOLSTERER [facility] REFLEX URINE CULTURE: CULTURE IS NOT INDICATED 10/03/2023 8:03 PM ASSEMBLY LINE UPHOLSTERER [facility] RBC/HPF 0-3 0 - 3 /HPF 10/03/2023 8:03 PM ASSEMBLY LINE UPHOLSTERER [facility] WBC/HPF 0-3 0 - 3 /HPF 10/03/2023 8:03 PM ASSEMBLY LINE UPHOLSTERER [facility] EPI/HPF 0-3 /HPF 10/03/2023 8:03 PM ASSEMBLY LINE UPHOLSTERER [facility] BACTERIA (U) NONE SEEN NONE SEEN 10/03/2023 8:03 PM ASSEMBLY LINE UPHOLSTERER [facility] URINE SPECIMEN OBTAINED BY CLEAN CATCH PROCEDURE / Unknown 10/03/2023 11:24 AM ASSEMBLY LINE UPHOLSTERER us [facility] Final Resu lt [facility] [address] [place] [address], * PROSTATE SPECIFIC ANTIGEN,SCREENING (10/03/2023 11:24 AM ASSEMBLY LINE UPHOLSTERER) PSA 1.20 <4.00 NG/ML 10/03/2023 8:13 PM ASSEMBLY LINE UPHOLSTERER [facility] Comment: ASSAY PERFORMED BY [employer] IMMUNOASSAY METHODOLOGY USING SIEMENS DIMENSION REAGENT. PATIENT RESULTS DETERMINED BY ASSAYS FROM DIFFERENT MANUFACTURERS AND/OR BY DIFFERENT METHODS MAY NOT BE COMPARABLE. 10/03/2023 11:2 4 AM ASSEMBLY LINE UPHOLSTERER [facility] Final Resul t Performing Organization Address City/[facility]/ZIP Co de Phone Number [facility] [address] [place] [address], [place] [phone] * TSH W/REFLEX (10/03/2023 11:24 AM ASSEMBLY LINE UPHOLSTERER) TSH 1.924 0.358 - 3.740 uIU/ML 10/03/2023 8:03 PM ASSEMBLY LINE UPHOLSTERER [facility] 10/03/2023 11:2 4 AM ASSEMBLY LINE UPHOLSTERER [facility] Final Resul t Performing Organization Address City/[facility]/ZIP Co de Phone Number [facility] [address] [place] [address], [place] [phone] * (ABNORMAL) LIPID PANEL (10/03/2023 11:24 AM ASSEMBLY LINE UPHOLSTERER) CHOLESTEROL 175 <200 MG/DL 10/03/2023 8:03 PM ASSEMBLY LINE UPHOLSTERER [facility] TRIGLYCERIDES 178(H) <150 MG/DL 10/03/2023 8:03 PM [facility] HDL 52 >40 MG/DL 10/03/2023 8:03 PM [facility] LDL-C 87 <100 MG/DL 10/03/2023 8:03 PM ASSEMBLY LINE UPHOLSTERER [facility] VLDL CALCULATION 36(H) 5 - 28 MG/DL 10/03/2023 8:03 PM ASSEMBLY LINE UPHOLSTERER [facility] CHOL/HDL RATIO 3.4 0.0 - 4.0 10/03/2023 8:03 PM [facility] LDL/HDL 1.7 0.41 - 2.13 10/03/2023 8:03 PM ASSEMBLY LINE UPHOLSTERER [facility] NON HDL CHOLESTEROL 123 <140 MG/DL 10/03/2023 8:03 PM ASSEMBLY LINE UPHOLSTERER [facility] 10/03/2023 11:2 4 AM ASSEMBLY LINE UPHOLSTERER Morleia [facility] Final Resul t [facility] [address] [place] [address], * (ABNORMAL) CBC W/DIFF AUTOMATED (10/03/2023 11:24 AM ASSEMBLY LINE UPHOLSTERER) WBC 6.58 4.00 - 10.80 x10'3/uL 10/03/2023 7:33 PM [facility] RBC 5.47 4.50 - 6.10 x10'6/uL 10/03/2023 7:33 PM [facility] HGB 15.9 13.0 - 18.0 G/DL 10/03/2023 7:33 PM ASSEMBLY LINE UPHOLSTERER [facility] HCT 48.3 37.0 - 52.0 % 10/03/2023 7:33 PM ASSEMBLY LINE UPHOLSTERER [facility] MCV 88.3 78.0 - 100.0 FL 10/03/2023 7:33 PM [facility] MCH 29.1 27.0 - 31.0 PG 10/03/2023 7:33 PM [facility] MCHC 32.9(L) 33.0 - 36.0 G/DL 10/03/2023 7:33 PM [facility] RDW 12.9 11.5 - 14.5 % 10/03/2023 7:33 PM [facility] PLT 303 150 - 350 x10'3/uL 10/03/2023 7:33 PM [facility] MPV 10.3 7.4 - 10.4 FL 10/03/2023 7:33 PM [facility] DIFFERENTIAL TYPE AUTOMATED DIFFERENTIAL 10/03/2023 7:33 PM [facility] NEUTROPHILS % 59.9 % 10/03/2023 7:33 PM [facility] LYMPHOCYTES % 31.9 % 10/03/2023 7:33 PM [facility] MONOCYTES % 5.9 % 10/03/2023 7:33 PM [facility] EOSINOPHILS % 1.5 % 10/03/2023 7:33 PM [facility] BASOPHILS % 0.5 % 10/03/2023 7:33 PM [facility] IMMATURE GRANS % 0.3 % 10/03/2023 7:33 PM [facility] ABS. NEUTROPHILS 3.94 1.60 - 8.30 x10'3/uL 10/03/2023 7:33 PM [facility] ABS. LYMPHOCYTES 2.10 0.80 - 4.70 x10'3/uL 10/03/2023 7:33 PM [facility] ABS. MONOCYTES 0.39 0.00 - 1.50 x10'3/uL 10/03/2023 7:33 PM [facility] ABS. EOSINOPHILS 0.10 0.00 - 0.40 x10'3/uL 10/03/2023 7:33 PM [facility] ABS. BASOPHILS 0.03 0.00 - 0.20 x10'3/uL 10/03/2023 7:33 PM [facility] ABS. IMMATURE GRANULOCYTES 0.02 0.00 - 0.03 x10'3/uL 10/03/2023 7:33 PM ASSEMBLY LINE UPHOLSTERER [facility] [place] 10/03/2023 11:2 4 AM ASSEMBLY LINE UPHOLSTERER [facility] Final Resul t [facility] [place] [address] [facility] [place] [address], [place] [phone] documented in this encounter Visit Diagnoses Diagnosis Primary hypertension- Primary Unspecified essential hypertension Mixed hyperlipidemia Attention deficit hyperactivity disorder (ADHD), 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 (CMS/HCC HHS/HCC) Anxiety Anxiety state, unspecified BMI 29.0-29.9,adult Body Mass Index 29.0-29.9, adult Prostate cancer screening Special screening for malignant neoplasm of prostate Cigarette nicotine dependence in remission Tobacco use disorder Need for prophylactic vaccination against Streptococcus pneumoniae (pneumococcus) Need for prophylactic vaccination against streptococcus pneumoniae (pneumococcus) documented in this encounter Additional Health Concerns Assessment Noted Time PHQ-9 Depression Total Score: 10 023 8:58 AM ASSEMBLY LINE [facility]PHOLSTERER documented as of this encounter Care Teams Junior Project Coordinator Relationship Specialty Start Date End Date Morelia Scott APNP [address] [place] [address] PCP - General NURSE PRACTITIONER 06/12/22 documented as of this encounter
--- OUTSIDE RECORDS SUMMARY | 2024-09-11 17:01 | XMS_ITS | Encounter Summary ---
Author Organization [facility] Address [address] [place] [address]. [place] [address] [place] [address] Care Team Providers Care Processing Assistant Name Role Phone Morelia Scott Primary Care Provider [phone] Reason for Referral * Imaging (Routine) - Closed Specialty Diagnoses / Procedures Referred By Contac t Referred To Contact RADIOLOGY Diagnoses Aneurysm of ascending aorta without rupture (CMS/HCC) Procedures USE ECHOCARDIOGRAM Rob Tapia MD Phone: tel: fax: Referral ID Status Reason Start Date Expiration Date Visits Re quested Visits Authorized [id number] Closed 12/09/2022 01/09/2024 1 1 Reason for Visit * Imaging (Routine) - Closed Specialty Diagnoses / Procedures Referred By Contac t Referred To Contact RADIOLOGY Diagnoses Aneurysm of ascending aorta without rupture (CMS/HCC) Procedures USE ECHOCARDIOGRAM Rob Tapia MD Phone: tel: fax: Referral ID Status Reason Start Date Expiration Date Visits Re quested Visits Authorized [id number] Closed 12/09/2022 01/09/2024 1 1 Encounter Details Date Type Department Care Team (Late st Contact Info) Description 03/04/2023 10:41 AM CDT - 03/04/2023 11:59 PM CDT Hospital Encounter [facility] [place] [address] Rob Tapia MD 3 [facility] [address] [place] [address] Discharge Disposition: Home or Self Care (Routine Discharge) Social History Tobacco Use Types Packs/Day Years [...] AM CDT documented as of this encounter Medications at Time of Discharge buPROPion XL (WELLBUTRIN XL) 150 MG 24 hr tablet Take 1 tablet (150 mg total) by mouth. 01/05/2023 Coenzyme Q10 (CO Q-10) 120 MG Cap Take by mouth daily. fish oil (OMEGA-3 FATTY ACID) 1000 MG Cap capsule Take 1 capsule (1,000 mg total) by mouth 2 (two) times daily. fluticasone propionate (FLONASE) 50 MCG/ACT nasal spray 1 spray by Nasal route daily. multivitamin with minerals liquid Take 15 mLs by mouth daily. QUEtiapine (SEROQUEL) 100 MG tabletIndications:An xiety,Moderate episode of recurrent major depressive disorder (CMS/HCC HHS/HCC) TAKE 1 TABLET(100 MG) BY MOUTH EVERY NIGHT AT BEDTIME 90 tablet 07/24/2022 QUEtiapine (SEROQUEL) 50 MG tablet Take 1 tablet (50 mg total) by mouth 2 (two) times daily. Pt takes 50mg in the morning and 50 mg at noon. 08/14/2022 RIZATRIPTAN BENZOATE OR Take 20 mg by mouth. 1 every 4 hours. (Max 2 in 24 hours) vilazodone (VIIBRYD) 40 MG tablet Take 1 tablet (40 mg total) by mouth daily. Take with food vitamin B-2 (RIBOFLAVIN) 100 MG tablet 1 tablet (100 mg total) daily. amphetamine-dextroam phetamine (ADDERALL) 20 MG tablet Take 20 mg by mouth daily. Pt is now down to 10mg daily. BB 10/01/2022 3 amphetamine-dextroam phetamine XR (ADDERALL XR) 10 MG 24 hr capsule Take 10 mg by mouth daily. 08/14/2022 3 buPROPion XL (WELLBUTRIN XL) 300 MG 24 hr tablet Take 300 mg by mouth daily. 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 4 x a week AM 108 capsule 3 10/01/2022 4 lisinopril (PRINIVIL) 10 MG tabletIndications:Pr imary hypertension Take 1 tablet (10 mg total) by mouth daily. 90 tablet 3 10/01/2022 4 Magnesium 100 MG Cap Take by mouth daily. 3 NURTEC 75 MG disintegrating tablet TAKE 1 TABLET ON OR UNDER THE TONGUE EVERY OTHER DAY TO PREVENT MIGRAINE HEADACHES. 08/22/2022 4 pravastatin (PRAVACHOL) 40 MG tabletIndications:Mi xed hyperlipidemia TAKE 1 TABLET BY MOUTH EVERY DAY 90 tablet 02/24/2023 4 QUEtiapine (SEROQUEL) 25 MG tablet Take 1 tablet (25 mg total) by mouth 2 (two) times daily. 3 ubrogepant (UBRELVY) 100 MG tablet Take 1 tablet (100 mg total) by mouth 2 (two) times daily as needed for Migraine. Max of 2 tablets (200 mg) in 24 hours Pt takes less than 1 month. 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 [facility] Internal Medicine - [place] [address] [place] [address] Morelia Scott APNP [address] [place] [address] 12/02/2024 11:00 AM CDT Office Visit [facility] [place] [address] [place], [place] [id number] Rob Tapia MD 3 [facility] [address] [place], [place] [id number] documented as of this encounter Procedures Procedure Name Priority Date/Time Associated Diagnosis Comments USE ECHOCARDIOGRAM Routine 03/04/2023 11 :24 AM CDT Aneurysm of ascending aorta without rupture documented in this encounter Results * USE ECHOCARDIOGRAM (03/04/2023 11:24 AM CDT) Anatomical Region Laterality Modality Cardiac Echocardiogram 03/04/2023 10:5 1 AM CDT Narrative 03/04/2023 11:47 AM CDT ?Echocardiography Report Pat.Name: ??KAREN VEE Pat.ID: ?[id number] ? St.Date: ?? 03/04/2023 ? Refer.MD: ??[id number] CARROL DUKE ?EWDPROV ?EWDPROV Exam Time: 10:51:00 AM ? Study Type:ECHO WITH CARDIAC DOPPLER COMP Height: ?70 in ? Weight: ?203 lb ? BSA: ? 2.1 m2 ?Age: ??1960,62Y ? Sex: ? M ? BP: ?137/82 ? HR: ?69 bpm ?Sonogrphr: Majo Colon RDCS ? Pat. Stat.:Outpatient ? Reason for Study:Aortic aneurysm, Ascending Aortic aneurysm Procedures: 2D, M-mode, Doppler, Color Flow, The study quality is technically good. Race: ?W ? ++++++++++++++++++++++++++++++++++++ SUMMARY: ++++++++++++++++++++++++++++++++++++ The left ventricular size is normal. Estimated left ventricular ejection fraction is 50-55%. No concentric left ventricular hypertrophy. Left ventricular diastolic function is normal. The right ventricular size is normal. Right ventricular systolic function is normal. The left atrial size is normal. Right atrial size is normal. Trace mitral regurgitation. A trace of tricuspid regurgitation. Pulmonary artery systolic pressure is not reliably assessed. Normal aortic root (3.9 cm). Proximal ascending aorta 4.3 cm. ++++++++++++++++++++++++++++++++++++ FINDINGS: ++++++++++++++++++++++++++++++++++++ LV: ? The left ventricular size is normal. Estimated left ?ventricular ejection fraction is 50-55%. No concentric left ?ventricular hypertrophy. Left ventricular diastolic function ?is normal. WM: ? Wall motion appears normal in all segments. RV: ? The right ventricular size is normal. Right ventricular ?systolic function is normal. IVS: ?No evidence of ventricular septal defect. LA: ? The left atrial size is normal. RA: ? Right atrial size is normal. IAS: ?Atrial septum appears intact. ELVIA: ? No evidence of pericardial effusion. AO: ? Normal aortic root (3.9 cm). Proximal ascending aorta 4.3 ?cm. PA: ? Estimated right atrial pressure of 3 mmHg. SVn: ?Inferior vena cava shows >50% collapse with respiration ?consistent with normal right atrial pressure. AV: ? The aortic valve is trileaflet. No evidence of aortic valve ?stenosis. No significant aortic regurgitation. MV: ? Trace mitral regurgitation. No evidence of mitral valve ?stenosis. PV: ? No evidence of pulmonic valve stenosis. No evidence of ?pulmonic regurgitation. TV: ? A trace of tricuspid regurgitation. Pulmonary artery ?systolic pressure is not reliably assessed. No evidence of ?tricuspid valve stenosis. ++++++++++++++++++++++++++++++++++++ MEASUREMENTS: ++++++++++++++++++++++++++++++++++++ ?DOPPLER LVOT ?? LVOTpkPG ? 3 mmHg ?LVOTmnPG ? 2 mmHg LVOTpkVel ? 91.7 cm/s (70-110)+ LVOT SV ? 71 ml ?? LVOT TVI ?14.4 cm ? Right Atrium ?? RA Press ? 3 mmHg ?Murillo's Disk ? 20 ? Pulmonary Veins ?? PVnpkVeld ? 34.1 cm/s ?PVnVs/Vd ? 1.5 ? PVnpkVels ? 51.1 cm/s ?PVn A Dur ?116 msec AV Forward Flow AV TVI ?20 cm ?AV pkPG ?6 mmHg AV pkVel ? 120 cm/s (100-170)+ Area (TVI) ?3.54 cm2 ??(3-5) AV mnPG ?3 mmHg ?Area (Ace) ?3.75 cm2 ??(3- 5) MV Forward Flow MV DeTm ?194 msec ? MV pkE ?50.1 cm/s (60-130)* MV E/A ? 0.8 ? MV pkA ?60.3 cm/s PV Forward Flow PV pkVel ?97.1 cm/s (60-90)+* PV AC ?101 msec PV pkPG ?4 mmHg ? TV Regurg Flow TV pkPG ? 13 mmHg ?TV pkVel ? 177 cm/s (30- 70)* Right Ventricle ?? RVsys P ? 16 mmHg ?Right Ventricle ??16.5 cm/s Lat E' ?? Lat e ? 12.9 cm/s ? Lat E/E' ?? Lat E/e ?3.9 ? Med E' ?? Med e ? 7.58 cm/s ? Med E/E' ?? Med E/e ?6.6 ? Aortic Valve ?? Aortic Valve Ar ??1.69 ?Aortic Valve Ve ??0.76 ? PV Antegrade Flow Acceleration Sl ?? 713 cm/s2 ?2D Left Ventricle ?? LVIDd ? 5.09 cm ?? (3.6-5.2) LV ESV ?26.8 ml ?? LVIDs ? 3.45 cm ?? (2.3-3.9) LV ESV ?46 ml ?? LngAxd ?8.15 cm ?LVESV BP ?37.2 ml ?? LngAxd ?8.27 cm ?LV EF ? 55.6 % ?? LV EDV ?60.4 ml ?LV EF ? 52.6 % ?? LV EDV ?96.9 ml ?LV EF BP ?51.6 % ?? LVEDV BP ?76.8 ml ?LV SV ? 33.5 ml ?? LngAxs ?7.55 cm ?LV SV ? 50.9 ml ?? LngAxs ?6.64 cm ?LV SV BP ?39.6 ml ?? LVPW ?? LVPWd ?0.967 cm ? Right Ventricle ?? RVIDd ? 3.36 cm ?? (2.6-4.3) Right Ventricle ??32.3 mm ?? Right Ventricle ??35.3 mm ? Right and Left ?? 0.66 ? Major [place] ?78.8 mm ? Ventricular Septum ?? IVSd ?1.09 cm ? Left Atrium ?? LA VOLBP ?25.8 ml ? Aorta ?? Ao Rtd ? 3.9 cm ? LVOT ?? LVOT ? 2.5 cm ?LVOTArea ?4.91 cm2 Ratios ?? IVS Inferior vena cava ?? IVC Diam ?14 mm ? LA Biplane LAVol I BP ?12.3 ml/m2 ? RA Single Plane Right Atrium MO ??7.81 mm ? Right Atrium Sy ??31.4 ml ?? Right Atrium Sy ??49.6 mm ? Right Atrium Sy ?15 ml/m2 Right Atrium Sy ?14 cm2 ?MMODE TA ?? Tricuspid Annul ??23.5 mm ? <Electronic Signature> 03/04/2023 11:47 AM Jeanie David M.D. Procedure Note Jeanie David MD - 03/04/2023 Echocardiography Report Pat.Name: KAREN VEE Pat.ID: [id number] St.Date: 03/04/2023 Refer.: [id number] CARROL DUKE EWDPROV EWDPRO Exam Time: 10:51:00 AM Study Type:ECHO WITH CARDIAC DOPPLER COMP Height: 70 in Weight: 203 lb BSA: 2.1 m2 Age: 11 1960,62Y Sex: M BP: 137/82 HR: 69 bpm Sonogrphr: Majo Colon [facility] Pat. Stat.:Outpatient Reason for Study:Aortic aneurysm, Ascending Aortic aneurysm Procedures: 2D, M-mode, Doppler, Color Flow, The study quality is technically good. Race: W ++++++++++++++++++++++++++++++++++++ SUMMARY: ++++++++++++++++++++++++++++++++++++ The left ventricular size is normal. Estimated left ventricular ejection fraction is 50-55%. No concentric left ventricular hypertrophy. Left ventricular diastolic function is normal. The right ventricular size is normal. Right ventricular systolic function is normal. The left atrial size is normal. Right atrial size is normal. Trace mitral regurgitation. A trace of tricuspid regurgitation. Pulmonary artery systolic pressure is not reliably assessed. Normal aortic root (3.9 cm). Proximal ascending aorta 4.3 cm. ++++++++++++++++++++++++++++++++++++ FINDINGS: ++++++++++++++++++++++++++++++++++++ LV: The left ventricular size is normal. Estimated left ventricular ejection fraction is 50-55%. No concentric left ventricular hypertrophy. Left ventricular diastolic function is normal. WM: Wall motion appears normal in all segments. RV: The right ventricular size is normal. Right ventricular systolic function is normal. IVS: No evidence of ventricular septal defect. LA: The left atrial size is normal. RA: Right atrial size is normal. IAS: Atrial septum appears intact. ELVIA: No evidence of pericardial effusion. AO: Normal aortic root (3.9 cm). Proximal ascending aorta 4.3 cm. PA: Estimated right atrial pressure of 3 mmHg. SVn: Inferior vena cava shows >50% collapse with respiration consistent with normal right atrial pressure. AV: The aortic valve is trileaflet. No evidence of aortic valve stenosis. No significant aortic regurgitation. MV: Trace mitral regurgitation. No evidence of mitral valve stenosis. PV: No evidence of pulmonic valve stenosis. No evidence of pulmonic regurgitation. TV: A trace of tricuspid regurgitation. Pulmonary artery systolic pressure is not reliably assessed. No evidence of tricuspid valve stenosis. ++++++++++++++++++++++++++++++++++++ MEASUREMENTS: ++++++++++++++++++++++++++++++++++++ DOPPLER LVOT LVOTpkPG 3 mmHg LVOTmnPG 2 mmHg LVOTpkVel 91.7 cm/s (70-110)+ LVOT SV 71 ml LVOT TVI 14.4 cm Right Atrium RA Press 3 mmHg Murillo's Disk 20 Pulmonary Veins PVnpkVeld 34.1 cm/s PVnVs/Vd 1.5 PVnpkVels 51.1 cm/s PVn A Dur 116 msec AV Forward Flow AV TVI 20 cm AV pkPG 6 mmHg AV pkVel 120 cm/s (100-170)+ Area (TVI) 3.54 cm2 (3-5) AV mnPG 3 mmHg Area (Ace) 3.75 cm2 (3-5) MV Forward Flow MV DeTm 194 msec MV pkE 50.1 cm/s (60-130)* MV E/A 0.8 MV pkA 60.3 cm/s PV Forward Flow PV pkVel 97.1 cm/s (60-90)+* PV AC 101 msec PV pkPG 4 mmHg TV Regurg Flow TV pkPG 13 mmHg TV pkVel 177 cm/s (30-70)* Right Ventricle RVsys P 16 mmHg Right Ventricle 16.5 cm/s Lat E' Lat e 12.9 cm/s Lat E/E' Lat E/e 3.9 Med E' Med e 7.58 cm/s Med E/E' Med E/e 6.6 Aortic Valve Aortic Valve Ar 1.69 Aortic Valve Ve 0.76 PV Antegrade Flow Acceleration Sl 713 cm/s2 2D Left Ventricle LVIDd 5.09 cm (3.6-5.2) LV ESV 26.8 ml LVIDs 3.45 cm (2.3-3.9) LV ESV 46 ml LngAxd 8.15 cm LVESV BP 37.2 ml LngAxd 8.27 cm LV EF 55.6 % LV EDV 60.4 ml LV EF 52.6 % LV EDV 96.9 ml LV EF BP 51.6 % LVEDV BP 76.8 ml LV SV 33.5 ml LngAxs 7.55 cm LV SV 50.9 ml LngAxs 6.64 cm LV SV BP 39.6 ml LVPW LVPWd 0.967 cm Right Ventricle RVIDd 3.36 cm (2.6-4.3) Right Ventricle 32.3 mm Right Ventricle 35.3 mm Right and Left 0.66 Major [place] 78.8 mm Ventricular Septum IVSd 1.09 cm Left Atrium LA VOLBP 25.8 ml Aorta Ao Rtd 3.9 cm LVOT LVOT 2.5 cm LVOTArea 4.91 cm2 Ratios IVS Inferior vena cava IVC Diam 14 mm LA Biplane LAVol I BP 12.3 ml/m2 RA Single Plane Right Atrium MO 7.81 mm Right Atrium Sy 31.4 ml Right Atrium Sy 49.6 mm Right Atrium Sy 15 ml/m2 Right Atrium Sy 14 cm2 MMODE TA Tricuspid Annul 23.5 mm <Electronic Signature> 03/04/2023 11:47 AM Jeanie David M.D. 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
--- OUTSIDE RECORDS SUMMARY | 2024-09-11 17:01 | XMS_ITS | Encounter Summary ---
Author Organization [facility] Address [address] [place] [address]. [place], [place] [id number] [place] [address] Care Team Providers Care Manager Completions Name Role Phone Morelia Scott Primary Care Provider [phone] Reason for Visit * Reason Comments Lab (SCAN) CT (SCAN) Encounter Details Date Type Department Care Team (Late st Contact Info) Description 11/18/2023 Scan HEALTH INFO [facility] Scanned, [facility] Lab (SCAN); CT (SCAN) Social History Tobacco Use Types Packs/Day Years Used Date Smoking Tobacco: Former Cigarettes 987 - 2016 Smokeless Tobacco: Never Alcohol Use Standard [...] (Late Contact Info) Description 10/05/2024 9:20 AM 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 Office Visit [facility] Family & Internal Medicine [place] [address] [place] [address] Morelia Scott APNP [address] [place] [address] 12/02/2024 11:00 AM CDT Office Visit [facility], [address] [address] Rob Tapia MD 3 [facility] [address] [place] [address] documented as of this encounter Procedures Procedure Name Priority Date/Time Associated Diagnosis Comments CT GENERIC 11/18/2023 CT GENERIC 11/18/2023 OUTSIDE LAB (SCAN ORDER) 11/18/2023 documented in this encounter Results * OUTSIDE LAB (SCAN ORDER) (11/18/2023) 11/18/2023 [facility] Scanned SCANNING Final Resu lt * CT GENERIC (11/18/2023) Anatomical Region Laterality Modality Other 11/18/2023 [facility] Scanned SCANNING Final Resu lt * CT GENERIC (11/18/2023) Anatomical Region Laterality Modality Other 11/18/2023 [facility] Scanned SCANNING Final Resu lt documented in this encounter Visit Diagnoses Not on filedocumented in this encounter Additional Health Concerns Assessment Noted Time PHQ-9 Depression Total Score: 10 023 8:58 AM 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 documented as of this encounter Care Teams Manager Completions Relationship Specialty Start Date End Date Morelia Scott APNP [address] [place] [address] PCP - General NURSE PRACTITIONER 06/12/22 documented as of this encounter
--- OUTSIDE RECORDS SUMMARY | 2024-09-11 17:01 | XMS_ITS | Encounter Summary ---
Author Organization [facility] Address [address] [place] [address]. [place] [address] [place] [address] Care Team Providers Care Ballet Professor Name Role Phone Sonia Morelia Cinthia CAMPBELL Primary Care Provider [phone] Reason for Referral * Imaging (Routine) - Pending Review Specialty Diagnoses / Procedures Referred By Contac t Referred To Contact RADIOLOGY Diagnoses Aneurysm of ascending aorta without rupture (CMS/HCC) Procedures CTA CHEST CTA CHEST Rob Tapia MD 3 [facility] [address] [place] [address] Phone: tel: fax: Referral ID Status Reason Start Date Expiration Date V isits Requested Visits Authorized [id number] Pending Review 11/28/2023 11/27/2024 1 1 SCREW WORKER Reason for Visit * Reason Comments Thoracic Aortic Aneurysm Encounter Details Date Type Department Care Team (Late st Contact Info) Description 11/27/2023 11:00 AM JACKSCREW WORKER [facility] [place] [address] [place] [address] [phone] Rob Tapia MD 3 [facility] [address] [place] [address] [phone] Thoracic Aortic Aneurysm Social History Tobacco Use Types Packs/Day Years [...] Sign Reading Time Taken Comments Blood Pressure 138/82 11/27/2023 11:26 AM JACKSCREW WORKER Pulse 82 11/27/2023 11:26 AM JACKSCREW WORKER Temperature 36.8 ??C (98.2 ??F) 11/27/2023 1 1:26 AM JACKSCREW WORKER Respiratory Rate 18 11/27/2023 11:2 6 AM JACKSCREW WORKER Oxygen Saturation 96% 11/27/2023 11: 26 AM JACKSCREW WORKER Inhaled Oxygen Concentration - - Weight 95.1 kg (209 lb 10.5 oz) 024 11:26 AM JACKSCREW WORKER Height 177.8 cm (5' 10 ) 11/27/2023 11: 26 AM JACKSCREW WORKER Body Mass Index 30.08 11/27/2023 11:26 AM JACKSCREW WORKER documented in this encounter Progress Notes * Rob Tapia MD - 11/27/2023 11:00 AM CSTSummary: Cardiothoracic surgery office visit Images from the original note were not included. [facility] [address] [place] [address], [address] [place] [address] Reason for Visit: Thoracic Aortic Aneurysm History of Present Illness: 63-year-old white male with a past medical history of hypertension, hyperlipidemia, anxiety/depression, ADHD and a past social history of former tobacco abuse (approximately 30 pack years) who initially underwent CT lung screening study which demonstrated an incidental 4cm ascending aortic aneurysm. The patient was subsequently referred to the cardiothoracic surgery clinic for further work-up and recommendations. Recent CTA chest performed on November 18, 2023 at [facility] in [place] demonstrated no significant change in size of ascending aortic aneurysm. I do not have the official report from [facility] but did review the CTA images during the patient's clinic visit. I advised the patientto bring the report to our office as soon as possible. In the office today, the patient denies any chest pain or shortness of breath. He reports good compliance with his antihypertensive medications including lisinopril. He denies any active tobacco abuse. Of note, the patient completed a 2D echocardiogram in February 2023 which demonstrated: The left ventricular size is normal. Estimated [...] (3.9 cm). Proximal ascending aorta 4.3 cm. Medications: Current Outpatient Medications: buPROPion XL (WELLBUTRIN XL) 150 MG 24 hr tablet, Take 1 tablet (150 mg total) by mouth., Disp: , Rfl: Coenzyme Q10 (CO Q-10) 120 MG Cap, Take by mouth daily., Disp: , Rfl: cyclobenzaprine (FLEXERIL) 10 MG tablet, TAKE 1 TABLET BY MOUTH EVERY NIGHT AT BEDTIME, MAY TAKE 1 TABLET DAILY NEEDED FOR HEADACHE OR MUSCLE SPASMS, Disp: 135 tablet, Rfl: 0 dexmethylphenidate XR (FOCALIN XR) 15 MG 24 hr capsule, Take 1 capsule (15 mg total) by mouth daily., Disp: , Rfl: Fenofibrate 134 MG Cap, Take 134 mg by mouth 4 (four) times a week. 4 x a week AM, Disp: 108 capsule, Rfl: 3 fish oil [...] mLs by mouth daily., Disp: , Rfl: NURTEC 75 MG disintegrating tablet, TAKE 1 TABLET ON OR UNDER THE TONGUE EVERY OTHER DAY TO PREVENTMIGRAINE HEADACHES. (Patient not taking: Reported on 10/03/2023), Disp: , Rfl: pravastatin (PRAVACHOL) 40 MG [...] (100 mg total) daily., Disp: , Rfl: Lab Results Component Value Date NA 141 10/03/2023 K 4.1 10/03/2023 CL 105 10/03/2023 CO2 27.1 10/03/2023 BUN 16 10/03/2023 CR 1.17 10/03/2023 GFREST 69 (L) 10/03/2023 Lab Results Component Value Date WBC 6.58 10/03/2023 HGB 15.9 10/03/2023 HCT 48.3 10/03/2023 PLT 303 10/03/2023 10/03/2023 11:24 AM LIPID PANEL FLOWSHEET CHOLESTEROL 175 TRIGLYCERIDES 178 HDL 52 NON HDL CHOLESTEROL 123 Lab Results Component Value Date HGBA1C 5.4 10/11/2022 Allergies Allergen Reactions Topiramate Other (see comment) Past Medical History: Diagnosis Date ADHD (attention deficit hyperactivity disorder) Anxiety Depression Headache Hypertension Mixed hyperlipidemia Seasonal allergies Past Surgical History: Procedure Laterality Date EXCISION OF UVULA HEMORRHOIDECTOMY LASIK REMOVAL OF SPERM DUCT(S) REMOVAL OF TONSILS,<12 Y/O REPAIR OF NASAL SEPTUM Social History Tobacco Use Smoking status: Former Packs/day: 1.00 Years: 30.00 Additional pack years: 0.00 Total pack years: 30.00 Types: Cigarettes Quit date: 2016 Years since quittin.1 Smokeless tobacco: Never Vaping Use Vaping Use: Never used Substance Use Topics Alcohol use: Never Drug use: Never Family History Problem Relation Name Age of Onset Lipids Mother Heart Mother Diabetes Mother Hypertension Mother Cancer Father Diabetes Father Family Status Relation Name Status Mother Father Sister Alive Sister Alive Sister Alive Brother Alive MGM MGF PGM PGF Review of Systems Constitutional: Positive for fatigue. HENT: Positive for headaches. Migraines Respiratory: Negative. Cardiovascular: Negative. Gastrointestinal: Negative. Genitourinary: Negative. Musculoskeletal: Negative. Endo/Heme/Allergies: Negative. Psychiatric/Behavioral: Positive for depression and nervous/anxious. Physical Exam Constitutional: Healthy appearance. No distress. HENT: Eyes: Pupils equal, round, and reactive to light. Conjunctivae normal. Neck: Normal range of motion. Neck supple. Pulmonary: Effort normal. Breath sounds normal. Abdomen: Abdomen soft. Bowel sounds normal. Neurological: Alert. Oriented x 3. Appropriate mood and affect. cranial nerves II through XII intact. Normal motor skills. Normal gait. Skin: Dry. Warm. Musculoskeletal: Normal ROM. Cardiovascular: Rate: Regular rhythm and Normal rate. PMI: Pulses: Right Carotid pulses 2+, Left Carotid pulses 2+, Right Radial pulses 2+, Left Radial pulses2+, Right Femoral pulses 2+, Left Femoral pulses 2+, Right DP pulses 2+, Left DP pulses 2+, Right PT pulses 2+, Left PT Pulses 2+, Edema left: 0. , Edema Right: 0. , Negative for edema. Normal pulsesand Intact distal pulses. Heart Sounds: Normal heart sounds. Normal S1 and Normal S2. Cardiovascular Comments: Diagnoses/Impression: 4 cm ascending aortic aneurysm identified incidentally on a CT lung screeningstudy in the setting of hypertension and former tobacco abuse Recent CTA chest films reviewed and results discussed with patient and family Recommendations and Plan: No indication for cardiac surgical intervention at this time as the aneurysm is less than 5 cm Await CTA chest report from [facility] I recommend the patient undergo a repeat CTA chest in 1 year, interval follow-up study, to reassesssize of the ascending aortic aneurysm. Return to cardiothoracic surgery clinic after completing the CTA chest study PCP: SHANNAN Rodriguez SCREW WORKER documented in this encounter Plan of Treatment Upcoming Encounters Date Type Department Care Team (Albert Contact Info) Description 10/05/2024 9:20 AM JACKSCREW WORKER Office Visit [facility] Family & Internal Medicine - [place] [address] [place] [address] Morelia Scott APNP [address] [place] [address] 12/02/2024 11:00 AM CDT Office Visit [facility] [place] [address] [place] [address] Rob Tapia MD 3 [facility] [address] [place] [address] Scheduled Orders Name Type Priority Associated Diagnoses Orde r Schedule CTA CHEST CT Routine Aneurysm of ascending aorta without rupture Expected: 11/24/2024 (Approximate), Expires: 05/30/2025 documented as of this encounter Visit Diagnoses Diagnosis Aneurysm of ascending aorta without rupture (CMS/HCC)- Primary documented in this encounter Additional Health Concerns Assessment Noted Time PHQ-9 Depression Total Score: 10 023 8:58 AM JACKSCREW WORKER documented as of this encounter Care Teams Ballet Professor Relationship Specialty Start Date End Date Morelia Scott APNP [address] [place] [address] PCP - General NURSE PRACTITIONER 06/12/22 documented as of this encounter
--- OUTSIDE RECORDS SUMMARY | 2024-09-11 17:01 | XMS_ITS | Encounter Summary ---
Author Organization [facility] Address [address] [place] [address]. [place] [address] [place] [address] Care Team Providers Care Network Systems Analyst Name Role Phone Morelia Scott Primary Care Provider [phone] Reason for Visit * Reason Comments Procedure (SCAN) Image (SCAN) Pathology (SCAN) Encounter Details Date Type Department Care Team ([facility] Contact Info) Description 12/31/2023 Scan HEALTH INFO [facility] Scanned, [facility] Procedure (SCAN); Image (SCAN); Pathology (SCAN) Social History Tobacco Use Types Packs/Day [...] Upcoming Encounters Date Type Department Care Team ([facility] Contact Info) Description 10/05/2024 9:20 AM KAITARA TARAKA Office Visit [facility] Family & Internal Medicine - [place] [address] [place] [address] Morelia Scott APNP [address] [place] [address] 12/02/2024 11:00 AM CDT Office Visit [facility] [place] [address] [place] [address] Rob Tapia MD 3 [facility] [address] [place] [address] documented as of this encounter Procedures Procedure Name Priority Date/Time Associated Diagnosis Comments PATHOLOGY GENERIC (SCAN ORDER) 12/31/2023 IMAGE GENERIC 12/31/2023 PROCEDURE GENERIC (SCAN ORDER) 12/31/2023 documented in this encounter Results * PATHOLOGY GENERIC (SCAN ORDER) (12/31/2023) 12/31/2023 [facility] Scanned SCANNING Final Resu lt * PROCEDURE GENERIC (SCAN ORDER) (12/31/2023) 12/31/2023 [facility] Scanned SCANNING Final Resu lt * IMAGE GENERIC (12/31/2023) Anatomical Region Laterality Modality Other 12/31/2023 [facility] Scanned SCANNING Final Resu lt documented in this encounter Visit Diagnoses Not on filedocumented in this encounter Additional Health Concerns Assessment Noted Time PHQ-9 Depression Total Score: 10 023 8:58 AM KAITARA TARAKA documented as of this encounter Care Teams Network Systems Analyst Relationship Specialty Start Date End Date Morelia Scott APNP [address] [place] [address] PCP - General NURSE PRACTITIONER 06/12/22 documented as of this encounter
--- OUTSIDE RECORDS SUMMARY | 2024-09-11 17:01 | XMS_ITS | Encounter Summary ---
Author Organization [facility] Address [address] [place] [address]. [place], [place] [address] [place] [address] Care Team Providers Care Basketballs And Footballs Reverser Name Role Phone Morelia Scott Primary Care Provider [phone] Reason for Visit * Reason Onset Date Comments Lab Results 10/08/2023 Encounter Details Date Type Department Care Team (Late st Contact Info) Description 10/08/2023 Telephone [facility] Family & Internal Medicine [facility] [address] [place] [address] Morelia Scott APNP [address] [place] [address] Lab Results Social History Tobacco Use Types Packs/Day [...] Progress Notes * Yumiko Ashley MA - 10/08/2023 12:40 PM CST NaphCaret message sent to pt. ----- Message from SHANNAN Rodriguez sent at 10/08/2023 12:13 PM LOG TUMBLER ----- Triglycerides a little elevated. Decrease sweets, processed foods, fried foods in diet Other labs stable TUMBLER TUMBLER documented in this encounter Plan of Treatment Upcoming Encounters Date Type Department Care Team (Late st Contact Info) Description 10/05/2024 9:20 AM LOG TUMBLER Office Visit [facility] Family & Internal Medicine - [place] [address] [place] [address] Morelia Scott APNP [address] [place] [address] 12/02/2024 11:00 AM CDT Office Visit [facility], [address] [phone] Rob Tapia MD 3 [facility] [address] [place] [address] documented as of this encounter Visit Diagnoses Not on filedocumented in this encounter Additional Health Concerns Assessment Noted Time PHQ-9 Depression Total Score: 10 023 8:58 AM LOG TUMBLER documented as of this encounter Care Teams Basketballs And Footballs Reverser Relationship Specialty Start Date End Date Morelia Scott APNP [address] [place] [address] PCP - General NURSE PRACTITIONER 06/12/22 documented as of this encounter
--- OUTSIDE RECORDS SUMMARY | 2024-09-11 17:01 | XMS_ITS | Encounter Summary ---
Author Organization [facility] Address [address] [place] [address]. [place], [place] [address] [place] [address] Care Team Providers Care Lead Man Over All Dies In Pattern Shop Name Role Phone Morelia Scott Primary Care Provider [phone] Reason for Visit * Reason Onset Date Comments Information 08/03/2024 Encounter Details Date Type Department Care Team (Late st Contact Info) Description 08/03/2024 Telephone [facility] Family & Internal Medicine [facility] [address] [place] [address] Morelia Scott APNP [address] [place] [address] Information Social History Tobacco Use Types Packs/Day Years [...] as of this encounter Progress Notes * SHANNAN Rodriguez - 08/10/2024 2:16 PM CST Yes, have done Looks at whole aorta OMIC SPECIALIST * Zeina Ma RN - 08/09/2024 9:52 AM CST Patient and his called in asking if PCP still wants him to have a [place] AAA screening done? The patient already has an appointment with cardiology for an angiogram related to his AAA on November 24. They were not sure if PCP would like his to do both or just continue to follow up with the board finisher? Opportunity given for all questions to be answered, no further needs voiced at this time. LL-08/09/24 OMIC SPECIALIST * Lakesha Mcintosh - 08/04/2024 9:17 AM CST Pts returned call stated okay to call her back. OMIC SPECIALIST * Yumiko Ashley MA - 08/03/2024 4:31 PM CST LMOM to please call office back. OMIC SPECIALIST * Lakesha Mcintosh - 08/03/2024 11:29 AM CST Pts called in stating she might have answers to questions asked in apt. States at his physicallast year or the year before, PCP recommended xray and was needing to be sent to specialist. StatesHolly had ordered xray. Believes 2x years ago. Asking you call the back. Please OMIC SPECIALIST documented in this encounter Plan of Treatment Upcoming Encounters Date Type Department Care Team (Late st Contact Info) Description 10/05/2024 9:20 AM ECONOMIC SPECIALIST Office Visit [facility] Family & Internal Medicine - [place] [address] [place] [address] Morelia Scott APNP [address] [place] [address] 12/02/2024 11:00 AM CDT Office Visit [facility] [place] [address] [place] [address] Rob Tapia MD 3 [facility] [address] [place] [address] documented as of this encounter Visit Diagnoses Not on filedocumented in this encounter Additional Health Concerns Assessment Noted Time PHQ-9 Depression Total Score: 10 023 8:58 AM ECONOMIC SPECIALIST documented as of this encounter Care Teams Lead Man Over All Dies In Pattern Shop Relationship Specialty Start Date End Date Morelia Scott APNP [address] [place] [address] PCP - General NURSE PRACTITIONER 06/12/22 documented as of this encounter
--- OUTSIDE RECORDS SUMMARY | 2024-09-11 17:01 | XMS_ITS | Encounter Summary ---
Author Organization [facility] Address [address] [place] [address]. [place] [address] [place] [address] Care Team Providers Care Can Stacker Name Role Phone Morelia Scott Primary Care Provider [phone] Reason for Referral * Consultation (Routine) - Authorized Specialty Diagnoses / Procedures Referred By Marimar cerna Referred To Contact GASTROENTEROLOGY Diagnoses History of colon polyps Morelia Scott APNP [address] [place] [address] Phone: tel: fax: [facility] - [address], [address] [place] [address] Phone: tel: fax: Referral ID Status Reason Start Date Expiration Date V isits Requested Visits Authorized [id number] Authorized 10/14/2023 11/14/2024 99 99 RMATION MANAGEMENT SPECIALIST Reason for Visit * Reason Onset Date Comments Orders 10/14/2023 Encounter Details Date Type Department Care Team (Late st Contact Info) Description 10/14/2023 Telephone [facility] Family & Internal Medicine - [place] [address] [place] [address] Morelia Scott APNP [address] [place] [address] Orders Social History Tobacco Use Types Packs/Day Years Used Date Smoking Tobacco: Former Cigarettes 30 1 987 2016 Smokeless Tobacco: Never Alcohol Use Standard [...] as of this encounter Progress Notes * Sofya Sam MA - 10/14/2023 1:06 PM CST Referral placed. He has history of colon polyps. RMATION MANAGEMENT SPECIALIST * Melody Parker - 10/14/2023 12:55 PM CST Would like a routine order for a colonoscopy. RMATION MANAGEMENT SPECIALIST documented in this encounter Plan of Treatment Upcoming Encounters Date Type Department Care Team (Late st Contact Info) Description 10/05/2024 9:20 AM INFORMATION MANAGEMENT SPECIALIST Office Visit [facility] Family & Internal Medicine - [place] [address] [place] [address] Morelia Scott APNP [address] [place] [address] 12/02/2024 11:00 AM CDT Office Visit [facility] [place] [facility] [place] [address] Rob Tapia MD [address] [facility] Suite [facility] [place] [address] Scheduled Referrals Name Type Priority Associated Diagnoses Orde r Schedule Ambulatory referral to Gastroenterology ([facility] [place]) Referral Routine History of colon polyps Ordered: 10/14/2023 documented as of this encounter Visit Diagnoses Diagnosis History of colon polyps- Primary Personal history of colonic polyps documented in this encounter Additional Health Concerns Assessment Noted Time PHQ-9 Depression Total Score: 10 023 8:58 AM INFORMATION MANAGEMENT SPECIALIST documented as of this encounter Care Teams Can Stacker Relationship Specialty Start Date End Date Morelia Scott APNP [address] [place] [address] PCP - General NURSE PRACTITIONER 06/12/22 documented as of this encounter
--- OUTSIDE RECORDS SUMMARY | 2024-09-11 17:01 | XMS_ITS | Encounter Summary ---
Author Organization [facility] Address [address] [place] [address]. [place] [address] [place] [address] Care Team Providers Care Per Diem Registered Nurse Name Role Phone Morelia Scott Primary Care Provider [phone] Reason for Referral * Imaging (Routine) - Closed Specialty Diagnoses / Procedures Referred By Contshakira t Referred To Contact RADIOLOGY Diagnoses Aneurysm of ascending aorta without rupture (CMS/HCC) Procedures USE ECHOCARDIOGRAM Rob Tapia MD Phone: tel: fax: Referral ID Status Reason Start Date Expiration Date Visits Re quested Visits Authorized [id number] Closed 12/09/2022 01/09/2024 1 1 Encounter Details Date Type Department Care Team (Late st Contact Info) Description 12/09/2022 Orders Only [facility] [place] [address] [place] [address] Rob Tapia MD 3 [facility] [address] [place] [address] Social History Tobacco Use Types Packs/Day Years [...] Coronavirus/COVID-19? No / Unsure 11/28/2022 9:29 AM ROBOTIC MAINTENANCE TECHNICIAN documented as of this encounter Plan of Treatment Upcoming Encounters Date Type Department Care Team (Late st Contact Info) Description 10/05/2024 9:20 AM ROBOTIC MAINTENANCE TECHNICIAN Office Visit [facility] Family & Internal Medicine [facility] [address] [place] [address] Morelia Scott APNP [address] [place] [address] 12/02/2024 11:00 AM CDT [facility] [place] [address] [place] [phone] Rob Tapia MD 3 [facility] [address] [place] [phone] documented as of this encounter Results * USE ECHOCARDIOGRAM (03/04/2023 11:24 AM CDT) Anatomical Region Laterality Modality Cardiac Echocardiogram 03/04/2023 10:5 1 AM CDT Narrative 03/04/2023 11:47 AM CDT ?Echocardiography Report Pat.Name: ??KAREN VEE Pat.ID: ?[id number] ? St.Date: ?? 03/04/2023 ? Refer.MD: ??[id number] CARROL DUKE ?EWDPROV ?EWDPROV Exam Time: 10:51:00 [...] Right and Left ?? 0.66 ? Major [place] ?78.8 mm ? Ventricular Septum ?? IVSd [...] 03/04/2023 Echocardiography Report Pat.Name: KAREN VEE Pat.ID: [id number] .Date: 03/04/2023 : [id number] CARROL DUKE EWDPROV EWDPROV Exam Time: 10:51:00 AM Study Type:ECHO WITH CARDIAC DOPPLER COMP Height: 70 in Weight: 203 lb BSA: 2.1 m2 Age: 11 1960,62Y Sex: M BP: 137/82 HR: 69 bpm Sonogrphr: Majo Colon [facility] Pat. Stat.:Outpatient Reason for Study:Aortic aneurysm, Ascending [...] 35.3 mm Right and Left 0.66 Major [place] 78.8 mm Ventricular Septum IVSd 1.09 cm [...] of ascending aorta without rupture (CMS/HCC)- Primary Aneurysm of ascending aorta without rupture (CMS/HCC) documented in this encounter Additional Health Concerns Assessment Noted Time PHQ-9 Depression Total Score: 10 023 8:58 AM ROBOTIC MAINTENANCE TECHNICIAN documented as of this encounter Care Teams Per Diem Registered Nurse Relationship Specialty Start Date End Date Morelia Scott APNP [address] [place] [address] PCP - General NURSE PRACTITIONER 06/12/22 documented as of this encounter
--- OUTSIDE RECORDS SUMMARY | 2024-09-11 17:01 | XMS_ITS | Clinical Summary ---
Author Organization [facility] Address [address] [place] [address]. [place] [address] [place] [address] Care Team Providers Care Studio Model Name Role Phone Morelia Scott Primary Care Provider [phone] Allergies Active Allergy Reactions Criticality Noted Date Comments Topiramate Other (see comment) High 07/23/2023 Medications vilazodone (VIIBRYD) 40 MG tablet Take 1 tablet (40 mg total) by mouth daily. Take with food Active RIZATRIPTAN BENZOATE OR Take 20 mg by mouth. 1 every 4 hours. (Max 2 in 24 hours) Active fluticasone propionate (FLONASE) 50 MCG/ACT nasal spray 1 spray by Nasal route daily. Active fish oil (OMEGA-3 FATTY ACID) 1000 MG Cap capsule Take 1 capsule (1,000 mg total) by mouth 2 (two) times daily. Active multivitamin with minerals liquid Take 15 mLs by mouth daily. Active vitamin B-2 (RIBOFLAVIN) 100 MG tablet 1 tablet (100 mg total) daily. Active Coenzyme Q10 (CO Q-10) 120 MG Cap Take by mouth daily. Active QUEtiapine (SEROQUEL) 100 MG tabletIndications :Anxiety,Moderate episode of recurrent major depressive disorder (CMS/HCC HHS/HCC) TAKE 1 TABLET(100 MG) BY MOUTH EVERY NIGHT AT BEDTIME 90 tablet 07/24/20 22 Active QUEtiapine (SEROQUEL) 50 MG tablet Take 1 tablet (50 mg total) by mouth 2 (two) times daily. Pt takes 50mg in the morning and 50 mg at noon. 08/14/20 22 Active buPROPion XL (WELLBUTRIN XL) 150 MG 24 hr tablet Take 1 tablet (150 mg total) by mouth. 01/06/20 23 Active dexmethylphenidat e XR (FOCALIN XR) 15 MG 24 hr capsule Take 1 capsule (15 mg total) by mouth daily. 07/07/20 23 Active pravastatin (PRAVACHOL) 40 MG tabletIndications :Mixed hyperlipidemia Take 1 tablet (40 mg total) by mouth daily. 90 tablet 3 10/03/19 24 Active lisinopril (PRINIVIL) 10 MG tabletIndications :Primary hypertension Take 1 tablet (10 mg total) by mouth daily. 90 tablet 3 10/03/19 24 Active Fenofibrate 134 MG CapIndications:Mi xed hyperlipidemia Take 134 mg by mouth 4 (four) times a week. 4 x a week AM 108 capsule 3 10/04/19 24 Active cyclobenzaprine (FLEXERIL) 10 MG tabletIndications :Intractable chronic migraine without aura and without status migrainosus TAKE 1 TABLET BY MOUTH EVERY NIGHT AT BEDTIME. MAY TAKE 1 TABLET DAILY NEEDED FOR HEADACHE OR MUSCLE SPASMS 30 tablet 1 08/26/20 24 Active cyclobenzaprine (FLEXERIL) 10 MG tabletIndications :Intractable chronic migraine without aura and without status migrainosus TAKE 1 TABLET BY MOUTH EVERY NIGHT AT BEDTIME, MAY TAKE 1 TABLET DAILY NEEDED FOR HEADACHE OR MUSCLE SPASMS 30 tablet 07/20/20 24 024 Discontinued ondansetron (ZOFRAN) 4 MG tabletIndications :Nausea Take 1 tablet (4 mg total) by mouth every 8 (eight) hours as needed for Nausea. 20 tablet 08/27/20 24 024 Discontinued(P atient/family declined) Active Problems Problem Noted Date Diagnosed Date Aneurysm of ascending aorta without rupture 07/23 ADHD (attention deficit hyperactivity disorder) Depression Hypertension Mixed hyperlipidemia Anxiety Seasonal allergies Encounters Date Type Department Care Team Description 08/27/2024 Telephone [facility] Family & Internal Medicine [address] [phone] Morelia Scott APNP Advice 08/20/2024 Telephone [facility] Family & Internal Medicine [address] [phone] Morelia Scott APNP Results 08/16/2024 9:05 AM ORTHOPEDIC BRACE MAKER - 08/16/2024 11:59 PM ORTHOPEDIC BRACE MAKER Hospital Encounter [facility] [place] [address] Morelia Scott APNP Discharge Disposition: Home or Self Care (Routine Discharge) 08/16/2024 Travel 08/12/2024 Telephone [facility] Internal [address] [phone] Morelia Scott APNP Question 08/03/2024 9:20 AM ORTHOPEDIC BRACE MAKER Office Visit [address] [phone] Morelia Scott APNP Hypertension 08/03/[address] [phone] Morelia Scott APNP Information 08/03/2024 Travel from Last 3 Months Immunizations Name Administration Dates Next Due Abrysvo Respiratory Syncytia l Virus (RSV) 0.5 mL, PF 07/19/2023 Attenuvax Sc 09/22/2013 FLUAD (IIV, Trivalent, 0.5 M L Pre-filled Syringe) 07/12/2024 Influenza (Generic) 05/23/2015,05/23/2014 Influenza Adult (Generic) 07/12/2023,07/19/2022, 06/11/2016 MODERNA COVID-19 BIVALENT (1 2+), MRNA, LNP-S, PF 07/19/2022 Pneumococcal (Prevnar 20) 10/03/2023 Small Pox 01/20/1990 Tdap (Adacel) 06/12/2022 Tetanus Toxoid Inj 10/23/1997 Family History Medical History Relation Comments Cancer Father Diabetes Father Diabetes Mother Heart Mother Hypertension Mother Lipids Mother Relation Status Comments Brother Alive Father Maternal Grandfather Maternal Grandmother Mother Paternal Grandfather Paternal Grandmother Sister 1 Alive Sister 2 Alive Sister 3 Alive Social History Tobacco Use Types Packs/Day Years Used Date Smoking Tobacco: Former Cigarettes 1 30 1 987 - 2017 Smokeless Tobacco: Never Tobacco Cessation:Counseling Given: Not [...] Sign Reading Time Taken Comments Blood Pressure 118/74 08/03/2024 9:28 AM ORTHOPEDIC BRACE MAKER Pulse 79 08/03/2024 9:28 AM ORTHOPEDIC BRACE MAKER Temperature 36.7 ??C (98.1 ??F) 08/03/2024 9:28 AM CS T Respiratory Rate 16 08/03/2024 9:28 AM ORTHOPEDIC BRACE MAKER Oxygen Saturation 98% 08/03/2024 9:28 AM ORTHOPEDIC BRACE MAKER Inhaled Oxygen Concentration - - Weight 94 kg (207 lb 4.8 oz) 08/03/2024 9:28 AM ORTHOPEDIC BRACE MAKER Height 177.8 cm (5' 10 ) 08/03/2024 9:28 AM ORTHOPEDIC BRACE MAKER Body Mass Index 29.74 08/03/2024 9:28 AM ORTHOPEDIC BRACE MAKER Plan of Treatment Upcoming Encounters Date Type Department Care Team (Late st Contact Info) Description 10/05/2024 9:20 AM ORTHOPEDIC BRACE MAKER Office Visit [facility] Family & Internal Medicine - [place] [address] [place] [address] Morelia Scott APNP [address] [place] [address] 12/02/2024 11:00 AM CDT Office Visit [facility], [place] [address] [place] [id number] Rob Tapia MD 3 [facility] [address] [place] [address] Health Maintenance Due Date Last Done Comments Lung Cancer Screening 2008 Zoster Vaccines (1 of 2) 2008 AAA SCREENING 2023 Annual Medicare Wellness Visit 2023 Colorectal Cancer Screening Colonoscopy (10 Years) 11/26/2028 11/26/2018 DTaP, Tdap and Td Vaccines (2 - Td or Tdap) 06/12/2032 06/12/2022, 10/23/1997 Hepatitis C Completed 10/01/2022 RSV Immunization or 60+ Years Completed 07/19/2023 Pneumococcal Vaccine: 65+ Years Completed 10/03/2023 COVID-19 Vaccine Completed 07/12/2024, , 07/12/2023, Additional history exists Influenza Adult Completed 07/12/2024, 06/23, 07/19/2022, Additional history exists Meningococcal Vaccine Aged Out No anthony verona eligible based on patient's age to complete this topic RSV Immunizations Under 20 Months Aged Out No longer eligible based on patient's age to complete this topic Procedures Procedure Name Priority Date/Time Associated Diagnosis Comments LIPID PANEL Routine 08/16/2024 9:15 AM ORTHOPEDIC BRACE MAKER Mixed hyperlipidemia TSH W/REFLEX Routine 08/16/2024 9:15 AM ORTHOPEDIC BRACE MAKER Fatigue COMPREHENSIVE METABOLIC PANEL Routine 08/16/2024 9:15 AM ORTHOPEDIC BRACE MAKER Primary hypertension Mixed hyperlipidemia Fatigue CBC W/DIFF AUTOMATED Routine 08/16/2024 9:15 AM ORTHOPEDIC BRACE MAKER Primary hypertension Mixed hyperlipidemia Fatigue HEPATITIS C ANTIBODY Routine 10/01/2022 9:27 AM ORTHOPEDIC BRACE MAKER Need for hepatitis C screening test COLONOSCOPY GENERIC (SCAN ORDER) 11/26/2018 from Last 3 Months or Most Recently Relevant to Health Maintenance Results * TSH W/REFLEX (08/16/2024 9:15 AM ORTHOPEDIC BRACE MAKER) TSH 2.810 0.358 - 3.74 uIU/ML 08/16/2024 10:19 AM ORTHOPEDIC BRACE MAKER [facility] Comment: HIGH DOSES OF BIOTIN MAY INTERFERE WITH THIS TEST RESULT. CORRELATION TO CLINICAL HISTORY AND PRESENTATION RECOMMENDED. FREE T4 NOT INDICATED 08/16/2024 9:15 AM ORTHOPEDIC BRACE MAKER us Morelia Lockechalo [facility] Final Resul t [facility] [address] [place] [address], * (ABNORMAL) COMPREHENSIVE METABOLIC PANEL (08/16/2024 9:15 AM ORTHOPEDIC BRACE MAKER) [facility] GLUCOSE 97 70 - 99 MG/DL 08/16/2024 10:19 AM [facility] BUN 19(H) 7 - 18 MG/DL 08/16/2024 10:19 AM [facility] CREATININE S/P/B 1.23 0.7 - 1.3 MG/DL 08/16/2024 10:19 AM [facility] SODIUM S/P/B 137 136 - 145 MMOL/L 08/16/2024 10:19 AM [facility] POTASSIUM S/P/B 3.8 3.5 - 5.1 MMOL/L 08/16/2024 10:19 AM [facility] CHLORIDE S/P/B 107 97 - 115 MMOL/L 08/16/2024 10:19 AM [facility] CO2 26.4 21 - 32 MMOL/L 08/16/2024 10:19 AM [facility] CALCIUM S/P/B 9.2 8.5 - 10.1 MG/DL 08/16/2024 10:19 AM [facility] BILIRUBIN TOTAL S/P/B 0.6 0.2 - 1.2 MG/DL 08/16/2024 10:19 AM [facility] Comment: THIS ASSAY IS NOT RECOMMENDED FOR PATIENTS UNDERGOING TREATMENT WITH ELTROMBOPAG DUE TO THE POTENTIAL FOR FALSELY ELEVATED RESULTS. TOTAL PROTEIN S/P/B 7.3 6.4 - 8.2 G/DL 08/16/2024 10:19 AM [facility] ALBUMIN S/P/B 4.0 3.4 - 5.0 G/DL 08/16/2024 10:19 AM [facility] AST 24 15 - 37 U/L 08/16/2024 10:19 AM [facility] ALT 35 16 - 60 U/L 08/16/2024 10:19 AM [facility] ALKALINE PHOSPHATASE S/P/B 52 50 - 136 U/L 08/16/2024 10:19 AM [facility] ANION GAP 3.6 2 - 10 MMOL/L 08/16/2024 10:19 AM [facility] BUN CREATININE RATIO 15.4 6 - 26 08/16/2024 10:19 AM [facility] A/G RATIO 1.2 1.0 - 2.0 RATIO 08/16/2024 10:19 AM [facility] GFR ESTIMATE 65(L) >90 ML/MIN/1.7 3 M2 08/16/2024 10:19 AM [facility] Comment: NOTE: eGFR is not calculated for patients <18 years of age or gender unknown. This is an estimated GFR calculation using the new CKD EPI creatinine equation without race and so does not require a correction factor for race. This estimated GFR should not be used for calculating drug doses. 08/16/2024 9:15 AM ORTHOPEDIC BRACE MAKER us Morelia [facility] Final Resul t [facility] [address] [place] [address], [place] [phone] * LIPID PANEL (08/16/2024 9:15 AM ORTHOPEDIC BRACE MAKER) CHOLESTEROL 171 <200 MG/DL 08/16/2024 10:19 AM [facility] TRIGLYCERIDES 146 <150 MG/DL 08/16/2024 10:19 AM [facility] HDL 49 >40.0 MG/DL 08/16/2024 10:19 AM [facility] LDL (CALCULATED) 93 <100 MG/DL 08/16/20 10:19 AM [facility] NON HDL CHOLESTEROL 122 <130 MG/DL 08/16 10:19 AM [facility] CHOL/HDL RATIO 3.5 0.0 - 4.5 08/16/2024 10:19 AM [facility] VLDL CALCULATION 29 5 - 55 MG/DL 08/16/2024 10:19 AM [facility] LIPID INTERPRETATION 08/16/2024 10:19 AM [facility] Comment: NIH CONCENSUS REPORT RECOMMENDATIONS: ?ADULT [...] ?LDL ? >=160 ?>=130 08/16/2024 9:15 AM ORTHOPEDIC BRACE MAKER us Morelia [facility] Final Resul t [facility] [address] [place] [address], * CBC W/DIFF AUTOMATED (08/16/2024 9:15 AM ORTHOPEDIC BRACE MAKER) WBC 6.59 4.5 - 11.0 x10'3/uL 08/16/2024 9:37 AM ORTHOPEDIC BRACE MAKER [facility] RBC 5.35 4.70 - 6.10 x10'6/uL 08/16/2024 9:37 AM ORTHOPEDIC BRACE MAKER [facility] HGB 15.7 14.0 - 18.0 G/DL 08/16/2024 9:37 AM ORTHOPEDIC BRACE MAKER [facility] HCT 47.2 43.0 - 54.0 % 08/16/2024 9:37 AM [facility] MCV 88.2 80.0 - 94.0 FL 08/16/2024 9:37 AM [facility] MCH 29.3 27.0 - 31.0 PG 08/16/2024 9:37 AM [facility] MCHC 33.3 32.0 - 36.0 G/DL 08/16/2024 9:37 AM [facility] RDW 12.8 11.5 - 14.5 % 08/16/2024 9:37 AM [facility] PLT 265 130 - 400 x10'3/uL 08/16/2024 9:37 AM [facility] MPV 10.0 9.3 - 12.2 FL 08/16/2024 9:37 AM [facility] DIFFERENTIAL TYPE AUTOMATED DIFFERENTIAL 08/16/2024 9:37 AM [facility] NEUTROPHILS % 52.3 % 08/16/2024 9:37 AM [facility] LYMPHOCYTES % 36.4 % 08/16/2024 9:37 AM [facility] MONOCYTES % 7.0 % 08/16/2024 9:37 AM [facility] EOSINOPHILS 3.2 % 08/16/2024 9:37 AM [facility] BASOPHILS 0.8 % 08/16/2024 9:37 AM [facility] IMMATURE GRANS % 0.3 % 08/16/20 9:37 AM [facility] ABS. NEUTROPHILS 3.45 1.80 - 7.70 x10'3/uL 08/16/2024 9:37 AM [facility] ABS. LYMPHOCYTES 2.40 1.00 - 4.80 x10'3/uL 08/16/2024 9:37 AM [facility] ABS. MONOCYTES 0.46 0.30 - 0.82 x10'3/uL 08/16/2024 9:37 AM [facility] ABS. EOSINOPHILS 0.21 0.04 - 0.54 x10'3/uL 08/16/2024 9:37 AM ORTHOPEDIC BRACE MAKER [facility] ABS. BASOPHILS 0.05 0.01 - 0.08 x10'3/uL 08/16/2024 9:37 AM ORTHOPEDIC BRACE MAKER [facility] ABS. IMMATURE GRANULOCYTES 0.02 0.00 - 0.49 x10'3/uL 08/16/2024 9:37 AM ORTHOPEDIC BRACE MAKER [facility] 08/16/2024 9:15 AM ORTHOPEDIC BRACE MAKER Morelia [facility] Final Resul t [facility] [address] [place] [id number], [place] [phone] * HEPATITIS C AB ([facility] ONLY) (10/01/2022 9:27 AM ORTHOPEDIC BRACE MAKER) HEPATITIS C AB NON-REACTI VE NON-REACT SHEILA 10/01/2022 7:30 PM ORTHOPEDIC BRACE MAKER [facility] Comment: ANTIBODIES TO HCV NOT DETECTED. DOES NOT EXCLUDE THE POSSIBILITY OF EXPOSURE TO HCV. 10/01/2022 9:27 AM ORTHOPEDIC BRACE MAKER Morelia [facility] Final Resul t [facility] [address] [place] [address], [place] [phone] [id number] * COLONOSCOPY GENERIC (11/26/2018) 11/26/2018 [facility] Scanned SCANNING Final Resu lt from Last 3 Months or Most Recently Relevant to Health Maintenance Insurance MEDICARE [facility] Advance Directives Documents on File Type Date Recorded Patient Package Handler Expl anation Power of Adobe Layer 10/14/2023 6:21 AM KENAN Vicente [facility] Care Teams Studio Model Relationship Specialty Start Date End Date Morelia Scott APNP [address] [place] [phone] PCP - General NURSE PRACTITIONER 06/12/22
--- OUTSIDE RECORDS SUMMARY | 2024-09-11 17:01 | XMS_ITS | Encounter Summary ---
Author Organization [facility] Address [address] [place] [address]. [place], [place] [id number] [place] [address] Care Team Providers Care Exploitation Analyst Name Role Phone Morelia Scott Primary Care Provider [phone] Reason for Referral * Consultation (Routine) - Authorized Specialty Diagnoses / Procedures Referred By Contshakira t Referred To Contact Psychiatry Diagnoses Moderate episode of recurrent major depressive disorder ([facility]) Anxiety Attention deficit hyperactivity disorder (ADHD), predominantly inattentive type Procedures OFFICE/OUTPATIENT NEW LOW MDM 30-44 MINUTES OFFICE/OUTPT VISIT,NEW,LEVL IV OFFICE/OUTPT VISIT,NEW,LEVL V OFFICE/OUTPT VISIT,EST,LEVL III OFFICE/OUTPT VISIT,EST,LEVL IV OFFICE/OUTPT VISIT,EST,LEVL V Morelia Scott APNP [address] [place] [address] Phone: tel: fax: Referral ID Status Reason Start Date Expiration Date Visits Requested Visits Authorized [id number] Authorized Specialty Services 3 09/10/2024 99 99 Scheduling Instructions [facility]: [phone] ANT LEADER Reason for Visit * Reason Onset Date Comments Orders 09/10/2023 Encounter Details Date Type Department Care Team ([facility] st Contact Info) Description 09/10/2023 Telephone [facility] Family & Internal Medicine [facility] [address] [place] [address] Morelia Scott APNP [address] [place] [address] Orders Social History Tobacco Use Types Packs/Day [...] Progress Notes * Yumiko Ashley MA - 09/10/2023 3:41 PM CST OK for referral? Referral pended. ANT LEADER * MARCELA Plummer - 09/10/2023 1:19 PM CST Patient needs a referral to a new psychiatrist @ [facility]: [phone] ANT LEADER documented in this encounter Plan of Treatment Upcoming Encounters Date Type Department Care Team (Late st Contact Info) Description 10/05/2024 9:20 AM MIGRANT LEADER Office Visit [facility] Family & Internal Medicine - [place] [address] [place] [address] Morelia Scott APNP [address] [place] [address] 12/02/2024 11:00 AM CDT Office Visit [facility] [place] [place] [address] Rob Tapia MD 3 [facility] [address] [place] [address] Scheduled Referrals Name Type Priority Associated Diagnoses Orde r Schedule Ambulatory Referral to Psychiatry Referral Routine Moderate episode of recurrent major depressive disorder ([facility]) Anxiety Attention deficit hyperactivity disorder (ADHD), predominantly inattentive type Ordered: 09/10/2023 documented as of this encounter Visit Diagnoses Diagnosis Moderate episode of recurrent major depressive disorder ([facility])- Primary Anxiety Anxiety state, unspecified Attention deficit hyperactivity disorder (ADHD), predominantly inattentive type documented in this encounter Additional Health Concerns Assessment Noted Time PHQ-9 Depression Total Score: 10 023 8:58 AM MIGRANT LEADER documented as of this encounter Care Teams Exploitation Analyst Relationship Specialty Start Date End Date Morelia Scott APNP [address] [place] [phone] PCP - General NURSE PRACTITIONER 06/12/22 documented as of this encounter
--- OUTSIDE RECORDS SUMMARY | 2024-09-11 17:01 | XMS_ITS | Encounter Summary ---
Author Organization [facility] Address [address] [place] [address]. [place], [place] [address] [place] [address] Care Team Providers Care Pbx Mechanic Name Role Phone Sonia, Morelia Cinthia CAMPBELL Primary Care Provider [phone] Reason for Visit * Reason Comments Ankle Pain Left ankle pain s/p injury yesterday Encounter Details Date Type Department Care Team (Late st Contact Info) Description 08/11/2023 2:20 PM STOCK LIFTER Office Visit [facility] Family & Internal Medicine [facility] [address] [place] [address] Ashley Gilliam FNP [address] [place], [place] [id number] Ankle Pain (Left ankle pain s/p injury yesterday) Social History Tobacco Use Types Packs/Day Years Used Date Smoking Tobacco: Former Cigarettes 7 - 2016 Smokeless Tobacco: Never Tobacco Cessation:Counseling [...] Sign Reading Time Taken Comments Blood Pressure 124/81 08/11/2023 2:14 PM STOCK LIFTER Pulse 72 08/11/2023 2:14 PM STOCK LIFTER Temperature 36.4 ??C (97.5 ??F) 08/11/2023 2:14 PM CS T Respiratory Rate 16 08/11/2023 2:14 PM STOCK LIFTER Oxygen Saturation 98% 08/11/2023 2:14 PM STOCK LIFTER Inhaled Oxygen Concentration - - Weight 94.8 kg (209 lb) 08/11/2023 2:14 PM STOCK LIFTER Height 177.8 cm (5' 10 ) 08/11/2023 2:14 PM STOCK LIFTER Body Mass Index 29.99 08/11/2023 2:14 PM STOCK LIFTER documented in this encounter Patient Instructions * Patient Instructions* IVANA Britt - 08/11/2023 2:20 PM STOCK LIFTER Continue to use ice to the area and elevate your ankle/foot Use an Lamont bandage or compression sleeve for comfort Get your x-ray done as soon as you can and we will call you with these results Continue to use [id number] pain medication as needed and as we discussed Call for any questions or concerns Follow-up routinely or sooner if needed K LIFTER * Attachments The following attachments cannot be sent through Care Everywhere. * Ankle Sprain Discharge Instructions ([place]) documented in this encounter Progress Notes * IVANA Britt - 08/11/2023 2:20 PM CSTSummary: left ankle injury with pain and swelling Office Progress Note Reason for Visit: Ankle Pain (Left ankle pain s/p injury yesterday) History of Present Illness: Presents to the office for c/o left ankle injury with pain and swelling. He reports that he was cleaning his gutters, yesterday, and his foot got caught in the ladder and twisted. He was wearing flip flops and thinks that this exacerbated his injury. He has been using tylenol, ice and elevating his foot/leg without any relief. ROS: Review of Systems Constitutional: Negative for chills, diaphoresis, fever, malaise/fatigue and weight loss. HENT: Negative for congestion, ear discharge, ear pain, hearing loss, nosebleeds, sinus pain, sore throat and tinnitus. Eyes: Negative for blurred vision, double vision, photophobia, pain, discharge and redness. Respiratory: Negative for cough, hemoptysis, sputum production, shortness of breath, wheezing and stridor. Cardiovascular: Negative for chest pain, palpitations, orthopnea, claudication, leg swelling and PND. Gastrointestinal: Negative for abdominal pain, blood in stool, constipation, diarrhea, heartburn, melena, nausea and vomiting. Genitourinary: Negative for dysuria, flank pain, frequency, hematuria and urgency. Musculoskeletal: Positive for joint pain. Negative for back pain, falls, myalgias and neck pain. Skin: Negative for itching and rash. Neurological: Negative for dizziness, tingling, tremors, sensory change, speech change, focal weakness, seizures, loss of consciousness, weakness and headaches. Endo/Heme/Allergies: Negative for environmental allergies and polydipsia. Does not bruise/bleed easily. Psychiatric/Behavioral: Negative for depression, hallucinations, memory loss, substance abuse and suicidal ideas. The patient is not nervous/anxious and does not have insomnia. Medications: Current Outpatient Medications on File Prior to Visit Medication Sig buPROPion XL (WELLBUTRIN XL) 150 MG 24 hr tablet Take 1 tablet (150 mg total) by mouth. Coenzyme Q10 (CO Q-10) 120 MG Cap Take by mouth daily. cyclobenzaprine (FLEXERIL) 10 MG tablet TAKE 1 TABLET BY MOUTH EVERY NIGHT AT BEDTIME. MAY TAKE 1 TABLET DAILY NEEDED FOR HEADACHE OR MUSCLE SPASMS dexmethylphenidate XR (FOCALIN XR) 15 MG 24 hr capsule Take 1 capsule (15 mg total) by mouth daily. Fenofibrate 134 MG Cap Take 134 mg by mouth 4 (four) times a week. 4 x a week AM fish oil (OMEGA-3 FATTY ACID) 1000 MG Cap capsule Take 1 capsule (1,000 mg total) by mouth 2 (two) times daily. fluticasone propionate (FLONASE) 50 MCG/ACT nasal spray 1 spray by Nasal route daily. lisinopril (PRINIVIL) 10 MG tablet Take 1 tablet (10 mg total) by mouth daily. multivitamin with minerals liquid Take 15 mLs by mouth daily. NURTEC 75 MG disintegrating tablet TAKE 1 TABLET ON OR UNDER THE TONGUE EVERY OTHER DAY TO PREVENT MIGRAINE HEADACHES. pravastatin (PRAVACHOL) 40 MG tablet TAKE 1 TABLET BY MOUTH EVERY DAY QUEtiapine (SEROQUEL) 100 MG tablet TAKE 1 TABLET(100 MG) BY MOUTH EVERY NIGHT AT BEDTIME QUEtiapine (SEROQUEL) 50 MG tablet Take 1 tablet (50 mg total) by mouth 2 (two) times daily. Pt takes 50mg in the morning. RIZATRIPTAN BENZOATE OR Take 20 mg by mouth. 1 every 4 hours. (Max 2 in 24 hours) vilazodone (VIIBRYD) 40 MG tablet Take 1 tablet (40 mg total) by mouth daily. Take with food vitamin B-2 (RIBOFLAVIN) 100 MG tablet 1 tablet (100 mg total) daily. No current facility-administered medications on file prior to visit. Allergies: Review of patient's allergies indicates: Allergen [...] Types: Cigarettes Quit date: 2016 Years since quittin.8 Smokeless tobacco: Never Vaping Use Vaping Use: Never used Substance and Sexual Activity Alcohol use: Never Drug use: Never Family History: Family History Problem Relation Name Age of Onset Lipids Mother Heart Mother Diabetes Mother Hypertension Mother Cancer Father Diabetes Father PE: Physical Exam Vitals and nursing note reviewed. Constitutional: General: He is not in acute distress. Appearance: Normal appearance. He is well-developed and well-groomed. He is not ill-appearing, toxic-appearing or diaphoretic. HENT: Head: Normocephalic and atraumatic. Right Ear: Hearing and external ear normal. Left Ear: Hearing and external ear normal. Nose: Nose normal. Mouth/Throat: Mouth: Mucous membranes are moist. Eyes: General: Lids are normal. Gaze aligned appropriately. Cardiovascular: Rate and Rhythm: Normal rate and regular rhythm. Pulses: Dorsalis pedis pulses are 2+ on the left side. Posterior tibial pulses are 2+ on the left side. Pulmonary: Effort: Pulmonary effort is normal. No tachypnea, bradypnea, accessory muscle usage, prolonged expiration, respiratory distress or retractions. Breath sounds: Normal breath sounds and air entry. Musculoskeletal: Cervical back: Full passive range of motion without pain and normal range of motion. No edema, erythema, signs of trauma, rigidity, torticollis or crepitus. No pain with movement, spinous process tenderness or muscular tenderness. Normal range of motion. Left ankle: Swelling present. No deformity, ecchymosis or lacerations. Tenderness present over the lateral malleolus. Normal range of motion. Normal pulse. Left foot: Normal range of motion and normal capillary refill. Swelling present. No deformity, bunion, Charcot foot, foot drop, prominent metatarsal heads, laceration, tenderness, bony tenderness or crepitus. Normal pulse. Skin: General: Skin is warm and dry. Capillary Refill: Capillary refill takes less than 2 seconds. Neurological: Mental Status: He is alert and oriented to person, place, and time. Sensory: Sensation is intact. Motor: Motor function is intact. Coordination: Coordination is intact. Gait: Gait abnormal (limping but steady gait.). Psychiatric: Attention and Perception: Attention and perception normal. Mood and Affect: Mood and affect normal. Speech: Speech normal. Behavior: Behavior is cooperative. Thought Content: Thought content normal. Cognition and Memory: Cognition and memory normal. Filed Vitals: 08/11/23 1414 BP: 124/81 Pulse: 72 Resp: 16 Temp: 97.5 ??F (36.4 ??C) SpO2: 98% Weight: 94.8 kg (209 lb) Height: 1.778 m (5' 10 ) Diagnoses/Impression: 1. Acute left ankle pain XR ANKLE LT M3V 2. Left ankle swelling XR ANKLE LT M3V 3. Injury of left ankle, initial encounter XR ANKLE LT M3V Recommendations and Plan: 1. Acute left ankle pain - XR ANKLE LT M3V; Future Imaging to be obtained as ordered since we do not have an x-ray tech today in the office We discussed continuing RICE therapy and wearing a compression sleeve or lamont wrap for comfort We will call him with his results once they come back Advised to follow-up routinely or sooner if needed 2. Left ankle swelling - XR ANKLE LT M3V; Future Imaging to be obtained as ordered since we do not have an x-ray tech today in the office We discussed continuing RICE therapy and wearing a compression sleeve or lamont wrap for comfort We will call him with his results once they come back Advised to follow-up routinely or sooner if needed 3. Injury of left ankle, initial encounter - XR ANKLE LT M3V; Future Imaging to be obtained as ordered since we do not have an x-ray tech today in the office We discussed continuing RICE therapy and wearing a compression sleeve or lamont wrap for comfort We will call him with his results once they come back Advised to follow-up routinely or sooner if needed Orders Placed This Encounter XR ANKLE LT M3V Cannot display discharge medications since this is not an admission. PCP: IVANA CORTEZ 08/11/2023 Cosigned by Masood Duran MD at 08/17/2023 5:08 PM STOCK LIFTER K LIFTER K LIFTER documented in this encounter Plan of Treatment Upcoming Encounters Date Type Department Care Team (Late st Contact Info) Description 10/05/2024 9:20 AM STOCK LIFTER Office Visit [facility] Medical Group Family & Internal Medicine - [place] [address] [place] [address] [facility] [place] [address] 12/02/2024 11:00 AM CDT Office [facility], [address] [address] Rob Tapia MD 3 [facility] [address] [place] [address] Scheduled Orders Name Type Priority Associated Diagnoses Orde r Schedule XR ANKLE LT M3V Imaging Routine Acute left ankle pain Left ankle swelling Injury of left ankle, initial encounter Expected: 08/11/2023, Expires: 08/11/2024 documented as of this encounter Visit Diagnoses Diagnosis Acute left ankle pain- Primary Left ankle swelling Effusion of ankle and foot joint Injury of left ankle, initial encounter documented in this encounter Additional Health Concerns Assessment Noted Time PHQ-9 Depression Total Score: 10 023 8:58 AM STOCK LIFTER documented as of this encounter Care Teams Pbx Mechanic Relationship Specialty Start Date End Date Morelia Scott APNP [address] [place] [id number] PCP - General NURSE PRACTITIONER 06/12/22 documented as of this encounter
--- OUTSIDE RECORDS SUMMARY | 2024-09-11 17:01 | XMS_ITS | Encounter Summary ---
Author Organization [facility] Address [address] [place] [address]. [place], [place] [id number] [place] [address] Care Team Providers Care Help Desk Support Name Role Phone Morelia Scott Primary Care Provider [phone] Encounter Details Date Type Department Care Team (Latest Contact Info) Description 03/18/2023 Scan HEALTH INFO SRVCS Scanned, Doc Med [...] st Contact Info) Description 10/05/2024 9:20 AM DOCUMENT REVIEW ATTORNEY Office Visit [facility] Family & Internal Medicine - [place] [address] [place] [phone] Morelia Scott APNP [address] [place] [address] 12/02/2024 11:00 AM CDT Office Visit [facility], [address] [place] [address] Rob Tapia MD 3 [facility] [address] [place] [address] documented as of this encounter Visit Diagnoses Not on filedocumented in this encounter Additional Health Concerns Assessment Noted Time PHQ-9 Depression Total Score: 10 023 8:58 AM DOCUMENT REVIEW ATTORNEY documented as of this encounter Care Teams Help Desk Support Relationship Specialty Start Date End Date Morelia Scott APNP [address] [place] [address] PCP - General NURSE PRACTITIONER 06/12/22 documented as of this encounter
--- OUTSIDE RECORDS SUMMARY | 2024-09-11 17:01 | XMS_ITS | Encounter Summary ---
Author Organization [facility] Address [address] [place] [address]. [place], [place] [phone] [place] [address] Care Team Providers Care Digital Media Designer Name Role Phone Morelia Scott Primary Care Provider [phone] Encounter Details Date Type Department Care Team (Latest Contact Info) Description 09/16/2023 Scan HEALTH INFO SRVCS Scanned, Doc Med [...] st Contact Info) Description 10/05/2024 9:20 AM FUSELAGE FRAMER Office Visit [facility] Family & Internal Medicine - [place] [address] [place] [address] Morelia Scott APNP [address] [place] [address] 12/02/2024 11:00 AM CDT Office Visit [facility], [address] [place], [place] [address] Rob Tapia MD 3 [facility] [address] [place] [address] documented as of this encounter Visit Diagnoses Not on filedocumented in this encounter Additional Health Concerns Assessment Noted Time PHQ-9 Depression Total Score: 10 023 8:58 AM FUSELAGE FRAMER documented as of this encounter Care Teams Digital Media Designer Relationship Specialty Start Date End Date Morelia Scott APNP [address] [place] [id number] PCP - General NURSE PRACTITIONER 06/12/22 documented as of this encounter
--- OUTSIDE RECORDS SUMMARY | 2024-09-11 17:01 | XMS_ITS | Encounter Summary ---
Author Organization [facility] Address [address] [place] [address]. [place] [address] [place] [address] Care Team Providers Care Inside Phone Sales Name Role Phone Morelia Scott Primary Care Provider [phone] Encounter Details Date Type Department Care Team (Latest Contact Info) Description 10/03/2023 Travel Social History Tobacco Use Types Packs/Day [...] st Contact Info) Description 10/05/2024 9:20 AM TOURIST INFORMATION ASSISTANT Office Visit [facility] Family & Internal Medicine - [place] [address] [place] [address] Morelia Scott APNP [address] [place] [address] 12/02/2024 11:00 AM CDT Office Visit [facility] [address] [place] [address] Rob Tapia MD 3 [facility] [address] [place], [place] [address] documented as of this encounter Visit Diagnoses Not on filedocumented in this encounter Additional Health Concerns Assessment Noted Time PHQ-9 Depression Total Score: 10 023 8:58 AM TOURIST INFORMATION ASSISTANT documented as of this encounter Care Teams Inside Phone Sales Relationship Specialty Start Date End Date Morelia Scott APNP [address] [place] [address] PCP - General NURSE PRACTITIONER 06/12/22 documented as of this encounter
--- OUTSIDE RECORDS SUMMARY | 2024-09-11 17:01 | XMS_ITS | Encounter Summary ---
Author Organization [facility] Address [address] [place] [address]. [place], [place] [address] [place] [address] Care Team Providers Care Last Model Department Supervisor Name Role Phone Morelia Scott Primary Care Provider [phone] Encounter Details Date Type Department Care Team (Latest Contact Info) Description 08/16/2024 9:05 AM MINE DEPUTY - 08/16/2024 11:59 PM [facility] Hospital Encounter [facility] [place] [address] Morelia Scott APNP [address] [place] [address] Discharge Disposition: Home or Self Care (Routine [...] on file documented as of this encounter Medications at Time of Discharge buPROPion XL (WELLBUTRIN XL) 150 MG 24 hr tablet Take 1 tablet (150 mg total) by mouth. 01/05/2023 Coenzyme Q10 (CO Q-10) 120 MG Cap Take by mouth daily. dexmethylphenidate XR (FOCALIN XR) 15 MG 24 hr capsule Take 1 capsule (15 mg total) by mouth daily. 07/07/2023 Fenofibrate 134 MG CapIndications:Mixed hyperlipidemia Take 134 mg by mouth 4 (four) times a week. 4 x a week AM 108 capsule 3 10/04/2023 fish oil (OMEGA-3 FATTY ACID) 1000 MG Cap capsule Take 1 capsule (1,000 mg total) by mouth 2 (two) times daily. fluticasone propionate (FLONASE) 50 MCG/ACT nasal spray 1 spray by Nasal route daily. lisinopril (PRINIVIL) 10 MG tabletIndications:Pr imary hypertension Take 1 tablet (10 mg total) by mouth daily. 90 tablet 3 10/03/2023 multivitamin with minerals liquid Take 15 mLs by mouth daily. pravastatin (PRAVACHOL) 40 MG tabletIndications:Mi xed hyperlipidemia Take 1 tablet (40 mg total) by mouth daily. 90 tablet 3 10/03/2023 QUEtiapine (SEROQUEL) 100 MG tabletIndications:An xiety,Moderate episode [...] tablet 1 tablet (100 mg total) daily. cyclobenzaprine (FLEXERIL) 10 MG tabletIndications:In tractable chronic migraine without aura and without status migrainosus TAKE 1 TABLET BY MOUTH EVERY NIGHT AT BEDTIME, MAY TAKE 1 TABLET DAILY NEEDED FOR HEADACHE OR MUSCLE SPASMS 30 tablet 07/20/2024 4 documented as of this encounter Plan of Treatment Upcoming Encounters Date Type Department Care Team (Late st Contact Info) Description 10/05/2024 9:20 AM MINE DEPUTY Office Visit [facility] Family & Internal Medicine [place] [phone] Morelia Scott APNP [address] [place] [address] 12/02/2024 11:00 AM CDT Office Visit [facility], [address] [place], [place] [phone] Rob Tapia MD 3 [facility] [address] [place], [place] [id number] documented as of this encounter Procedures Procedure Name Priority Date/Time Associated Diagnosis Comments TSH W/REFLEX Routine 08/16/2024 9:15 AM MINE DEPUTY Fatigue COMPREHENSIVE METABOLIC PANEL Routine 08/16/2024 9:15 AM MINE DEPUTY Primary hypertension Mixed hyperlipidemia Fatigue LIPID PANEL Routine 08/16/2024 9:15 AM MINE DEPUTY Mixed hyperlipidemia CBC W/DIFF AUTOMATED Routine 08/16/2024 9:15 AM MINE DEPUTY Primary hypertension Mixed hyperlipidemia Fatigue documented in this encounter Results * LIPID PANEL (08/16/2024 9:15 AM MINE DEPUTY) CHOLESTEROL 171 <200 MG/DL 08/16/2024 10:19 AM [facility] TRIGLYCERIDES 146 <150 MG/DL 08/16/2024 10:19 AM MINE DEPUTY [facility] HDL 49 >40.0 MG/DL 08/16/2024 10:19 AM [facility] LDL (CALCULATED) 93 <100 MG/DL 08/16/20 10:19 AM [facility] NON HDL CHOLESTEROL 122 <130 MG/DL 08/16 10:19 AM [facility] CHOL/HDL RATIO 3.5 0.0 - 4.5 08/16/2024 10:19 AM [facility] VLDL CALCULATION 29 5 - 55 MG/DL 08/16/2024 10:19 AM [facility] LIPID INTERPRETATION 08/16/2024 10:19 AM [facility] Comment: NIH CONCENSUS REPORT RECOMMENDATIONS: [...] ?LDL ? >=160 ?>=130 08/16/2024 9:15 AM MINE DEPUTY [facility] Final Resul t Performing Organization Address City/[facility] Co de Phone Number [facility] [address] [place] [address], [place] [phone] * TSH W/REFLEX (08/16/2024 9:15 AM MINE DEPUTY) TSH 2.810 0.358 - 3.74 uIU/ML 08/16/2024 10:19 AM MINE DEPUTY [facility] Comment: HIGH DOSES OF BIOTIN MAY INTERFERE WITH THIS TEST RESULT. CORRELATION TO CLINICAL HISTORY AND PRESENTATION RECOMMENDED. FREE T4 NOT INDICATED 08/16/2024 9:15 AM MINE DEPUTY Morelia [facility] Final Resul t Performing Organization Address [facility] Co de Phone Number [facility] [address] [place] [address], [place] [phone] * (ABNORMAL) COMPREHENSIVE METABOLIC PANEL (08/16/2024 9:15 AM MINE DEPUTY) GLUCOSE 97 70 - 99 MG/DL 08/16/2024 10:19 AM MINE DEPUTY [facility] BUN 19(H) 7 - 18 MG/DL 08/16/2024 10:19 AM MINE DEPUTY [facility] CREATININE S/P/B 1.23 0.7 - 1.3 MG/DL 08/16/2024 10:19 AM MINE DEPUTY [facility] SODIUM S/P/B 137 136 - 145 MMOL/L 08/16/2024 10:19 AM [facility] POTASSIUM S/P/B 3.8 3.5 - 5.1 MMOL/L 08/16/2024 10:19 AM [facility] CHLORIDE S/P/B 107 97 - 115 MMOL/L 08/16/2024 10:19 AM [facility] CO2 26.4 21 - 32 MMOL/L 08/16/2024 10:19 AM [facility] CALCIUM S/P/B 9.2 8.5 - 10.1 MG/DL 08/16/2024 10:19 AM [facility] BILIRUBIN TOTAL S/P/B 0.6 0.2 - 1.2 MG/DL 08/16/2024 10:19 AM [facility] Comment: THIS ASSAY IS NOT RECOMMENDED FOR PATIENTS UNDERGOING TREATMENT WITH ELTROMBOPAG DUE TO THE POTENTIAL FOR FALSELY ELEVATED RESULTS. TOTAL PROTEIN S/P/B 7.3 6.4 - 8.2 G/DL 08/16/2024 10:19 AM [facility] ALBUMIN S/P/B 4.0 3.4 - 5.0 G/DL 08/16/2024 10:19 AM [facility] AST 24 15 - 37 U/L 08/16/2024 10:19 AM [facility] ALT 35 16 - 60 U/L 08/16/2024 10:19 AM [facility] ALKALINE PHOSPHATASE S/P/B 52 50 - 136 U/L 08/16/2024 10:19 AM [facility] ANION GAP 3.6 2 - 10 MMOL/L 08/16/2024 10:19 AM [facility] BUN CREATININE RATIO 15.4 6 - 26 08/16/2024 10:19 AM [facility] A/G RATIO 1.2 1.0 - 2.0 RATIO 08/16/2024 10:19 AM [facility] GFR ESTIMATE 65(L) >90 ML/MIN/1.7 3 M2 08/16/2024 10:19 AM [facility] Comment: NOTE: eGFR is not calculated for patients <18 years of age or gender unknown. This is an estimated GFR calculation using the new CKD EPI creatinine equation without race and so does not require a correction factor for race. This estimated GFR should not be used for calculating drug doses. 08/16/2024 9:15 AM MINE DEPUTY [facility] Final Resul t [facility] [address] [place] [address], * CBC W/DIFF AUTOMATED (08/16/2024 9:15 AM MINE DEPUTY) WBC 6.59 4.5 - 11.0 x10'3/uL 08/16/2024 9:37 AM [facility] RBC 5.35 4.70 - 6.10 x10'6/uL 08/16/2024 9:37 AM [facility] HGB 15.7 14.0 - 18.0 G/DL 08/16/2024 9:37 AM [facility] HCT 47.2 43.0 - 54.0 % 08/16/2024 9:37 AM [facility] MCV 88.2 80.0 - 94.0 FL 08/16/2024 9:37 AM [facility] MCH 29.3 27.0 - 31.0 PG 08/16/2024 9:37 AM [facility] MCHC 33.3 32.0 - 36.0 G/DL 08/16/2024 9:37 AM [facility] RDW 12.8 11.5 - 14.5 % 08/16/2024 9:37 AM [facility] PLT 265 130 - 400 x10'3/uL 08/16/2024 9:37 AM [facility] MPV 10.0 9.3 - 12.2 FL 08/16/2024 9:37 AM [facility] DIFFERENTIAL TYPE AUTOMATED DIFFERENTIAL 08/16/2024 9:37 AM [facility] NEUTROPHILS % 52.3 % 08/16/2024 9:37 AM [facility] LYMPHOCYTES % 36.4 % 08/16/2024 9:37 AM [facility] MONOCYTES % 7.0 % 08/16/2024 9:37 AM [facility] EOSINOPHILS 3.2 % 08/16/2024 9:37 AM [facility] BASOPHILS 0.8 % 08/16/2024 9:37 AM [facility] IMMATURE GRANS % 0.3 % 08/16/20 9:37 AM [facility] ABS. NEUTROPHILS 3.45 1.80 - 7.70 x10'3/uL 08/16/2024 9:37 AM [facility] ABS. LYMPHOCYTES 2.40 1.00 - 4.80 x10'3/uL 08/16/2024 9:37 AM [facility] ABS. MONOCYTES 0.46 0.30 - 0.82 x10'3/uL 08/16/2024 9:37 AM [facility] ABS. EOSINOPHILS 0.21 0.04 - 0.54 x10'3/uL 08/16/2024 9:37 AM [facility] ABS. BASOPHILS 0.05 0.01 - 0.08 x10'3/uL 08/16/2024 9:37 AM [facility] ABS. IMMATURE GRANULOCYTES 0.02 0.00 - 0.49 x10'3/uL 08/16/2024 9:37 AM MINE DEPUTY [facility] 08/16/2024 9:15 AM MINE DEPUTY [facility] Final Resul t [facility] [address] [place] [address], documented in this encounter Visit Diagnoses Diagnosis Primary hypertension Unspecified essential hypertension Mixed hyperlipidemia Fatigue Other malaise and fatigue documented in this encounter Additional Health Concerns Assessment Noted Time PHQ-9 Depression Total Score: 10 023 8:58 AM MINE DEPUTY documented as of this encounter Care Teams Last Model Department Supervisor Relationship Specialty Start Date End Date Morelia Scott APNP [address] [place] [address] PCP - General NURSE PRACTITIONER 06/12/22 documented as of this encounter
--- OUTSIDE RECORDS SUMMARY | 2024-09-11 17:01 | XMS_ITS | Encounter Summary ---
Author Organization [facility] Address [address] [place] [address]. [place] [address] [place] [address] Care Team Providers Care Clinical Educator Name Role Phone Sonia Morelia [facility] Primary Care Provider [phone] Reason for Visit * Reason Onset Date Comments Question 01/10/2023 Patient's , Dayanara Vee has questions regarding patient's aneurysm diagnosis. She can be reached at [phone]. Encounter Details Date Type Department Care Team (Late st Contact Info) Description 01/10/2023 Telephone [facility], [place] [place] [address] Rob Tapia MD [address] [facility] [address] [place] [address] Question (Patient's , Dayanara Vee has questions regarding patient's aneurysm diagnosis. 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 Answered her question * Oumou Colbert CMA - 01/10/2023 9:26 AM CDTSummary: Questtions Patient's , Dayanara Vee has questions regarding patient's aneurysm diagnosis. She can be reached at [phone]. documented in this encounter Plan of Treatment Upcoming Encounters Date Type Department Care Team (Late st Contact Info) Description 10/05/2024 9:20 AM INTERACTIVE MEDIA SPECIALIST Office Visit [facility] Family & Internal Medicine - [place] [address] [place] [address] Morelia Scott APNP [address] [place] [address] 12/02/2024 11:00 AM CDT Office Visit [facility] [place] [address] [place] [address] Rob Tapia MD [address] [facility] [address] [place] [address] documented as of this encounter Visit Diagnoses Not on filedocumented in this encounter Additional Health Concerns Assessment Noted Time PHQ-9 Depression Total Score: 10 023 8:58 AM INTERACTIVE MEDIA SPECIALIST documented as of this encounter Care Teams Clinical Educator Relationship Specialty Start Date End Date Morelia Scott APNP [address] [place] [id number] PCP - General NURSE PRACTITIONER 06/12/22 documented as of this encounter
--- OUTSIDE RECORDS SUMMARY | 2024-09-11 17:01 | XMS_ITS | Encounter Summary ---
Author Organization [facility] Address [address] [place] [address]. [place] [address] [place] [address] Care Team Providers Care Pocket Closer Name Role Phone Morelia Scott Primary Care Provider [phone] Encounter Details Date Type Department Care Team (Latest Contact Info) Description 11/27/2023 Travel Social History Tobacco Use Types Packs/Day [...] st Contact Info) Description 10/05/2024 9:20 AM ENVELOPE CUTTER Office Visit [facility] Family & Internal Medicine - [place] [address] [place] [address] Morelia Scott APNP [address] [place] [address] 12/02/2024 11:00 AM CDT Office Visit [facility] [address] [place] [address] Rob Tapia MD 3 [facility] [address] [place], [place] [address] documented as of this encounter Visit Diagnoses Not on filedocumented in this encounter Additional Health Concerns Assessment Noted Time PHQ-9 Depression Total Score: 10 023 8:58 AM ENVELOPE CUTTER documented as of this encounter Care Teams Pocket Closer Relationship Specialty Start Date End Date Morelia Scott APNP [address] [place] [address] PCP - General NURSE PRACTITIONER 06/12/22 documented as of this encounter
--- OUTSIDE RECORDS SUMMARY | 2024-09-11 17:01 | XMS_ITS | Encounter Summary ---
Author Organization [facility] Address [address] [place] [address]. [place], [place] [phone] [place] [address] Care Team Providers Care Historiographer Name Role Phone Morelia Scott Primary Care Provider [phone] Reason for Visit * Reason Comments Image (SCAN) Encounter Details Date Type Department Care Team (Latest Contact Info) Description 08/11/2023 Scan HEALTH INFO SRVCS Scanned, Doc Med [...] st Contact Info) Description 10/05/2024 9:20 AM VICE PRESIDENT RISK MANAGEMENT Office Visit [facility] Family & Internal Medicine - [place] [address] [place] [address] Morelia Scott APNP [address] [place] [address] 12/02/2024 11:00 AM CDT Office Visit [facility], [address] [address] Rob Tapia MD 3 [facility] [address] [place] [address] documented as of this encounter Procedures Procedure Name Priority Date/Time Associated Diagnosis Comments IMAGE GENERIC 08/11/2023 documented in this encounter Results * IMAGE GENERIC (08/11/2023) Anatomical Region Laterality Modality Other 08/11/2023 us Doc [facility] Scanned SCANNING Final Resu lt documented in this encounter Visit Diagnoses Not on filedocumented in this encounter Additional Health Concerns Assessment Noted Time PHQ-9 Depression Total Score: 10 023 8:58 AM VICE PRESIDENT RISK MANAGEMENT documented as of this encounter Care Teams Historiographer Relationship Specialty Start Date End Date Morelia Scott APNP [address] [place] [address] PCP - General NURSE PRACTITIONER 06/12/22 documented as of this encounter
--- OUTSIDE RECORDS SUMMARY | 2024-09-11 17:01 | XMS_ITS | Encounter Summary ---
Author Organization [facility] Address [address] [place] [address]. [place], [place] [address] [place] [address] Care Team Providers Care Cracker And Cookie Machine Operator Name Role Phone Morelia Scott Primary Care Provider [phone] Reason for Referral * Imaging (Routine) - Authorized Specialty Diagnoses / Procedures Referred By Marimar t Referred To Contact RADIOLOGY Diagnoses Former smoker Procedures [facility] SCREENING Morelia Scott APNP [address] [place] [address] Phone: tel: fax: Referral ID Status Reason Start Date Expiration Date V isits Requested Visits Authorized [id number] Authorized 08/03/2024 08/03/2025 1 1 VISION SERVICER Reason for Visit * Reason Comments Hypertension Encounter Details Date Type Department Care Team (Late st Contact Info) Description 08/03/2024 9:20 AM TELEVISION SERVICER Office Visit [facility] Family & Internal Medicine - [place] [address] [place] [address] Morelia Scott APNP [address] [place] [address] Hypertension Social History Tobacco Use Types Packs/Day Years [...] Comments Blood Pressure 118/74 08/03/2024 9:28 AM TELEVISION SERVICER Pulse 79 08/03/2024 9:28 AM TELEVISION SERVICER Temperature 36.7 ??C (98.1 ??F) 08/03/2024 9:28 AM CS T Respiratory Rate 16 08/03/2024 9:28 AM TELEVISION SERVICER Oxygen Saturation 98% 08/03/2024 9:28 AM TELEVISION SERVICER Inhaled Oxygen Concentration - - Weight 94 kg (207 lb 4.8 oz) 08/03/2024 9:28 AM TELEVISION SERVICER Height 177.8 cm (5' 10 ) 08/03/2024 9:28 AM TELEVISION SERVICER Body Mass Index 29.74 08/03/2024 9:28 AM TELEVISION SERVICER documented in this encounter Patient Instructions * Patient Instructions* SHANNAN Rodriguez - 08/03/2024 9:20 AM TELEVISION SERVICER Call me back the middle of Sep for bloodwork I have ordered an ultrasound of the rest of your aorta. VISION SERVICER documented in this encounter Progress Notes * SHANNAN Rodriguez - 08/03/2024 9:20 AM CST Images from the original note were not included. [facility] VISIT Reason for Visit: Hypertension History of Present Illness: 64 yo male here today to follow up on his chronic health conditions. HTN -tolerates lisinopril well. Blood pressure controlled. Denies any chest pain, shortness of breath, headache, dizziness, heart palpitations or lower extremity edema. HLD -patient currently takes pravastatin 40 mg once daily. Tolerates meds well, no bothersome side effects. Due to have labs checked and these can be ordered today. Depression/Anxiety -currently followed by psychiatry on a regular basis with an appointment scheduled for next month. Feels for the most part symptoms are controlled. Denies any HI/SI. Tolerates medswell ADHD -patient is currently followed by psychiatry for this. According to patient, he is in the process of weaning off of his Adderall and is down to 10 mg once daily. Colonoscopy done in 05/2024 Pt states he had [address] lung CA screening done--do not have the results, will check on this. CTA done in 11/3023--showed 4.2 cm AAA. ROS: Review of Systems Constitutional: Negative for chills, fever and malaise/fatigue. Respiratory: Negative for cough and shortness of breath. Cardiovascular: Negative for chest pain and palpitations. Gastrointestinal: Negative for abdominal pain, diarrhea, nausea and vomiting. Neurological: Negative for dizziness and headaches. Medications: Current Outpatient Medications: buPROPion XL (WELLBUTRIN [...] NEEDED FOR HEADACHE OR MUSCLE SPASMS, Disp: 30 tablet, Rfl: 0 dexmethylphenidate XR (FOCALIN XR) [...] mouth daily., Disp: 90 tablet, Rfl: 3 multivitamin with minerals liquid, Take 15 mLs by mouth daily., Disp: , Rfl: pravastatin (PRAVACHOL) 40 MG tablet, Take 1 tablet (40 mg total) by mouth daily., Disp: 90 tablet,Rfl: 3 QUEtiapine (SEROQUEL) 100 MG tablet, TAKE 1 TABLET(100 MG) BY MOUTH EVERY NIGHT AT BEDTIME, Disp: 90 tablet, Rfl: 0 QUEtiapine (SEROQUEL) 50 MG tablet, Take 1 tablet (50 mg total) by mouth 2 (two) times daily. Pt takes 50mg in the morning and 50 mg at noon., Disp: , Rfl: RIZATRIPTAN BENZOATE OR, Take 20 mg by mouth. 1 every 4 hours. (Max 2 in 24 hours), Disp: , Rfl: vilazodone (VIIBRYD) 40 MG tablet, Take 1 tablet (40 mg total) by mouth daily. Take with food, Disp: , Rfl: vitamin B-2 (RIBOFLAVIN) 100 MG tablet, 1 tablet (100 mg total) daily., Disp: , Rfl: Allergies: Review of patient's [...] Marital status: Tobacco Use Smoking status: Former Current packs/day: 0.00 Average packs/day: 1 pack/day for 30.0 years (30.0 ttl pk-yrs) Types: Cigarettes Start date: 1986 Quit date: 2017 Years since quittin.8 Smokeless tobacco: Never Vaping Use Vaping status: Never Used Substance and Sexual Activity Alcohol use: Never Drug use: Never Family History: Family History Problem Relation Name Age of Onset Lipids Mother Heart Mother Diabetes Mother Hypertension Mother Cancer Father Diabetes Father PE: Physical Exam Vitals and nursing note reviewed. HENT: Head: Normocephalic and atraumatic. Right Ear: Tympanic membrane normal. Left Ear: Tympanic membrane normal. Eyes: General: No scleral icterus. Conjunctiva/sclera: Conjunctivae normal. Neck: Trachea: No tracheal deviation. Cardiovascular: Rate and Rhythm: Normal rate and regular rhythm. Heart sounds: Normal heart sounds. No murmur heard. Pulmonary: Effort: Pulmonary effort is normal. No respiratory distress. Breath sounds: Normal breath sounds. No stridor. No wheezing. Musculoskeletal: General: No deformity. Normal range of motion. Cervical back: Normal range of motion and neck supple. Skin: General: Skin is warm and dry. Findings: No erythema. Neurological: Mental Status: He is alert and oriented to person, place, and time. Gait: Gait is intact. Psychiatric: Mood and Affect: Mood and affect normal. Filed Vitals: 08/03/24 0928 BP: 118/74 Pulse: 79 Resp: 16 Temp: 98.1 ??F (36.7 ??C) TempSrc: Skin SpO2: 98% Weight: 94 kg (207 lb 4.8 oz) Height: 1.778 m (5' 10 ) Labs: Labs Reviewed Diagnoses/Impression: 1. Aneurysm of ascending aorta without rupture (CMS/HCC) Chronic 2. Primary hypertension Chronic 3. Mixed hyperlipidemia Chronic 4. Attention deficit hyperactivity disorder (ADHD), predominantly inattentive type Chronic 5. Moderate episode of recurrent major depressive disorder (CMS/HCC HHS/HCC) Chronic 6. Anxiety Chronic 7. Former smoker [facility] SCREEN[facility] Recommendations and Plan: 1. Aneurysm of ascending aorta without rupture (CMS/HCC) Order already in place for follow-up chest CT 2. Primary hypertension Stable. Continue medications 3. Mixed hyperlipidemia Stable. Continue meds 4. Attention deficit hyperactivity disorder (ADHD), predominantly inattentive type Stable. Continue meds and continue follow-up with psychiatry 5. Moderate episode of recurrent major depressive disorder (CMS/HCC HHS/HCC) Stable. Continue meds and continue follow-up with psychiatry 6. Anxiety Stable. Continue meds and continue follow-up with psychiatry 7. Former smoker - [facility] SCREENING; Future Will check with [facility] to see if a CT lung screening is available Orders Placed This Encounter [facility] SCREENING Cannot display discharge medications since this is not an admission. PCP: SHANNAN Rodriguez 08/03/2024 VISION SERVICER VISION SERVICER documented in this encounter Plan of Treatment Upcoming Encounters Date Type Department Care Team (Late st Contact Info) Description 10/05/2024 9:20 AM TELEVISION SERVICER Office Visit [facility] Family & Internal Medicine - [address] [address] Morelia Scott APNP [address] [place] [address] 12/02/2024 11:00 AM CDT Office Visit [facility], [place] [address] [place] [address] Rob Tapia MD [address] [facility] [address] [place] [address] Scheduled Orders Name Type Priority Associated Diagnoses Orde r Schedule [facility] SCREENING [facility] Routine Former smoker Expected: 08/03/2024, Expires: 08/03/2025 documented as of this encounter Visit Diagnoses Diagnosis Aneurysm of ascending aorta without rupture (CMS/HCC)- Primary Primary hypertension Unspecified essential hypertension Mixed hyperlipidemia Attention deficit hyperactivity disorder (ADHD), 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 (CMS/HCC HHS/HCC) Anxiety Anxiety state, unspecified Former smoker Personal history of tobacco use, presenting hazards to health documented in this encounter Additional Health Concerns Assessment Noted Time PHQ-9 Depression Total Score: 10 023 8:58 AM TELEVISION SERVICER documented as of this encounter Care Teams Cracker And Cookie Machine Operator Relationship Specialty Start Date End Date Morelia Scott APNP [address] [place] [address] PCP - General NURSE PRACTITIONER 06/12/22 documented as of this encounter
--- OUTSIDE RECORDS SUMMARY | 2024-09-11 17:01 | XMS_ITS | Encounter Summary ---
Author Organization [facility] Address [address] [place] [address]. [place], [place] [address] [place] [address] Care Team Providers Care Signal Maintenance Technician Name Role Phone Morelia Scott Primary Care Provider [phone] Encounter Details Date Type Department Care Team (Late Contact Info) Description 12/01/2023 Orders Only [facility] [place] [place] [address] Oumou Colbert, [facility] Social History Tobacco Use Types Packs/Day Years [...] st Contact Info) Description 10/05/2024 9:20 AM HEAD TEACHER Office Visit [facility] Family & Internal Medicine - [place] [address] [place] [address] Morelia Scott APNP [address] [place] [address] 12/02/2024 11:00 AM CDT Office [facility] [place] [address] [place] [address] Rob Tapia MD [address] [place] [address] documented as of this encounter Visit Diagnoses Diagnosis Aneurysm of ascending aorta without rupture (CMS/HCC) documented in this encounter Additional Health Concerns Assessment Noted Time PHQ-9 Depression Total Score: 10 023 8:58 AM HEAD TEACHER documented as of this encounter Care Teams Signal Maintenance Technician Relationship Specialty Start Date End Date Morelia Scott APNP [address] [place] [address] PCP - General NURSE PRACTITIONER 06/12/22 documented as of this encounter
--- OUTSIDE RECORDS SUMMARY | 2024-09-11 17:01 | XMS_ITS | Encounter Summary ---
Author Organization [facility] Address [address] [place] [address]. [place] [address] [place] [address] Care Team Providers Care Mems Integration Engineer Name Role Phone Morelia Scott Primary Care Provider [phone] Encounter Details Date Type Department Care Team (Latest Contact Info) Description 07/23/2023 Travel Social History Tobacco Use Types Packs/Day [...] st Contact Info) Description 10/05/2024 9:20 AM DRAG OUT WORKER Office Visit [facility] Family & Internal Medicine - [place] [address] [place] [address] Morelia Scott APNP [address] [place] [address] 12/02/2024 11:00 AM CDT Office Visit [facility] [address] [place] [address] Rob Tapia MD 3 [facility] [place] [facility] [address] [place], [place] [address] documented as of this encounter Visit Diagnoses Not on filedocumented in this encounter Additional Health Concerns Assessment Noted Time PHQ-9 Depression Total Score: 10 023 8:58 AM DRAG OUT WORKER documented as of this encounter Care Teams Mems Integration Engineer Relationship Specialty Start Date End Date Morelia Scott APNP [address] [place] [address] PCP - General NURSE PRACTITIONER 06/12/22 documented as of this encounter
--- OUTSIDE RECORDS SUMMARY | 2024-09-11 17:01 | XMS_ITS | Encounter Summary ---
Author Organization [facility] Address [address] [place] [address]. [place] [address] [place] [address] Care Team Providers Care Formula Clerk Name Role Phone Morelia Scott Primary Care Provider [phone] Encounter Details Date Type Department Care Team (Latest Contact Info) Description 08/16/2024 Travel Social History Tobacco Use Types Packs/Day [...] st Contact Info) Description 10/05/2024 9:20 AM ALODIZE 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 Office Visit [facility] Family & Internal Medicine - [place] [address] [place] [address] Morelia Scott APNP [address] [place] [address] 12/02/2024 11:00 AM CDT Office Visit [facility], [facility] [address] [place] [address] Rob Tapia MD 3 [facility] [address] [place], [place] [address] documented as of this encounter Visit Diagnoses Not on filedocumented in this encounter Additional Health Concerns Assessment Noted Time PHQ-9 Depression Total Score: 10 023 8:58 AM ALODIZE 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 documented as of this encounter Care Teams Formula Clerk Relationship Specialty Start Date End Date Morelia Scott APNP [address] [place] [address] PCP - General NURSE PRACTITIONER 06/12/22 documented as of this encounter
--- OUTSIDE RECORDS SUMMARY | 2024-09-11 17:01 | XMS_ITS | Encounter Summary ---
Author Organization [facility] Address [address] [place] [address]. [place], [place] [address] [place] [address] Care Team Providers Care Pbx Installer Name Role Phone Morelia Scott Primary Care Provider [phone] Reason for Visit * Reason Onset Date Comments Results 08/12/2023 Ankle xray Encounter Details Date Type Department Care Team (Late st Contact Info) Description 08/12/[address] [facility] Family & Internal Medicine [facility] [address] [place] [address] Morelia Scott APNP [address] [place] [address] Results (Ankle xray) Social History Tobacco Use Types Packs/Day Years Used Date Smoking Tobacco: Former Cigarettes 7 - 2016 Smokeless Tobacco: Never Alcohol Use [...] Progress Notes * Sofya Sam MA - 08/21/2023 10:39 AM CST Patient informed of results and recommendations. Voiced understanding and he will call urology. 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 ERER ELECTRONIC * Kacy Kam - 08/20/2023 2:34 PM CST Pt returned call Pt [phone] ERER ELECTRONIC * Sofya Sam MA - 08/18/2023 10:57 AM CST Called for results tn ERER ELECTRONIC * Kacy Kam - 08/18/2023 10:03 AM CST Pt is calling back to request the results Pt [phone] ERER ELECTRONIC * Yumiko Ashley MA - 08/12/2023 2:02 PM CST Pt v/u of result. Pt also asked about results from testicular ultrasound. Morelia has not seen/reviewed these results yet. Pt will be contacted separately when report is done. Ankle soft tissue swelling without acute osseous abnormality (no fracture noted) ERER ELECTRONIC * Lakesha Mcintosh - 08/12/2023 1:23 PM CST Pt called asking about results from xray taken yesterday. Please advise. ERER ELECTRONIC documented in this encounter Plan of Treatment Upcoming Encounters Date Type Department Care Team (Late st Contact Info) Description 10/05/2024 9:20 AM SOLDERER ELECTRONIC Office Visit [facility] Family & Internal Medicine - [place] [address] [place] [address] Morelia Scott APNP [address] [place] [address] 12/02/2024 11:00 AM CDT Office [facility], [place] [address] [place] [address] Rob Tapia MD 3 [facility] [address] [place] [address] documented as of this encounter Visit Diagnoses Not on filedocumented in this encounter Additional Health Concerns Assessment Noted Time PHQ-9 Depression Total Score: 10 023 8:58 AM SOLDERER ELECTRONIC documented as of this encounter Care Teams Pbx Installer Relationship Specialty Start Date End Date Morelia Scott APNP [address] [place] [address] PCP - General NURSE PRACTITIONER 06/12/22 documented as of this encounter
--- OUTSIDE RECORDS SUMMARY | 2024-09-11 17:01 | XMS_ITS | Encounter Summary ---
Author Organization [facility] Address [address] [place] [address]. [place], [place] [address] [place] [address] Care Team Providers Care Sales And Marketing Associate Name Role Phone Morelia Scott Primary Care Provider [phone] Reason for Visit * Reason Comments Image (SCAN) Encounter Details Date Type Department Care Team (Latest Contact Info) Description 03/15/2024 Scan HEALTH INFO SRVCS Scanned, Doc Med [...] st Contact Info) Description 10/05/2024 9:20 AM SERVICER Office Visit [facility] Family & Internal Medicine - [place] [address] [place] [address] Morelia Scott APNP [address] [place] [address] 12/02/2024 11:00 AM CDT Office [facility], [address] [address] Rob Tapia MD 3 [facility] [address] [place] [address] documented as of this encounter Procedures Procedure Name Priority Date/Time Associated Diagnosis Comments IMAGE GENERIC 03/15/2024 documented in this encounter Results * IMAGE GENERIC (03/15/2024) Anatomical Region Laterality Modality Other 03/15/2024 us Doc [facility] Scanned SCANNING Final Resu lt documented in this encounter Visit Diagnoses Not on filedocumented in this encounter Additional Health Concerns Assessment Noted Time PHQ-9 Depression Total Score: 10 023 8:58 AM SERVICER documented as of this encounter Care Teams Sales And Marketing Associate Relationship Specialty Start Date End Date Morelia Scott APNP [address] [place] [address] PCP - General NURSE PRACTITIONER 06/12/22 documented as of this encounter
--- OUTSIDE RECORDS SUMMARY | 2024-09-11 17:01 | XMS_ITS | Encounter Summary ---
Author Organization [facility] Address [address] [place] [address]. [place], [place] [address] [place] [address] Care Team Providers Care Java Grails Developer Name Role Phone Morelia Scott Primary Care Provider [phone] Reason for Visit * Reason Onset Date Comments Medication Request 12/29/2023 Encounter Details Date Type Department Care Team (Late st Contact Info) Description 12/29/2023 Telephone [facility] Family & Internal Medicine [facility] [address] [place] [address] Morelia Scott APNP [address] [place], [place] [phone] Medication Request Social History Tobacco Use Types Packs/Day [...] Progress Notes * Yumiko Ashley MA - 12/29/2023 11:56 AM CDT Pt understands and thanks you for your time and explanation. * SHANNAN Rodriguez - 12/29/2023 10:56 AM CDT I'm sorry, this is a controlled substance and me filling it would breach a controlled substance contract he most likely has with has provider. If I were filling controlled meds and saw in PDMP they got from someone else, may no longer fill. I am very sorry but when it comes to controlled meds, have to be more careful. * Yumiko Ashley MA - 12/29/2023 10:18 AM CDT Pt called asking if Morelia would be willing to fill his Focalin for just 10 days, as his pharmacy did not have enough in stock to fill his last rx (managed by Dr. Ojeda) so he picked up the available 20-day supply on 12/23/23. He said [address]. Ojeda will not write for anything other than 30 day scripts. I called [facility] to confirm pt only got 20 on 12/23/23, and even partial fill cancels out entire rx- they will not fill the remaining on controlled substances. Pt can pick more up on 01/10/24-he is just wondering if Morelia will write 10-day rx to carry him until Dr. Ojeda send next rx. Pt's got on phone and was adamant I remind Morelia that she prescribed this medication for pt in the past before he got in with Dr. Ojeda. Pt is aware pharmacy will not dispense any more until 01/09 at the earliest, he just wanted to be prepared by calling early. documented in this encounter Plan of Treatment Upcoming Encounters Date Type Department Care Team (Late st Contact Info) Description 10/05/2024 9:20 AM WELDER/FABRICATOR Office Visit [facility] Family & Internal Medicine - [address] [address] Morelia Scott APNP [address] [place] [address] 12/02/2024 11:00 AM CDT Office Visit [facility] [place] [address] [place] [address] Rob Tapia MD 3 [facility] [address] [place] [address] documented as of this encounter Visit Diagnoses Diagnosis Attention deficit hyperactivity disorder (ADHD), predominantly inattentive type- Primary documented in this encounter Additional Health Concerns Assessment Noted Time PHQ-9 Depression Total Score: 10 023 8:58 AM WELDER/FABRICATOR documented as of this encounter Care Teams Java Grails Developer Relationship Specialty Start Date End Date Morelia Scott APNP [address] [place] [address] PCP - General NURSE PRACTITIONER 06/12/22 documented as of this encounter
--- OUTSIDE RECORDS SUMMARY | 2024-09-11 17:01 | XMS_ITS | Encounter Summary ---
Author Organization [facility] Address [address] [place] [address]. [place], [place] [address] [place] [address] Care Team Providers Care Product Developer Name Role Phone Morelia Sctot Primary Care Provider [phone] Reason for Visit * Reason Comments Image (SCAN) Encounter Details Date Type Department Care Team (Latest Contact Info) Description 01/14/2024 Scan HEALTH INFO SRVCS Scanned, Doc Med [...] st Contact Info) Description 10/05/2024 9:20 AM CARDIAC RN Office Visit [facility] Family & Internal Medicine - [place] [address] [place] [address] Morelia Scott APNP [address] [place] [address] 12/02/2024 11:00 AM CDT Office [facility], [address] [address] Rob Tapia MD 3 [facility] [address] [place] [address] documented as of this encounter Procedures Procedure Name Priority Date/Time Associated Diagnosis Comments IMAGE GENERIC 01/14/2024 documented in this encounter Results * IMAGE GENERIC (01/14/2024) Anatomical Region Laterality Modality Other 01/14/2024 us Doc [facility] Scanned SCANNING Final Resu lt documented in this encounter Visit Diagnoses Not on filedocumented in this encounter Additional Health Concerns Assessment Noted Time PHQ-9 Depression Total Score: 10 023 8:58 AM CARDIAC RN documented as of this encounter Care Teams Product Developer Relationship Specialty Start Date End Date Morelia Scott APNP [address] [place] [address] PCP - General NURSE PRACTITIONER 06/12/22 documented as of this encounter
--- OUTSIDE RECORDS SUMMARY | 2024-09-11 17:01 | XMS_ITS | Encounter Summary ---
Author Organization [facility] Address [address] [place] [address]. [place], [place] [address] [place] [address] Care Team Providers Care Hoop Maker Helper Machine Name Role Phone Morelia Scott Primary Care Provider [phone] Reason for Referral * Consultation (Routine) - Closed Specialty Diagnoses / Procedures Referred By Marimar cerna Referred To Contact UROLOGY Diagnoses Scrotal mass Procedures OFFICE/OUTPATIENT NEW LOW MDM 30-44 MINUTES OFFICE/OUTPT VISIT,NEW,LEVL IV OFFICE/OUTPT VISIT,NEW,LEVL V OFFICE/OUTPT VISIT,EST,LEVL III OFFICE/OUTPT VISIT,EST,LEVL IV OFFICE/OUTPT VISIT,EST,LEVL V Morelia Scott APNP [facility] [place] [address] Phone: tel: [place]: [place] [address] [place] [address] Phone: tel: fax: Referral ID Status Reason Start Date Expiration Date V isits Requested Visits Authorized [id number] Closed Specialty Services 07/23/2023 08/22/2024 99 99 Reason for Visit * Reason Comments Eye Problem Pt c/o puffiness b eneath his eyes, and feels as if his lower lashes have been falling out. He does admit to rubbing his eyes more in the mornings. Encounter Details Date Type Department Care Team (Late st Contact Info) Description 07/23/2023 1:00 PM CDT Office Visit [facility] Family & Internal Medicine - [place] [address] [place] [phone] Morelia Scott APNP [address] [place] [address] Eye Problem (Pt c/o puffiness beneath his eyes, and feels as if his lower lashes have been falling out. He does admit to rubbing his eyes more in the mornings.) Social History Tobacco Use Types Packs/Day Years [...] Sign Reading Time Taken Comments Blood Pressure 124/78 07/23/2023 1:15 PM CDT Pulse 73 07/23/2023 1:15 PM CDT Temperature 36.7 ??C (98.1 ??F) 07/23/2023 1:15 PM CD T Respiratory Rate 16 07/23/2023 1:15 PM CDT Oxygen Saturation 97% 07/23/2023 1:15 PM CDT Inhaled Oxygen Concentration - - Weight 92.6 kg (204 lb 1.6 oz) 07/23/2023 1:15 P M CDT Height 177.8 cm (5' 10 ) 07/23/2023 1:15 PM CDT Body Mass Index 29.29 07/23/2023 1:15 PM CDT documented in this encounter Progress Notes * SHANNAN Rodriguez - 07/23/2023 1:00 PM CDT Images from the original note were not included. [facility] FAMILY AND INTERNAL MEDICINE OFFICE VISIT Reason for Visit: Eye Problem (Pt c/o puffiness beneath his eyes, and feels as if his lower lashes have been falling out. He does admit to rubbing his eyes more in the mornings.) History of Present Illness: 62 yo male presents today with some puffiness under his eyes that started about a week ago. He states his eyes have been a little pruritic and he has been rubbing his eyes more than normal. He started getting botox for headaches--last injections were about a month ago. He has had a runny nose-----also starting about a week ago. Eyes are burning---but not painful. No decrease in his vision. He does have a diagnosis of seasonal allergies and is not currently taking anything, but has been on allergy meds in the past. He has a lump in his scrotum he noticed about 2 months ago. He has tried to cut it out a few times with no success. He has not noticed any bleeding or drainage from the area and states it is not attached to one of his testicles. ROS: Review of Systems Constitutional: Negative for chills and fever. Eyes: Positive for redness. Negative for blurred vision, double vision, photophobia, pain and discharge. Respiratory: Negative for cough and shortness of breath. Cardiovascular: Negative for chest pain and palpitations. Gastrointestinal: Negative for abdominal pain, diarrhea, nausea and vomiting. Skin: Positive for itching. Neurological: Negative for dizziness and headaches. Medications: [...] THE TONGUE EVERY OTHER DAY TO PREVENTMIGRAINE HEADACHES., Disp: , Rfl: pravastatin (PRAVACHOL) 40 MG tablet, TAKE 1 TABLET BY MOUTH EVERY DAY, Disp: 90 tablet, Rfl: 0 QUEtiapine (SEROQUEL) 100 MG tablet, TAKE 1 TABLET(100 MG) BY MOUTH EVERY NIGHT AT BEDTIME, Disp: 90 tablet, Rfl: 0 QUEtiapine (SEROQUEL) 50 MG tablet, Take 1 tablet (50 mg total) by mouth 2 (two) times daily. Pt takes 50mg in the morning., Disp: [...] Smoking status: Former Packs/day: 1.00 Years: 30.00 Pack years: 30.00 Types: Cigarettes Quit date: 2016 [...] oropharyngeal erythema. Eyes: General: No scleral icterus. Right eye: No discharge. Left eye: No discharge. Extraocular Movements: Extraocular movements intact. Conjunctiva/sclera: Conjunctivae normal. Pupils: Pupils are equal, round, and reactive to light. Comments: Mild puffiness noted to the skin below his eyes. No decrease in his vision noted. No redness or injection noted of conjunctiva. Neck: Trachea: No tracheal deviation. Cardiovascular: Rate and Rhythm: Normal rate and regular rhythm. Heart sounds: Normal heart sounds. No murmur heard. Pulmonary: Effort: Pulmonary effort is normal. No respiratory distress. Breath sounds: Normal breath sounds. No stridor. No wheezing. 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 He has a pea sized firm mobile lump noted to the left side of his scrotum. No bleeding, redness or drainage noted Musculoskeletal: General: No deformity. Normal range of motion. Cervical back: Normal range of motion and neck supple. Skin: General: Skin is warm and dry. Findings: No erythema. Neurological: Mental Status: He is alert and oriented to person, place, and time. Gait: Gait is intact. Psychiatric: Mood and Affect: Mood and affect normal. Filed Vitals: 07/23/23 1315 BP: 124/78 Pulse: 73 Resp: 16 Temp: 98.1 ??F (36.7 ??C) TempSrc: Skin SpO2: 97% Weight: 92.6 kg (204 lb 1.6 oz) Height: 1.778 m (5' 10 ) Labs: Labs Reviewed Diagnoses/Impression: 1. Seasonal allergies Chronic 2. Scrotal mass US TESTICULAR Recommendations and Plan: 1. Seasonal allergies Suspect eye complaints are related to allergies--we discussed home treatment to include zyrtec and antihistamine eye drops which he states he has at home as he once used regularly. If no improvement.He is to let me know. 2. Scrotal mass - US TESTICULAR; Future-- suspect cyst, will check US and refer to urology. Reminded pt not to cut anything out of scrotum. Orders Placed This Encounter US TESTICULAR buPROPion XL (WELLBUTRIN XL) 150 MG 24 hr tablet dexmethylphenidate XR (FOCALIN XR) 15 MG 24 hr capsule Cannot display discharge medications since this is not an admission. PCP: SHANNAN Rodriguez 07/23/2023 documented in this encounter Plan of Treatment Upcoming Encounters Date Type Department Care Team (Late st Contact Info) Description 10/05/2024 9:20 AM LINUX SYSTEM ENGINEER Office Visit [facility] Family & Internal Medicine - [address] [phone] Morelia Scott APNP [address] [place] [address] 12/02/2024 11:00 AM CDT Office Visit [facility], [address] [address] Rob Tapia MD 3 [facility] [address] [place] [address] Scheduled Referrals Name Type Priority Associated Diagnoses Orde r Schedule Ambulatory referral to Urology (OTHER) Referral Routine Scrotal mass Ordered: 07/23/2023 documented as of this encounter Visit Diagnoses Diagnosis Seasonal allergies- Primary Allergic rhinitis, cause unspecified Scrotal mass Other specified disorder of male genital organs documented in this encounter Additional Health Concerns Assessment Noted Time PHQ-9 Depression Total Score: 10 023 8:58 AM LINUX SYSTEM ENGINEER documented as of this encounter Care Teams Hoop Maker Helper Machine Relationship Specialty Start Date End Date Morelia Scott APNP [address] [place] [address] PCP - General NURSE PRACTITIONER 06/12/22 documented as of this encounter
--- OUTSIDE RECORDS SUMMARY | 2024-09-11 17:02 | XMS_ITS | Encounter Summary ---
Author Organization [facility] Address [address] [place] [address]. [place], [place] [address] [place] [address] Care Team Providers Care Armament Installer Name Role Phone Morelia Scott Primary Care Provider [phone] Encounter Details Date Type Department Care Team (Latest Contact Info) Description 11/28/2022 Travel Social History Tobacco Use Types Packs/Day [...] Coronavirus/COVID-19? No / Unsure 11/28/2022 9:29 AM RIPRAP WORKER documented as of this encounter Plan of Treatment Upcoming Encounters Date Type Department Care Team (Late st Contact Info) Description 10/05/2024 9:20 AM RIPRAP WORKER Office Visit [facility] Family & Internal Medicine - [place] [address] [place] [phone] Morelia Scott APNP [address] [place] [address] 12/02/2024 11:00 AM CDT Office Visit [facility] [address] [place] [address] Rob Tapia MD [address] [facility] [address] [place] [address] documented as of this encounter Visit Diagnoses Not on filedocumented in this encounter Additional Health Concerns Assessment Noted Time PHQ-9 Depression Total Score: 10 023 8:58 AM RIPRAP WORKER documented as of this encounter Care Teams Armament Installer Relationship Specialty Start Date End Date Morelia Scott APNP [address] [place] [address] PCP - General NURSE PRACTITIONER 06/12/22 documented as of this encounter
--- OUTSIDE RECORDS SUMMARY | 2024-09-11 17:02 | XMS_ITS | Encounter Summary ---
Author Organization [facility] Address [address] [place] [address]. [place] [address] [place] [address] Care Team Providers Care Bowstring Maker Name Role Phone Sonia Morelia Cinthia CAMPBELL Primary Care Provider [phone] Reason for Referral * Consultation (Routine) - Closed Specialty Diagnoses / Procedures Referred By Contact Referred To Contact CARDIOTHORACIC SURGERY / Cardiology Diagnoses Aneurysm, thoracic aortic (CMS/HCC) Procedures OFFICE/OUTPT VISIT,NEW,LEVL III OFFICE/OUTPT VISIT,NEW,LEVL IV OFFICE/OUTPT VISIT,NEW,LEVL V OFFICE/OUTPT VISIT,EST,LEVL III OFFICE/OUTPT VISIT,EST,LEVL IV OFFICE/OUTPT VISIT,EST,LEVL V Gopi Espino MD [facility]. [facility] [address] [place] [address] Phone: tel: fax: Rob Tapia MD Phone: tel: fax: Referral ID Status Reason Start Date Expiration Date V isits Requested Visits Authorized [id number] Closed Specialty Services 11/04/2022 11/04/2023 99 99 ER BLOCK INSERTER REMOVER Reason for Visit * Reason Onset Date Comments Referral 11/01/2022 Encounter Details Date Type Department Care Team (Late st Contact Info) Description 11/01/2022 Telephone [facility], [address] [address] Gopi Espino MD [address] [phone] Referral Social History Tobacco Use Types Packs/Day [...] suspected to have Coronavirus/COVID-19? No / Unsure 10/11/2022 8:46 AM FILLER BLOCK INSERTER REMOVER documented as of this encounter Progress Notes * Sofya Sam MA - 11/04/2022 2:55 PM CSTAddended by: SOFYA SAM on: 11/04/2022 02:55 PM Modules accepted: Orders ER BLOCK INSERTER REMOVER * Sofya Sam MA - 11/04/2022 2:54 PM CST FYI Referral placed tn ER BLOCK INSERTER REMOVER ER BLOCK INSERTER REMOVER * Alem Montenegor MA - 11/01/2022 2:48 PM CST Morelia CAMPBELL referred Yassine to Dr. Espino for a thoracic aortic aneurysm measuring up to 4.0 cm. This referral will need to go to 's office. Dr. Espino does not manage this type of aneurysm. I will close the referral for Dr. Espino at this time. ER BLOCK INSERTER REMOVER documented in this encounter Plan of Treatment Upcoming Encounters Date Type Department Care Team (Late st Contact Info) Description 10/05/2024 9:20 AM FILLER BLOCK INSERTER REMOVER Office Visit [facility] Family & Internal Medicine - [place] [address] [place] [address] Morelia Scott APNP [address] [place] [address] 12/02/2024 11:00 AM CDT Office Visit [facility], [place] [address] [place] [address] Rob Tapia MD 3 [facility] [address] [place] [phone] Scheduled Referrals Name Type Priority Associated Diagnoses Orde r Schedule Ambulatory referral to Cardiothoracic Surgery, Adult (Other) Referral Routine Aneurysm, thoracic aortic Ordered: 11/04/2022 documented as of this encounter Visit Diagnoses Diagnosis Aneurysm, thoracic aortic (CMS/HCC)- Primary Thoracic aneurysm without mention of rupture documented in this encounter Additional Health Concerns Assessment Noted Time PHQ-9 Depression Total Score: 10 023 8:58 AM FILLER BLOCK INSERTER REMOVER documented as of this encounter Care Teams Bowstring Maker Relationship Specialty Start Date End Date Morelia Scott APNP [address] [place] [address] PCP - General NURSE PRACTITIONER 06/12/22 documented as of this encounter
--- OUTSIDE RECORDS SUMMARY | 2024-09-11 17:02 | XMS_ITS | Encounter Summary ---
Author Organization [facility] Address [address] [place] [address]. [place] [address] [place] [address] Care Team Providers Care [place] Actor Name Role Phone Morelia Scott Primary Care Provider [phone] Reason for Referral * Imaging (Routine) - Closed Specialty Diagnoses / Procedures Referred By Contac t Referred To Contact RADIOLOGY Diagnoses Aneurysm of ascending aorta without rupture (CMS/HCC) Procedures CTA CHEST Rob Tapia MD Phone: tel: fax: [facility] [place] [address] Phone: tel: fax: Referral ID Status Reason Start Date Expiration Date Visits Re quested Visits Authorized [id number] Closed CT 11/28/2022 11/29/2023 1 1 R OPERATOR Reason for Visit * Reason Comments Consult Ascending aortic ane urysm * Consultation (Routine) - Closed Specialty Diagnoses / Procedures Referred By Contact Referred To Contact CARDIOTHORACIC SURGERY / Cardiology Diagnoses Aneurysm, thoracic aortic (CMS/HCC) Procedures OFFICE/OUTPT VISIT,NEW,LEVL III OFFICE/OUTPT VISIT,NEW,LEVL IV OFFICE/OUTPT VISIT,NEW,LEVL V OFFICE/OUTPT VISIT,EST,LEVL III OFFICE/OUTPT VISIT,EST,LEVL IV OFFICE/OUTPT VISIT,EST,LEVL V Gopi Espino MD [address] [address] Phone: tel: fax: Rob Tapia MD Phone: tel: fax: Referral ID Status Reason Start Date Expiration Date V isits Requested Visits Authorized [id number] Closed Specialty Services 11/04/2022 11/04/2023 99 99 Encounter Details Date Type Department Care Team (Late st Contact Info) Description 11/28/2022 9:30 AM PAVER OPERATOR Office [facility] [place] [address] Rob Tapia MD 3 [facility] [address] [place] [address] Consult (Ascending aortic aneurysm ) Social History Tobacco Use Types Packs/Day Years Used Date Smoking Tobacco: Former Cigarettes 30 Smokeless Tobacco: Never Tobacco Cessation:Counseling Given: Not [...] Coronavirus/COVID-19? No / Unsure 11/28/2022 9:29 AM PAVER OPERATOR documented as of this encounter Last Filed Vital Signs Vital Sign Reading Time Taken Comments Blood Pressure 104/78 11/28/2022 9:35 AM PAVER OPERATOR Pulse 68 11/28/2022 9:35 AM PAVER OPERATOR Temperature 36.4 ??C (97.6 ??F) 11/28/2022 9:35 AM CS T Respiratory Rate - - Oxygen Saturation - - Inhaled Oxygen Concentration - - Weight 92.1 kg (203 lb) 11/28/2022 9:35 AM PAVER OPERATOR Height 177.8 cm (5' 10 ) 11/28/2022 9:35 AM PAVER OPERATOR Body Mass Index 29.13 11/28/2022 9:35 AM PAVER OPERATOR documented in this encounter Progress Notes * Jackson Peters CMA - 11/28/2022 9:30 AM CSTAddended by: JACKSON PETERS on: 11/28/2022 02:27 PM Modules accepted: Orders R OPERATOR * Rob Tapia MD - 11/28/2022 9:30 AM CSTSummary: Cardiothoracic surgery office visit Reason for Visit: Consult (Ascending aortic aneurysm ) History of Present Illness: 62-year-old white male with a past medical history of hypertension, hyperlipidemia, anxiety/depression, ADHD and a past social history of former tobacco abuse (approximately 30 pack years) who recently underwent CT lung screening study which demonstrated an incidental 4 cm ascending aortic aneurysm. The patient was subsequently referred to the cardiothoracic surgery clinic for further work-up and recommendations. In the office today, the patient denies any chest pain or shortness of breath. He reports good compliance with his antihypertensive medications including lisinopril. He denies any active tobacco abuse. Medications: Current Outpatient Medications: ??? amphetamine-dextroamphetamine (ADDERALL) 20 MG tablet, Take 20 mg by mouth daily. Pt is now down to 10mg daily. BB 10/01/2022 (Patient not taking: Reported on 10/01/2022), Disp: , Rfl: ??? amphetamine-dextroamphetamine XR (ADDERALL XR) 10 MG 24 hr capsule, Take 10 mg by mouth daily.,Disp: , Rfl: ??? buPROPion XL (WELLBUTRIN XL) 300 MG 24 hr tablet, Take 300 mg by mouth daily., Disp: , Rfl: ??? Coenzyme Q10 (CO Q-10) 120 MG Cap, Take by mouth daily., Disp: , Rfl: ??? cyclobenzaprine (FLEXERIL) 10 MG tablet, TAKE 1 TABLET BY MOUTH EVERY NIGHT AT BEDTIME, IN ADDITION MAY TAKE 1 TABLET DAILY NEEDED FOR HEADACHE OR MUSCLE SPASMS, Disp: 135 tablet, Rfl: 0 ??? Fenofibrate 134 MG Cap, Take 134 mg by mouth 4 (four) times a week. 4 x a week AM, Disp: 108 capsule, Rfl: 3 ??? fish oil (OMEGA-3 FATTY ACID) 1000 MG Cap capsule, Take 1,000 mg by mouth 2 (two) times daily.,Disp: , Rfl: ??? fluticasone propionate (FLONASE) 50 MCG/ACT nasal spray, 1 spray by Nasal route daily., Disp: ,Rfl: ??? lisinopril (PRINIVIL) 10 MG tablet, Take 1 tablet (10 mg total) by mouth daily., Disp: 90 tablet, Rfl: 3 ??? Magnesium 100 MG Cap, Take by mouth daily., Disp: , Rfl: ??? multivitamin with minerals liquid, Take 15 mLs by mouth daily., Disp: , Rfl: ??? NURTEC 75 MG disintegrating tablet, TAKE 1 TABLET ON OR UNDER THE TONGUE EVERY OTHER DAY TO PREVENT MIGRAINE HEADACHES., Disp: , Rfl: ??? pravastatin (PRAVACHOL) 40 MG tablet, Take 1 tablet (40 mg total) by mouth daily., Disp: 90 tablet, Rfl: 3 ??? QUEtiapine (SEROQUEL) 100 MG tablet, TAKE 1 TABLET(100 MG) BY MOUTH EVERY NIGHT AT BEDTIME, Disp: 90 tablet, Rfl: 0 ??? QUEtiapine (SEROQUEL) 25 MG tablet, Take 25 mg by mouth 2 (two) times daily., Disp: , Rfl: ??? QUEtiapine (SEROQUEL) 50 MG tablet, Take 50 mg by mouth 2 (two) times daily. Pt takes 50mg in the morning., Disp: , Rfl: ??? RIZATRIPTAN BENZOATE OR, Take 20 mg by mouth. 1 every 4 hours. (Max 2 in 24 hours), Disp: , Rfl: ??? ubrogepant (UBRELVY) 100 MG tablet, Take 100 mg by mouth 2 (two) times daily as needed for Migraine. Max of 2 tablets (200 mg) in 24 hours Pt takes less than 1 month. (Patient not taking: Reported on 10/01/2022), Disp: , Rfl: ??? vilazodone (VIIBRYD) 40 MG tablet, Take 40 mg by mouth daily. Take with food, Disp: , Rfl: ??? vitamin B-2 (RIBOFLAVIN) 100 MG tablet, 100 mg daily., Disp: , Rfl: No Known Allergies Past Medical History: Diagnosis Date ??? ADHD (attention deficit hyperactivity disorder) ??? Anxiety ??? Depression ??? Headache ??? Hypertension ??? Mixed hyperlipidemia ??? Seasonal allergies Past Surgical History: Procedure Laterality Date ??? EXCISION OF UVULA ??? HEMORRHOIDECTOMY ??? LASIK ??? REMOVAL OF SPERM DUCT(S) ? ? REMOVAL OF TONSILS,<12 Y/O ??? REPAIR OF NASAL SEPTUM Social History Tobacco Use ??? Smoking status: Former Packs/day: 1.00 Years: 30.00 Pack years: 30.00 Types: Cigarettes ??? Smokeless tobacco: Never Vaping Use ??? Vaping Use: Never used Substance Use Topics ??? Alcohol use: Never ??? Drug use: Never Family History Problem Relation Name Age of Onset ??? Lipids Mother ??? Heart Mother ??? Diabetes Mother ??? Hypertension Mother ??? Cancer Father ??? Diabetes Father Family Status Relation Name Status ??? Mother ??? Father ??? Sister Alive ??? Sister Alive ??? Sister Alive ??? Brother Alive ??? MGM ??? MGF ??? PGM ??? PGF Review of Systems Constitutional: Negative. HENT: Positive for headaches. Eyes: Negative. Respiratory: Negative. Cardiovascular: Negative. Gastrointestinal: Negative. Genitourinary: Negative. Musculoskeletal: Negative. Skin: Negative. Endo/Heme/Allergies: Negative. Psychiatric/Behavioral: Negative. Vitals: 11/28/22 0935 BP: 104/78 Patient Position: Sitting BP Location: Left arm Pulse: 68 Temp: 97.6 ??F (36.4 ??C) Weight: 92.1 kg (203 lb) Height: 5' 10 (1.778 m) Body mass index is 29.13 kg/m??. Cardiac Exam Rate/Rhythm: Normal rate and regular rhythm. PMI: Pulses: Normal pulses. Intact distal pulses. Carotid pulses are 2+ on the right side and 2+ on the left side. Radial pulses are 2+ on the right side and 2+ on the left side. Femoral pulses are 2+ on the right side and 2+ on the left side. Dorsalis pedis pulses are 2+ on the right side and 2+ on the left side. Posterior tibial pulses are 2+ on the right side and 2+ on the left side. Heart Sounds: Normal heart sounds. Normal S1 sounds. Normal S2 sounds. Murmurs: Edema left: 0. Edema Right: 0. Physical Exam Constitutional: No distress. Healthy Appearance. HENT: Oropharynx clear. Dentition normal. Eyes: Pupils equal, round, and reactive to light. Conjunctivae normal. Neck: Normal range of motion. Neck supple. Thyroid normal. Abdomen: Abdomen soft. Bowel sounds normal. Pulmonary: Effort normal. Breath sounds normal. Skin: Dry. Warm. Musculoskeletal: Normal ROM. Neurological: Alert. Oriented x 3. Appropriate mood and affect. cranial nerves II through XII intact. Normal motor skills. Normal reflexes, symmetric. Normal gait. Comments: Diagnoses/Impression: 4 cm ascending aortic aneurysm identified incidentally on a CT lung screeningstudy in the setting of hypertension and former tobacco abuse CT lung screening study films reviewed and results discussed with patient and family Recommendations and Plan: No indication for cardiac surgical intervention at this time as the aneurysm is less than 5 cm I recommend the patient undergo a 2D echocardiogram to further evaluate the aortic root and aortic valve function. Continue antiimpulse therapy with lisinopril CTA chest in 1 year - interval, follow-up study to reassess size of the ascending aortic aneurysm Thank you for allowing me to participate in the care of your patient. Referring Provider: Gopi Espino MD PCP: SHANNAN Rodriguez R OPERATOR documented in this encounter Plan of Treatment Upcoming Encounters Date Type Department Care Team (Late st Contact Info) Description 10/05/2024 9:20 AM PAVER OPERATOR Office Visit [facility] Family & Internal Medicine - [place] [address] [place] [address] Morelia Scott APNP [address] [place] [address] 12/02/2024 11:00 AM CDT Office Visit [facility] [address] [place] [address] Rob Tapia MD 3 [facility] [address] [place] [address] Scheduled Orders Name Type Priority Associated Diagnoses Orde r Schedule CTA CHEST CT Routine Aneurysm of ascending aorta without rupture Expected: 11/18/2023 (Approximate), Expires: 05/31/2024 documented as of this encounter Visit Diagnoses Diagnosis Aneurysm of ascending aorta without rupture (CMS/HCC)- Primary documented in this encounter Additional Health Concerns Assessment Noted Time PHQ-9 Depression Total Score: 10 023 8:58 AM PAVER OPERATOR documented as of this encounter Care Teams [place] Actor Relationship Specialty Start Date End Date Morelia Scott APNP [address] [place] [id number] PCP - General NURSE PRACTITIONER 06/12/22 documented as of this encounter
--- OUTSIDE RECORDS SUMMARY | 2024-09-11 17:03 | XMS_ITS | Encounter Summary ---
Author Organization [facility] Address [address] [place] [address]. [place], [place] [address] [place] [address] Care Team Providers Care Laboratory Specialist Name Role Phone Morelia Scott Primary Care Provider [phone] Reason for Visit * Reason Comments CT (SCAN) Encounter Details Date Type Department Care Team (Latest Contact Info) Description 10/18/2022 Scan [facility] HEALTH INFO SRVCS Scanned, Doc Med Group CT (SCAN) Social History Tobacco Use Types [...] Coronavirus/COVID-19? No / Unsure 10/11/2022 8:46 AM FRESH FOODS TECHNICIAN documented as of this encounter Plan of Treatment Upcoming Encounters Date Type Department Care Team (Late st Contact Info) Description 10/05/2024 9:20 AM FRESH FOODS TECHNICIAN Office Visit [facility] Medical Group Family & Internal Medicine [place] [address] [place] [address] Morelia Scott APNP [facility] [place] [address] 12/02/2024 11:00 AM CDT Office Visit [facility], [address] [place] [address] Rob Tapia MD 3 [facility] [address] [place] [address] documented as of this encounter Procedures Procedure Name Priority Date/Time Associated Diagnosis Comments CT GENERIC 10/18/2022 documented in this encounter Results * CT GENERIC (10/18/2022) Anatomical Region Laterality Modality Other 10/18/2022 us Doc Med Group Scanned SCANNING Final Resu lt documented in this encounter Visit Diagnoses Not on filedocumented in this encounter Additional Health Concerns Assessment Noted Time PHQ-9 Depression Total Score: 10 023 8:58 AM FRESH FOODS TECHNICIAN documented as of this encounter Care Teams Laboratory Specialist Relationship Specialty Start Date End Date Morelia Scott APNP [facility] [place] [address] PCP - General NURSE PRACTITIONER 06/12/22 documented as of this encounter
--- OUTSIDE RECORDS SUMMARY | 2024-09-11 17:03 | XMS_ITS | Encounter Summary ---
Author Organization [facility] Address [address] [place] [address]. [place], [place] [address] [place] [address] Care Team Providers Care Hoop Flaring Machine Operator Name Role Phone Morelia Scott Primary Care Provider [phone] Encounter Details Date Type Department Care Team (Latest Contact Info) Description 07/09/2022 Scan HEALTH INFO SRVCS Scanned, Doc Med [...] suspected to have Coronavirus/COVID-19? No / Unsure 06/12/2022 10:51 AM CDT documented as of this encounter Plan of Treatment Upcoming Encounters Date Type Department Care Team (Late st Contact Info) Description 10/05/2024 9:20 AM MENTAL HEALTH DIRECTOR Office Visit [facility] Medical Group Family & Internal Medicine - [place] [address] [place] [address] Morelia Scott APNP [facility]1 [place] [address] 12/02/2024 11:00 AM CDT [facility], [address] [address] Rob Tapia MD 3 [facility] [address] [place] [address] documented as of this encounter Visit Diagnoses Not on filedocumented in this encounter Care Teams Hoop Flaring Machine Operator Relationship Specialty Start Date End Date Morelia Scott APNP [address] [place] [address] PCP - General NURSE PRACTITIONER 06/12/22 documented as of this encounter
--- OUTSIDE RECORDS SUMMARY | 2024-09-11 17:03 | XMS_ITS | Encounter Summary ---
Author Organization [facility] Address [address] [place] [address]. [place], [place] [address] [place] [address] Care Team Providers Care Apartment Maintenance Supervisor Name Role Phone Morelia Scott Primary Care Provider [phone] Reason for Visit * Reason Onset Date Comments Results 10/09/2022 Encounter Details Date Type Department Care Team (Late st Contact Info) Description 10/09/2022 Telephone [facility] Medical Group Family & Internal Medicine [facility] [address] [place] [address] Morelia Scott APNP [address] [place] [address] Results Social History Tobacco Use [...] suspected to have Coronavirus/COVID-19? No / Unsure 10/01/2022 7:45 AM COOK SYRUP MAKER documented as of this encounter Progress Notes * Melody Mohamud MA - 10/09/2022 10:12 AM CST LMOM informing patient mychart message will be sent with lab results and to contact the office withquestions. ----- Message from SHANNAN Rodriguez sent at 10/08/2022 4:09 PM COOK SYRUP MAKER ----- PSA WNL SYRUP MAKER SYRUP MAKER documented in this encounter Plan of Treatment Upcoming Encounters Date Type Department Care Team (Late st Contact Info) Description 10/05/2024 9:20 AM COOK SYRUP MAKER Office Visit [facility] Medical Group Family & Internal Medicine - [place] [address] [place] [address] Morelia Scott APNP [address] [place] [address] 12/02/2024 11:00 AM CDT Office Visit [facility], [address] [address] Rob Tapia MD 3 [facility] [address] [place] [address] documented as of this encounter Visit Diagnoses Not on filedocumented in this encounter Additional Health Concerns Assessment Noted Time PHQ-9 Depression Total Score: 10 023 8:58 AM COOK SYRUP MAKER documented as of this encounter Care Teams Apartment Maintenance Supervisor Relationship Specialty Start Date End Date Morelia Scott APNP [facility] [place] [address] PCP - General NURSE PRACTITIONER 06/12/22 documented as of this encounter
--- OUTSIDE RECORDS SUMMARY | 2024-09-11 17:03 | XMS_ITS | Encounter Summary ---
Author Organization [facility] Address [address] [place] [address]. [place], [place] [address] [place] [address] Care Team Providers Care Surgical Specialist Name Role Phone Morelia Scott Primary Care Provider [phone] Encounter Details Date Type Department Care Team (Latest Contact Info) Description 10/01/2022 Travel Social History Tobacco Use Types Packs/Day [...] Coronavirus/COVID-19? No / Unsure 10/01/2022 7:45 AM CHANNEL WORKER documented as of this encounter Plan of Treatment Upcoming Encounters Date Type Department Care Team (Late st Contact Info) Description 10/05/2024 9:20 AM CHANNEL WORKER Office Visit [facility] Medical Group Family & Internal Medicine - [place] [address] [place] [address] Morelia Scott APNP [address] [place] [address] 12/02/2024 11:00 AM CDT Office Visit [facility] [address] [place] [address] Rob Tapia MD 3 [facility] [address] [address] [place] [address] documented as of this encounter Visit Diagnoses Not on filedocumented in this encounter Additional Health Concerns Assessment Noted Time PHQ-9 Depression Total Score: 10 023 8:58 AM CHANNEL WORKER documented as of this encounter Care Teams Surgical Specialist Relationship Specialty Start Date End Date Morelia Scott APNP [address] [place] [address] PCP - General NURSE PRACTITIONER 06/12/22 documented as of this encounter
--- OUTSIDE RECORDS SUMMARY | 2024-09-11 17:03 | XMS_ITS | Encounter Summary ---
Author Organization [facility] Address [address] [place] [address]. [place], [place] [address] [place] [address] Care Team Providers Care Rooms Director Name Role Phone Morelia Scott Primary Care Provider [phone] Encounter Details Date Type Department Care Team (Latest Contact Info) Description 10/04/2021 Scan HEALTH INFO SRVCS Scanned, Documents Social History Tobacco Use Types Packs/Day Years [...] st Contact Info) Description 10/05/2024 9:20 AM NEEDLE PUNCH OPERATOR Office Visit [facility] Medical Group Family & Internal Medicine - [place] [address] [place] [address] Morelia Scott APNP [address] [place] [address] 12/02/2024 11:00 AM CDT Office Visit [facility], [place] [place], [place] [address] Rob Tapia MD 3 [facility] [address] [place] [address] documented as of this encounter Visit Diagnoses Not on filedocumented in this encounter Care Teams Rooms Director Relationship Specialty Start Date End Date Morelia Scott APNP [address] [place] [address] PCP - General NURSE PRACTITIONER 06/12/22 documented as of this encounter
--- OUTSIDE RECORDS SUMMARY | 2024-09-11 17:03 | XMS_ITS | Encounter Summary ---
Author Organization [facility] Address [address] [place] [address]. [place], [place] [address] [place] [address] Care Team Providers Care Ruling Machine Operator Name Role Phone Morelai Scott Primary Care Provider [phone] Reason for Visit * Reason Comments Lab (SCAN) Encounter Details Date Type Department Care Team (Latest Contact Info) Description 04/02/2022 Scan HEALTH INFO SRVCS Scanned, Doc Med Group Lab (SCAN) Social History Tobacco Use Types Packs/Day [...] st Contact Info) Description 10/05/2024 9:20 AM UNDER BASTER Office Visit [facility] Medical Group Family & Internal Medicine - [place] [address] [place] [address] Morelia Scott APNP [address] [place] [address] 12/02/2024 11:00 AM CDT Office Visit [facility], [place] [address] [place] [address] Rob Tapia MD 3 [facility] [address] [place] [address] documented as of this encounter Procedures Procedure Name Priority Date/Time Associated Diagnosis Comments OUTSIDE LAB COVID-19 (SCAN ORDER) Routine 04/02/2022 documented in this encounter Results * OUTSIDE LAB COVID-19 (SCAN) (04/02/2022) CORONAVIRUS SARS COV 2 PCR (RESP) NOT DETECTED NOT DETECTED [facility] 04/02/2022 us Doc Med Group Scanned SCANNING Final Resu lt [facility] documented in this encounter Visit Diagnoses Not on filedocumented in this encounter Care Teams Ruling Machine Operator Relationship Specialty Start Date End Date Morelia Scott APNP [address] [place] [address] PCP - General NURSE PRACTITIONER 06/12/22 documented as of this encounter
--- OUTSIDE RECORDS SUMMARY | 2024-09-11 17:03 | XMS_ITS | Encounter Summary ---
Author Organization [facility] Address [address] [place] [address]. [place], [place] [address] [place] [address] Care Team Providers Care Card Runner Name Role Phone Morelia Scott Primary Care Provider [phone] Encounter Details Date Type Department Care Team (Latest Contact Info) Description 04/02/2022 Scan HEALTH INFO SRVCS Scanned, Documents Social [...] st Contact Info) Description 10/05/2024 9:20 AM FORM BUILDER Office Visit [facility] Medical Group Family & Internal Medicine - [place] [address] [place] [address] Morelia Scott APNP [address] [place] [address] 12/02/2024 11:00 AM CDT Office Visit [facility], [address] [place], [place] [address] Rob Tapia MD 3 [facility] [address] [place] [address] documented as of this encounter Visit Diagnoses Not on filedocumented in this encounter Care Teams Card Runner Relationship Specialty Start Date End Date Morelia Scott APNP [address] [place] [address] PCP - General NURSE PRACTITIONER 06/12/22 documented as of this encounter
--- OUTSIDE RECORDS SUMMARY | 2024-09-11 17:03 | XMS_ITS | Encounter Summary ---
Author Organization [facility] Address [address] [place] [address]. [place], [place] [address] [place] [address] Care Team Providers Care Linen Supply Load Builder Name Role Phone Morelia Scott Primary Care Provider [phone] Reason for Referral * Consultation (Routine) - Closed Specialty Diagnoses / Procedures Referred By Marimar cerna Referred To Contact Psychiatry Diagnoses Attention deficit hyperactivity disorder (ADHD), 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 ([facility]) Anxiety Procedures OFFICE/OUTPT VISIT,NEW,LEVL III OFFICE/OUTPT VISIT,NEW,LEVL IV OFFICE/OUTPT VISIT,NEW,LEVL V OFFICE/OUTPT VISIT,EST,LEVL III OFFICE/OUTPT VISIT,EST,LEVL IV OFFICE/OUTPT VISIT,EST,LEVL V Morelia Scott APNP [address] [place] [address] Phone: tel: fax: [facility] Psych [address] [place] [address] Phone: tel: fax: Referral ID Status Reason Start Date Expiration Date V isits Requested Visits Authorized [id number] Closed Specialty Services 06/12/2022 07/12/2023 99 99 Scheduling Instructions Pt wants to be seen at [facility] Reason for Visit * Reason Onset Date Comments Referral 06/12/2022 Encounter Details Date Type Department Care Team (Late st Contact Info) Description 06/12/2022 Telephone [facility] Medical Group Family & Internal Medicine - [place] [address] [place] [address] Morelia Scott APNP [address] [place] [address] Referral Social History Tobacco Use Types Packs/Day [...] AM CDT documented as of this encounter Progress Notes * SHANNAN Rodriguez - 06/12/2022 2:23 PM CDT Referrals updated * Aria Gibson MA - 06/12/2022 2:14 PM CDT This peace of paper was on the medication list. Neurologist- Older doctor- Odessa Patino- [phone] office number Neurologist- New doctor- Collin Mayes [phone] pshy- Old doctor Chris Dickerson [phone] New doctor--psych ( no name for this) [facility] out pt [phone] fax number Older doctor ---primary care [facility] [phone] phone number BB 06/12/2022 documented in this encounter Plan of Treatment Upcoming Encounters Date Type Department Care Team (Late st Contact Info) Description 10/05/2024 9:20 AM GRAPHIC ARTS TECHNICIAN Office Visit [facility] Medical Group Family & Internal Medicine - [place] [address] [place] [address] Morelia Scott APNP [address] [place] [address] 12/02/2024 11:00 AM CDT Office Visit [facility], [address] [place] [address] Rob Tapia MD 3 [facility] [address] [place] [address] Scheduled Referrals Name Type Priority Associated Diagnoses Orde r Schedule Ambulatory Referral to Psychiatry Referral Routine Attention deficit hyperactivity disorder (ADHD), 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 ([facility]) Anxiety Ordered: 06/12/2022 documented as of this encounter Visit Diagnoses Diagnosis Attention deficit hyperactivity disorder (ADHD), predominantly inattentive type- Primary Moderate episode of recurrent major depressive disorder ([facility]) Anxiety Anxiety state, unspecified documented in this encounter Care Teams Linen Supply Load Builder Relationship Specialty Start Date End Date Morelia Scott APNP [facility] [place] [address] PCP - General NURSE PRACTITIONER 06/12/22 documented as of this encounter
--- OUTSIDE RECORDS SUMMARY | 2024-09-11 17:03 | XMS_ITS | Encounter Summary ---
Author Organization [facility] Address [address] [place] [address]. [place], [place] [address] [place] [address] Care Team Providers Care Property Field Adjuster Name Role Phone Morelia Scott Primary Care Provider [phone] Encounter Details Date Type Department Care Team (Latest Contact Info) Description 10/01/2022 - 10/01/2022 11:59 PM RACK WORKER Hospital En[facility] [address] [place] [address] Morelia Scott APNP [facility]1 [place] [address] Discharge Disposition: Home or Self Care (Routine [...] Coronavirus/COVID-19? No / Unsure 10/01/2022 7:45 AM RACK WORKER documented as of this encounter Medications at Time of Discharge Coenzyme Q10 (CO Q-10) 120 MG Cap [...] FOR HEADACHE OR MUSCLE SPASMS 135 tablet 08/26/2022 3 Fenofibrate 134 MG CapIndications:Mixed hyperlipidemia Take [...] by mouth daily. 90 tablet 3 10/01/2022 3 QUEtiapine (SEROQUEL) 25 MG tablet Take 1 [...] st Contact Info) Description 10/05/2024 9:20 AM RACK WORKER Office Visit [facility] Medical Group Family & Internal Medicine [place] [address] [place] [address] Morelia Scott APNP [address] [place] [address] 12/02/2024 11:00 AM CDT Office Visit [facility], [address] [address] Rbo Tapia MD 3 [facility] [address] [place] [address] documented as of this encounter Visit Diagnoses Not on filedocumented in this encounter Additional Health Concerns Assessment Noted Time PHQ-9 Depression Total Score: 10 023 8:58 AM RACK WORKER documented as of this encounter Care Teams Property Field Adjuster Relationship Specialty Start Date End Date Morelia Scott APNP [address] [place] [address] PCP - General NURSE PRACTITIONER 06/12/22 documented as of this encounter
--- OUTSIDE RECORDS SUMMARY | 2024-09-11 17:03 | XMS_ITS | Encounter Summary ---
Author Organization [facility] Address [address] [place] [address]. [place], [place] [address] [place] [address] Care Team Providers Care Sign Letterer Name Role Phone Morelia Scott Primary Care Provider [phone] Encounter Details Date Type Department Care Team (Latest Contact Info) Description 06/12/2022 Travel Social History Tobacco Use Types Packs/Day [...] st Contact Info) Description 10/05/2024 9:20 AM AIRCRAFT WORKER Office Visit [facility] Medical Group Family & Internal Medicine - [place] [address] [place] [address] Morelia Scott APNP [address] [place] [address] 12/02/2024 11:00 AM CDT [facility] [address] [address] Rob Tapia MD 3 [facility] [address] [place] [address] documented as of this encounter Visit Diagnoses Not on filedocumented in this encounter Care Teams Sign Letterer Relationship Specialty Start Date End Date Morelia Scott APNP [address] [place] [address] PCP - General NURSE PRACTITIONER 06/12/22 documented as of this encounter
--- OUTSIDE RECORDS SUMMARY | 2024-09-11 17:03 | XMS_ITS | Encounter Summary ---
Author Organization [facility] Address [address] [place] [address]. [place], [place] [address] [place] [address] Care Team Providers Care Counter Top Maker Name Role Phone Morelia Scott Primary Care Provider [phone] Reason for Visit * Reason Onset Date Comments Results 10/04/2022 Encounter Details Date Type Department Care Team (Late Contact Info) Description 10/04/2022 Telephone [facility] Family & Internal [address] [address] Morelia Scott APNP [address] [place] [address] Results Social History Tobacco Use [...] Coronavirus/COVID-19? No / Unsure 10/01/2022 7:45 AM DEICER REPAIRER PNEUMATIC documented as of this encounter Plan of Treatment Upcoming Encounters Date Type Department Care Team (Late Contact Info) Description 10/05/2024 9:20 AM DEICER REPAIRER PNEUMATIC Office Visit [facility] Family & Internal [address] [address] Morelia Scott APNP [address] [place] [address] 12/02/2024 11:00 AM CDT Office Visit [facility], [address] [place] [address] Rob Tapia MD 3 [facility] [place] [facility] [place] [address] documented as of this encounter Visit Diagnoses Not on filedocumented in this encounter Additional Health Concerns Assessment Noted Time PHQ-9 Depression Total Score: 10 023 8:58 AM DEICER REPAIRER PNEUMATIC documented as of this encounter Care Teams Counter Top Maker Relationship Specialty Start Date End Date Morelia Scott APNP [address] [place] [address] PCP - General NURSE PRACTITIONER 06/12/22 documented as of this encounter
--- OUTSIDE RECORDS SUMMARY | 2024-09-11 17:03 | XMS_ITS | Encounter Summary ---
Author Organization [facility] Address [address] [place] [address]. [place], [place] [address] [place] [address] Care Team Providers Care Agricultural Crop Farm Manager Name Role Phone Morelia Scott Primary Care Provider [phone] Reason for Visit * Reason Onset Date Comments Lab Results 10/14/2022 Encounter Details Date Type Department Care Team (Late st Contact Info) Description 10/14/2022 Telephone [facility] Medical Group Family & Internal Medicine [facility] [address] [place] [address] Morelia Scott APNP [address] [place] [address] Lab Results Social History Tobacco [...] Coronavirus/COVID-19? No / Unsure 10/11/2022 8:46 AM STRIPPER PRINTED CIRCUIT BOARDS documented as of this encounter Progress Notes * Zeina Ma RN - 10/14/2022 4:40 PM CST Patient notified and verbalized understanding. Opportunity given for all questions to be answered, no further needs voiced at this time. LL-10/14/22 PPER PRINTED CIRCUIT BOARDS * Zeina Ma RN - 10/14/2022 4:38 PM CST ----- Message from SHANNAN Rodriguez sent at 10/14/2022 10:32 AM STRIPPER PRINTED CIRCUIT BOARDS ----- HGB A1C WNL, no diabetes PPER PRINTED CIRCUIT BOARDS documented in this encounter Plan of Treatment Upcoming Encounters Date Type Department Care Team (Late st Contact Info) Description 10/05/2024 9:20 AM STRIPPER PRINTED CIRCUIT BOARDS Office Visit [facility] Medical Group Family & Internal Medicine - [address] [address] Morelia Scott APNP [address] [place] [address] 12/02/2024 11:00 AM CDT Office Visit [facility], [address] [address] Rob Tapia MD 3 [facility] [address] [place] [address] documented as of this encounter Visit Diagnoses Not on filedocumented in this encounter Additional Health Concerns Assessment Noted Time PHQ-9 Depression Total Score: 10 023 8:58 AM STRIPPER PRINTED CIRCUIT BOARDS documented as of this encounter Care Teams Agricultural Crop Farm Manager Relationship Specialty Start Date End Date Morelia Scott APNP [address] [place] [address] PCP - General NURSE PRACTITIONER 06/12/22 documented as of this encounter
--- OUTSIDE RECORDS SUMMARY | 2024-09-11 17:03 | XMS_ITS | Encounter Summary ---
Author Organization [facility] Address [address] [place] [address]. [place], [place] [id number] [place] [address] Care Team Providers Care Staffing Administrator Name Role Phone Morelia Scott Primary Care Provider [phone] Reason for Referral * Consultation (Routine) - Closed Specialty Diagnoses / Procedures Referred By Marimar cerna Referred To Contact NEUROLOGY Diagnoses Intractable chronic migraine without aura and without status migrainosus Procedures OFFICE/OUTPT VISIT,NEW,LEVL III OFFICE/OUTPT VISIT,NEW,LEVL IV OFFICE/OUTPT VISIT,NEW,LEVL V OFFICE/OUTPT VISIT,EST,LEVL III OFFICE/OUTPT VISIT,EST,LEVL IV OFFICE/OUTPT VISIT,EST,LEVL V Morelia Scott APNP [address] [place] [address] Phone: tel: fax: Collin Mayes MD [address] [place] [phone] Phone: tel: fax: Referral ID Status Reason Start Date Expiration Date V isits Requested Visits Authorized [id number] Closed Specialty Services 06/12/2022 07/13/2023 99 99 Reason for Visit * Reason Comments Physical Encounter Details Date Type Department Care Team (Late st Contact Info) Description 06/12/2022 11:00 AM CDT Office Visit [facility] Family & Internal Medicine [address] [phone] Morelia Scott APNP [address] [place] [address] Physical Social History Tobacco Use Types Packs/Day Years [...] Sign Reading Time Taken Comments Blood Pressure 132/82 06/12/2022 11:27 AM CDT Pulse 64 06/12/2022 11:27 AM CDT Temperature 36.6 ??C (97.8 ??F) 06/12/2022 11:27 AM C DT Respiratory Rate 12 06/12/2022 11:27 AM CDT Oxygen Saturation 98% 06/12/2022 11:27 AM CDT Inhaled Oxygen Concentration - - Weight 91.6 kg (202 lb) 06/12/2022 11:27 AM CDT Height 177.8 cm (5' 10 ) 06/12/2022 11:27 AM CDT Body Mass Index 28.98 06/12/2022 11:27 AM CDT documented in this encounter Progress Notes * SHANNAN Rodriguez - 06/12/2022 11:00 AM CDT Images from the original note were not included. [facility] FAMILY AND INTERNAL MEDICINE OFFICE VISIT Reason for Visit: Physical History of Present Illness: 61 yo male here today to establish care as a new pt. He is , has grown children and is retired from [employer]. He and his spouse have recently relocated from [place]. He is a former smoker, quitting 7 years ago. Prior to this, he was a 1 PPD smoker for 20 years . Hedoes not drink alcohol or use drugs. Chronic health conditions: Depression/Anxiety -patient is on several medications to help with anxiety and depression. In [place] he was followed by a psychiatrist for this and plans to reestablish with one here. I will keep hismedications filled until he is able to establish. He feels now currently his medications are balanced and he feels his symptoms are controlled. Denies any HI/SI. ADHD -currently treated with Adderall 20 mg for ADHD symptoms. Was previously followed by psychiatry and plans to reestablish. Tolerates meds well with no bothersome side effects. Migraine - MARIE/migraine starts with tension in forehead. He does not have any associated nausea or monitoring. Does have some photophobia and phonophobia. Takes Ubrelvy and Rizatriptan PRN---tries to use sparingly. Typically sees neurology and would like to continue to see neurology if possible. HLD - takes fenofibrate and pravastatin---tolerates well---no bothersome side effects. HTN - takes lisinopril---tolerates well. BP controlled. Colon cancer screening - Last colonoscopy was at age 58---he does not recall any issues. Labs - last set of labs was done about a year ago. Due for Hep C screen and would like to have done. Immunizations - last Tdap was done several years ago. Updated with COVID vaccinations. Can update Tdap today He has no new complaints or concerns at today's visit. ROS: Review of Systems Constitutional: Negative for chills and fever. HENT: Negative for congestion and hearing loss. Eyes: Negative for blurred vision and double vision. Respiratory: Negative for cough and shortness of breath. Cardiovascular: Negative for chest pain and palpitations. Gastrointestinal: Negative for abdominal pain and vomiting. Genitourinary: Negative for dysuria and urgency. Skin: Negative for itching and rash. Neurological: Negative for dizziness and headaches. Psychiatric/Behavioral: Negative for depression and suicidal ideas. The patient is not nervous/anxious. Medications: Current Outpatient Medications: ??? amphetamine-dextroamphetamine (ADDERALL) 20 MG tablet, Take 20 mg by mouth daily., Disp: , Rfl: ??? buPROPion XL (WELLBUTRIN XL) 300 MG 24 hr tablet, Take 300 mg by mouth daily., Disp: , Rfl: ??? Coenzyme Q10 (CO Q-10) 120 MG Cap, , Disp: , Rfl: ??? cyclobenzaprine (FLEXERIL) 10 MG tablet, Take 10 mg by mouth 3 (three) times daily as needed for Muscle Spasms., Disp: , Rfl: ??? [START ON 06/13/2022] Fenofibrate 134 MG Cap, Take 134 mg by mouth 4 (four) times a week. 4 x a week AM, Disp: 36 capsule, Rfl: 3 ??? fish oil (OMEGA-3 FATTY ACID) 1000 MG Cap capsule, Take 1,000 mg by mouth 2 (two) times daily.,Disp: , Rfl: ??? fluticasone propionate (FLONASE) 50 MCG/ACT nasal spray, 1 spray by Nasal route daily., Disp: ,Rfl: ??? lisinopril (PRINIVIL) 10 MG tablet, Take 10 mg by mouth daily., Disp: , Rfl: ??? Magnesium 100 MG Cap, , Disp: , Rfl: ??? multivitamin with minerals liquid, Take 15 mLs by mouth daily., Disp: , Rfl: ??? pravastatin (PRAVACHOL) 40 MG tablet, Take 40 mg by mouth nightly at bedtime., Disp: , Rfl: ??? QUEtiapine (SEROQUEL) 100 MG tablet, Take 1 tablet (100 mg total) by mouth nightly at bedtime.,Disp: 60 tablet, Rfl: 0 ??? QUEtiapine (SEROQUEL) 25 MG tablet, Take 25 mg by mouth 2 (two) times daily., Disp: , Rfl: ??? RIZATRIPTAN BENZOATE OR, Take 20 mg by mouth. 1 every 4 hours. (Max 2 in 24 hours), Disp: , Rfl: ??? ubrogepant (UBRELVY) 100 MG tablet, Take 100 mg by mouth 2 (two) times daily as needed for Migraine. Max of 2 tablets (200 mg) in 24 hours Pt takes less than 1 month., Disp: , Rfl: ??? vilazodone (VIIBRYD) 40 MG tablet, Take 40 mg by mouth daily. Take with food, Disp: , Rfl: ??? vitamin B-2 (RIBOFLAVIN) 100 MG tablet, 100 mg daily., Disp: , Rfl: Allergies: No Known Allergies Medical History: Past Medical History: Diagnosis Date ??? ADHD (attention deficit hyperactivity disorder) ??? Anxiety ??? Depression ??? Headache ??? Hypertension ??? Mixed hyperlipidemia ??? Seasonal allergies Surgical History: Past Surgical History: Procedure Laterality Date ??? EXCISION OF UVULA ??? HEMORRHOIDECTOMY ??? LASIK ??? REMOVAL OF SPERM DUCT(S) ? ? REMOVAL OF TONSILS,<12 Y/O ??? REPAIR OF NASAL SEPTUM Social History: Social History Socioeconomic History ??? Marital status: Tobacco Use ??? Smoking status: Former Smoker Packs/day: 1.00 Years: 30.00 Pack years: 30.00 Types: Cigarettes ??? Smokeless tobacco: Never Used Vaping Use ??? Vaping Use: Never used Substance and Sexual Activity ??? Alcohol use: Never ??? Drug use: Never Family History: Family History Problem Relation Name Age of Onset ??? Lipids Mother ??? Heart Mother ??? Diabetes Mother ??? Hypertension Mother ??? Cancer Father ??? Diabetes Father PE: Physical Exam Vitals and nursing note reviewed. HENT: Head: Normocephalic and atraumatic. Right Ear: Tympanic membrane normal. Left Ear: Tympanic membrane normal. Mouth/Throat: Pharynx: No posterior oropharyngeal erythema. Eyes: General: [...] warm and dry. Findings: No erythema. Neurological: General: No focal deficit present. Mental Status: He is alert and oriented to person, place, and time. Gait: Gait is intact. Psychiatric: Mood and Affect: Mood and affect normal. Filed Vitals: 06/12/22 1127 BP: 132/82 Pulse: 64 Resp: 12 Temp: 97.8 ??F (36.6 ??C) SpO2: 98% Weight: 91.6 kg (202 lb) Height: 5' 10 (1.778 m) Labs: Labs Reviewed Diagnoses/Impression: 1. Primary hypertension Chronic LIPID PANEL TSH W/REFLEX URINALYSIS WI REFLEX TO CULTURE COMPREHENSIVE METABOLIC PANEL 2. Mixed hyperlipidemia Chronic Fenofibrate 134 MG Cap LIPID PANEL CK (CPK) 3. Anxiety QUEtiapine (SEROQUEL) 100 MG tablet TSH W/REFLEX COMPREHENSIVE METABOLIC PANEL 4. Moderate episode of recurrent major depressive disorder (CMS/HCC) QUEtiapine (SEROQUEL) 100 MG tablet TSH W/REFLEX COMPREHENSIVE METABOLIC PANEL 5. Seasonal allergies Chronic 6. Attention deficit hyperactivity disorder (ADHD), predominantly inattentive type Chronic 7. BMI 28.0-28.9,adult CBC W/DIFF AUTOMATED LIPID PANEL TSH W/REFLEX URINALYSIS WI REFLEX TO CULTURE COMPREHENSIVE METABOLIC PANEL PROSTATE SPECIFIC ANTIGEN,SCREENING CK (CPK) 8. Prostate cancer screening PROSTATE SPECIFIC ANTIGEN,SCREENING 9. Need for oohvyxfvml-moqlreg-wgggfbyyt (Tdap) vaccine [02893] Adacel (Tdap) 10. Need for hepatitis C screening test HEPATITIS C AB ([facility] ONLY) 11. Intractable chronic migraine without aura and without status migrainosus Ambulatory referral toNeurology (OTHER) Recommendations and Plan: 1. Primary hypertension - LIPID PANEL; Future - TSH W/REFLEX; Future - URINALYSIS WI REFLEX TO CULTURE; Future - COMPREHENSIVE METABOLIC PANEL; Future Stable. Continue medications 2. Mixed hyperlipidemia - Fenofibrate 134 MG Cap; Take 134 mg by mouth 4 (four) times a week. 4 x a week AM Dispense: 36 capsule; Refill: 3 - LIPID PANEL; Future - CK (CPK); Future Stable. Continue meds. Routine fasting labs ordered 3. Anxiety - QUEtiapine (SEROQUEL) 100 MG tablet; Take 1 tablet (100 mg total) by mouth nightly at bedtime. Dispense: 60 tablet; Refill: 0 - TSH W/REFLEX; Future - COMPREHENSIVE METABOLIC PANEL; Future Stable. Continue medications. Will refer to psychiatry 4. Moderate episode of recurrent major depressive disorder (CMS/HCC) - QUEtiapine (SEROQUEL) 100 MG tablet; Take 1 tablet (100 mg total) by mouth nightly at bedtime. Dispense: 60 tablet; Refill: 0 - TSH W/REFLEX; Future - COMPREHENSIVE METABOLIC PANEL; Future Stable. Continue meds. Will refer to psychiatry 5. Seasonal allergies Stable. Continue meds as needed 6. Attention deficit hyperactivity disorder (ADHD), predominantly inattentive type We will refer to psychiatry. Patient has specific request 7. BMI 28.0-28.9,adult - CBC W/DIFF AUTOMATED; Future - LIPID PANEL; Future - TSH W/REFLEX; Future - URINALYSIS WI REFLEX TO CULTURE; Future - COMPREHENSIVE METABOLIC PANEL; Future - PROSTATE SPECIFIC ANTIGEN,SCREENING; Future - CK (CPK); Future 8. Prostate cancer screening - PROSTATE SPECIFIC ANTIGEN,SCREENING; Future 9. Need for wleuzuiqtk-vxldxhx-acedfmreo (Tdap) vaccine - [[id number]] Adacel (Tdap) Tdap updated today. 10. Need for Hepatitis C screening test Shared decision making Patient will follow-up in about 3 months for his routine physical and lab work. Orders Placed This Encounter ??? CBC W/DIFF AUTOMATED ??? LIPID PANEL ??? TSH W/REFLEX ??? URINALYSIS WI REFLEX TO CULTURE ??? COMPREHENSIVE METABOLIC PANEL ??? PROSTATE SPECIFIC ANTIGEN,SCREENING ??? CK (CPK) ??? HEPATITIS C AB ([facility] ONLY) ??? Ambulatory referral to Neurology (OTHER) ??? [[id number]] Adacel (Tdap) ??? pravastatin (PRAVACHOL) 40 MG tablet ??? DISCONTD: Fenofibrate 134 MG Cap ??? lisinopril (PRINIVIL) 10 MG tablet ??? buPROPion XL (WELLBUTRIN XL) 300 MG 24 hr tablet ??? amphetamine-dextroamphetamine (ADDERALL) 20 MG tablet ??? DISCONTD: QUEtiapine (SEROQUEL) 100 MG tablet ??? QUEtiapine (SEROQUEL) 25 MG tablet ??? vilazodone (VIIBRYD) 40 MG tablet ??? cyclobenzaprine (FLEXERIL) 10 MG tablet ??? ubrogepant (UBRELVY) 100 MG tablet ??? RIZATRIPTAN BENZOATE OR ??? fluticasone propionate (FLONASE) 50 MCG/ACT nasal spray ??? fish oil (OMEGA-3 FATTY ACID) 1000 MG Cap capsule ??? Magnesium 100 MG Cap ??? multivitamin with minerals liquid ??? vitamin B-2 (RIBOFLAVIN) 100 MG tablet ??? Coenzyme Q10 (CO Q-10) 120 MG Cap ??? QUEtiapine (SEROQUEL) 100 MG tablet ??? Fenofibrate 134 MG Cap Cannot display discharge medications since this is not an admission. PCP: SHANNAN Rodriguez 06/12/2022 Cosigned by Masood Duran MD at 06/13/2022 2:38 PM CDT documented in this encounter Plan of Treatment Upcoming Encounters Date Type Department Care Team (Late st Contact Info) Description 10/05/2024 9:20 AM AGRICULTURAL EQUIPMENT SALES ENGINEER Office Visit [facility] Family & Internal Medicine - [place] [phone] [place] [address] Morelia Scott APNP [address] [place] [address] 12/02/2024 11:00 AM CDT Office Visit [facility], [address] [phone] Rob Tapia MD 3 [facility] [address] [place] [id number] Scheduled Referrals Name Type Priority Associated Diagnoses Orde r Schedule Ambulatory referral to Neurology (OTHER) Referral Routine Intractable chronic migraine without aura and without status migrainosus Ordered: 06/12/2022 documented as of this encounter Results * HEPATITIS C AB ([facility] ONLY) (10/01/2022 9:27 AM AGRICULTURAL EQUIPMENT SALES ENGINEER) HEPATITIS C AB NON-REACTI VE NON-REACT SHEILA 10/01/2022 7:30 PM AGRICULTURAL EQUIPMENT SALES ENGINEER [facility] Comment: ANTIBODIES TO HCV NOT DETECTED. DOES NOT EXCLUDE THE POSSIBILITY OF EXPOSURE TO HCV. 10/01/2022 9:27 AM AGRICULTURAL EQUIPMENT SALES ENGINEER Morelia [facility] Final Resul t [facility] [address] [place] [address], [place] [phone] [id number] * CK (CPK) (10/01/2022 9:27 AM AGRICULTURAL EQUIPMENT SALES ENGINEER) CPK 49 39 - 308 U/L 10/01/2022 3:01 PM AGRICULTURAL EQUIPMENT SALES ENGINEER [facility] 10/01/2022 9:27 AM AGRICULTURAL EQUIPMENT SALES ENGINEER Morelia Sonia [facility] Final Resul t Performing Organization Address City/[facility]/ZIP Co de Phone Number [facility] [address] [place] [address], [place] [phone] * (ABNORMAL) COMPREHENSIVE METABOLIC PANEL (10/01/2022 9:27 AM AGRICULTURAL EQUIPMENT SALES ENGINEER) SODIUM S/P/B 142 136 - 145 MMOL/L 10/01/2022 3:28 PM [facility] POTASSIUM S/P/B 4.4 3.5 - 5.1 MMOL/L 10/01/2022 3:28 PM [facility] CHLORIDE S/P/B 104 98 - 107 MMOL/L 10/01/2022 3:28 PM [facility] CO2 28.9 21 - 32 MMOL/L 10/01/2022 3:28 PM [facility] GLUCOSE 106(H) 70 - 99 MG/DL 10/01/2022 3:28 PM [facility] BUN 20(H) 7 - 18 MG/DL 10/01/2022 3:28 PM [facility] CREATININE S/P/B 1.12 0.70 - 1.30 MG/DL 10/01/2022 3:28 PM [facility] CALCIUM S/P/B 10.5 8.4 - 10.5 MG/DL 10/01/2022 3:28 PM [facility] BILIRUBIN TOTAL S/P/B 0.4 0.2 - 1.0 MG/DL 10/01/2022 3:28 PM [facility] ALKALINE PHOSPHATASE S/P/B 65 45 - 115 U/L 10/01/2022 3:28 PM [facility] AST 23 15 - 37 U/L 10/01/2022 3:28 PM [facility] ALT 35 16 - 63 U/L 10/01/2022 3:28 PM [facility] TOTAL PROTEIN S/P/B 7.6 6.4 - 8.2 G/DL 10/01/2022 3:28 PM [facility] ALBUMIN S/P/B 4.4 3.4 - 5.0 G/DL 10/01/2022 3:28 PM [facility] ANION GAP 9.1 5 - 15 MMOL/L 10/01/2022 3:28 PM [facility] Comment:REFERENCE RANGE NOT ESTABLISHED OSMOLALITY (CALC) 297 MOSM/KG 023 3:28 PM [facility] Comment:REFERENCE RANGE NOT ESTABLISHED GFR ESTIMATE 73(L) >90 ML/MIN/1. 73 M2 10/01/2022 3:28 PM [facility] GFR NOTES GFR REFERENCE S: 10/01/2022 3:28 PM [facility] Comment: THE ESTIMATED GFR IS CALCULATED USING [...] ml/min/1.73 m2 G5,KIDNEY FAILURE: <15 ml/min/1.73 m2 10/01/2022 9:27 AM AGRICULTURAL EQUIPMENT SALES ENGINEER Morelia [facility] Final Resul t [facility] [address] [place] [address], * URINALYSIS WI REFLEX TO CULTURE (10/01/2022 9:27 AM AGRICULTURAL EQUIPMENT SALES ENGINEER) COLOR (U) YELLOW 10/01/2022 3:57 PM AGRICULTURAL EQUIPMENT SALES ENGINEER [facility] TRANSPARENCY CLEAR CLEAR 10/01/2022 3:57 PM AGRICULTURAL EQUIPMENT SALES ENGINEER [facility] SPECIFIC GRAVITY (U) 1.010 1.003 - 1.040 10/01/2022 3:57 PM AGRICULTURAL EQUIPMENT SALES ENGINEER [facility] U PH 6.0 5.0 - 9.0 10/01/2022 3:57 PM AGRICULTURAL EQUIPMENT SALES ENGINEER [facility] PROTEIN (U) NEGATIVE NEGATIVE 10/01/2022 3:57 PM AGRICULTURAL EQUIPMENT SALES ENGINEER [facility] URINE GLUCOSE NEGATIVE NEGATIVE 10/01/2022 3:57 PM AGRICULTURAL EQUIPMENT SALES ENGINEER [facility] KETONES MG/DL (U) NEGATIVE NEGATIVE 10/01/2022 3:57 PM AGRICULTURAL EQUIPMENT SALES ENGINEER [facility] BILIRUBIN (U) NEGATIVE NEGATIVE 10/01/2022 3:57 PM AGRICULTURAL EQUIPMENT SALES ENGINEER [facility] BLOOD (U) NEGATIVE NEGATIVE 10/01/2022 3:57 PM AGRICULTURAL EQUIPMENT SALES ENGINEER [facility] UROBILINOGEN 0.2 0.0 - 2.0 EU/DL 10/01/2022 3:57 PM AGRICULTURAL EQUIPMENT SALES ENGINEER [facility] NITRITES NEGATIVE NEGATIVE 10/01/2022 3:57 PM AGRICULTURAL EQUIPMENT SALES ENGINEER [facility] LEUKOCYTES (U) NEGATIVE NEGATIVE 10/01/2022 3:57 PM AGRICULTURAL EQUIPMENT SALES ENGINEER [facility] REFLEX URINE CULTURE: CULTURE IS NOT INDICATED 10/01/2022 3:57 PM AGRICULTURAL EQUIPMENT SALES ENGINEER [facility] RBC/HPF 0-3 0 - 3 /HPF 10/01/2022 3:57 PM AGRICULTURAL EQUIPMENT SALES ENGINEER [facility] WBC/HPF 0-3 0 - 3 /HPF 10/01/2022 3:57 PM AGRICULTURAL EQUIPMENT SALES ENGINEER [facility] EPI/HPF 0-3 /HPF 10/01/2022 3:57 PM AGRICULTURAL EQUIPMENT SALES ENGINEER [facility] BACTERIA (U) NONE SEEN NONE SEEN 10/01/2022 3:57 PM AGRICULTURAL EQUIPMENT SALES ENGINEER [facility] URINE SPECIMEN OBTAINED BY CLEAN CATCH PROCEDURE / Unknown 10/01/2022 9:27 AM AGRICULTURAL EQUIPMENT SALES ENGINEER Morelia [facility] ORDERABLES Final Resu lt [facility] [address] [place] [address], * (ABNORMAL) LIPID PANEL (10/01/2022 9:27 AM AGRICULTURAL EQUIPMENT SALES ENGINEER) CHOLESTEROL 188 <200 MG/DL 10/01/2022 3:28 PM [facility] TRIGLYCERIDES 220(H) <150 MG/DL 10/01/2022 3:28 PM [facility] HDL 48 >40 MG/DL 10/01/2022 3:28 PM [facility] LDL-C 96 <100 MG/DL 10/01/2022 3:28 PM AGRICULTURAL EQUIPMENT SALES ENGINEER [facility] VLDL CALCULATION 44(H) 5 - 28 MG/DL 10/01/2022 3:28 PM [facility] CHOL/HDL RATIO 3.9 0.0 - 4.0 10/01/2022 3:28 PM AGRICULTURAL EQUIPMENT SALES ENGINEER [facility] LDL/HDL 2.0 0.41 - 2.13 10/01/2022 3:28 PM AGRICULTURAL EQUIPMENT SALES ENGINEER [facility] NON HDL CHOLESTEROL 140(H) <140 MG/DL 10/01/2022 3:28 PM AGRICULTURAL EQUIPMENT SALES ENGINEER [facility] 10/01/2022 9:27 AM AGRICULTURAL EQUIPMENT SALES ENGINEER Morelia [facility] Final Resul t [facility] MEHREEN [facility]ATHAM [address] [place] [address], documented in this encounter Visit Diagnoses Diagnosis Primary hypertension- Primary Unspecified essential hypertension Mixed hyperlipidemia Anxiety Anxiety state, unspecified Moderate episode of recurrent major depressive disorder ([facility]/HCC HHS/HCC) Seasonal allergies Allergic rhinitis, cause unspecified Attention deficit hyperactivity disorder (ADHD), predominantly inattentive type BMI 28.0-28.9,adult Body Mass Index 28.0-28.9, adult Prostate cancer screening Special screening for malignant neoplasm of prostate Need for reswibxeny-hgtagmz-aluuulzmo (Tdap) vaccine Need for prophylactic vaccination with combined jtfxkvodth-xskrydj-otvhwicnb (DTP) vaccine Need for hepatitis C screening test Special screening examination for other specified viral diseases Intractable chronic migraine without aura and without status migrainosus Chronic migraine without aura, with intractable migraine, so stated, without mention of status migrainosus documented in this encounter Care Teams Staffing Administrator Relationship Specialty Start Date End Date Morelia Scott APNP [address] [place] [address] PCP - General NURSE PRACTITIONER 06/12/22 documented as of this encounter
--- OUTSIDE RECORDS SUMMARY | 2024-09-11 17:03 | XMS_ITS | Encounter Summary ---
Author Organization [facility] Address [address] [place] [address]. [place], [place] [address] [place] [address] Care Team Providers Care Home Improvement Installer Name Role Phone Morelia Scott Primary Care Provider [phone] Encounter Details Date Type Department Care Team (Latest Contact Info) Description 12/26/2021 Scan HEALTH INFO SRVCS Scanned, Documents Social [...] st Contact Info) Description 10/05/2024 9:20 AM GLASS ARTIST Office Visit [facility] Family & Internal Medicine - [place] [address] [place] [address] Morelia Scott APNP [address] [place] [address] 12/02/2024 11:00 AM CDT Office Visit [facility], [place] [address] [place], [place] [address] Rob Tapia MD 3 [facility] [address] [place] [address] documented as of this encounter Visit Diagnoses Not on filedocumented in this encounter Care Teams Home Improvement Installer Relationship Specialty Start Date End Date Morelia Scott APNP [address] [place] [address] PCP - General NURSE PRACTITIONER 06/12/22 documented as of this encounter
--- OUTSIDE RECORDS SUMMARY | 2024-09-11 17:03 | XMS_ITS | Encounter Summary ---
Author Organization [facility] Address [address] [place] [address]. [place], [place] [address] [place] [address] Care Team Providers Care Grease Refining Supervisor Name Role Phone Morelia Scott Primary Care Provider [phone] Encounter Details Date Type Department Care Team (Latest Contact Info) Description 07/04/2022 Scan HEALTH INFO SRVCS Scanned, Doc Med [...] st Contact Info) Description 10/05/2024 9:20 AM WELL SERVICE FLOORPERSON Office Visit [facility] Family & Internal Medicine - [place] [address] [place] [address] Morelia Scott APNP [facility] [place] [address] 12/02/2024 11:00 AM CDT [facility] [address] [address] Rob Tapia MD 3 [facility] [address] [place] [address] documented as of this encounter Visit Diagnoses Not on filedocumented in this encounter Care Teams Grease Refining Supervisor Relationship Specialty Start Date End Date Morelia Scott APNP [address] [place] [address] PCP - General NURSE PRACTITIONER 06/12/22 documented as of this encounter
--- OUTSIDE RECORDS SUMMARY | 2024-09-11 17:03 | XMS_ITS | Encounter Summary ---
Author Organization [facility] Address [address] [place] [address]. [place], [place] [address] [place] [address] Care Team Providers Care Cosmetician Name Role Phone Morelia Scott Primary Care Provider [phone] Encounter Details Date Type Department Care Team (Latest Contact Info) Description 10/10/2022 Scan [facility] INFO SRVCS Scanned, Doc [...] Coronavirus/COVID-19? No / Unsure 10/11/2022 8:46 AM OIL EXPERT documented as of this encounter Plan of Treatment Upcoming Encounters Date Type Department Care Team (Late st Contact Info) Description 10/05/2024 9:20 AM OIL EXPERT Office Visit [facility] Family & Internal Medicine - [place] [address] [place] [phone] Morelia Scott APNP [facility] [place] [address] 12/02/2024 11:00 AM CDT Office Visit [facility], [address] [place] [address] Rob Tapia MD 3 [facility] [address] [place] [address] documented as of this encounter Visit Diagnoses Not on filedocumented in this encounter Additional Health Concerns Assessment Noted Time PHQ-9 Depression Total Score: 10 023 8:58 AM OIL EXPERT documented as of this encounter Care Teams Cosmetician Relationship Specialty Start Date End Date Morelia Scott APNP [facility] [place] [address] PCP - General NURSE PRACTITIONER 06/12/22 documented as of this encounter
--- OUTSIDE RECORDS SUMMARY | 2024-09-11 17:03 | XMS_ITS | Encounter Summary ---
Author Organization [facility] Address [address] [place] [address]. [place], [place] [address] [place] [address] Care Team Providers Care Histologic Aide Name Role Phone Morelia Scott Primary Care Provider [phone] Reason for Visit * Reason Comments Allied Health Visit A1C Encounter Details Date Type Department Care Team (Latest Contact Info) Description 10/11/2022 9:00 AM DISTRIBUTION OPERATIONS SUPERVISOR Allied Health/Nurse Visit [facility] Family & Internal Medicine [facility] [address] [place] [address] Morelia Scott APNP [address] [place] [address] Allied Health Visit (A1C ) Social History Tobacco Use Types Packs/Day [...] Coronavirus/COVID-19? No / Unsure 10/11/2022 8:46 AM DISTRIBUTION OPERATIONS SUPERVISOR documented as of this encounter Progress Notes * Melody Mohamud MA - 10/11/2022 9:00 AM CST Patient presents for A1C testing. RIBUTION OPERATIONS SUPERVISOR documented in this encounter Plan of Treatment Upcoming Encounters Date Type Department Care Team (Late st Contact Info) Description 10/05/2024 9:20 AM DISTRIBUTION OPERATIONS SUPERVISOR Office Visit [facility] Family & Internal Medicine - [address] [phone] Morelia Scott APNP [address] [place] [address] 12/02/2024 11:00 AM CDT Office Visit [facility], [place] [place], [place] [phone] Rob Tapia MD 3 [facility] [address] [place] [id number] documented as of this encounter Procedures Procedure Name Priority Date/Time Associated Diagnosis Comments COLLECT.CAPILLARY (FNGR,HEEL,EAR) Routine 10/11/2022 8:58 AM DISTRIBUTION OPERATIONS SUPERVISOR Elevated glucose HEMOGLOBIN, GLYCOSYLATED Routine 10/11/2022 Elevated glucose documented in this encounter Results * A1C (BACK OFFICE) (10/11/2022) HGB A1C 5.4 % [facility] 10/11/2022 us Morelia [facility] Final Resul t [address] [address], documented in this encounter Visit Diagnoses Diagnosis Elevated glucose- Primary Other abnormal glucose documented in this encounter Additional Health Concerns Assessment Noted Time PHQ-9 Depression Total Score: 10 023 8:58 AM DISTRIBUTION OPERATIONS SUPERVISOR documented as of this encounter Care Teams Histologic Aide Relationship Specialty Start Date End Date Morelia Scott APNP [address] [place] [address] PCP - General NURSE PRACTITIONER 06/12/22 documented as of this encounter
--- OUTSIDE RECORDS SUMMARY | 2024-09-11 17:03 | XMS_ITS | Encounter Summary ---
Author Organization [facility] Address [address] [place] [address]. [place], [place] [id number] [place] [address] Care Team Providers Care Paralegals Name Role Phone Morelia Scott Primary Care Provider [phone] Encounter Details Date Type Department Care Team (Latest Contact Info) Description 10/11/2022 Travel Social History Tobacco Use Types Packs/Day [...] Coronavirus/COVID-19? No / Unsure 10/11/2022 8:46 AM DOUBLE CUT OFF SAW OPERATOR documented as of this encounter Plan of Treatment Upcoming Encounters Date Type Department Care Team (Late st Contact Info) Description 10/05/2024 9:20 AM DOUBLE CUT OFF SAW OPERATOR Office Visit [facility] Family & Internal Medicine - [place] [address] [place] [address] Morelia Scott APNP [address] [place] [address] 12/02/2024 11:00 AM CDT Office Visit [facility] [address] [place] [address] Rob Tapia MD [address] [place] [address] documented as of this encounter Visit Diagnoses Not on filedocumented in this encounter Additional Health Concerns Assessment Noted Time PHQ-9 Depression Total Score: 10 023 8:58 AM DOUBLE CUT OFF SAW OPERATOR documented as of this encounter Care Teams Paralegals Relationship Specialty Start Date End Date Morelia Scott APNP [address] [place] [address] PCP - General NURSE PRACTITIONER 06/12/22 documented as of this encounter
--- OUTSIDE RECORDS SUMMARY | 2024-09-11 17:03 | XMS_ITS | Encounter Summary ---
Author Organization [facility] Address [address] [place] [address]. [place], [place] [address] [place] [address] Care Team Providers Care Support Engineer Name Role Phone Morelia Scott Primary Care Provider [phone] Encounter Details Date Type Department Care Team (Latest Contact Info) Description 06/12/2022 Scan HEALTH INFO SRVCS Scanned, Documents Social [...] st Contact Info) Description 10/05/2024 9:20 AM PUBLIC HEALTH STAFF NURSE Office Visit [facility] Family & Internal Medicine - [place] [address] [place] [phone] Morelia Scott APNP [facility] [place] [address] 12/02/2024 11:00 AM CDT Office Visit [facility], [address] [address] Rob Tapia MD 3 [facility] [address] [place] [address] documented as of this encounter Visit Diagnoses Not on filedocumented in this encounter Care Teams Support Engineer Relationship Specialty Start Date End Date Morelia Scott APNP [address] [place] [address] PCP - General NURSE PRACTITIONER 06/12/22 documented as of this encounter
--- OUTSIDE RECORDS SUMMARY | 2024-09-11 17:03 | XMS_ITS | Encounter Summary ---
Author Organization [facility] Address [address] [place] [address]. [place], [place] [phone] [place] [address] Care Team Providers Care Automotive Lot Attendant Name Role Phone Morelia Scott Primary Care Provider [phone] Reason for Visit * Reason Onset Date Comments Results 10/03/2022 Encounter Details Date Type Department Care Team (Late st Contact Info) Description 10/03/2022 Telephone [facility] Family & Internal Medicine [facility] [address] [place] [address] Morelia Scott APNP [address] [place] [address] Results Social History Tobacco Use [...] Coronavirus/COVID-19? No / Unsure 10/01/2022 7:45 AM COAL PIPELINE OPERATOR documented as of this encounter Progress Notes * Aria Gibson MA - 10/04/2022 11:24 AM CST Pt v/u to this and is scheduled for an A1C finger stick. BB 10/04/2022 PIPELINE OPERATOR * SHANNAN Rodriguez - 10/03/2022 4:37 PM CST He can come in for a finger stick sometime---no really hurry, was only mildly elevated. PIPELINE OPERATOR * Aria Gibson MA - 10/03/2022 4:30 PM CST This BASEBALL INSPECTOR AND REPAIRER called to add on a lab, the lab could not add it on because there was not a lavender tube. This BASEBALL INSPECTOR AND REPAIRER let pt know that the glucose was elevated. This BASEBALL INSPECTOR AND REPAIRER will ask Morelia should pt come in for a finger stick or get a finger stick at next visit? Pt v/u to lab work. BB 10/03/2022 PIPELINE OPERATOR * Aria Gibson MA - 10/03/2022 4:29 PM CST ----- Message from SHANNAN Rodriguez sent at 10/03/2022 3:32 PM COAL PIPELINE OPERATOR ----- Good and bad cholesterol OK, but triglycerides a little elevated. Want him to decrease fried, processed and sweet foods in diet. Glucose 106---add on a HGB A1C PIPELINE OPERATOR documented in this encounter Plan of Treatment Upcoming Encounters Date Type Department Care Team (Late st Contact Info) Description 10/05/2024 9:20 AM COAL PIPELINE OPERATOR Office Visit [facility] Family & Internal Medicine - [place] [address] [place] [address] Morelia Scott APNP [address] [place] [address] 12/02/2024 11:00 AM CDT Office Visit [facility] [address] [place] [address] Rob Tapia MD 3 [facility] [address] [place] [address] documented as of this encounter Visit Diagnoses Not on filedocumented in this encounter Additional Health Concerns Assessment Noted Time PHQ-9 Depression Total Score: 10 023 8:58 AM COAL PIPELINE OPERATOR documented as of this encounter Care Teams Automotive Lot Attendant Relationship Specialty Start Date End Date Morelia Scott APNP [address] [place] [address] PCP - General NURSE PRACTITIONER 06/12/22 documented as of this encounter
--- OUTSIDE RECORDS SUMMARY | 2024-09-11 17:03 | XMS_ITS | Encounter Summary ---
Author Organization [facility] Address [address] [place] [address]. [place], [place] [address] [place] [address] Care Team Providers Care Mobile Development Manager Name Role Phone Morelia Scott Primary Care Provider [phone] Reason for Visit * Reason Comments Physical Encounter Details Date Type Department Care Team (Late st Contact Info) Description 10/01/2022 8:20 AM LAMPS TESTER AND INSPECTOR Office Visit [facility] Medical Group Family & Internal Medicine [id number] [place] [address] Morelia Scott APNP [facility] [place] [address] Physical Social History Tobacco Use Types Packs/Day [...] Coronavirus/COVID-19? No / Unsure 10/01/2022 7:45 AM LAMPS TESTER AND INSPECTOR documented as of this encounter Last Filed Vital Signs Vital Sign Reading Time Taken Comments Blood Pressure 127/81 10/01/2022 8:21 AM LAMPS TESTER AND INSPECTOR Pulse 76 10/01/2022 8:21 AM LAMPS TESTER AND INSPECTOR Temperature 36.7 ??C (98.1 ??F) 10/01/2022 8:21 AM CS T Respiratory Rate 16 10/01/2022 8:21 AM LAMPS TESTER AND INSPECTOR Oxygen Saturation 100% 10/01/2022 8:21 AM LAMPS TESTER AND INSPECTOR Inhaled Oxygen Concentration - - Weight 91.9 kg (202 lb 11.2 oz) 10/01/2022 8:21 AM LAMPS TESTER AND INSPECTOR Height 177.8 cm (5' 10 ) 10/01/2022 8:21 AM LAMPS TESTER AND INSPECTOR Body Mass Index 29.08 10/01/2022 8:21 AM LAMPS TESTER AND INSPECTOR documented in this encounter Patient Instructions * Patient Instructions* SHANNAN Rodriguez - 10/01/2022 8:20 AM LAMPS TESTER AND INSPECTOR Patient Education Lung Cancer Screening The Basics Written by the doctors and editors at [facility] What is lung cancer screening???--??Lung cancer screening is a way in which doctors check the lungsfor early signs of cancer in people who have no symptoms of lung cancer. Doctors suggest this screening for certain people who are at high risk of lung cancer because they smoke, or used to smoke. Although screening is not likely to be helpful for all smokers, doctors do think it might help preventcancer deaths in people who smoke a lot or smoked for many years (even if they have already quit). Researchers have studied chest X-rays and low-dose CT scans, two types of imaging tests, to see if they are good screening tools. Imaging tests create pictures of the inside of the body. A low-doseCT scan uses much less radiation than a typical CT scan and shows a more detailed image of the lungs than a standard X-ray. It turns out that chest X-rays do not work for screening for lung cancer. Low-dose CT scans, on the other hand, are helpful screening tools for some people at high risk of lung cancer. The goal of lung cancer screening is to find cancer early, before it has a chance to grow, spread, or cause problems. Several large studies found that smokers who were screened with low-dose CT scanswere less likely to of lung cancer than those who were screened with a standard X-ray. The best way to lower your chances of getting or dying from lung cancer is to quit smoking. No matter how much or how long you have smoked, quitting is a good idea. Quitting now will reduce your chances not only of lung problems, but also of heart disease and many forms of cancer. Can I be screened with a standard X-ray instead of a low-dose CT scan???--??There is no proof that a standard X-ray for screening helps extend life. Experts do not recommend chest X-rays as a way to screen for lung cancer. Who should be screened for lung cancer???--??For some people with a heavy or long smoking history, screening can save lives. If the following 3 statements are all true for you, ask your doctor about screening: ??? You are 50 to 80 years old ??? You have smoked an amount that is equal to at least 1 pack a day for 20 years (for example, 2 packs a day for 10 years) ??? You still smoke now or quit smoking in the past 15 years In addition to your smoking history, the decision to be screened should also take these things intoaccount: ??? Your general health - You should think about whether your health is good enough to get treatment if screening shows that you do have cancer. Your doctor can help you answer this question. If youroverall health is poor, lung cancer screening might not be recommended. ??? The costs involved in screening - If you are thinking about screening, check with your insurance company to find out if they will cover some or all of the cost. You can also ask your doctor's office what you might have to pay. What are the benefits of being screened for lung cancer???--??The main benefit of screening is thatit helps doctors find cancer early, when it is generally easier to treat. This might lower your chances of dying of lung cancer. What are the possible drawbacks to being screened???--??The drawbacks include: ??? False positives - Low-dose CT scans can sometimes show a false positive, meaning they suggesta person might have cancer when they do not. This can lead to unneeded worry and to more tests. Forexample, people who have a false positive might need to have a follow-up full-dose CT scan, which exposes them to more radiation. They sometimes also need a lung biopsy, which is a procedure to remove a small sample of lung tissue. This procedure can be painful and can sometimes leads to problems, such as bleeding or a collapsed lung. ??? Radiation exposure - Like all X-rays, CT scans expose you to some radiation. Although the radiation dose from the first screening CT scan is low, you would need to have a scan every year for continued screening. What happens during a low-dose CT scan???--??When you have a low-dose CT scan, you lie on a slidingtable. The CT scan machine is shaped like a giant donut and you slide through the large hole in thecenter. As you slide through, the machine takes pictures of the inside of your body. The process only takes a few minutes and is painless. What happens after a low-dose CT scan???--??After a low-dose CT scan, you should get a phone call or letter with your results. If you do not hear back about your results in about 2 weeks, call your doctor or nurse's office. Do not assume that your scan was normal if you hear nothing. What if my CT scan is abnormal???--??If your scan is abnormal, don't panic. More than 95 out of 100people with an abnormal scan metal turner not to have lung cancer. But you will need more tests to findout whether you actually have cancer. How often should I have a low-dose CT scan for screening???--??If you and your doctor decide that screening is right for you, you will need to have a low-dose CT scan once a year if your scans continue to be normal. You can stop getting screened at age 80 or once you have gone 15 years or longer without smoking. All topics are updated as new evidence becomes available and our peer review process is complete. This topic retrieved from [employer] on: Apr 18, 2022. Topic 77257 Version 13.0 Release: 30.3.2 - C30.208 ?2021??[employer]. and/or its affiliates.??All rights reserved. Consumer Information Use and Disclaimer This generalized information is a limited summary of diagnosis, treatment, and/or medication information. It is not meant to be comprehensive and should be used as a tool to help the user understand and/or assess potential diagnostic and treatment options. It does NOT include all information about conditions, treatments, medications, side effects, or risks that may apply to a specific patient. Itis not intended to be medical advice or a substitute for the medical advice, diagnosis, or treatment of a health care provider based on the health care provider's examination and assessment of a patient's specific and unique circumstances. Patients must speak with a health care provider for complete information about their health, medical questions, and treatment options, including any risks or benefits regarding use of medications. This information does not endorse any treatments or medications as safe, effective, or approved for treating a specific patient. The [employer] and its affiliatesdisclaim any warranty or liability relating to this information or the use thereof.The use of this information is governed by the Terms of Use, available at https://www.[employer]/en/know/ycucoqig-rfwgqletexmhg-ayrgo ??2021 [employer]. and its affiliates and/or licensors. All rights reserved. Copyright ?2021??[employer]. and/or its affiliates.??All rights reserved. S TESTER AND INSPECTOR documented in this encounter Progress Notes * Celeste Rodríguez - 10/01/2022 8:20 AM CSTAddended by: CELESTE RODRÍGUEZ on: 10/07/2022 10:52 AM Modules accepted: Orders S TESTER AND INSPECTOR * SHANNAN Rodriguez - 10/01/2022 8:20 AM CST Images from the original note were not included. [facility] FAMILY AND INTERNAL MEDICINE OFFICE VISIT Reason for Visit: Physical History of Present Illness: Chief Complaint: 62-year-old male presents for Physical . The patient is being seen for a health maintenance evaluation. General Health: fair Dental Health: Sees dentist regularly Vision Health: Last eye exam < 1 year ago Hearing Health: No hearing problems Immunizations Needed: Shingrix and COVID Weight: Overweight Body mass index is 29.08 kg/m??. Physical Activity: Excersises regularly Prostate Cancer Screening: due and is ordered Colorectal Cancer Screening: thinks had done about 5 years ago in [facility]. Metabolic Screening: Patient needs to be screened today. PHQ-9 Screening Score: positive, sees psychiatry and denies any HI/SI. Smoking Status: Smoking status: Former 1.00 Packs/day For 30.00 Years We discussed purpose of CT lung screening due to his smoking history, to include the risk and benefits. Patient would like to have this done. Order can be placed today. Patient [place] [facility] [place]. Types: Cigarettes Smokeless tobacco: Never Chronic health conditions - Depression/Anxiety -currently followed [...] checked and these can be ordered today. ROS: Review of Systems Constitutional: Negative for [...] nervous/anxious. Medications: Current Outpatient Medications: ??? amphetamine-dextroamphetamine XR (ADDERALL XR) 10 MG [...] 90 tablet, Rfl: 0 ??? QUEtiapine (SEROQUEL) 50 MG tablet, Take 50 mg by mouth 2 (two) times daily. Pt takes 50mg in the morning., Disp: , Rfl: ??? RIZATRIPTAN BENZOATE OR, Take 20 mg by mouth. 1 every 4 hours. (Max 2 in 24 hours), Disp: , Rfl: ??? vilazodone (VIIBRYD) 40 MG tablet, Take 40 mg by mouth daily. Take with food, Disp: , Rfl: ??? vitamin B-2 (RIBOFLAVIN) 100 MG tablet, 100 mg daily., Disp: , Rfl: ??? amphetamine-dextroamphetamine (ADDERALL) 20 MG tablet, Take 20 mg by mouth daily. Pt is now down to 10mg daily. BB 10/01/2022 (Patient not taking: Reported on 10/01/2022), Disp: , Rfl: ??? QUEtiapine (SEROQUEL) 25 MG tablet, Take 25 mg by mouth 2 (two) times daily., Disp: , Rfl: ??? ubrogepant (UBRELVY) 100 MG tablet, Take 100 mg by mouth 2 (two) times daily as needed for Migraine. Max of 2 tablets (200 mg) in 24 hours Pt takes less than 1 month. (Patient not taking: Reported on 10/01/2022), Disp: , Rfl: Allergies: No Known Allergies [...] status: Tobacco Use ??? Smoking status: Former Packs/day: [...] note reviewed. HENT: Head: Normocephalic and atraumatic. Eyes: General: No scleral icterus. Conjunctiva/sclera: Conjunctivae normal. Neck: Trachea: No tracheal deviation. Cardiovascular: Rate and Rhythm: Normal rate and regular rhythm. Heart sounds: Normal heart sounds. Pulmonary: Effort: Pulmonary effort is normal. No [...] Affect: Mood and affect normal. Filed Vitals: 10/01/22 0821 BP: 127/81 Pulse: 76 Resp: 16 Temp: 98.1 ??F (36.7 ??C) SpO2: 100% Weight: 91.9 kg (202 lb 11.2 oz) Height: 5' 10 (1.778 m) Labs: Labs Reviewed Diagnoses/Impression: 1. General medical examination 2. BMI 29.0-29.9,adult VENIPUNC ARM DRAW 3. Primary hypertension Chronic lisinopril (PRINIVIL) 10 MG tablet VENIPUNC ARM DRAW 4. Mixed hyperlipidemia Chronic pravastatin (PRAVACHOL) 40 MG tablet Fenofibrate 134 MG Cap VENIPUNC ARM DRAW 5. Attention deficit hyperactivity disorder (ADHD), predominantly inattentive type Chronic 6. Moderate episode of recurrent major depressive disorder (CMS/HCC) Chronic 7. Anxiety Chronic VENIPUNC ARM DRAW 8. BMI 28.0-28.9,adult VENIPUNC ARM DRAW 9. Prostate cancer screening VENIPUNC ARM DRAW 10. Need for hepatitis C screening test VENIPUNC ARM DRAW 11. Nicotine dependence, cigarettes, in remission CNSLING TO DISCUSS NEED FOR LUNG CANCER SCRNING CT LUNG SCREENING Recommendations and Plan: 1. General medical examination Routine fasting labs have previously been ordered Immunizations previously reviewed and plans to update record as needed Colonoscopy done in 2019, according to home records with a 5 year follow up recommended in 2023. CT lung screening ordered. 2. BMI 29.0-29.9,adult - VENIPUNC ARM DRAW 3. Primary hypertension - lisinopril (PRINIVIL) 10 MG tablet; Take 1 tablet (10 mg total) by mouth daily. Dispense: 90 tablet; Refill: 3 - LIPID PANEL - URINALYSIS WI REFLEX TO CULTURE - COMPREHENSIVE METABOLIC PANEL - VENIPUNC ARM DRAW Stable. Continue meds 4. Mixed hyperlipidemia - pravastatin (PRAVACHOL) 40 MG tablet; Take 1 tablet (40 mg total) by mouth daily. Dispense: 90 tablet; Refill: 3 - Fenofibrate 134 MG Cap; Take 134 mg by mouth 4 (four) times a week. 4 x a week AM Dispense: 108 capsule; Refill: 3 - LIPID PANEL - CK (CPK) - VENIPUNC ARM DRAW Stable. Continue meds. More plan after results 5. Attention deficit hyperactivity disorder (ADHD), predominantly inattentive type Stable. Continue meds. Continue psychiatry follow-up 6. Moderate episode of recurrent major depressive disorder (CMS/HCC) - COMPREHENSIVE METABOLIC PANEL Stable. Continue meds. Continue psychiatry follow-up 7. Anxiety - COMPREHENSIVE METABOLIC PANEL - VENIPUNC ARM DRAW Stable. Continue meds. Continue psychiatry follow-up 8. BMI 28.0-28.9,adult - LIPID PANEL - URINALYSIS WI REFLEX TO CULTURE - COMPREHENSIVE METABOLIC PANEL - PROSTATE SPECIFIC ANTIGEN,SCREENING - CK (CPK) - VENIPUNC ARM DRAW 9. Prostate cancer screening - PROSTATE SPECIFIC ANTIGEN,SCREENING - VENIPUNC ARM DRAW More plan after results 10. Need for hepatitis C screening test - HEPATITIS C AB ([facility] ONLY) - VENIPUNC ARM DRAW Shared decision making 11. Nicotine dependence, cigarettes, in remission - CNSLING TO DISCUSS NEED FOR LUNG CANCER SCRNING - CT LUNG SCREENING; Future Shared decision making Orders Placed This Encounter ??? VENIPUNC ARM DRAW ??? CNSLING TO DISCUSS NEED FOR LUNG CANCER SCRNING ??? CT LUNG SCREENING ??? NURTEC 75 MG disintegrating tablet ??? amphetamine-dextroamphetamine XR (ADDERALL XR) 10 MG 24 hr capsule ??? QUEtiapine (SEROQUEL) 50 MG tablet ??? DISCONTD: buPROPion XL (WELLBUTRIN XL) 300 MG 24 hr tablet ??? DISCONTD: lisinopril (PRINIVIL) 10 MG tablet ??? pravastatin (PRAVACHOL) 40 MG tablet ??? lisinopril (PRINIVIL) 10 MG tablet ??? Fenofibrate 134 MG Cap Cannot display discharge medications since this is not an admission. PCP: SHANNAN Rodriguez 10/01/2022 Yassine meets the Low Dose Lung Cancer Screening criteria; he is age 50-80, has a tobacco smoking history of at least 20 pack-years, is a current smoker or has quit smoking within the last 15 years, is asymptomatic (no signs or symptoms of lung cancer) and has not had and LDCT in the past 12 months. History Smoking Status ??? Former ??? Packs/day: 1.00 ??? Years: 30.00 ??? Types: Cigarettes Smokeless Tobacco ??? Never Filed Vitals: 10/01/22 0821 BP: 127/81 Pulse: 76 Resp: 16 Temp: 98.1 ??F (36.7 ??C) SpO2: 100% Weight: 91.9 kg (202 lb 11.2 oz) Height: 5' 10 (1.778 m) Shared decision making occurred with Yassine, including the use of one or more decision aids, benefitsand harms of screening, follow-up diagnostic testing, over-diagnosis, false positive rate, and total radiation exposure. Yassine was counseled on the importance of adherence to annual lung cancer LDCT screening, impact of comorbidities and his ability or willingness to undergo diagnosis and treatment. Additionally, we discussed the abstinence of smoking (no longer smoking). To obtain maximal benefit from this screening, smoking cessation and long-term abstinence from smoking is critical. Discussed the significance of positive screen - false-positive LDCT results often occur. A large percentage of all positive results do not lead to a diagnosis of cancer. Usually further imaging can resolve most false-positive results; however, some patients may require invasive procedures. Discussed the risks associated with radiation from annual LDCT- Radiation exposure is about the same as for a mammogram, which is about 1/3 of the annual background radiation exposure from everyday life. Starting screening at age 50 is not likely to increase cancer risk from radiation exposure. Patients with comorbidities resulting in life expectancy of < 10 years, or that would preclude treatment of an abnormality identified on CT, should not be screened due to lack of benefit. S TESTER AND INSPECTOR documented in this encounter Plan of Treatment Upcoming Encounters Date Type Department Care Team (Late st Contact Info) Description 10/05/2024 9:20 AM LAMPS TESTER AND INSPECTOR Office Visit [facility] Medical Group Family & Internal Medicine - [id number] [place] [phone] Morelia Scott APNP [facility] [place] [address] 12/02/2024 11:00 AM CDT [facility] [address] [address] Rob Tapia MD [address] [facility] [address] [place] [address] Scheduled Orders Name Type Priority Associated Diagnoses Orde r Schedule CNSLING TO DISCUSS NEED FOR LUNG CANCER SCRNING Procedures Routine Nicotine dependence, cigarettes, in remission Ordered: 10/01/2022 documented as of this encounter Procedures Procedure Name Priority Date/Time Associated Diagnosis Comments VENIPUNC ARM DRAW Routine 10/01/2022 9:2 8 AM LAMPS TESTER AND INSPECTOR BMI 29.0-29.9,adult Primary hypertension Mixed hyperlipidemia Anxiety BMI 28.0-28.9,adult Prostate cancer screening Need for hepatitis C screening test URINALYSIS WI REFLEX TO CULTURE Routine 10/01/2022 9:27 AM LAMPS TESTER AND INSPECTOR Primary hypertension BMI 28.0-28.9,adult PROSTATE SPECIFIC ANTIGEN,SCREENING Routine 10/01/2022 9:27 AM LAMPS TESTER AND INSPECTOR Prostate cancer screening COMPREHENSIVE METABOLIC PANEL Routine 10/01/2022 9:27 AM LAMPS TESTER AND INSPECTOR Primary hypertension Anxiety Moderate episode of recurrent major depressive disorder (CMS/HCC HHS/HCC) BMI 28.0-28.9,adult LIPID PANEL Routine 10/01/2022 9:27 AM LAMPS TESTER AND INSPECTOR Primary hypertension Mixed hyperlipidemia BMI 28.0-28.9,adult HEPATITIS C ANTIBODY Routine 10/01/2022 9:27 AM LAMPS TESTER AND INSPECTOR Need for hepatitis C screening test CK (CPK) Routine 10/01/2022 9:27 AM LAMPS TESTER AND INSPECTOR Mixed hyperlipidemia BMI 28.0-28.9,adult documented in this encounter Results * PROSTATE SPECIFIC ANTIGEN,SCREENING (10/01/2022 9:27 AM LAMPS TESTER AND INSPECTOR) PSA 1.48 <4.00 NG/ML 10/07/2022 3:39 PM LAMPS TESTER AND INSPECTOR [address] [place] Comment: ASSAY PERFORMED BY [employer]UNO[employer] METHODOLOGY USING [employer] REAGENT. PATIENT RESULTS DETERMINED BY ASSAYS FROM DIFFERENT MANUFACTURERS AND/OR BY DIFFERENT METHODS MAY NOT BE COMPARABLE. 10/01/2022 9:27 AM LAMPS TESTER AND INSPECTOR Morelia [facility] Final Resul t Performing Organization Address City/[facility] de Phone Number Nate [address], [address] [address], [place] * HEPATITIS C AB ([facility] ONLY) (10/01/2022 9:27 AM LAMPS TESTER AND INSPECTOR) HEPATITIS C AB NON-REACTI VE NON-REACT SHEILA 10/01/2022 7:30 PM LAMPS TESTER AND INSPECTOR [facility] Comment: ANTIBODIES TO HCV NOT DETECTED. DOES NOT EXCLUDE THE POSSIBILITY OF EXPOSURE TO HCV. 10/01/2022 9:27 AM LAMPS TESTER AND INSPECTOR Morelia [facility] Final Resul t Performing Organization Address [facility] de Phone Number [facility] [address] [place] [address], [id number] * CK (CPK) (10/01/2022 9:27 AM LAMPS TESTER AND INSPECTOR) CPK 49 39 - 308 U/L 10/01/2022 3:01 PM LAMPS TESTER AND INSPECTOR [facility] 10/01/2022 9:27 AM LAMPS TESTER AND INSPECTOR [facility] Sonia [facility] Final Resul t Performing Organization Address [facility] de Phone Number [facility] [address] [place] [address], * (ABNORMAL) COMPREHENSIVE METABOLIC PANEL (10/01/2022 9:27 AM LAMPS TESTER AND INSPECTOR) Pathologist [facility] SODIUM S/P/B 142 136 - 145 MMOL/L 10/01/2022 3:28 PM LAMPS TESTER AND INSPECTOR [facility] POTASSIUM S/P/B 4.4 3.5 - 5.1 MMOL/L 10/01/2022 3:28 PM [facility] CHLORIDE S/P/B 104 98 - 107 MMOL/L 10/01/2022 3:28 PM [facility] CO2 28.9 21 - 32 MMOL/L 10/01/2022 3:28 PM [facility] GLUCOSE 106(H) 70 - 99 MG/DL 10/01/2022 3:28 PM [facility] BUN 20(H) 7 - 18 MG/DL 10/01/2022 3:28 PM [facility] CREATININE S/P/B 1.12 0.70 - 1.30 MG/DL 10/01/2022 3:28 PM [facility] CALCIUM S/P/B 10.5 8.4 - 10.5 MG/DL 10/01/2022 3:28 PM [facility] BILIRUBIN TOTAL S/P/B 0.4 0.2 - 1.0 MG/DL 10/01/2022 3:28 PM [facility] ALKALINE PHOSPHATASE S/P/B 65 45 - 115 U/L 10/01/2022 3:28 PM [facility] AST 23 15 - 37 U/L 10/01/2022 3:28 PM [facility] ALT 35 16 - 63 U/L 10/01/2022 3:28 PM [facility] TOTAL PROTEIN S/P/B 7.6 6.4 - 8.2 G/DL 10/01/2022 3:28 PM [facility] ALBUMIN S/P/B 4.4 3.4 - 5.0 G/DL 10/01/2022 3:28 PM [facility] ANION GAP 9.1 5 - 15 MMOL/L 10/01/2022 3:28 PM [facility] Comment:REFERENCE RANGE NOT ESTABLISHED OSMOLALITY (CALC) 297 MOSM/KG 023 3:28 PM LAMPS TESTER AND INSPECTOR [facility] Comment:REFERENCE RANGE NOT ESTABLISHED GFR ESTIMATE 73(L) >90 ML/MIN/1. 73 M2 10/01/2022 3:28 PM LAMPS TESTER AND INSPECTOR [facility] GFR NOTES GFR REFERENCE S: 10/01/2022 3:28 PM LAMPS TESTER AND INSPECTOR [facility] Comment: THE ESTIMATED GFR IS CALCULATED [...] FAILURE: <15 ml/min/1.73 m2 10/01/2022 9:27 AM LAMPS TESTER AND INSPECTOR us Morelia [facility] Final Resul t [facility] [address] [place] [address], [place] [phone] * URINALYSIS WI REFLEX TO CULTURE (10/01/2022 9:27 AM LAMPS TESTER AND INSPECTOR) COLOR (U) YELLOW 10/01/2022 3:57 PM LAMPS TESTER AND INSPECTOR [facility] TRANSPARENCY CLEAR CLEAR 10/01/2022 3:57 PM LAMPS TESTER AND INSPECTOR [facility] SPECIFIC GRAVITY (U) 1.010 1.003 - 1.040 10/01/2022 3:57 PM LAMPS TESTER AND INSPECTOR [facility] U PH 6.0 5.0 - 9.0 10/01/2022 3:57 PM LAMPS TESTER AND INSPECTOR [facility] PROTEIN (U) NEGATIVE NEGATIVE 10/01/2022 3:57 PM LAMPS TESTER AND INSPECTOR [facility] URINE GLUCOSE NEGATIVE NEGATIVE 10/01/2022 3:57 PM LAMPS TESTER AND INSPECTOR [facility] KETONES MG/DL (U) NEGATIVE NEGATIVE 10/01/2022 3:57 PM LAMPS TESTER AND INSPECTOR [facility] BILIRUBIN (U) NEGATIVE NEGATIVE 10/01/2022 3:57 PM LAMPS TESTER AND INSPECTOR [facility] BLOOD (U) NEGATIVE NEGATIVE 10/01/2022 3:57 PM LAMPS TESTER AND INSPECTOR [facility] UROBILINOGEN 0.2 0.0 - 2.0 EU/DL 10/01/2022 3:57 PM LAMPS TESTER AND INSPECTOR [facility] NITRITES NEGATIVE NEGATIVE 10/01/2022 3:57 PM LAMPS TESTER AND INSPECTOR [facility] LEUKOCYTES (U) NEGATIVE NEGATIVE 10/01/2022 3:57 PM LAMPS TESTER AND INSPECTOR [facility] REFLEX URINE CULTURE: CULTURE IS NOT INDICATED 10/01/2022 3:57 PM LAMPS TESTER AND INSPECTOR [facility] RBC/HPF 0-3 0 - 3 /HPF 10/01/2022 3:57 PM LAMPS TESTER AND INSPECTOR [facility] WBC/HPF 0-3 0 - 3 /HPF 10/01/2022 3:57 PM LAMPS TESTER AND INSPECTOR [facility] EPI/HPF 0-3 /HPF 10/01/2022 3:57 PM LAMPS TESTER AND INSPECTOR [facility] BACTERIA (U) NONE SEEN NONE SEEN 10/01/2022 3:57 PM LAMPS TESTER AND INSPECTOR [facility] URINE SPECIMEN OBTAINED BY CLEAN CATCH PROCEDURE / Unknown 10/01/2022 9:27 AM LAMPS TESTER AND INSPECTOR us Morelia CAMPBELL URINE ORDERABLES Final Resu lt [facility] [place] [address] [facility] [place] [address], [place] [phone] * (ABNORMAL) LIPID PANEL (10/01/2022 9:27 AM LAMPS TESTER AND INSPECTOR) CHOLESTEROL 188 <200 MG/DL 10/01/2022 3:28 PM LAMPS TESTER AND INSPECTOR [facility] [place] TRIGLYCERIDES 220(H) <150 MG/DL 10/01/2022 3:28 PM [facility] HDL 48 >40 MG/DL 10/01/2022 3:28 PM LAMPS TESTER AND INSPECTOR [facility] LDL-C 96 <100 MG/DL 10/01/2022 3:28 PM LAMPS TESTER AND INSPECTOR [facility] [place] VLDL CALCULATION 44(H) 5 - 28 MG/DL 10/01/2022 3:28 PM LAMPS TESTER AND INSPECTOR [facility] [place] CHOL/HDL RATIO 3.9 0.0 - 4.0 10/01/2022 3:28 PM [facility] LDL/HDL 2.0 0.41 - 2.13 10/01/2022 3:28 PM LAMPS TESTER AND INSPECTOR [facility] [place] NON HDL CHOLESTEROL 140(H) <140 MG/DL 10/01/2022 3:28 PM [facility] 10/01/2022 9:27 AM LAMPS TESTER AND INSPECTOR us Morelia CAMPBELL LABORATORY Final Resul t [facility] [place] [address] [place] [address], documented in this encounter Visit Diagnoses Diagnosis General medical examination- Primary Unspecified general medical examination BMI 29.0-29.9,adult Body Mass Index 29.0-29.9, adult Primary hypertension Unspecified essential hypertension Mixed hyperlipidemia Attention deficit hyperactivity disorder (ADHD), 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 (CMS/HCC HHS/HCC) Anxiety Anxiety state, unspecified BMI 28.0-28.9,adult Body Mass Index 28.0-28.9, adult Prostate cancer screening Special screening for malignant neoplasm of prostate Need for hepatitis C screening test Special screening examination for other specified viral diseases Nicotine dependence, cigarettes, in remission documented in this encounter Additional Health Concerns Assessment Noted Time PHQ-9 Depression Total Score: 2 023 8:58 AM LAMPS TESTER AND INSPECTOR documented as of this encounter Care Teams Mobile Development Manager Relationship Specialty Start Date End Date Morelia Scott APNP [address] [place] [id number] PCP - General NURSE PRACTITIONER 06/12/22 documented as of this encounter
--- OUTSIDE RECORDS SUMMARY | 2024-09-11 17:03 | XMS_ITS | Encounter Summary ---
Author Organization [facility] Address [address] [place] [address]. [place], [place] [id number] [place] [address] Care Team Providers Care Curtain Drier Name Role Phone Morelia Scott Primary Care Provider [phone] Encounter Details Date Type Department Care Team (Latest Contact Info) Description 02/25/2022 Scan HEALTH INFO SRVCS Scanned, Documents Social [...] st Contact Info) Description 10/05/2024 9:20 AM ANGLE DOZER OPERATOR Office Visit [facility] Family & Internal Medicine - [place] [address] [place] [address] Morelia Scott APNP [address] [place] [address] 12/02/2024 11:00 AM CDT Office Visit [facility] [place] [address] [place], [place] [phone] Rob Tapia MD [address] [facility] [address] [place] [address] documented as of this encounter Visit Diagnoses Not on filedocumented in this encounter Care Teams Curtain Drier Relationship Specialty Start Date End Date Morelia Scott APNP [address] [place] [phone] PCP - General NURSE PRACTITIONER 06/12/22 documented as of this encounter
--- OUTSIDE RECORDS SUMMARY | 2024-09-11 17:03 | XMS_ITS | Encounter Summary ---
Author Organization [facility] Address [address] [place] [address]. [place], [place] [address] [place] [address] Care Team Providers Care Band Scroll Saw Operator Name Role Phone Morelia Scott Primary Care Provider [phone] Reason for Visit * Reason Onset Date Comments Information 10/01/2022 Encounter Details Date Type Department Care Team (Late st Contact Info) Description 10/01/2022 Telephone [facility] Family & Internal Medicine [facility] [address] [place] [address] Morelia Scott APNP [address] [place] [address] Information Social History Tobacco Use [...] Coronavirus/COVID-19? No / Unsure 10/01/2022 7:45 AM UTILITY WORKER FILM PROCESSING documented as of this encounter Progress Notes * SHANNAN Rodriguez - 10/01/2022 12:47 PM CST Wasn't ordered, only inquired about. But ok. Thanks ITY WORKER FILM PROCESSING * Tessa Sutton - 10/01/2022 10:36 AM CST At patients apt today we had ordered him a colonoscopy to have done. Spouse called in and states that his last one was 11/26/2018 and he is to have it repeated every 5 years. She states that he would not be due again until 2023. ITY WORKER FILM PROCESSING documented in this encounter Plan of Treatment Upcoming Encounters Date Type Department Care Team (Late st Contact Info) Description 10/05/2024 9:20 AM UTILITY WORKER FILM PROCESSING Office Visit [facility] Family & Internal Medicine - [place] [address] [place] [address] Morelia Scott APNP [address] [place] [address] 12/02/2024 11:00 AM CDT Office Visit [facility] [place] [address] [place] [phone] Rob Tapia MD 3 [facility] [address] [place] [address] documented as of this encounter Visit Diagnoses Not on filedocumented in this encounter Additional Health Concerns Assessment Noted Time PHQ-9 Depression Total Score: 10 023 8:58 AM UTILITY WORKER FILM PROCESSING documented as of this encounter Care Teams Band Scroll Saw Operator Relationship Specialty Start Date End Date Morelia Scott APNP [address] [place] [address] PCP - General NURSE PRACTITIONER 06/12/22 documented as of this encounter
--- OUTSIDE RECORDS SUMMARY | 2024-09-11 17:04 | XMS_ITS | Encounter Summary ---
Author Organization [facility] Address [address] [place] [address]. [place], [place] [address] [place] [address] Care Team Providers Care Tool Setter Apprentice Name Role Phone Morelia Scott Primary Care Provider [phone] Reason for Visit * Reason Comments Colonoscopy Report (SCAN) Pathology (SCAN) Encounter Details Date Type Department Care Team (Late Contact Info) Description 11/26/2018 Scan HEALTH INFO SRVCS Scanned, Doc Med Group Colonoscopy Report (SCAN); Pathology (SCAN) Social History Tobacco Use Types Packs/Day Years Used Date Smoking Tobacco: Never Assessed PHQ-2 Answer Date Recorded Patient Health Questionnaire-2 [...] Coronavirus/COVID-19? No / Unsure 10/01/2022 7:45 AM CUT OFF SAW GRADER documented as of this encounter Plan of Treatment Upcoming Encounters Date Type Department Care Team (Late Contact Info) Description 10/05/2024 9:20 AM CUT OFF SAW GRADER Office Visit [facility] Family & Internal Medicine - [place] [address] [place] [phone] Morelia Scott APNP [address] [place] [address] 12/02/2024 11:00 AM CDT Office Visit [facility] [place] [address] [place] [address] Rob Tapia MD 3 [facility] [address] [place] [address] documented as of this encounter Procedures Procedure Name Priority Date/Time Associated Diagnosis Comments PATHOLOGY GENERIC (SCAN ORDER) 11/26/2018 COLONOSCOPY GENERIC (SCAN ORDER) 11/26/2018 documented in this encounter Results * PATHOLOGY GENERIC (11/26/2018) 11/26/2018 us Doc Med Group Scanned SCANNING Final Resu lt * COLONOSCOPY GENERIC (11/26/2018) 11/26/2018 us Doc Med Group Scanned SCANNING Final Resu lt documented in this encounter Visit Diagnoses Not on filedocumented in this encounter Care Teams Tool Setter Apprentice Relationship Specialty Start Date End Date Morelia Scott APNP [address] [place] [phone] PCP - General NURSE PRACTITIONER 06/12/22 documented as of this encounter
--- OUTSIDE RECORDS SUMMARY | 2024-09-11 17:13 | XMS_ITS | Clinical Summary ---
Author Organization [facility] Address [address] [place] [phone] Care Team Providers Care Metal Container Maker Name Role Phone Morelia Scott Primary Care Provider + Allergies No known active allergies Medications buPROPion XL (WELLBUTRIN XL) 150 mg 24 hr tablet Take 1 tablet (150 mg total) by mouth daily Active cyclobenzaprine (FLEXERIL) 10 mg tablet TAKE 1 TABLET BY MOUTH EVERY NIGHT AT BEDTIME, MAY TAKE 1 TABLET DAILY NEEDED FOR HEADACHE OR MUSCLE SPASMS 08/26/2022 Active dexmethylphenid ate XR (FOCALIN XR) 15 mg 24 hr capsule Take 1 capsule (15 mg total) by mouth daily 07/07/2023 Active fenofibrate micronized (LOFIBRA) 134 mg capsule TAKE 1 CAPSULE BY MOUTH 4 TIMES A WEEK IN THE MORNINGS Active lisinopriL (PRINIVIL,ZESTR IL) 10 mg tablet Take 1 tablet (10 mg total) by mouth daily 10/03/2023 Active pravastatin (PRAVACHOL) 40 mg tablet Take 1 tablet (40 mg total) by mouth daily 10/03/2023 Active QUEtiapine (SEROquel) 100 mg tablet TAKE 1 TABLET BY MOUTH IN THE MORNING AND AT BEDTIME Active QUEtiapine (SEROquel) 50 mg tablet Take 1 tablet (50 mg total) by mouth 2 (two) times a day 08/14/2022 Active vilazodone (VIIBRYD) 40 mg tablet TAKE 1 TABLET BY MOUTH EVERY MORNING WITH FOOD. Active ubidecarenone (COENZYME Q10, BULK, MISC) Take by mouth daily Active Active Problems Problem Noted Date Diagnosed Date ADHD (attention deficit hyperactivity disorder) 08/10/2024 Anxiety 08/10/2024 Depression 08/10/2024 Hypertension 08/10/2024 Mixed hyperlipidemia 08/10/2024 Seasonal allergies 08/10/2024 Pain in testicle 08/10/2024 Family history of prostate cancer 08/10/2024 Aneurysm of ascending aorta without rupture 07/23 Encounters Date Type Department Care Team Description 08/10/2024 2:00 PM RETIREMENT ASSISTANT Office Visit [facility] [address] [facility] [address] [place] [address] Sj Perera MD Pain in testicle, unspecified laterality (Primary Dx); Family history of prostate cancer from Last 3 Months Immunizations Name Administration Dates Next Due Influenza, Quadrivalent, Daksha l Culture-based MDCK, Preservative Free, Antibiotic Free, Intramuscular 07/12/2023,07/19/2022 Influenza, Trivalent, Adjuva nted, Intramuscular 07/12/2024 Influenza, Unspecified 06/11/2016,05/23/2015,09/2013 Measles 09/22/2013 Pneumococcal Conjugate Pcv20 10/03/2023 RSV, Bivalent, Protein Subun it Rsvpref, Diluent (Abrysvo) 07/19/2023 Smallpox 01/20/1990 Tdap 06/12/2022 Tetanus toxoid, adsorbed 10/23/1997 Social History Tobacco Use Types Packs/Day Years Used Date Smoking Tobacco: Never Tobacco Cessation:Counseling Given: Not Answered Sex and Gender Information Value Date Recorded Sex Assigned at Not on file Legal Sex Male 10:52 AM CDT Gender Identity Not on file Sexual Orientation Not on file Obstetrics History Plan of Treatment Health Maintenance Due Date Last Done Comments Colon Cancer Screening-Colonoscopy 1958 Depression Screening 1958 Fall Risk Assessment 1960 Hepatitis C Screening 1960 Prostate Cancer Screening-PSA 1958 Hepatitis B Screening 1976 Zoster Vaccine (1 of 2) 2008 Well Visit 65+ 2023 DTaP/Tdap/Td Vaccine (2 - Td or Tdap) 06/12/2032 06/12/2022 Pneumococcal vaccine 65+ Completed 10/03/2023 Covid-19 Vaccine Completed 07/12/2024, , 07/12/2023, Additional history exists Influenza Vaccine Completed 07/12/2024, , 07/19/2022, Additional history exists Procedures Procedure Name Priority Date/Time Associated Diagnosis Comments POCT URINALYSIS DIPSTICK Routine 08/10/2024 2:24 PM RETIREMENT ASSISTANT Pain in testicle, unspecified laterality from Last 3 Months Results * POCT urinalysis dipstick (08/10/2024 2:24 PM RETIREMENT ASSISTANT) Color, Urine, POC Yellow Clarity, ur, POC Clear Clear Glucose, ur, POC Negative Negative MG/DL Bilirubin, ur, POC Negative Negative, Small, Moderate, Large Ketones, ur, POC Negative Negative Specific [place], POC 1.030 1.003 - 1.030 Blood, ur, POC Negative Negative pH, ur, POC 6.0 5.0 - 8.0 Protein, ur, POC Negative Negative Urobilinogen, urine, POC 0.2 0.2 - 1.0 mg/dL Nitrite, ur, POC Negative Negative Leukocytes, ur, POC Negative Negative Lot Number x Urine 08/10/2024 2:24 PM RETIREMENT ASSISTANT Sj Perera MD POINT OF CARE TEST ORDERABL ES Final Result from Last 3 Months Insurance MEDICARE [facility] Care Teams Metal Container Maker Relationship Specialty Start Date End Date Morelia Scott PA [address] [place] [id number] PCP - General Nurse Practitioner 06/29/24
--- OUTSIDE RECORDS SUMMARY | 2024-09-11 17:13 | XMS_ITS | Data Portability ---
Author Organization [facility] Medicine [facility] Address [address] [place] [address] [address] [place] [address] Assessment No assessment recorded. Plan of Treatment Reminders Order Date Submit Date Provider Last Modified By Organization Details Last Modified Time Details Appointments None recorded. Lab CMP, serum or plasma 2015 016 Not available 6 04:45:34 PSA, serum or plasma 2015 016 [facility], [address] [place], [address], 6 04:45:50 urinalysis, dipstick 2015 016 In-House Test, For Internal Use Only, Do Not Delete/merge, [id number] 6 04:45:50 Referral None recorded. Procedures None recorded. Surgeries None recorded. Imaging None recorded. Medication Orders tamsulosin 0.4 mg capsule 2015 016 [id number], [address], [phone], 6 04:45:51 Patient TargetsNo targets recorded. Patient Instructions Encounter Date Encounter Id Patient Instructions Last Modified By Organization Details Last Modified Time 12/11/2015 [id number] Reassurance. ? ? ? Even with minor rib fractures, no specific treatment otherwise. If he does develop increasing pain or shortness of breath and wants to proceed with imaging, he will let me know. Otherwise follow up as needed. [email or web address] Not available 12/11/2015 17:59:19 05/28/2016 [id number] bipolar disorder : care instructions rainer Not available 05/28/2016 12:36:45 learning about mood disorders rainer Not available 05/28/2016 12:36:45 06/04/2016 [id number] attention defici t hyperactivity disorder (ADHD) in adults: care instructions rainer Not available 06/04/2016 12:18:45 Pt appears stabl e on meds and labs are normal he will continue seeing psych regularly and plan px with me in spring if he is going to stay on depakote may need to consider including cbc every 6 months as well [email or web address] Not available 06/04/2016 11:51:53 07/11/2016 [id number] will await PSA results clary Not available 07/11/2016 13:02:16 07/12/2016 [id number] Trial of tamsulosin to see if that will help make his urinary flow more effective and thereby reducing urinary frequency symptoms; will need to monitor due to his Bupropion from psych, likely keep him on lower dose. Recheck with Dr. Acuna in a month clary Not available 07/12/2016 16:50:37 Reason for Referral None Reported. Results Created Date Observation Date Name Description Value Unit Range Abnormal Flag Note LastModifiedBy Organization Detail LastModifiedTime 07/11/2016 urina lysis , dipst ick Leukocytes Negati ve Not Available In-House Te st For Internal Use Only, Do Not Delete/merge, [id number] 07/11/2016 13:00:05 07/11/2016 urina lysis , dipst ick Nitrite negati ve Not Available In-House Te st For Internal Use Only, Do Not Delete/merge, [id number] 07/11/2016 13:00:05 07/11/2016 urina lysis , dipst ick Urobilinogen .2 Not Available In-Ho use Test For Internal Use Only, Do Not Delete/merge, [id number] 07/11/2016 13:00:05 07/11/2016 urina lysis , dipst ick Protein Trace Not Available In-House T est For Internal Use Only, Do Not Delete/merge, [id number] 07/11/2016 13:00:05 07/11/2016 urina lysis , dipst ick pH 5.0 Not Available In-House T est For Internal Use Only, Do Not Delete/merge, 07/11/2016 13:00:05 07/11/2016 urina lysis , dipst ick Blood Negati ve Not Available In-House Te st For Internal Use Only, Do Not Delete/merge, 07/11/2016 13:00:05 07/11/2016 urina lysis , dipst ick Specific Bramwell 1.025 Not Available In-Nico se Test For Internal Use Only, Do Not Delete/merge, 07/11/2016 13:00:05 07/11/2016 urina lysis , dipst ick Ketone Negati ve Not Available In-House Te st For Internal Use Only, Do Not Delete/merge, 07/11/2016 13:00:05 07/11/2016 urina lysis , dipst ick Bilirubin Negati ve Not Available In-House Te st For Internal Use Only, Do Not Delete/merge, 07/11/2016 13:00:05 07/11/2016 urina lysis , dipst ick Glucose Negati ve Not Available In-House Te st For Internal Use Only, Do Not Delete/merge, 07/11/2016 13:00:05 07/11/2016 urina lysis , dipst ick Appearance Clear Not Available In-Hous e Test For Internal Use Only, Do Not Delete/merge, 07/11/2016 13:00:05 07/11/2016 urina lysis , dipst ick Color Dark Yellow Not Available In-House Te st For Internal Use Only, Do Not Delete/merge, 07/11/2016 13:00:05 12/01/2015 HbA1c (hemo globi n A1c), blood HbA1c 5.1 Not Available In-House T est For Internal Use Only, Do Not Delete/merge, 12/01/2015 12:24:35 11/24/19 16 11/24/2015 CBC w/ auto diff WBC 7.7 K/uL 4.5-11 .0 Not Available [facility] [address] [place], [address], 11/24/2015 17:32:24 11/24/19 16 11/24/2015 CBC w/ auto diff RBC 4.85 M/uL 4.3-5. 7 Not Available [facility] [address] [place], [address], 11/24/2015 17:32:24 11/24/19 16 11/24/2015 CBC w/ auto diff hemoglobin 14.4 g/dL 13.5-1 8.0 Not Available [facility] [address] [place], [address], 11/24/2015 17:32:24 11/24/19 16 11/24/2015 CBC w/ auto diff hematocrit 43.5 % 41-50 Not Available [facility] [address] [place], [address], 11/24/2015 17:32:24 11/24/19 16 11/24/2015 CBC w/ auto diff MCV 89.7 fL 81-99 Not Available [facility] [address] [place], [address], 11/24/2015 17:32:24 11/24/19 16 11/24/2015 CBC w/ auto diff RDW 12.7 % 10.5-1 5.0 Not Available [facility] [address] [place], [address], 11/24/2015 17:32:24 11/24/19 16 11/24/2015 CBC w/ auto diff MCH 30 pg 27-33 Not Available [facility] [address] [place], [address], 11/24/2015 17:32:24 11/24/19 16 11/24/2015 CBC w/ auto diff MCHC 33 % 30-36 Not Available [facility] [address] [place], [address], 11/24/2015 17:32:24 11/24/19 16 11/24/2015 CBC w/ auto diff platelet count 255 K/uL 140-44 0 Not Available [facility] [address] [place], [address], 11/24/2015 17:32:24 11/24/19 16 11/24/2015 CBC w/ auto diff neutrophils 66.9 % 39-80 Not Available [facility] [address] [place], [address], 11/24/2015 17:32:24 11/24/19 16 11/24/2015 CBC w/ auto diff lymphocytes 23.7 % 24-44 low Not Available [facility] [address] [place], [address], 11/24/2015 17:32:24 11/24/19 16 11/24/2015 CBC w/ auto diff monocytes 7.8 % 0-12 Not Available [facility] [address] [place], [address], 11/24/2015 17:32:24 11/24/19 16 11/24/2015 CBC w/ auto diff eosinophils 1.2 % 0-6 Not Available [facility] [address] [place], [address], 11/24/2015 17:32:24 11/24/19 16 11/24/2015 CBC w/ auto diff basophils 0.4 % 0-2 Not Available [facility] [address] [place], [address], 11/24/2015 17:32:24 11/24/19 16 11/24/2015 CBC w/ auto diff neut, absolute 5.15 K/uL 2.0-6. 9 Not Available [facility] [address] [place], [address], 11/24/2015 17:32:24 11/24/19 16 11/24/2015 CBC w/ auto diff band, absolute 0.00 K/uL 0.0-0. 6 Not Available [facility] [address] [place], [address], 11/24/2015 17:32:24 11/24/19 16 11/24/2015 CBC w/ auto diff lymph, absolute 1.82 K/uL 0.6-3. 4 Not Available [facility] [address] [place], [address], 11/24/2015 17:32:24 11/24/19 16 11/24/2015 CBC w/ auto diff mono, absolute 0.60 K/uL 0.0-1. 1 Not Available [facility] [address] [place] [address], [address], 11/24/2015 17:32:24 11/24/19 16 11/24/2015 CBC w/ auto diff eos, absolute 0.09 K/uL 0.0-0. 7 Not Available [facility] [address] [place], [address], 11/24/2015 17:32:24 11/24/19 16 11/24/2015 CBC w/ auto diff baso, absolute 0.03 K/uL 0.0-0. 2 Not Available [facility] [address] [place] [address], [address], 11/24/2015 17:32:24 11/24/19 16 11/24/2015 CBC w/ auto diff other, absolute 0.00 0.0 Not Available [facility] [address] [place], [address], 11/24/2015 17:32:24 11/24/19 16 11/24/2015 TSH, ultra -sens itive , serum TSH, 3rd gen. 4.51 uIU/m L 0.270- 4.20 high Not Available [facility] [address] [place], [address], 11/24/2015 18:26:29 11/24/19 16 11/24/2015 lipid panel , serum cholesterol 154 mg/dL opt: <200 Not Available [facility] [address] [place] [address], [address], 11/24/2015 18:41:06 11/24/19 16 11/24/2015 lipid panel , serum triglyceride s 86 mg/dL 30-150 Not Available [facility] [address] [place] [address], [address], 11/24/2015 18:41:06 11/24/19 16 11/24/2015 lipid panel , serum HDL 51.8 mg/dL opt: >40 Not Available [facility] [address] [place] [address], [address], 11/24/2015 18:41:06 11/24/19 16 11/24/2015 lipid panel , serum LDL 85 mg/dL opt: <100 Not Available [facility] [address] [place] [address], [address], 11/24/2015 18:41:06 11/24/19 16 11/24/2015 lipid panel , serum VLDL 17 mg/dL 4-40 Not Available [facility] [address] [place] [address], [address], 11/24/2015 18:41:06 11/24/19 16 11/24/2015 lipid panel , serum chol/HDL 3.0 opt: <4.97 Not Available [facility] [address] [place] [address], [address], 11/24/2015 18:41:06 11/24/19 16 11/24/2015 lipid panel , serum non-HDL chol 102 mg/dL opt: <130 Not Available [facility] [address] [place] [address], [address], 11/24/2015 18:41:06 11/24/19 16 11/24/2015 CMP, serum or plasm a sodium 143 mEq/L 132-14 3 Not Available [facility] [address] [place], [address], 11/24/2015 18:41:23 11/24/19 16 11/24/2015 CMP, serum or plasm a potassium 4.5 mEq/L 3.6-5. 1 Not Available [facility] [address] [place], [address], 11/24/2015 18:41:23 11/24/19 16 11/24/2015 CMP, serum or plasm a chloride 105 mEq/L 95-112 Not Available [facility] [address] [place] [address], [address], 11/24/2015 18:41:23 11/24/19 16 11/24/2015 CMP, serum or plasm a carbon dioxide 30 mEq/L 19-31 Not Available [facility] [address] [place], [address], 11/24/2015 18:41:23 11/24/19 16 11/24/2015 CMP, serum or plasm a anion gap 12.5 7-21 Not Available [facility] [address] [place], [address], 11/24/2015 18:41:23 11/24/19 16 11/24/2015 CMP, serum or plasm a glucose 101 mg/dL 70-100 high Not Available [facility] [address] [place], [address], 11/24/2015 18:41:23 11/24/19 16 11/24/2015 CMP, serum or plasm a urea nitrogen 28 mg/dL 6-23 high Not Available [facility] [address] [place] [address], [address], 11/24/2015 18:41:23 11/24/19 16 11/24/2015 CMP, serum or plasm a creatinine, serum 1.23 mg/dL 0.70-1 .33 Not Available [facility] [address] [place] [address], [address], 11/24/2015 18:41:23 11/24/19 16 11/24/2015 CMP, serum or plasm a GFR estimation 61 mL/mi n Not Available [facility] [address] [place] [address], [address], 11/24/2015 18:41:23 11/24/19 16 11/24/2015 CMP, serum or plasm a BUN/creat.ra jaime 22.8 6.0-28 .6 Not Available [facility] [address] [place] [address], [address], 11/24/2015 18:41:23 11/24/19 16 11/24/2015 CMP, serum or plasm a calcium 10.0 mg/dL 8.4-10 .2 Not Available [facility] [address] [place] [address], [address], 11/24/2015 18:41:23 11/24/19 16 11/24/2015 CMP, serum or plasm a AST(SGOT) 22 U/L 13-39 Not Available [facility] [address] [place] [address], [address], 11/24/2015 18:41:23 11/24/19 16 11/24/2015 CMP, serum or plasm a ALT(SGPT) 20 U/L 7-52 Not Available [facility] [address] [place] [address], [address], 11/24/2015 18:41:23 11/24/19 16 11/24/2015 CMP, serum or plasm a alkaline phos 62 U/L 30-128 Not Available [facility] [address] [place], [address], 11/24/2015 18:41:23 11/24/19 16 11/24/2015 CMP, serum or plasm a bilirubin, total 0.5 mg/dL 0.0-1. 2 Not Available [facility] [address] [place], [address], 11/24/2015 18:41:23 11/24/19 16 11/24/2015 CMP, serum or plasm a protein 7.2 g/dL 6.0-8. 0 Not Available [facility] [address] [place], [address], 11/24/2015 18:41:23 11/24/19 16 11/24/2015 CMP, serum or plasm a albumin 4.8 g/dL 3.5-5. 0 Not Available [facility] [address] [place], [address], 11/24/2015 18:41:23 11/24/1911/24/2015 CMP, serum or plasm a globulin 2.4 g/dL 1.8-3. 5 Not Available [facility] [address] [place], [address], 11/24/2015 18:41:23 11/24/1911/24/2015 CMP, serum or plasm a A/G ratio 2.0 1.1-2. 4 Not Available [facility] [address] [place], [address], 11/24/2015 18:41:23 05/28/20 16 05/28/2016 CMP, serum or plasm a sodium 141 mmol/ L 135-14 5 Not Available [facility] ([facility]) [address], [place], [address], 05/28/2016 23:36:00 05/28/20 16 05/28/2016 CMP, serum or plasm a potassium 4.3 mmol/ L 3.5-5. 2 Not Available [facility] ([facility]) [address] [place], [address], 05/28/2016 23:36:00 05/28/20 16 05/28/2016 CMP, serum or plasm a chloride 105 mmol/ L 95-109 Not Available [facility] ([facility]) [address] [place] [address] [place], [address], 05/28/2016 23:36:00 05/28/20 16 05/28/2016 CMP, serum or plasm a CO2 31 mmol/ L 22-32 Not Available [facility] ([facility]) [address] [place], [address], 05/28/2016 23:36:00 05/28/20 16 05/28/2016 CMP, serum or plasm a anion gap 5 mmol/ L 3-12 Not Available [facility] ([facility]) [address] [place], [address], 05/28/2016 23:36:00 05/28/20 16 05/28/2016 CMP, serum or plasm a glucose 91 mg/dL 70-99 Not Available [facility] ([facility]) [address] [place], [address], 05/28/2016 23:36:00 05/28/20 16 05/28/2016 CMP, serum or plasm a BUN 19 mg/dL 6-20 Not Available [facility] ([facility]) [address] [place], [address], 05/28/2016 23:36:00 05/28/20 16 05/28/2016 CMP, serum or plasm a creatinine 1.23 mg/dL 0.75-1 .38 Not Available [facility] ([facility]) [address] [place], [address], 05/28/2016 23:36:00 05/28/20 16 05/28/2016 CMP, serum or plasm a GFR non-black (CKD-epi) 65 mL/mi n/1.7 3m2 >=60 Not Available [facility] ([facility]) [address], [place], [address], 05/28/2016 23:36:00 05/28/20 16 05/28/2016 CMP, serum or plasm a GFR black (CKD-epi) 75 mL/mi n/1.7 3m2 >=60 Not Available [facility] ([facility]) [address] [place], [address], 05/28/2016 23:36:00 05/28/20 16 05/28/2016 CMP, serum or plasm a protein, total 7.5 g/dL 6.2-8. 4 Not Available [facility] ([facility]) [address] [place], [address], 05/28/2016 23:36:00 05/28/20 16 05/28/2016 CMP, serum or plasm a albumin 4.8 g/dL 3.5-5. 0 Not Available [facility] ([facility]) [address], [place], [address], 05/28/2016 23:36:00 05/28/20 16 05/28/2016 CMP, serum or plasm a calcium 9.9 mg/dL 8.8-10 .4 Not Available [facility] ([facility]) [address] [place], [address], 05/28/2016 23:36:00 05/28/20 16 05/28/2016 CMP, serum or plasm a bilirubin, total 0.7 mg/dL 0.1-1. 2 Not Available [facility] ([facility]) [address] [place], [address], 05/28/2016 23:36:00 05/28/2005/28/2016 CMP, serum or plasm a alkaline phosphatase 48 U/L 38-126 Not Available [facility] ([facility]) [address], [place], [address], 05/28/2016 23:36:00 05/28/20 16 05/28/2016 CMP, serum or plasm a ALT 22 U/L 7-40 Not Available [facility] ([facility]) [address], [place], [address], 05/28/2016 23:36:00 05/28/20 16 05/28/2016 CMP, serum or plasm a AST 26 U/L 15-41 [facility] [address] [place] [address] Phone : Not Available [facility] ([facility]) [address], [place], [address], 05/28/2016 23:36:00 Result Notes None recorded. Problems Name Problem SNOMED Code Status Onset Date Resolution Date Notes Provider Name and Address Organization Details Recorded Time Hyperlip idemia 11988482 [facility] Bipolar disorder 15930050 [facility] 12:[facility] Attentio n deficit hyperact ivity disorder , predomin antly inattent shaunna type 21220547 Active sees psych; Dr. Андрей lozano [facility] 6 12:41:05 Environm ental allergy 981891744 Active James Garcia [facility] 6 12:08:15 Increase d frequenc y of urinatio n 961940211 Active James lozano [facility] 6 12:08:15 Benign prostati c hyperpla johnnie 796738979 Active James Lasseigne [facility] 6 12:08:15 Impaired fasting glycemia 992841849 Active James Garcia [facility] 6 12:08:15 Contusio n of chest 93668014 Completed 07/11/2016 [facility] 12:22[facility]33 Problem Notes None recorded. Procedures Surgical History Date Name Laterality Status Provider Name and Address Organization Details Recorded Time 09/22/19 14 Colonoscopy completed Ashutosh Acuna [facility] 11/23/2014 12:02:55 11/21/19 00 Other completed Cristin Boston [facility] 12/01/2015 11:13:31 09/22/18 99 Other completed Cristin Boston [facility] 12/01/2015 11:13:31 10/23/18 94 Vasectomy completed Cristin Boston [facility] 12/01/2015 11:13:31 10/23/18 65 Tonsillectomy completed Cristin Boston [facility] 12/01/2015 11:13:31 07/23/19 58 Circumcision completed Cristin Boston [facility] 12/01/2015 11:13:31 Tonsillectomy completed Cristin Boston [facility] 11/23/2014 13:18:19 Vasectomy completed Cristin Boston [facility] 11/23/2014 13:18:19 Hemorrhoidectomy completed Cristin Boston [facility] 12/01/2015 11:13:31 Vasectomy completed Cristin Boston [facility] 12/01/2015 11:13:31 Eye Surgery completed Cristin Boston [facility] 12/01/2015 11:13:31 Knee Surgery completed Cristin Boston [facility] 12/01/2015 11:13:31 Imaging Results None recorded. Procedure Notes None recorded. Medical Equipment None Reported. Allergies Allergen ID Allergen Name Allergen Category Reaction Reaction Severity Criticality Documentation Date Start Date Code Code System Note Provider Name and Address Organization Details Recorded Time 09555 tamsulosi n medicatio n other Not available Not available 07/15/20162015 84548 RxNorm agmika Gusman [facility] 6 14:26:22 Medications Name Sig Start Date Stop Date Status Note LastModified by Organization Details LastModified Time lamotrigi ne 150 mg tablet 06/04 completed Not Available Not Available Not Available bupropion HCl SR 150 mg tablet,12 hr sustained -release 07/11 completed Not Available Not Available Not Available venlafaxi ne ER 75 mg capsule,e xtended release 24 hr 07/11 completed Not Available Not Available Not Available divalproe x 250 mg tablet,de layed release active RX by psych Not Available Not Available Not Available pravastat in 40 mg tablet TAKE 1 TABLET EVERY EVENING active Not Available Not Available No t Available hydrocodo ne 5 mg-acetam inophen 325 mg tablet 07/11 completed Not Available Not Available Not Available dextroamp hetamine- amphetami ne 10 mg tablet 07/11 completed Not Available Not Available Not Available clonazepa m 0.5 mg tablet 2 po in AM and 1 po at 3pm active Not Available Not Available No t Available venlafaxi ne ER 150 mg capsule,e xtended release 24 hr active RX by psych Not Available Not Available Not Available penicilli n V potassium 500 mg tablet active Not Available Not Available Not Available Nicotrol 10 mg inhalatio n cartridge active Not Available Not Available No t Available Adderall XR 20 mg capsule,e xtended release active RX by psych Not Available Not Available Not Available amoxicill in 875 mg tablet active Not Available Not Available Not Available tamsulosi n 0.4 mg capsule Take 1 capsule every day by oral route. 08/22 completed Not Available Not Available Not Available lamotrigi ne 100 mg tablet 1 1/2 po qd 06/04 completed Not Available Not Available Not Available amoxicill in 875 mg-potass ium clavulana te 125 mg tablet active Not Available Not Available Not Available dutasteri de 0.5 mg capsule TAKE 1 CAPSULE BY MOUTH EVERY DAY active Not Available Not Available No t Available aripipraz ole 5 mg tablet active RX by psych Not Available Not Available Not Available bupropion HCl XL 300 mg 24 hr tablet, extended release active RX by psych Not Available Not Available Not Available Tricor 145 mg tablet 1 po qod active Not Available Not Available Not Available chlorhexi dine gluconate 0.12 % mouthwash active Not Available Not Available No t Available hydrocodo ne 5 mg-acetam inophen 300 mg tablet active Not Available Not Available Not Available Strattera 80 mg capsule active RX by psych Not Available Not Available Not Available Vyvanse 70 mg capsule 06/04 completed Not Available Not Available Not Available Vyvanse 40 mg capsule 06/04 completed Not Available Not Available Not Available Epiduo 0.1 %-2.5 % topical gel active Not Available Not Available Not Available Suprep Bowel Prep Kit 17.5 gram-3.13 gram-1.6 gram oral solution active Not Available Not Available Not Available lamotrigi ne ER 300 mg tablet,ex tended release 24 hr 06/04 completed Not Available Not Available Not Available Viibryd 40 mg tablet 06/04 completed Not Available Not Available Not Available Viibryd 20 mg tablet active Not Available Not Available Not Available Latuda 20 mg tablet Take 1 tablet every day by oral route. active RX by psych Dr. Chiang Not Available Not Available Not Available EpiPen 2-Carrington 0.3 mg/0.3 mL injection , auto-inje ctor 1 mg as needed by injectio n route. 2014 active Not Available Not Available Not Avai lable PreviDent 5000 Booster Plus 1.1 % dental paste Take 1 applicat ion every 72 hours by dental route. 06/04 completed Not Available Not Available Not Available Vitals Date Recorded Body height Respiratory rate Oxygen saturation Oxygen saturation in Arterial blood by Pulse oximetry Body mass index (BMI) Body weight Heart rate Systolic blood pressure Diastolic blood pressure Provider Name and Address Organization Details Last Updated DateTime 6 179.705 cm 12 /min 96 % 96 % 25.1 kg/m2 07461.0 3423 g 96 /min 122 mm[Hg] 76 mm[Hg] James Garcia [facility] 6 17:34:37 Date Recorded Body height Provider Name an d Address Organization Details Last Updated DateTime 05/28/2016 179.705 cm Cristin Boston [facility] 05/28/2016 12:15:05 Date Recorded Body height Body weight Body mass index (BMI) Heart rate Oxygen saturation Oxygen saturation in Arterial blood by Pulse oximetry Respiratory rate Systolic blood pressure Diastolic blood pressure Provider Name and Address Organization Details Last Updated DateTime 6 179.705 cm 21154.5 1 g 27.4 kg/m2 91 /min 98 % 98 % 18 /min 118 mm[Hg] 80 mm[Hg] Taty Worthington [facility] 6 11:28:04 Date Recorded Body height Body weight Body mass index (BMI) Heart rate Oxygen saturation Oxygen saturation in Arterial blood by Pulse oximetry Respiratory rate Body temperature Systolic blood pressure Diastolic blood pressure Provider Name and Address Organization Details Last Updated DateTime 6 179.705 cm 69431.7 g 27.7 kg/m2 80 /min 99 % 99 % 18 /min 98.7 [degF] 112 mm[Hg] 72 mm[Hg] James Garcia [facility] 6 12:07:33 Date Recorded Body height Body weight Body mass index (BMI) Heart rate Oxygen saturation Oxygen saturation in Arterial blood by Pulse oximetry Respiratory rate Systolic blood pressure Diastolic blood pressure Provider Name and Address Organization Details Last Updated DateTime 6 179.705 cm 88608.1 g 27.5 kg/m2 78 /min 97 % 97 % 18 /min 118 mm[Hg] 76 mm[Hg] Lea Mustafavlad [facility] 6 16:32:50 Social History Question Answer Notes LastModified by Organizat ion Details LastModified Time Tobacco Smoking Status Former Smoker quit 2014 Not Available [facility] 07/25/2020 03:40:37 Do You Have An Advance Directive? Yes [id number] Information not available 07/25/2020 What Is Your Level Of Alcohol Consumption? None [id number] Information not available 07/25/2020 Animal Exposure? Yes Informat ion not available 12/01/2015 Are You Blind Or Do You Have Difficulty Seeing? No [id number] Information not available 07/25/2020 What Is Your Level Of Caffeine Consumption? Moderate [id number] Information not available 07/25/2020 How Much Tobacco Do You Chew? None [id number] Information not available 07/25/2020 Are You Currently Employed? No [id number] Information not available 07/25/2020 Are You Deaf Or Do You Have Serious Difficulty Hearing? No [id number] Information not available 07/25/2020 What Type Of Diet Are You Following? REGULAR [id number] Information not available 07/25/2020 Which Illicit Or Recreational Drugs Have You Used? No [id number] Information not available 07/25/2020 Education Post Graduate Information not available 12/01/2015 Who Is Your Employer? 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 Yes [id number] Information not available 07/25/2020 What Is The Fluoride Status Of Your Home? Non-fluorida roosevelt [id number] Information not available 07/25/2020 Are There Any Guns Present In Your Home? No [id number] Information not available 07/25/2020 Hobbies/Activiti es Landscaping, Rading Camping Fishing, Travelling, Computers, And Repairs [employer] [employer]. Information not available 12/01/2015 What Is Your Home Situation? Other [id number] Information not available 07/25/2020 Legally Blind In One Or Both Eyes? No Information not available 12/01/2015 Live Alone Or With Others? With Others Information not available 12/01/2015 Cell Phone/EMF Exposure Low To Medium Low Information not available 12/01/2015 Marital Status Dayanara clary Informatio n not available 12/11/2015 Performs Monthly Self-breast Exam? No Information not available 12/01/2015 Do You Use Protection During Sex? No [id number] Information not available 07/25/2020 What Is The Name Of Your School? [employer] [id number] Information not available 07/25/2020 Do You Use Your Seat Belt Or Car Seat Routinely? Yes [id number] Information not available 07/25/2020 Seat Belts Used Routinely Yes Information not available 12/01/2015 Are You Sexually Active? Yes [id number] Information not available 07/25/2020 Do You Have Any Siblings? 4 Sister, Brother, Sister, Me, Sister [id number] Information not available 07/25/2020 Smoke Alarm In Home Yes Information not available 12/01/2015 How Much Tobacco Do You Smoke? No [id number] Information not available 07/25/2020 What Types Of Sporting Activities Do You Participate In? Halking, Hiking, Fishing,dart s, Billiards, Pinball [id number] Information not available 07/25/2020 General Stress Level Medium Information not available 12/01/2015 Supplements Vitamins, Fishoil, Co Information not available 12/01/2015 Year In School College Informatio n not available 12/01/2015 Sex: Unknown Functional Status Question Answer Note LastModified by Organizat ion Details LastModified Time Do you have difficulty walking or climbing stairs? No [id number] Information not available 07/25/2020 Do you have difficulty doing errands alone? No [id number] Information not available 07/25/2020 Are you able to care for yourself? Yes [id number] Information n ot available 07/25/2020 Do you have difficulty dressing or bathing? No [id number] Information not available 07/25/2020 What is your exercise level? Moderate [id number] Information not available 07/25/2020 Mental Status Question Answer Note LastModified by Organization D etails LastModified Time Do you have difficulty concentrating, remembering or making decisions? No [id number] Information no t available 07/25/2020 Family History Relationship Description Onset Age of this Age Resolved Age Notes LastModified by Organization Details LastModified Time Father Dementia 89 [email or web address] Not available 07/11/2016 12:21:47 Father Hypercholest erolemia 57 89 kbonnell Not available 2015 11:12:52 Father Carcinoma of prostate 65 jluther Not available 2015 12:27:45 Mother Coronary arterioscler osis 57 [email or web address] Not available 12/10 17:34:37 Mother Osteoporosis 50 57 kbonnell Not avail able 12/01/2015 11:12:52 Mother Diabetes mellitus 50 57 kbonnell Not available 2015 11:12:52 Mother Heart disease 57 [email or web address] Not available 12/10 17:34:37 Mother Problem 30 57 kbonnell Not available 12/01/2015 11:12:52 Maternal Uncle Tuberculosis 23 27 kbonnell Not available 11/20 11:12:52 Paternal Aunt Mental disorder 1 87 kbonnell Not available 2015 11:12:52 Paternal Grandmother Parkinson's disease 57 78 kbonnell Not available 2015 11:12:52 Sister Depressive disorder 15 [email or web address] Not available 12/10 17:34:37 Sister Hypertensive disorder 40 [email or web address] Not available 12/10 17:34:37 Sister Allergy 7 [email or web address] Not availabl e 12/11/2015 17:34:37 Sister Attention deficit hyperactivit y disorder 15 [email or web address] Not available 11/21 17:34:37 Sister Sleep apnea 40 [email or web address] Not avai lable 12/11/2015 17:34:37 Sister Anxiety disorder 14 jlasseigne Not available 12/10 17:34:37 Sister Obesity 24 [email or web address] Not availabl e 12/11/2015 17:34:37 Medical History Condition Response Coronary Artery Disease N Gout N Kidney Stones N Blood Diseases N Hyperthyroidism N Hypothyroidism N Depression Y COPD N Developmental or Behavioral Disorders N Eczema, Hives or other skin conditions N Anxiety Disorder Y Muscle, Joint, or Bone Problems N Vision or Eye Problems N Arthritis N Serious Illness or Injuries N Congenital Anomalies N Cancer N Stroke N Bladder or Kidney Problems N Hospital Admission other than N High Cholesterol Y Liver Disease N Fibromyalgia N Kidney Disease N Heart Problems N Ear or Hearing Problems N ADD or ADHD Y Thyroid Problems N Skin Problems N Anemia N Constipation N Diabetes N Bedwetting N Seizures/Epilepsy N Tuberculosis N Diverticulitis N Asthma N Allergies Y Reflux/GERD N Heart Disease N Pulmonary Embolism N Hypertension N Osteoporosis N Chicken Pox N Immunizations Vaccine Type Date Status Note Provider Nam e and Address Organization Details Recorded Time tetanus toxoid, unspecified formulation 8 completed James lozano [facility] 07/11/2016 12:08:15 measles 4 completed James lozano, [facility] 07/11/2016 12:08:15 vaccinia (smallpox) 0 completed James lozano, [facility] 07/11/2016 12:08:15 Influenza, split virus, trivalent, preservative 5 completed James lozano, [facility] 07/11/2016 12:08:15 Influenza, split virus, trivalent, preservative 4 completed James lozano, [facility] 07/11/2016 12:08:15 Influenza, split virus, quadrivalent, preservative 6 [facility] 12:08:15 Past Encounters Encounter ID Performer Location Encounter Start Date Encounter Closed Date Diagnosis/Indication Diagnosis SNOMED-CT Code Diagnosis ICD10 Code [id number] Ashutosh Cooper OFFICE [address] [place] [address] [address] [place] [address] 11/23/2014 11:26:52 11/23/2014 12:34:41 Hyperlipidemia 04172320 Bipolar disorder 2340208 4 Attention deficit hyperactivity disorder, predominantly inattentive type 39806641 Environmental allergy 42 5807339 [id number] MISTYKey RingEL D OFFICE [address] [place] [address] [address] [place] [address] 11/25/2014 10:27:42 11/25/2014 12:02:30 Adult health examination [id number] Ashutosh MAGUIRE D OFFICE [facility] [place] [address] 11/29/2014 11:49:09 11/29/2014 12:44:03 Adult health examination 430822479 Bipolar disorder 4321082 4 Hyperlipidemia 41577919 Attention deficit hyperactivity disorder, predominantly inattentive type 19898490 [id number] Cristin JAYFIEL D OFFICE [facility] [address] [place] [address] 03/27/2015 11:27:17 03/27/2015 11:57:05 Bipolar disorder 75243425 Hyperlipidemia 83990063 Attention deficit hyperactivity disorder, predominantly inattentive type 76546345 [id number] Ashutosh Acuna [facility] OFF[facility] [address] [place] [id number] 07/28/2015 10:51:05 07/28/2015 12:10:13 Increased frequency of urination 699489123 R35.0 Hyperlipidemia 95536044 E78.5 Bipolar disorder 1387987 4 F31.9 [id number] edilberto salgado [facility] OFF[facility] [address] [place] [address] 11/24/2015 11:26:46 11/24/2015 13:31:34 Hyperlipidemia 18549917 E78.5 Bipolar disorder 4837402 4 F31.9 Adult heal th examination 773732205 Z00.00 Z00.01 [id number] Ashutosh Cauna [facility] OFF[facility] [address] [place] [address] 12/01/2015 10:53:34 12/01/2015 12:26:48 Adult health examination 855644211 Z00.00 Z00.01 Bipolar disorder 2451944 4 F31.9 Attention deficit hyperactivity disorder, predominantly inattentive type 98122357 F90.0 Hyperlipidemia 61618565 E78.5 Benign pro static hyperplasia 383502040 D29.1 Family his tory of malignant neoplasm of prostate 870144771 Z80.42 Impaired f asting glycemia 635613031 R73.01 [id number] Erendira Gusman [facility] [address] [place] [address] 12/11/2015 17:24:03 12/11/2015 17:59:46 Contusion of chest 45895266 S20.211A [id number] Cristin Boston [facility] [address] [place] [address] 05/28/2016 11:27:17 05/28/2016 12:14:02 Bipolar disorder 44886904 F31.9 [id number] Ashutosh [facility] OFFICE [address] [place] [id number] 3 06/04/2016 11:13:39 06/04/2016 11:47:46 Attention deficit hyperactivity disorder, predominantly inattentive type 41978699 F90.0 [facility] 31983005 E78.5 Bipolar disorder 1230190 4 F31.9 [id number] Erendira Naseem [facility] OFFICE [address] [place] [address] [address] [place] [address] 07/11/2016 11:59:44 07/11/2016 12:46:01 Benign prostatic hyperplasia 532596975 N40.1 [id number] Erendira Naseem [facility] OFF[facility] [address] [place] [address] [address] [place] [address] 07/12/2016 16:31:20 07/12/2016 16:42:32 Benign prostatic hyperplasia 729593684 N40.1 Lipoma of skin 632925703 D17.30 Health Concerns Section Related Observation LastModified by Organization Detai ls LastModified Time None Recorded Concern Status LastModified by Organization Details LastModified Time None Recorded Advance Directives Directive Y: Payers Encounter Date Sequence Insurance Name Policy Number Policy [place] Covered Member ID [place] Member ID Guarantor Name 12/11/2015 1 [place] OUT OF [place] - BLUE CARD [id number] 2 Yassine O Stollsteimer [id number] Annemarie E Stollsteimer 05/28/2016 1 [place] [id number] 2 Yassine O Stollsteimer [id number] Annemarie Shakir Stollsteimer 06/04/2016 1 [place] [id number] 2 Yassine O Stollsteimer [id number] Annemarie E Stollsteimer 07/11/2016 1 [place] [id number] 2 Yassine O Stollsteimer [id number] Annemarie Shakir Stollsteimer 07/12/2016 1 [place] [id number] 2 Yassine O Stollsteimer [id number] Annemarie E Stollsteimer Notes Date Note Type Note Provider Name and Address Organization Details Recorded Time 12/11/2015 text/html 55 yo presents with R side rib pain for past 2- 3 days. [place] cell phone when he tripped and fell onto a log; hitting R front lower chest wall. His was worried about possible rib fracture so sent him to get Xrays. He says it mainly hurts when he's moving around like getting out of the car this morning. Denies any SOB. Erendira lozano, [facility] 12/11/2015 17:59:25 06/04/2016 text/html 55 yo male here for routine f/u and med check. He had non fasting cmp that was normal. He still sees psych and has continued to undergo medication adjustments and is now on effexor and depakote which are new since last visit. He feels well and notes only current issue is mild allergic congestion.He has put on some wt as he started depakote little over a month ago and this has increased his appetite a bit. Ashutosh Acuna marta, [facility] 06/04/2016 11:52:45 07/11/2016 text/html 55 yo here to talk about his prostate.Has h/o BPH since age 48 or so.Has had increased urinary frequency for one year.Nocturia 2- 4 times. Denies blood in urine or difficulty with stream. No pain.Doesn't recall ever having PSA done.Last physical earlier this year.Dad had prostate cancer dx in his mid 60s but was cured of it via surgery only, no chemo or radiation. Erendira lozano, [facility] 07/11/2016 13:02:57 07/12/2016 text/html 55 yo here to have lump on R shoulder checked out. It's been there about a month. Doesn't hurt and hasn't grown much. He thinks it's a cyst. Recent PSA normal at .795 with h/o BPH and recent increase in urinary frequency and negative UA. Erendira lozano, [facility] 07/12/2016 16:50:55
--- OUTSIDE RECORDS SUMMARY | 2024-09-11 17:13 | XMS_ITS | Encounter Summary ---
Author Organization [facility] Address [address] [facility] [address] [place] [address] Phone Care Team Providers Care Inside Sales Trainer Name Role Phone Morelia Scott Primary Care Provider + Reason for Visit * Reason Comments Testicle Pain * Consultation (Routine) - Authorized Specialty Diagnoses / Procedures Referred By Contac t Referred To Contact Urology Diagnoses Pain in testicle, unspecified laterality Referral, Self [facility] (All Locations) Referral ID Status Reason Start Date Expiration Date Visits Requested Visits Authorized [id number] Authorized Specialty Services Required 06/29/2024 2025 99 99 Encounter Details Date Type Department Care Team (Late st Contact Info) Description 08/10/2024 2:00 PM MULTIFOCAL LENS INSPECTOR Office Visit [facility] Surgery [address] [facility] [address] [place] [address] Sj Perera MD [address] [facility] [place] [address] Pain in testicle, unspecified laterality (Primary Dx); Family history of prostate cancer Social History Tobacco Use Types Packs/Day Years Used Date Smoking Tobacco: Never Tobacco Cessation:Counseling Given: Not Answered Sex and Gender Information Value Date Recorded Sex Assigned at Not on file Legal Sex Male 10:52 AM CDT Gender Identity Not on file Sexual Orientation Not on file documented as of this encounter Progress Notes * Sj Perera MD - 08/10/2024 2:00 PM CST Chief Complaint: Chief Complaint Patient presents with Testicle Pain History of Present Illness: Yassine Vee is a 64 y.o. male here for evaluation underwent vasectomy at the age of 27 had discomfort in both testicles as well as sensation of them drawing up in 1999 had a bilateral epididymectomy. He has had some intermittent discomfort on the right side but has gotten worse over the past year with any kind of sexual activity with any sexual activity the testicle on the right side draws up and this is uncomfortable no voiding complaints. He does have a family history of prostate cancerin his father does not recall his last HELEN nor PSA. I have recommended that this be done annually and offered to do that in our office today but he declined.. Review of systems Constitutional: denies fever and chills CV: denies angina/chest pain Pulm: no cough or shortness of breath GI: Denies nausea, emesis, diarrhea, constipation Endocrine: No diabetes mellitus. No gout. Hematologic: No known excessive bleeding with surgery. No anemia. No blood clots. MSK: Denies difficulty with ambulation Neurologic: No headache currently Eyes: No vision changes Psychiatric: No anxiety. No depression. Imunologic: No HIV. Skin: No rashes. The patient's past medical history is notable for: No past medical history on file. The patient's past surgical history is notable for: History reviewed. No pertinent surgical history. The patient is currently taking the following medications: Current Outpatient Medications Medication Sig Dispense Refill cyclobenzaprine (FLEXERIL) 10 mg tablet TAKE 1 TABLET BY MOUTH EVERY NIGHT AT BEDTIME, MAY TAKE 1 TABLET DAILY NEEDED FOR HEADACHE OR MUSCLE SPASMS dexmethylphenidate XR (FOCALIN XR) 15 mg 24 hr capsule Take 1 capsule (15 mg total) by mouth daily lisinopriL (PRINIVIL,ZESTRIL) 10 mg tablet Take 1 tablet (10 mg total) by mouth daily pravastatin (PRAVACHOL) 40 mg tablet Take 1 tablet (40 mg total) by mouth daily QUEtiapine (SEROquel) 50 mg tablet Take 1 tablet (50 mg total) by mouth 2 (two) times a day buPROPion XL (WELLBUTRIN XL) 150 mg 24 hr tablet Take 1 tablet (150 mg total) by mouth daily fenofibrate micronized (LOFIBRA) 134 mg capsule TAKE 1 CAPSULE BY MOUTH 4 TIMES A WEEK IN THE MORNINGS QUEtiapine (SEROquel) 100 mg tablet TAKE 1 TABLET BY MOUTH IN THE MORNING AND AT BEDTIME ubidecarenone (COENZYME Q10, BULK, MISC) Take by mouth daily vilazodone (VIIBRYD) 40 mg tablet TAKE 1 TABLET BY MOUTH EVERY MORNING WITH FOOD. No current facility-administered medications for this visit. The patient is allergic to: No Known Allergies The patient's past family history is notable for: No family history on file. The patient's past social history is notable for: Social History Tobacco Use Smoking status: Never Smokeless tobacco: None Substance and Sexual Activity Drug use: None Sexual activity: None Alcohol Use: Not on file Objective: Physical Exam There were no vitals filed for this visit. Alert and Oriented Hearing is intact No Wheezing No flank tenderness Abdomen is soft, non-tender, liver, spleen, bladder are not palpable Extremities are without edema : Testicles descended bilateral vasectomy scars noted. No intratesticular pathology. There is some subjective tenderness inferior aspect of the right testicle in the region of the epididymis. Therewas no evidence of torsion no hernias The following lab results were personally reviewed by me: Urinalysis negative No results found for: GLUCOSE , CALCIUM , SODIUM , POTASSIUM , CO2 , CHLORIDE , BUNSER , CREATININE No results found for: WBC , HGB , HCT , MCV , LABPLAT No results found for: PTH , CALCIUM , CAION , PHOS No results found for: PSA I have independently reviewed all pertinent labs/relevant notes, and imaging studies pertaining to this visit. No image results found. No results found. No results found for: PSA , CMP , TESTOSTERONE , URINALYSIS Orders: Orders Placed This Encounter POCT urinalysis dipstick Assessment: Yassine Vee is a 64 y.o. male with the following diagnoses: (N50.819) Pain in testicle, unspecified laterality (primary encounter diagnosis) Plan: Ambulatory referral to Urology, POCT urinalysis dipstick (Z80.42) Family history of prostate cancer Assessment/Plan: 1. Intermittent right testicular pain with any type of sexual activity. There is no anatomic abnormalities of note. We did discuss the cremasteric reflex the testicles will drop with stimulation temperature or other. I have reassured him that anatomically things were okay we would not intervene at this time he is on multiple other medications that could interact with any neuropathic medications that we might try. He does feel reassured we would be happy to see as needed. 2. Family history prostate cancer. I recommended annual HELEN and PSAs they will do with his primary care physician. Sj Perera M.D., [facility] Thank you for allowing us to participate in the care of this patient. Please do not hesitate to contact us should you have any questions or concerns at [phone]. Please note: Stereotype Caster completed using M*Modal Fluency Direct speaking software, therefore, variances/typos may occur. IFOCAL LENS INSPECTOR documented in this encounter Plan of Treatment Not on file documented as of this encounter Procedures Procedure Name Priority Date/Time Associated Diagnosis Comments POCT URINALYSIS DIPSTICK Routine 08/10/2024 2:24 PM MULTIFOCAL LENS INSPECTOR Pain in testicle, unspecified laterality documented in this encounter Results * POCT urinalysis dipstick (08/10/2024 2:24 PM MULTIFOCAL LENS INSPECTOR) Color, Urine, POC Yellow Clarity, ur, POC Clear Clear Glucose, ur, POC Negative Negative MG/DL Bilirubin, ur, POC Negative Negative, Small, Moderate, Large Ketones, ur, POC Negative Negative Specific Rogers, POC 1.030 1.003 - 1.030 Blood, ur, POC Negative Negative pH, ur, POC 6.0 5.0 - 8.0 Protein, ur, POC Negative Negative Urobilinogen, urine, POC 0.2 0.2 - 1.0 mg/dL Nitrite, ur, POC Negative Negative Leukocytes, ur, POC Negative Negative Lot Number x Urine 08/10/2024 2:24 PM MULTIFOCAL LENS INSPECTOR Sj Perera MD POINT OF CARE TEST ORDERABL ES Final Result documented in this encounter Visit Diagnoses Diagnosis Pain in testicle, unspecified laterality- Primary Family history of prostate cancer Family history of malignant neoplasm of prostate documented in this encounter Historical Medications * This list may reflect changes made after this encounter. ubidecarenone (COENZYME Q10, BULK, MISC) Take by mouth daily vilazodone (VIIBRYD) 40 mg tablet TAKE 1 TABLET BY MOUTH EVERY MORNING WITH FOOD. QUEtiapine (SEROquel) 50 mg tablet Take 1 tablet (50 mg total) by mouth 2 (two) times a day 08/14/2022 QUEtiapine (SEROquel) 100 mg tablet TAKE 1 TABLET BY MOUTH IN THE MORNING AND AT BEDTIME pravastatin (PRAVACHOL) 40 mg tablet Take 1 tablet (40 mg total) by mouth daily 10/03/2023 lisinopriL (PRINIVIL,ZESTRIL ) 10 mg tablet Take 1 tablet (10 mg total) by mouth daily 10/03/2023 fenofibrate micronized (LOFIBRA) 134 mg capsule TAKE 1 CAPSULE BY MOUTH 4 TIMES A WEEK IN THE MORNINGS dexmethylphenidat e XR (FOCALIN XR) 15 mg 24 hr capsule Take 1 capsule (15 mg total) by mouth daily 07/07/2023 cyclobenzaprine (FLEXERIL) 10 mg tablet TAKE 1 TABLET BY MOUTH EVERY NIGHT AT BEDTIME, MAY TAKE 1 TABLET DAILY NEEDED FOR HEADACHE OR MUSCLE SPASMS 08/26/2022 buPROPion XL (WELLBUTRIN XL) 150 mg 24 hr tablet Take 1 tablet (150 mg total) by mouth daily added in this encounter Orders Outpatient Referral Count Last Ordered Date Fir st Ordered Date AMB REFERRAL TO UROLOGY 1 08/10/2024 documented in this encounter Care Teams Inside Sales Trainer Relationship Specialty Start Date End Date Morelia Scott PA [address] [place] [id number] PCP - General Nurse Practitioner 06/29/24 documented as of this encounter
--- OUTSIDE RECORDS SUMMARY | 2024-09-11 17:13 | XMS_ITS | Referral Summary ---
Author Organization [facility] Address [address] [place] [phone] Care Team Providers Care Water Treatment Specialist Name Role Phone Morelia Scott Primary Care Provider + Encounters Date Type Department Care Team Description 08/10/2024 2:00 PM [facility] Office Visit [facility] Surgery [address] [facility] [place] [id number] Sj Perera MD Pain in testicle, unspecified laterality (Primary Dx); Family history of prostate cancer from Last 3 Months Allergies No known active allergies Medications buPROPion [...] Aneurysm of ascending aorta without rupture 07/23 Immunizations Name Administration Dates Next Due Influenza, [...] on file Sexual Orientation Not on file Plan of Treatment Not on file Procedures Procedure Name Priority Date/Time Associated Diagnosis Comments POCT URINALYSIS DIPSTICK Routine 08/10/2024 2:24 PM [facility] Pain in testicle, unspecified laterality from Last 3 Months Results * POCT urinalysis dipstick (08/10/2024 2:24 PM [facility] [facility]) Color, Urine, POC Yellow Clarity, ur, POC Clear Clear Glucose, ur, POC Negative Negative MG/DL Bilirubin, ur, POC Negative Negative, Small, Moderate, Large Ketones, ur, POC Negative Negative Specific [place], POC 1.030 1.003 - 1.030 Blood, ur, POC Negative Negative pH, ur, POC 6.0 5.0 - 8.0 Protein, ur, POC Negative Negative Urobilinogen, urine, POC 0.2 0.2 - 1.0 mg/dL Nitrite, ur, POC Negative Negative Leukocytes, ur, POC Negative Negative Lot Number x Urine 08/10/2024 2:24 PM [facility] Sj Perera MD POINT OF CARE TEST ORDERABL ES Final Result from Last 3 Months Insurance MEDICARE [facility] Care Teams Water Treatment Specialist Relationship Specialty Start Date End Date Morelia Scott PA [address] [place] [phone] PCP - General Nurse Practitioner 06/29/24
== END 2024-09-06 07:04 | disposition home or self-care (01) ==
PROVIDERS: PCP Registered Nurse; Visit Provider Registered Nurse
DX: Z87.891 Personal history of nicotine dependence (principal)
CPT/HCPCS: 76706